=== PATIENT | male | born 1930 | race Hispanic/Latino ===

== ENCOUNTER 2016-06-14 11:17 | Observation (INO) | payer MEDICARE, OTHER ==
[2016-06-14 11:35] VITALS: BMI 21.7
[2016-06-14 12:02] LABS: ADD MANUAL DIFF? NO
--- NOTE | 2016-06-14 12:02 | ED PDOC ---
Arrival/HPI - History of Present Illness Time/Duration: Prior to Arrival, 4-6 hours Symptom Onset: Sudden Symptom Course: Improving Severity Level: Moderate - General Chief Complaint: Dizziness/Lightheaded Time Seen by Provider: 06/14/16 11:27 - History of Present Illness Narrative History of Present Illness (Text): 06/14/16 11:59 This is an 86 year old male with a PMH notable for HTN, HLD, CAD, and glaucoma presenting with acute onset dizziness and weakness. The patient notes that he woke up this morning feeling OK used the bathroom and went back to sleep. When he woke for the second time, he reports that the room was spinning and he was weak. He also reports nausea. His weakness was primarily in his lower extremities. The patient also reports that his left arm "feels funny." The patient has a known history of CAD. His gave him 4 baby aspirin this morning at 10am. The patient denies vomiting, headache, chest pain, and shortness of breath. PMH: HTN, HLD, CAD, Glaucoma Surg: Cardiac Stents x4, Total Hip L Allergy: Plavix (rash) Social: Quit smoking and drinking 15yrs ago, no illicit drugs PMD: Dr. Villegas [employer] Paint Specialist: Dr Steele (Jose Mccauley) Past Medical History - Provider Review Nursing Documentation Reviewed: Yes - Travel History Have you recently traveled outside [place] w/in the past 3 mons?: No - Infectious Disease Hx of Infectious Diseases: None - Tetanus Immunization Tetanus Immunization: Unknown - Cardiac Hx Coronary Artery Disease: Yes (stents x 4 ) Hx Hypertension: Yes - Psychiatric Hx Substance Use: No - Surgical History Hx Angioplasty: Yes Hx Joint Replacement: Yes (Left hip replacement) - Patient History Narrative Patient History: This is an 86 year old male with a PMH notable for HTN, HLD, CAD, and glaucoma presenting with acute onset dizziness and weakness. (Jose Mccauley) Family/Social History - Physician Review Nursing Documentation Reviewed: Yes Family/Social History: No Known Family HX Smoking Status: Former Smoker (quit 15 years ago) Hx Alcohol Use: No (quit 15 years ago) Hx Substance Use: No Allergies/Home Meds Allergies/Adverse Reactions: Allergies clopidogrel bisulfate [From Plavix] Allergy (Verified 06/14/16 11:36) ANAPHYLAXIS Home Medications: Home Meds Medication Instructions Recorded Confirmed Metoprolol Succinate [Toprol XL] 50 mg PO DAILY 11/17/12 06/14/16 Simvastatin 10 mg PO DAILY 06/14/16 06/14/16 Review of Systems - Physician Review All systems were reviewed & negative as marked: Yes - Review of Systems Constitutional: Fatigue. absent: Fevers Eyes: absent: Vision Changes ENT: absent: Hearing Changes, Tinnitus Respiratory: absent: SOB, Cough Cardiovascular: absent: Chest Pain, Palpitations, HEATH, Syncope Gastrointestinal: Nausea. absent: Abdominal Pain, Stool Changes, Constipation, Diarrhea, Vomiting, Hematochezia, Hematemesis Genitourinary Male: absent: Dysuria, Frequency Musculoskeletal: absent: Back Pain, Neck Pain Neurological: Dizziness, Disequilibrium. absent: Headache, Focal Weakness, Speech Changes, Facial Droop Endocrine: absent: Diaphoresis Physical Exam Vital Signs Reviewed: Yes Temperature: Afebrile Blood Pressure: Normal Pulse: Bradycardic Respiratory Rate: Normal Appearance: Positive for: Well-Appearing, Non-Toxic, Comfortable Pain Distress: None Mental Status: Positive for: Alert and Oriented X 3 Finger Stick Blood Glucose: 86 - Systems Exam Head: Present: Atraumatic, Normocephalic Pupils: Present: PERRL. No: Pinpoint Extroacular Muscles: Present: EOMI. No: Gaze Palsy Conjunctiva: Present: Normal. No: Injected Mouth: Present: Moist Mucous Membranes, Normal Tounge Respiratory/Chest: Present: Clear to Auscultation, Good Air Exchange. No: Respiratory Distress, Accessory Muscle Use Cardiovascular: Present: Murmurs (systolic ejection murmurs: aortic stenosis, mitral regurgitation likely ), Normal S1, S2, Bradycardic. No: Regular Rate and Rhythm Upper Extremity: Present: Normal Inspection, Normal ROM, NORMAL PULSES, Neurovascularly Intact, Capillary Refill < 2s. No: Cyanosis, Edema Lower Extremity: Present: Normal Inspection, NORMAL PULSES, Normal ROM, Neurovascularly Intact. No: Edema, CALF TENDERNESS, Bashir's Sign Neurological: Present: GCS=15, CN II-XII Intact Skin: Present: Warm, Dry, Normal Color. No: Rashes Psychiatric: Present: Alert, Oriented x 3 Vital Signs Temp Pulse Resp BP Pulse Ox 06/14/16 11:52 98.0 F 59 L 18 159/83 H 95 Medical Decision Making - Lab Interpretations I have reviewed the lab results: Yes Interpretation: All labs normal - RAD Interpretation Records And Information Manager: ED Physician, Radiologist ED Course and Treatment: Patient Seen With Resident: In agreement with resident note which contains more details about the patient. Patient was seen and evaluated with resident. Came up with plan and treatment together. (Marlon Riddle DO) 06/14/16 12:10 Impression: This is an 86 year old male with a PMH notable for HTN, HLD, CAD, and glaucoma presenting with acute onset dizziness and weakness. The patient appears comfortable. Baseline CHERIE score 4 and HEART score 5 prior to troponin readings. Patient's history suspicious for cardiovascular event. Patient received aspirin 81mg x4 PO around 10AM. Differential: Symptomatic Aortic Stenosis NV CVA Dehydration UTI Plan: CBC, CMP, Mag, Phos, TSH, Troponin, BNP PT, PTT EKG CXR CT Head 1L NS bolus Prior Visits: No Inpatient Admissions Progress Note: Patient seen and examined at the bedside. No acute distress. Patient will have full cardiac and neuro workup. Initial laboratory values within normal limits. The patient is pending CT head without contrast for CVA evaluation. 06/14/16 14:54 Patient seen re-examined at bedside. Minimal improvement of symptoms. CT and XR results appreciated. The patient is clinically stable. The patient will be admitted under Dr. Diallo's service. (Jose Mccauley) - Lab Interpretations Lab Results: 06/14/16 11:40 06/14/16 11:40 Lab Results 06/14/16 11:52: NT-Pro-B Natriuret Pep 456 H 06/14/16 11:40: WBC 5.1, RBC 4.00, Hgb 14.1, Hct 40.6 L, MCV 101.5, MCH 35.3 H, MCHC 34.7, RDW 13.0, Plt Count 158, MPV 10.8, Gran % 73.8 H, Lymph % (Auto) 14.5 L, Gilmer % (Auto) 7.4 H, Eos % (Auto) 4.1, Baso % (Auto) 0.2, Gran # 3.78, Lymph # 0.7 L, Gilmer # 0.4, Eos # 0.2, Baso # 0.01, PT 11.5, INR 1.06, APTT 29.6 , Sodium 135, Potassium 4.6, Chloride 100, Carbon Dioxide 27, Anion Gap 13, BUN 15, Creatinine 0.9, Est GFR ( Amer) > 60, Est GFR (Non-Af Amer) > 60, Random Glucose 108, Calcium 9.1, Phosphorus 3.7, Magnesium 2.1, Total Bilirubin 0.8, AST 26, ALT 17, Alkaline Phosphatase 50, Troponin I < 0.01, Total Protein 7.0, Albumin 3.9, Globulin 3.1, Albumin/Globulin Ratio 1.3, TSH 3rd Generation 1.39 06/14/16 11:37: POC Glucose (mg/dL) 86 - RAD Interpretation Narrative RAD Interpretations (Text): 06/14/16 12:38 HISTORY: r/o infiltrate COMPARISON: Chest x-ray performed 12/01/13 TECHNIQUE: Chest, one view. FINDINGS: LUNGS: Subtle medial right lower lobe opacity may reflect atelectasis or infiltrate. More focal hypodensity in the left mid lung zone may also reflect consolidation however prominent vasculature is not excluded. Biapical pleural thickening. Please note that chest x-ray has limited sensitivity for the detection of pulmonary masses. PLEURA: No significant pleural effusion identified. No definite pneumothorax . CARDIOVASCULAR: Heart size appears within normal limits. Atherosclerotic calcifications of the aorta. OSSEOUS STRUCTURES: Degenerative changes. VISUALIZED UPPER ABDOMEN: Unremarkable. OTHER FINDINGS: None. IMPRESSION: Subtle medial right lower lobe opacity may reflect atelectasis or infiltrate. More focal hypodensity in the left mid lung zone may also reflect consolidation however prominent vasculature is not excluded. Recommend follow-up upon completion of treatment for acute symptoms in order to assess for complete resolution. PROCEDURE: CT HEAD WITHOUT CONTRAST. HISTORY: dizziness/weakness COMPARISON: None available. TECHNIQUE: Axial computed tomography images were obtained through the head/brain without intravenous contrast. Radiation dose: Total exam DLP = 725.84 mGy-cm. FINDINGS: HEMORRHAGE: No intracranial hemorrhage. BRAIN: Diffuse atrophy with prominence of the ventricles and sulci noted. No mass effect or edema. Intracranial atherosclerotic calcifications. Encephalomalacia within the right cerebellum. Scattered periventricular and subcortical white matter hypodensities, which are nonspecific, but often seen with chronic microvascular ischemic disease. Please note that MRI with diffusion imaging is more sensitive in the detection of acute ischemic event. VENTRICLES: No hydrocephalus. CALVARIUM: Unremarkable. PARANASAL SINUSES: Unremarkable as visualized. No significant inflammatory changes. MASTOID AIR CELLS: Unremarkable as visualized. No inflammatory changes. OTHER FINDINGS: None. 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 Scattered nonspecific white matter changes. Generalized atrophy. (Jose Mccauley) Radiology Orders: 06/14/16 11:45 CHEST PORTABLE [RAD] Stat 06/14/16 11:52 HEAD W/O CONTRAST [CT] Stat - Medication Orders Current Medication Orders: Discontinued Medications Sodium Chloride (Sodium Chloride 0.9%) 1,000 mls @ 999 mls/hr IV .Q1H1M STA Stop: 06/14/16 13:40 Disposition/Present on Arrival - Present on Arrival Any Indicators Present on Arrival: No History of DVT/PE: No History of Uncontrolled Diabetes: No Urinary Catheter: No History of Decub. Ulcer: No History Surgical Site Infection Following: None - Disposition Have Diagnosis and Disposition been Completed?: Yes Disposition Time: 12:30 Patient Plan: Admission - Disposition Diagnosis: Dizziness, Weakness Disposition: HOSPITALIZED Patient Problems: Current Active Problems Problem Status Diagnosed Dizziness Acute Weakness Acute Condition: FAIR Discharge Instructions (ExitCare): Weakness (ED) Referrals: Roby Villegas MD [Primary Care Provider] - Follow up with primary
[2016-06-14 12:07] LABS: BASO # 0.01 K/mm3 (0.0-2.0); BASO % 0.2 % (0.0-3.0); EOS # 0.2 (0.0-0.7); EOS % 4.1 % (1.5-5.0); GRAN # 3.78 (1.4-6.5); GRAN % 73.8 % (50.0-68.0); HEMATOCRIT 40.6 % (42.0-52.0); LYMPH # 0.7 (1.2-3.4); LYMPH % 14.5 % (22.0-35.0); MEAN CELL VOLUME 101.5 fL (80.0-105.0); MEAN CORPUSCULAR HEMOGLOBIN 35.3 pg (25.0-35.0); MEAN CORPUSCULAR HGB CONC 34.7 g/dl (31.0-37.0); MEAN PLATELET VOLUME 10.8 fl (7.0-11.0); MONO # 0.4 (0.1-0.6); MONO % 7.4 % (1.0-6.0); PLATELET COUNT 158 10^3/uL (120.0-450.0); WHITE BLOOD COUNT 5.1 10^3/ul (4.5-11.0)
[2016-06-14 12:16] LABS: ALB/GLOB RATIO 1.3 (1.1-1.8); ALKALINE PHOSPHATASE 50 U/L (38-133); ALT/SGPT 17 U/L (7-56); AST/SGOT 26 U/L (15-59); BILIRUBIN,TOTAL 0.8 mg/dL (0.2-1.3); BLOOD UREA NITROGEN 15 mg/dL (7-21); CALCIUM 9.1 mg/dL (8.4-10.5); CARBON DIOXIDE 27 mmol/L (21-33); CHLORIDE 100 mmol/L (98-107); GFR AFRICAN-AMERICAN > 60; GLUCOSE,RANDOM 108 mg/dL (70-110); MAGNESIUM 2.1 mg/dL (1.7-2.2); PHOSPHOROUS 3.7 mg/dL (2.5-4.5); POTASSIUM 4.6 mmol/L (3.6-5.0); SODIUM 135 mmol/L (132-148)
[2016-06-14 12:18] LABS: INR 1.06 (0.93-1.08); PARTIAL THROMBOPLASTIN TIME 29.6 Seconds (23.7-30.8)
[2016-06-14 12:27] LABS: TROPONIN I < 0.01 ng/mL
--- NOTE | 2016-06-14 12:38 | RAD ---
HISTORY: r/o infiltrate COMPARISON: Chest x-ray performed 12/01/13 TECHNIQUE: Chest, one view. FINDINGS: LUNGS: Subtle medial right lower lobe opacity may reflect atelectasis or infiltrate. More focal hypodensity in the left mid lung zone may also reflect consolidation however prominent vasculature is not excluded. Biapical pleural thickening. Please note that chest x-ray has limited sensitivity for the detection of pulmonary masses. PLEURA: No significant pleural effusion identified. No definite pneumothorax . CARDIOVASCULAR: Heart size appears within normal limits. Atherosclerotic calcifications of the aorta. OSSEOUS STRUCTURES: Degenerative changes. VISUALIZED UPPER ABDOMEN: Unremarkable. OTHER FINDINGS: None. IMPRESSION: Subtle medial right lower lobe opacity may reflect atelectasis or infiltrate. More focal hypodensity in the left mid lung zone may also reflect consolidation however prominent vasculature is not excluded. Recommend follow-up upon completion of treatment for acute symptoms in order to assess for complete resolution.
[2016-06-14] MEDS ORDERED: Sodium Chloride 0.9% 1,000 ML IV STA (12:40)
--- NOTE | 2016-06-14 13:29 | CT ---
PROCEDURE: CT HEAD WITHOUT CONTRAST. HISTORY: dizziness/weakness COMPARISON: None available. TECHNIQUE: Axial computed tomography images were obtained through the head/brain without intravenous contrast. Radiation dose: Total exam DLP = 725.84 mGy-cm. FINDINGS: HEMORRHAGE: No intracranial hemorrhage. BRAIN: Diffuse atrophy with prominence of the ventricles and sulci noted. No mass effect or edema. Intracranial atherosclerotic calcifications. Encephalomalacia within the right cerebellum. Scattered periventricular and subcortical white matter hypodensities, which are nonspecific, but often seen with chronic microvascular ischemic disease. Please note that MRI with diffusion imaging is more sensitive in the detection of acute ischemic event. VENTRICLES: No hydrocephalus. CALVARIUM: Unremarkable. PARANASAL SINUSES: Unremarkable as visualized. No significant inflammatory changes. MASTOID AIR CELLS: Unremarkable as visualized. No inflammatory changes. OTHER FINDINGS: None. 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 Scattered nonspecific white matter changes. Generalized atrophy.
[2016-06-14 15:38] LABS: PH,URINE 6.5 (4.7-8.0); URINE BILIRUBIN NEGATIVE (NEGATIVE); URINE BLOOD LARGE (NEGATIVE); URINE GLUCOSE (UA) NEGATIVE (NEGATIVE); URINE KETONE NEGATIVE (NEGATIVE); URINE LEUKOCYTE ESTERASE NEGATIVE Leu/uL (NEGATIVE); URINE PROTEIN NEGATIVE mg/dL (<30 mg/dL); URINE UROBILINOGEN 0.2 E.U./dL (<1 E.U./dL)
[2016-06-14 15:41] LABS: URINE APPEARANCE CLEAR (CLEAR); URINE COLOR YELLOW (YELLOW)
[2016-06-14 16:47] LABS: URINE BACTERIA FEW (NEG); URINE EPITHELIAL CELLS 0 - 2 /hpf (0-5); URINE RBC 15 - 20 /hpf (0-2); URINE WBC 0 - 2 /hpf (0-6)
[2016-06-14] MEDS ORDERED: Sodium Chloride 0.45% 1,000 ML IV SCH (19:00)
--- NOTE | 2016-06-15 09:43 | CARD ---
APPROVED REPORT EKG Measurement Heart [id number] <Conclusion> Sinus bradycardia with 1st degree AV block Left anterior fascicular block RVCD
[2016-06-15] MEDS ORDERED: Metoprolol Succinate 50 mg XL Tab PO SCH (10:00)
--- NOTE | 2016-06-15 12:08 | HP ---
CHIEF COMPLAINT AND HISTORY OF PRESENT ILLNESS: This is an 86-year-old male who is coming into the [facility] with a past medical history of hypertension, dyslipidemia, coronary artery disease and glauco ma. He was having dizziness and weakness. The patient said he had woken up out of bed in the mornin g and gone to the bathroom. He decided to go back to sleep. When he woke up a second time he says t hat the room was spinning. He says he had a funny feeling in his left arm. The patient was given as pirin by his and brought in for further evaluation. The patient denies any chest pain or headac hes. No shortness of breath. No weakness in the arms or legs this morning. No abdominal pain, no b ack pain, no dysuria or frequency, no nocturia. He says his symptoms are back to normal. ALLERGIES: PLAVIX. HE GETS A RASH. PAST MEDICAL HISTORY: 1. Hypertension. 2. Dyslipidemia. 3. Coronary artery disease. 4. Glaucoma after the coronary right stent placement. PAST SURGICAL HISTORY: Total left hip surgery. SOCIAL HISTORY: He smoked, but quit about 15 years ago. He denies any drug use. FAMILY HISTORY: Noncontributory. PHYSICAL EXAMINATION: VITAL SIGNS: She has a temperature of 97.7, pulse of 70, blood pressure 143/72, respirations 17, O2 saturation 92%. Height is 6 feet, weight is 160 pounds, BMI is 21.7. GENERAL: Patient lying in bed, flat, and in no apparent distress. HEAD AND NECK EXAM: Atraumatic, normocephalic. Conjunctivae are pink. Throat clear and mouth with moist mucosa. Oropharynx benign. EYES: Extraocular movements are intact. PERRLA. NECK: Supple. No JVD, thyromegaly, or adenopathy. No bruits. HEART: S1 and S2 regular rate and rhythm. No murmurs, rubs, or gallops. LUNGS: Clear to auscultation bilaterally. No wheezing rales or rhonchi appreciated. No retraction s on exam. ABDOMEN: Soft, nontender, nondistended. Bowel sounds are positive in all quadrants. No rebound. No hepatosplenomegaly. EXTREMITIES: No cyanosis, clubbing, or edema. NEURO: No facial asymmetry, tongue is midline, no uvula deviation. Power is 5/5 in upper extremity and 5/5 in lower extremity. Sensation is normal in upper extremity and lower extremity. PSYCH: Awake, alert, oriented x3. No anxiety or depression symptoms. Good insight. Normal affec t. : No CVA tenderness VASCULAR: 2+ pulses in carotid and pedal pulses. SKIN: No erythema or abnormal nodules noted. SPINE: Normal curvature. LYMPHADENOPATHY: No anterior cervical or posterior cervical adenopathy. No inguinal adenopathy. LABORATORY DATA: White count of 5.1, hemoglobin 14.1, platelet count is 158. INR is 1.0. Creatinin e is 0.9, troponin is 0.01. He has blood that is large, nitrites are negative, bilirubin is negative . IMAGIN. CT of the head done shows encephalomalacia with right cerebellum consistent with remote ischemia. 2. EKG shows a heart rate of 56, sinus nuvia. QTc is 436. No ST-T changes. 3. Chest x-ray done shows subtle medial right lower lobe opacity, may reflect atelectasis. ASSESSMENT: 1. Dizziness. 2. Hypertension. 3. Coronary artery disease. 4. Dyslipidemia. PLAN: The patient is currently comfortable. He is going to be admitted to the hospital. The patien t is going to be seen by Dr. Steele and Dr. Nicole. The patient was given IV fluids. I will discont inue his IV fluids at this point. He is on his Lipitor, this will be continued. He is also going to be continuing on his metoprolol. He is on a heart healthy diet. We will await further input from t he consultants. If they clear the patient the patient should be able to be discharged home to follow up as an outpatient. CONDITION: Stable. ACTIVITY: Increase as tolerated. Iftikhar Arellano MD cc: [id number] TT: 06/15/2016 12:07:55 ok
--- NOTE | 2016-06-15 13:49 | CON ---
DATE: 06/15/2016 The patient in room 378, bed 1. REASON FOR CONSULTATION AND FOLLOWUP: Coronary artery disease, history of stent insertion, vertigo, hypertension, near syncope. HISTORY OF PRESENT ILLNESS: The patient is an 86-year-old male with a known case of hypertension, co ronary artery disease status post 4 stents insertion in 2007, admitted with the history that he was h aving vertigo-like symptoms. The patient felt that the room and roof are spinning around and also he was having nausea associated with that and he felt that he was going to fall down, but he did not fa ll down. The patient is now sitting in chair comfortably without any cardiac symptoms and his vertig o symptoms have also improved now and there is no history of chest pain, shortness of breath or palpi tation. PAST MEDICAL HISTORY: Positive for coronary artery disease, status post stents insertion in 2001 at [facility], history of hypertension, glaucoma. PAST SURGICAL HISTORY: The patient had a left hip replacement and after replacement he has twice mor e surgery on the same hip. PERSONAL HISTORY: The patient used to smoke 1 pack a day until 2001. The patient used to drink heav y at a younger age, but he also will stopped drinking and smoking in 2001. Now he drinks only social ly. ALLERGIES: THE PATIENT SAYS THAT HE IS ALLERGIC TO PLAVIX BECAUSE HE GETS A RASH. REVIEW OF SYSTEMS: All the systems were reviewed; positive mentioned in the history, others were neg ative. MEDICATIONS: The patient's list of medication at home is Toprol-XL 50 mg p.o. daily, simvastatin 10 mg p.o. daily. PHYSICAL EXAMINATION: VITAL SIGNS: Blood pressure 143/72, respirations 17, pulse 70, temperature 97.7. HEAD: Normocephalic. EYES: Pupils normal. Conjunctivae normal. NOSE AND THROAT: Normal. NECK: JVP low. Carotid equal. THORAX: AP diameter normal. LUNGS: Clear. CARDIOVASCULAR: S1, S2, pansystolic murmur grade III/ on apex radiating towards axilla with no rub . ABDOMEN: Soft, nontender, no organomegaly. EXTREMITIES: No clubbing, no cyanosis. LABORATORY DATA: WBC 5.1, hemoglobin 14.1, hematocrit 40.6, platelet 158. Troponin less than 0.01, which is normal and natriuretic pep 456, which is not significant. TSH 1.39, which is normal. Sodium 135, potassium 4.6, BUN 15, creatinine 0.9. Calcium, phosphorus, magnesium normal. AST, ALT normal. Total protein and albumin normal. EKG showed sinus bradycardia at 56 per minute, first-degree AV block, left anterior fascicular block, RVCD of type. Chest x-ray: Septal medial right lower lobe opacity may reflect atelectasis or infiltrate. More focal hypodensity in the left mid lung zone may also reflect consolidation, howeve r, prominent vasculature is not excluded. Recommend followup. DIAGNOSES: Vertigo, near syncope, hypertension, coronary artery disease, history of stents insertion in 2007, hyperlipidemia. PLAN: The patient is getting atorvastatin 10 mg daily. The patient is getting Toprol-XL [address] The patient's symptoms of vertigo have improved. From cardiac point of view, patient's conditio n is stable. We will continue same medication and no further cardiac workup is contemplated at this point. We will follow with you. Ankur Steele MD cc: [id number] TT: 06/15/2016 13:48:34 Confirmation # [id number] Dictation # [id number] mn
[2016-06-15 18:26] VITALS: PULSE 50
[2016-06-15 18:44] VITALS: BP 150/83; RESP 18; TEMP 97.8; O2SAT 96
--- NOTE | 2016-06-15 19:13 | CON ---
DATE: 06/15/2016 HISTORY OF PRESENT ILLNESS: This is an 86-year-old white male with past medical history of hypertens ion, coronary artery disease and came to the hospital because of dizziness with a spinning sensation. No nausea, no vomiting. The patient did not fall, and now feels comfortable. Symptoms disappeared . PAST MEDICAL HISTORY: Coronary artery disease, hypertension and glaucoma. PAST SURGICAL HISTORY: Left hip replacement. PERSONAL HISTORY: Smokes, ex-drinking. ALLERGIES: PLAVIX. REVIEW OF SYSTEMS: A 10-point review of system was negative. PHYSICAL EXAMINATION: HEENT: Normocephalic, atraumatic. NECK: Supple. NEUROLOGIC: Alert, awake, oriented x 3. No aphasia. Cranial nerves II through XII were tested. Pu pils reactive. EOM intact. Spontaneous movement of the extremities noted. Deep tendon reflexes 1+. Both plantars are downgoing. Sensory appears intact. Cerebellar, gait normal. IMPRESSION: Dizziness, possibly benign positional. CAT scan of the head was done and showed encepha lomalacia of the right cerebellum. Workup in progress. PLAN: Continue present management. We will follow up. Doni Nicole MD cc: [id number] TT: 06/15/2016 19:12:17 Confirmation # [id number] Dictation # [id number]
== END 2016-06-15 18:45 | disposition home or self-care (01) ==
LOC: ED 11:17 → ERH 14:56 → 3RSO 18:28
PROVIDERS: ADMIT Internal Medicine Medical Oncology; ATTEND Internal Medicine Nephrology
DX: R55 Syncope and collapse (principal); R42 Dizziness and giddiness; I10 Essential (primary) hypertension; I25.10 Atherosclerotic heart disease of native coronary artery without angina pectoris; E78.5 Hyperlipidemia, unspecified; H40.9 Unspecified glaucoma; G93.89 Other specified disorders of brain; Z95.5 Presence of coronary angioplasty implant and graft; Z87.891 Personal history of nicotine dependence; Z96.642 Presence of left artificial hip joint
CPT/HCPCS: 70450; 71010; 80053; 81001; 82948; 83735; 83880; 84100; 84443; 84484; 85025; 85610; 85730; 87086; 93005; 96360; 97116; 97162; 97530; 99285; G0378; G8978; G8979; J7030; J7040

== ENCOUNTER 2017-06-30 12:44 | Inpatient (IN) | payer MEDICARE ==
--- NOTE | 2017-06-30 13:26 | ED PDOC ---
Arrival/HPI - General Chief Complaint: Weakness/Neurological Deficit Time Seen by Provider: 06/30/17 12:55 Historian: Patient - History of Present Illness Narrative History of Present Illness (Text): 06/30/17 13:12 A 87 year old male, who was recently diagnosed with lung and kidney cancer, presents to the emergency department complaining of fever and chills since last night. Patient reports he was at [facility] last week for a biopsy of his kidney, however experienced multiple complication and was admitted for 1 week. 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 Patient had a stent placed in left ureter and instrumented several times while in the hospital. Patient had a cr catheter placed in for 1 month and removed yesterday. Patient denies any nausea, vomiting, abdominal pain, hematuria, chest pain, shortness of breath or any other complaints. Patient also reports new lesions in left lung (most likely left lower lobe) which has been confirmed with a PET scan and notes a CT guided biopsy is needed. Patient states this is not related to urothelial cancer but instead a second primary. Time/Duration: Other (last night) Symptom Course: Unchanged Context: Home Past Medical History - Provider Review Nursing Documentation Reviewed: Yes - Infectious Disease Hx of Infectious Diseases: None - Tetanus Immunization Tetanus Immunization: Unknown - Cardiac Hx Hypertension: Yes - Pulmonary Hx Respiratory Disorders: Yes Other/Comment: Lung CA - Neurological Hx Neurological Disorder: No - HEENT Hx Glaucoma: Yes - Renal Hx Renal Disorder: Yes Other/Comment: Kidney CA - Musculoskeletal/Rheumatological Hx Falls: No - Gastrointestinal Hx Gastrointestinal Disorders: No - Genitourinary/Gynecological Hx Genitourinary Disorders: Yes Other/Comment: Past urinary cath removed yesterday. 06/29/2017 - Psychiatric Hx Substance Use: No - Surgical History Hx Angioplasty: Yes Hx Joint Replacement: Yes (Left hip replacement) Family/Social History - Physician Review Nursing Documentation Reviewed: Yes Family/Social History: No Known Family HX Smoking Status: Former Smoker Hx Alcohol Use: No Hx Substance Use: No Allergies/Home Meds Allergies/Adverse Reactions: Allergies clopidogrel bisulfate [From Plavix] Allergy (Verified 06/30/17 13:10) ANAPHYLAXIS Home Medications: Home Meds Medication Instructions Recorded Confirmed Unobtainable 06/30/17 06/30/17 Review of Systems - Physician Review All systems were reviewed & negative as marked: Yes - Review of Systems Constitutional: Fevers, Night Sweats Respiratory: absent: SOB Cardiovascular: absent: Chest Pain Gastrointestinal: absent: Abdominal Pain, Nausea, Vomiting Genitourinary Male: absent: Hematuria Physical Exam Vital Signs Temp Pulse Resp BP Pulse Ox 06/30/17 19:11 103.3 F H 06/30/17 15:28 80 20 116/52 L 96 06/30/17 13:12 98.9 F 94 H 16 132/75 93 L Appearance: Positive for: Well-Appearing, Non-Toxic, Comfortable Pain Distress: None Mental Status: Positive for: Alert and Oriented X 3 - Systems Exam Head: Present: Atraumatic, Normocephalic Pupils: Present: PERRL Extroacular Muscles: Present: EOMI Conjunctiva: Present: Normal Mouth: Present: Moist Mucous Membranes Neck: Present: Normal Range of Motion Respiratory/Chest: Present: Clear to Auscultation, Good Air Exchange. No: Respiratory Distress, Accessory Muscle Use Cardiovascular: Present: Regular Rate and Rhythm, Normal S1, S2. No: Murmurs Abdomen: No: Tenderness, Distention, Peritoneal Signs Upper Extremity: Present: Normal Inspection. No: Cyanosis, Edema Lower Extremity: Present: Normal Inspection. No: Edema Neurological: Present: GCS=15, CN II-XII Intact, Speech Normal Skin: Present: Warm, Dry, Normal Color. No: Rashes Psychiatric: Present: Alert, Oriented x 3, Normal Insight, Normal Concentration Medical Decision Making ED Course and Treatment: 06/30/17 13:12 Impression: A 87 year old male, with a history of urothelial cancer, complaining of fever and chills. Plan: -- Chest xray -- EKG -- Labs -- Blood and Urine culture -- Urinalysis -- IV fluids, Vancomycin and Zosyn -- Reassess and disposition Progress Notes: Case discussed with Dr. Khalil, requests a full septic workup and recommends Vancomycin and Zosyn. - Medication Orders Current Medication Orders: Discontinued Medications Acetaminophen (Tylenol 325mg Tab) 650 mg PO STAT STA Stop: 06/30/17 19:04 Last Admin: 06/30/17 19:11 Dose: 650 mg MAR Pain/Vitals Document 06/30/17 19:11 (Rec: 06/30/17 19:11 [facility] [id number] Pain Reassessment Is This A Pain ReAssessment? No Vitals Temperature (97.6 F-99.6 F) 103.3 F Temperature Source Rectal Sodium Chloride (Sodium Chloride 0.9%) 1,000 mls @ 999 mls/hr IV .Q1H1M STA Stop: 06/30/17 14:57 Last Admin: 06/30/17 14:58 Dose: 999 mls/hr eMAR Start Stop Document 06/30/17 14:58 LA (Rec: 06/30/17 14:59 LA [id number]) Intravenous Solution Start Date 06/30/17 Start Time 14:58 End Date 06/30/17 End time 15:59 Total Infusion Time 61 Vancomycin HCl (Vancomycin 1gm) 1 gm in 250 mls @ 167 mls/hr IVPB STAT STA PRN Reason: Protocol Stop: 06/30/17 15:26 Last Admin: 06/30/17 16:09 Dose: 167 mls/hr eMAR Start Stop Document 06/30/17 16:09 LA (Rec: 06/30/17 16:10 LA [id number]) Intravenous Solution Start Date 06/30/17 Start Time 16:09 End Date 06/30/17 End time 17:39 Total Infusion Time 90 Piperacillin Sod/Tazobactam Sod (Zosyn 3.375 In Ns 100ml) 100 mls @ 200 mls/hr IVPB STAT STA PRN Reason: Protocol Stop: 06/30/17 14:26 Last Admin: 06/30/17 14:57 Dose: 200 mls/hr eMAR Start Stop Document 06/30/17 14:57 LA (Rec: 06/30/17 14:58 LA [id number]) Intravenous Solution Start Date 06/30/17 Start Time 14:57 End Date 06/30/17 End time 15:27 Total Infusion Time 30 - Scribe Statement The provider has reviewed the documentation as recorded by the Luis Damon Provider Scribe Attestation: All medical record entries made by the Scribe were at my direction and personally dictated by me. I have reviewed the chart and agree that the record accurately reflects my personal performance of the history, physical exam, medical decision making, and the department course for this patient. I have also personally directed, reviewed, and agree with the discharge instructions and disposition. Disposition/Present on Arrival - Present on Arrival Any Indicators Present on Arrival: Yes History of DVT/PE: No History of Uncontrolled Diabetes: No Urinary Catheter: No History of Decub. Ulcer: No History Surgical Site Infection Following: CABG - Mediastinitis - Disposition Have Diagnosis and Disposition been Completed?: Yes Diagnosis: Fever, UTI (urinary tract infection) Disposition: HOME/ ROUTINE Disposition Time: 17:00 Patient Plan: Admission Condition: GOOD
[2017-06-30] MEDS ORDERED: Sodium Chloride 0.9% 1,000 ML IV STA (13:57)
[2017-06-30] MEDS ORDERED: Vancomycin 1gm in NS 250ml 1 GM/250 ML BAG IVPB STA (13:57)
[2017-06-30] MEDS ORDERED: Piperacillin/Tazobact 3.375 gm 100 ML IVPB STA (13:57)
[2017-06-30 15:28] LABS: VENOUS BLOOD GAS BASE EXCESS 2.1 mmol/L (0.0-2.0); VENOUS BLOOD GAS PO2 55 mm/Hg (30-55); VENOUS BLOOD PH 7.47 (7.32-7.43)
[2017-06-30 15:29] LABS: BASO # 0.02 K/mm3 (0.0-2.0); BASO % 0.2 % (0.0-3.0); EOS % 0.2 % (1.5-5.0); GRAN # 11.72 (1.4-6.5); HEMOGLOBIN 12.7 g/dL (14.0-18.0); LYMPH # 0.3 (1.2-3.4); LYMPH % 2.5 % (22.0-35.0); MEAN CELL VOLUME 99.7 fl (80.0-105.0); MEAN CORPUSCULAR HEMOGLOBIN 34.6 pg (25.0-35.0); MEAN CORPUSCULAR HGB CONC 34.7 g/dl (31.0-37.0); MEAN PLATELET VOLUME 10.9 fl (7.0-11.0); MONO # 0.9 (0.1-0.6); MONO % 7.1 % (1.0-6.0); PLATELET COUNT 134 10^3/uL (120.0-450.0); RBC 3.67 10^6/uL (3.5-6.1); RED CELL DISTRIBUTION WIDTH 13.3 % (11.5-14.5)
[2017-06-30 15:38] LABS: URINE APPEARANCE TURBID (CLEAR); URINE BILIRUBIN NEGATIVE (NEGATIVE); URINE BLOOD LARGE (NEGATIVE); URINE COLOR YELLOW (YELLOW); URINE GLUCOSE (UA) NEGATIVE (NEGATIVE); URINE LEUKOCYTE ESTERASE LARGE Leu/uL (NEGATIVE); URINE PROTEIN 30 mg/dL (<30 mg/dL); URINE UROBILINOGEN 0.2 E.U./dL (<1 E.U./dL)
[2017-06-30 15:39] LABS: INR 1.2 (0.93-1.08); PROTHROMBIN TIME 13.7 SECONDS (9.4-12.5)
[2017-06-30 15:40] LABS: ALB/GLOB RATIO 1.2 (1.1-1.8); ALBUMIN 3.6 g/dL (3.0-4.8); ALT/SGPT 21 U/L (7-56); AST/SGOT 24 U/L (17-59); BLOOD UREA NITROGEN 17 mg/dL (7-21); CALCIUM 9.4 mg/dL (8.4-10.5); GFR AFRICAN-AMERICAN > 60; GFR NON-AFRICAN AMERICAN > 60
[2017-06-30 15:43] LABS: URINE BACTERIA MANY (NEG); URINE WBC TNTC /hpf (0-6)
[2017-06-30 15:50] LABS: TROPONIN I < 0.01 ng/mL
[2017-06-30 15:54] LABS: ATYPICAL LYMPHOCYTE 2 % (0.0-0.0); LYMPHOCYTE 2 % (22.0-35.0); MONOCYTE 3 % (1.0-6.0); NEUTROPHIL 93 % (50.0-70.0); PLATELET ESTIMATE NORMAL (NORMAL)
--- NOTE | 2017-06-30 19:04 | CP.PCM.PN ---
Subjective - Date & Time of Evaluation Date of Evaluation: 06/30/17 Time of Evaluation: 19:03 - Subjective Subjective: Nurse calls to get an order for tylenol for Temp 103.3*F. Patient was evaluated for shaking uncontrollably. No history of epilepsy,DM, he has had indwelling Lowery catheter for one month which was recently removed. This 87 year old white male was admitted with Has PMH of renal cancer,lung cancer,HTN,dyslipidemia, CAD,glaucoma,left hip replacement. Objective - Vital Signs/Intake and Output Vital Signs (last 24 hours): Temp Pulse Resp BP Pulse Ox 98.9 F 80 20 116/52 L 96 06/30/17 13:12 06/30/17 15:28 06/30/17 15:28 06/30/17 15:28 06/30/17 15:28 - Labs Labs: 06/30/17 14:40 06/30/17 14:40 PT 13.7 SECONDS (9.4-12.5) H 06/30/17 14:40 INR 1.20 (0.93-1.08) H 06/30/17 14:40 Most Recent Lab Values WBC 13.0 10^3/ul (4.5-11.0) H D 06/30/17 14:40 RBC 3.67 10^6/uL (3.5-6.1) 06/30/17 14:40 Hgb 12.7 g/dL (14.0-18.0) L 06/30/17 14:40 Hct 36.6 % (42.0-52.0) L 06/30/17 14:40 MCV 99.7 fl (80.0-105.0) 06/30/17 14:40 MCH 34.6 pg (25.0-35.0) 06/30/17 14:40 MCHC 34.7 g/dl (31.0-37.0) 06/30/17 14:40 RDW 13.3 % (11.5-14.5) 06/30/17 14:40 Plt Count 134 10^3/uL (120.0-450.0) 06/30/17 14:40 MPV 10.9 fl (7.0-11.0) 06/30/17 14:40 Gran % 90.0 % (50.0-68.0) H 06/30/17 14:40 Lymph % (Auto) 2.5 % (22.0-35.0) L 06/30/17 14:40 [place] % (Auto) 7.1 % (1.0-6.0) H 06/30/17 14:40 Eos % (Auto) 0.2 % (1.5-5.0) L 06/30/17 14:40 Baso % (Auto) 0.2 % (0.0-3.0) 06/30/17 14:40 Gran # 11.72 (1.4-6.5) H 06/30/17 14:40 Lymph # (Auto) 0.3 (1.2-3.4) L 06/30/17 14:40 [place] # (Auto) 0.9 (0.1-0.6) H 06/30/17 14:40 Eos # (Auto) 0.0 (0.0-0.7) 06/30/17 14:40 Baso # (Auto) 0.02 K/mm3 (0.0-2.0) 06/30/17 14:40 Neutrophils % (Manual) 93 % (50.0-70.0) H 06/30/17 14:40 Lymphocytes % (Manual) 2 % (22.0-35.0) L 06/30/17 14:40 Atypical Lymphs % 2 % (0.0-0.0) H 06/30/17 14:40 Monocytes % (Manual) 3 % (1.0-6.0) 06/30/17 14:40 Platelet Evaluation Normal (NORMAL) 06/30/17 14:40 PT 13.7 SECONDS (9.4-12.5) H 06/30/17 14:40 INR 1.20 (0.93-1.08) H 06/30/17 14:40 pO2 55 mm/Hg (30-55) 06/30/17 14:40 VBG pH 7.47 (7.32-7.43) H 06/30/17 14:40 VBG pCO2 35.0 (40-60) L 06/30/17 14:40 VBG HCO3 25.5 mmol/l (21-28) 06/30/17 14:40 VBG Total CO2 26.6 mmol.L (22-28) 06/30/17 14:40 VBG O2 Sat (Calc) 94.3 % (40-65) H 06/30/17 14:40 VBG Base Excess 2.1 mmol/L (0.0-2.0) H 06/30/17 14:40 VBG Potassium 3.9 mmol/L (3.6-5.2) 06/30/17 14:40 Sodium 131.0 mmol/L (132-148) L 06/30/17 14:40 Chloride 99.0 mmol/L (98-107) 06/30/17 14:40 Glucose 165 mg/dl (75-110) H 06/30/17 14:40 Lactate 1.8 mmol/L (0.7-2.1) 06/30/17 14:40 FiO2 21.0 % 06/30/17 14:40 Sodium 133 mmol/L (132-148) 06/30/17 14:40 Potassium 3.8 mmol/L (3.6-5.0) 06/30/17 14:40 Chloride 99 mmol/L (98-107) 06/30/17 14:40 Carbon Dioxide 23 mmol/L (21-33) 06/30/17 14:40 Anion Gap 15 (10-20) 06/30/17 14:40 BUN 17 mg/dL (7-21) 06/30/17 14:40 Creatinine 0.9 mg/dl (0.8-1.5) 06/30/17 14:40 Est GFR ( Amer) > 60 06/30/17 14:40 Est GFR (Non-Af Amer) > 60 06/30/17 14:40 Random Glucose 147 mg/dL (70-110) H 06/30/17 14:40 Calcium 9.4 mg/dL (8.4-10.5) 06/30/17 14:40 Total Bilirubin 0.9 mg/dL (0.2-1.3) 06/30/17 14:40 AST 24 U/L (17-59) 06/30/17 14:40 ALT 21 U/L (7-56) 06/30/17 14:40 Alkaline Phosphatase 57 U/L (38-126) 06/30/17 14:40 Lactate Dehydrogenase 267 U/L (333-699) L 06/30/17 14:40 Total Creatine Kinase 44 U/L (35-230) 06/30/17 14:40 Troponin I < 0.01 ng/mL 06/30/17 14:40 Total Protein 6.6 g/dL (5.8-8.3) 06/30/17 14:40 Albumin 3.6 g/dL (3.0-4.8) 06/30/17 14:40 Globulin 3.0 gm/dL 06/30/17 14:40 Albumin/Globulin Ratio 1.2 (1.1-1.8) 06/30/17 14:40 Venous Blood Potassium 3.9 mmol/L (3.6-5.2) 06/30/17 14:40 Urine Color Yellow (YELLOW) 06/30/17 15:07 Urine Appearance Turbid (CLEAR) 06/30/17 15:07 Urine pH 6.0 (4.7-8.0) 06/30/17 15:07 Ur Specific [place] 1.020 (1.005-1.035) 06/30/17 15:07 Urine Protein 30 mg/dL (<30 mg/dL) H 06/30/17 15:07 Urine Glucose (UA) Negative mg/dL (NEGATIVE) 06/30/17 15:07 Urine Ketones Trace mg/dL (NEGATIVE) H 06/30/17 15:07 Urine Blood Large (NEGATIVE) H 06/30/17 15:07 Urine Nitrate Positive (NEGATIVE) H 06/30/17 15:07 Urine Bilirubin Negative (NEGATIVE) 06/30/17 15:07 Urine Urobilinogen 0.2 E.U./dL (<1 E.U./dL) 06/30/17 15:07 Ur Leukocyte Esterase Large Gopi/uL (NEGATIVE) H 06/30/17 15:07 Urine RBC 5 - 10 /hpf (0-2) 06/30/17 15:07 Urine WBC Tntc /hpf (0-6) 06/30/17 15:07 Ur Epithelial Cells 3 - 4 /hpf (0-5) 06/30/17 15:07 Urine Bacteria Many (NEG) 06/30/17 15:07 - Constitutional Appears: Well, No Acute Distress - Head Exam Head Exam: ATRAUMATIC, NORMAL INSPECTION, NORMOCEPHALIC - Eye Exam Eye Exam: Normal appearance - ENT Exam ENT Exam: Normal External Ear Exam - Neck Exam Neck Exam: Normal Inspection - Respiratory Exam Respiratory Exam: NORMAL BREATHING PATTERN - Cardiovascular Exam Cardiovascular Exam: absent: JVD - GI/Abdominal Exam GI & Abdominal Exam: absent: Distended - Rectal Exam Rectal Exam: Deferred - Exam Additional comments: Deferred. - Extremities Exam Extremities Exam: Normal Inspection - Back Exam Back Exam: NORMAL INSPECTION - Neurological Exam Neurological Exam: Alert, Awake, Oriented x3 - Psychiatric Exam Psychiatric exam: Normal Affect, Normal Mood - Skin Skin Exam: Normal Color Assessment and Plan - Assessment and Plan (Free Text) Assessment: Shaking 2*to Fever 2* to UTI, cancer. UTI -Recent indwelling catheter. Renal cancer. Lung lesions. HTN. Dyslipidemia. CAD. Glaucoma. Leukocytosis. Borderline anemia. Granulocytosis. Plan: Tylenol 650 mg po stat. Hypothermic blanket prn. Septic work up. ID consult. Management as per PMD.
--- NOTE | 2017-06-30 20:51 | CARD ---
APPROVED REPORT EKG Measurement Heart [id number] <Conclusion> Sinus rhythm with 1st degree AV block with premature atrial complexes Left anterior fascicular block Abnormal ECG
--- NOTE | 2017-06-30 21:01 | CP.PCM.HP ---
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 As per pt and , he was recently at [facility] (also has Onc f/u there) for renal biopsy, and due to other complications, was there as inpt for ~1 wk. Received a urethral stent and instrumentation multiple times while at [place], and was discharged with the cr. Went to his Urologist's yesterday for scheduled appointment, at which time the cr was removed. This AM, he began developing shaking chills, and subjective fevers. Multiple episodes of urination since, painful but not bloody, low volumes per urination. Also of note, patient was recently found to have lesion in lung, suspicious for new primary malignancy. Denies chest pain, shortness of breath, nausea, emesis, hemoptysis, diarrhea, focal weakness, penile discharge/ bleeding. All other ROS in 12-system review negative. PMH: as above PSH: Ureteral stent, Renal Bx, L hip replacement Fam Hx: non-contributory Soc Hx: Former tobacco user (~1ppd > 20 yrs, quit > 15 yrs ago), denies alcohol/ illicits/IVDA PMD: Dr. Khalil Present on Admission - Present on Admission Any Indicators Present on Admission: No History of DVT/PE: No History of Uncontrolled Diabetes: No Urinary Catheter: No (Had one for 1 month, removed yesterday) Review of Systems - Review of Systems All systems: reviewed and no additional remarkable complaints except (as per HPI ) Past Patient History - Infectious Disease Hx of Infectious Diseases: None - Tetanus Immunizations Tetanus Immunization: Unknown - Past Social History Smoking Status: Former Smoker - CARDIAC Hx Hypertension: Yes - PULMONARY Hx Respiratory Disorders: Yes Other/Comment: Lung CA - NEUROLOGICAL Hx Neurological Disorder: No - HEENT Hx Glaucoma: Yes - RENAL Hx Chronic Kidney Disease: Yes Other/Comment: Kidney CA - MUSCULOSKELETAL/RHEUMATOLOGICAL Hx Falls: No - GASTROINTESTINAL Hx Gastrointestinal Disorders: No - GENITOURINARY/GYNECOLOGICAL Hx Genitourinary Disorders: Yes Other/Comment: Past urinary cath removed yesterday. 06/29/2017 - PSYCHIATRIC Hx Substance Use: No - SURGICAL HISTORY Hx Angioplasty: Yes Hx Joint Replacement: Yes (Left hip replacement) Meds Allergies/Adverse Reactions: Allergies Allergy/AdvReac Type Severity Reaction Status Date / Time clopidogrel bisulfate Allergy ANAPHYLAXIS Verified 06/30/17 13:10 [From Plavix] Physical Exam - Constitutional Appears: Non-toxic, No Acute Distress - Head Exam Head Exam: ATRAUMATIC, NORMAL INSPECTION, NORMOCEPHALIC - Eye Exam Eye Exam: EOMI, Normal appearance. absent: Conjunctival injection, Scleral icterus Pupil Exam: absent: Irregular, Unequal - ENT Exam ENT Exam: Mucous Membranes Moist - Neck Exam Neck exam: Negative for: Thyromegaly - Respiratory Exam Respiratory Exam: Clear to Auscultation Bilateral, NORMAL BREATHING PATTERN. absent: Accessory Muscle Use, Chest Wall Tenderness, Decreased Breath Sounds, Rales, Rhonchi, Wheezes - Cardiovascular Exam Cardiovascular Exam: REGULAR RHYTHM, RRR, +S1, +S2. absent: Bradycardia, Tachycardia, Irregular Rhythm, JVD, +S4 - GI/Abdominal Exam GI & Abdominal Exam: Normal Bowel Sounds, Soft. absent: Diminished Bowel Sounds , Distended, Firm, Guarding, Hyperactive Bowel Sounds, Hypoactive Bowel Sounds, Rigid, Tenderness Additional comments: some sense of fullness in suprapubic region on palpation - Extremities Exam Extremities exam: Positive for: normal capillary refill, normal inspection, pedal pulses present. Negative for: calf tenderness, pedal edema, tenderness - Neurological Exam Neurological exam: Alert, Oriented x3 - Psychiatric Exam Psychiatric exam: Normal Affect, Normal Mood - Skin Skin Exam: Dry, Intact, Normal Color, Warm Results - Vital Signs Recent Vital Signs: Last Vital Signs Temp 103.3 F H 06/30/17 19:11 Pulse 80 06/30/17 15:28 Resp 20 06/30/17 15:28 BP 116/52 L 06/30/17 15:28 Pulse Ox 96 06/30/17 15:28 - Labs Result Diagrams: 07/01/17 05:30 07/01/17 05:30 Labs: Laboratory Results - last 24 hr 06/30/17 06/30/17 06/30/17 14:40 14:40 14:40 WBC 13.0 H D RBC 3.67 Hgb 12.7 L Hct 36.6 L MCV 99.7 MCH 34.6 MCHC 34.7 RDW 13.3 Plt Count 134 MPV 10.9 Gran % 90.0 H Lymph % (Auto) 2.5 L [place] % (Auto) 7.1 H Eos % (Auto) 0.2 L Baso % (Auto) 0.2 Gran # 11.72 H Lymph # (Auto) 0.3 L [place] # (Auto) 0.9 H Eos # (Auto) 0.0 Baso # (Auto) 0.02 Neutrophils % (Manual) 93 H Lymphocytes % (Manual) 2 L Atypical Lymphs % 2 H Monocytes % (Manual) 3 Platelet Evaluation Normal PT 13.7 H INR 1.20 H pO2 55 VBG pH 7.47 H VBG pCO2 35.0 L VBG HCO3 25.5 VBG Total CO2 26.6 VBG O2 Sat (Calc) 94.3 H VBG Base Excess 2.1 H VBG Potassium 3.9 Sodium 131.0 L Chloride 99.0 Glucose 165 H Lactate 1.8 FiO2 21.0 Potassium Carbon Dioxide Anion Gap BUN Creatinine Est GFR ( Amer) Est GFR (Non-Af Amer) Random Glucose Calcium Total Bilirubin AST ALT Alkaline Phosphatase Lactate Dehydrogenase Total Creatine Kinase Troponin I Total Protein Albumin Globulin Albumin/Globulin Ratio Venous Blood Potassium 3.9 Urine Color Urine Appearance Urine pH Ur Specific [place] Urine Protein Urine Glucose (UA) Urine Ketones Urine Blood Urine Nitrate Urine Bilirubin Urine Urobilinogen Ur Leukocyte Esterase Urine RBC Urine WBC Ur Epithelial Cells Urine Bacteria 06/30/17 06/30/17 14:40 15:07 WBC RBC Hgb Hct MCV MCH MCHC RDW Plt Count MPV Gran % Lymph % (Auto) [place] % (Auto) Eos % (Auto) Baso % (Auto) Gran # Lymph # (Auto) [place] # (Auto) Eos # (Auto) Baso # (Auto) Neutrophils % (Manual) Lymphocytes % (Manual) Atypical Lymphs % Monocytes % (Manual) Platelet Evaluation PT INR pO2 VBG pH VBG pCO2 VBG HCO3 VBG Total CO2 VBG O2 Sat (Calc) VBG Base Excess VBG Potassium Sodium 133 Chloride 99 Glucose Lactate FiO2 Potassium 3.8 Carbon Dioxide 23 Anion Gap 15 BUN 17 Creatinine 0.9 Est GFR ( Amer) > 60 Est GFR (Non-Af Amer) > 60 Random Glucose 147 H Calcium 9.4 Total Bilirubin 0.9 AST 24 ALT 21 Alkaline Phosphatase 57 Lactate Dehydrogenase 267 L Total Creatine Kinase 44 Troponin I < 0.01 Total Protein 6.6 Albumin 3.6 Globulin 3.0 Albumin/Globulin Ratio 1.2 Venous Blood Potassium Urine Color Yellow Urine Appearance Turbid Urine pH 6.0 Ur Specific [place] 1.020 Urine Protein 30 H Urine Glucose (UA) Negative Urine Ketones Trace H Urine Blood Large H Urine Nitrate Positive H Urine Bilirubin Negative Urine Urobilinogen 0.2 Ur Leukocyte Esterase Large H Urine RBC 5 - 10 Urine WBC Tntc Ur Epithelial Cells 3 - 4 Urine Bacteria Many Assessment & Plan - Assessment and Plan (Free Text) Assessment: This is a 87 yo M with 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 He is being admitted for infectious workup (suspect urinary source) and possible urinary obstruction. 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, suspicious for new lung primary ca HTN HLD CAD chronic cr (~1 month total) removed yesterday urinary frequency with painful urination shaking fevers/chills Concern for infectious process given fevers/chills, afebrile in ED but subjective fevers at home, leukocytosis of 13 UA notable for large blood, large leuk esterase, positive Nitrates, TNTC WBCs, many bacteria; UTI 2/2 chronic instrumentation vs urine stasis Lactate 1.8, hemodynamically stable, doesn't meet sepsis criteria ID consulted, appreciate all recs; received 1 dose of Vanc and Zosyn in ED, Tylenol prn for fevers Urology consulted, appreciate all recs After resolution of infectious issue, may benefit from CT-biopsy of new lung lesion Continue home Lopressor and Flomax for HTN, Flomax can also help with difficulty passing urine Continue daily aspirin given hx CAD Patient reviewed and discussed with attending, Dr. Khalil Decision To Admit - Pt Status Changed To: Hospital Disposition Of: Inpatient Admission - Admit Certification Admit to Inpatient:: After my assessment, the patient will require hospitalization for at least two midnights. This is because of the severity of symptoms shown, intensity of services needed, and/or the medical risk in this patient being treated as an outpatient. - . Bed Request Type: Telemetry
--- NOTE | 2017-06-30 21:34 | RAD ---
EXAM: XR Chest, 1 View EXAM DATE/TIME: 06/30/2017 7:27 PM CLINICAL HISTORY: The patient age is 87 years old and is male; Signs and symptoms; Fever; lung carcinoma; Additional info: T 103 Facility exam id and description: Rad chest p chest portable TECHNIQUE: Frontal view of the chest. COMPARISON: CR - CHEST PORTABLE 2016-06-14 12:17 FINDINGS: Lungs: There is a mass-like consolidation within the left lower lung zone measuring 4.3 cm in diameter. This has progressed compared to the prior study. This is suggestive of malignancy in a patient with lung carcinoma. Within the right upper lung zone, there is a 1.4 cm nodule. There is nodular opacification of the right pulmonary apex as well. There is a diffuse increase in interstitial markings. Pleural space: No pleural effusions. No pneumothorax. Heart: No cardiomegaly. Mediastinum: Unremarkable. Bones/joints: There is levoscoliosis of the thoracic spine. Hypertrophic degenerative changes are noted within the spine. IMPRESSION: 1. There is a mass-like consolidation within the left lower lung zone measuring 4.3 cm in diameter. This has progressed compared to the prior study. This is suggestive of malignancy in a patient with lung carcinoma. 2. Within the right upper lung zone, there is a 1.4 cm nodule. There is nodular opacification of the right pulmonary apex as well. 3. Correlation with the recent PET/CT is recommended.
[2017-06-30] MEDS: Potassium Chl 10 mEq in D5-1/2 1,000 ML IV SCH (21:57)
[2017-07-01 02:25] VITALS: BMI 22.0
[2017-07-01 06:48] LABS: BASO # 0.02 K/mm3 (0.0-2.0); BASO % 0.2 % (0.0-3.0); EOS # 0.1 (0.0-0.7); EOS % 0.5 % (1.5-5.0); GRAN # 8.89 (1.4-6.5); GRAN % 82.2 % (50.0-68.0); HEMOGLOBIN 11.7 g/dL (14.0-18.0); LYMPH % 9.4 % (22.0-35.0); MEAN CELL VOLUME 101.7 fl (80.0-105.0); MEAN CORPUSCULAR HGB CONC 33.4 g/dl (31.0-37.0); MEAN PLATELET VOLUME 11.1 fl (7.0-11.0); MONO # 0.8 (0.1-0.6); MONO % 7.7 % (1.0-6.0); RBC 3.44 10^6/uL (3.5-6.1); RED CELL DISTRIBUTION WIDTH 13.9 % (11.5-14.5); WHITE BLOOD COUNT 10.8 10^3/ul (4.5-11.0)
--- NOTE | 2017-07-01 07:14 | HP ---
For Dr. Khalil CHIEF COMPLAINT: Chills, hematuria. HISTORY OF PRESENT ILLNESS: Patient is an 87-year-old male recently seen at [facility] for urothelial cancer with admission by the emergency room for fever, chills, beginning since last night. The patient was found to have urothelial cancer recently with a stent placed in the left ureter with instrumentation while hospitalized in [place] in [facility]. He had a Lowery catheter placed for a significant period of time, which was removed yesterday by Dr. Martinez, with patient now having his significant discomfort. Patient also had a PET/CT scan, which showed suspicious findings in left lower lobe, which will be commented on later in this dictation. With this, the patient is now seen at the bedside with his . In no acute distress. Episodes of shaking chills with the temperature registered up to 103.3 rectally earlier this afternoon. However on admission, his temperature was 98.8. With this, he is denying any pain, with his clear liquids tolerated, and the patient appearing comfortable after IV antibiotics were begun. ALLERGIES: ARE TO PLAVIX. MEDICATIONS: Include Flomax, Toprol XL 50 mg, simvastatin, 81 mg aspirin daily. FAMILY HISTORY AND SOCIAL HISTORY: Patient smoked up until 15 years ago when he quit. Denies alcohol use. Otherwise noncontributory. He is . is at the bedside. PAST MEDICAL HISTORY: Significant for hypertension, dyslipidemia, coronary artery disease, glaucoma, with right coronary stent placement, history of total left hip surgery, and now more recently diagnosed urothelial malignancy with suspicious findings and the left lower lobe possibly tumor. Status post left ureteral stent placement, emphysema, questionable chronic pancreatitis. REVIEW OF SYSTEMS: A 12-point review of system was done, which was negative to questioning except as per items mentioned in history of present illness. The patient did have a cystoscopy, left retrograde pyelogram and left ureteral stent placement with left ureteroscopy with biopsy done by Dr. James at [facility] on 06/01/2017, with patient also being status post PET/CT scan done on 06/23/2017. The impression was that of large lobulated mass lesions in the superior aspect of the left lower lobe, likely represents a primary lung carcinoma, measuring 4.4 cm x 3.1 cm, SUV of 8.1. Small approximately 1.2 mm subpleural nodular density in the anterior aspect of the right upper lobe, rule out postinflammatory sequelae versus small early metastatic lesion. Small nodular patchy right lower lobe demonstrates no FDG activity, in situ left ureteral stent, small bubble of air within the upper pole of the collecting system of the left kidney could be due to the stent itself. At that time a Lowery catheter with intense FDG activity in the expected location of the prostate gland which could be related to leakage in the urine about the Lowery catheter, possibly sequelae of recent instrumentation, rule out prior TUR not excluded with PSA recommended. Also centrilobular emphysematous changes, findings consisted with chronic pancreatitis. Patient had MRI of the brain with and without contrast dated 06/21/2017 showing no acute findings. On 04/29/2017, he had a CT scan of the abdomen and pelvis with and without contrast; at that time, it showed a filling defect in the left upper pole renal collecting system suspicious for urothelial malignancy or I should say neoplasm, chronic pancreatitis, nonspecific mild pancreatic ductal dilatation, extensive lumbar degenerative changes with multiple grade I listhesis, 12 mm right lower pulmonary nodule. PHYSICAL EXAMINATION: VITAL SIGNS: Temperature on admission 98.9, with a temperature of 103.3 rectal afterwards, pulse of 80, respirations 20, blood pressure 116/52, pulse ox of 96%. HEENT: Unremarkable. Tongue is dry. NECK: Supple. HEART: Regular rate, occasional ectopic beats. LUNGS: Clear. ABDOMEN: Soft, nontender. EXTREMITIES: No edema. SKIN: Warm and dry. NEUROLOGIC: Awake, alert, and oriented x3. LABORATORY DATA: The patient's labs were done. White blood cell count of 13,000, hemoglobin 12.7, hematocrit of 36.6, platelet count of 134,000, with a chem metabolic panel completely within normal range except for nonfasting glucose 147 and LDH of 267. His INR was 1.20, with an ABG showing a pH of 7.4. Urine showed large amount of blood, positive nitrite, large amount of leukocyte esterase. ASSESSMENT: For this patient is that of suspected urosepsis, history of urothelium malignancy, fever of unknown origin, left lower lobe mass, rule out malignancy, questionable primary carcinoma, status post ureteral stent placement on the left. Emphysema, chronic pancreatitis, hypertension, coronary artery disease, history of glaucoma, status post coronary stent on the right. Degenerative joint disease. PLAN: The plan for this patient after conversation with Dr. Khalil is to continue his present medical regimen, which includes Toprol XL. We will hold his tamsulosin until okay with Dr. Martinez. We will also hold his aspirin due to hematuria at present. We will repeat his labs in the morning. We will give IV fluids with D5 half-normal saline with 10 of potassium at 60 mL an hour. We will give Tylenol as needed for temperature and for pain. We will continue IV antibiotics as per Dr. Massey, travel service consultant, along with Dr. Plata. We will ask for consult with Dr. Tato Martinez, Urology, and Dr. Kalyan Coates for eventual left lung biopsy. This is a complex patient with a comprehensive medically necessary and appropriate visit carried out in excess of 1 hour [id number] time, also reporting gleaning the previous testing for inclusion in his history and physical and conversation with the patient's family including his with conversation with the emergency room doctor. We will also ask for chest x-ray, which was ordered in the emergency room to be done here on the medical floor stat. We will also ask for bladder scan as per Dr. Martinez to see whether the Lowery needs to be replaced with consideration for hypothermia blanket as indicated. Patient did get vancomycin and Zosyn with good effect. Again the prognosis for this patient is guarded. We will await blood cultures. Mic Dougherty MD
[2017-07-01 07:19] LABS: ALB/GLOB RATIO 1.1 (1.1-1.8); ALBUMIN 3.1 g/dL (3.0-4.8); ALT/SGPT 20 U/L (7-56); AST/SGOT 25 U/L (17-59); BLOOD UREA NITROGEN 18 mg/dL (7-21); CALCIUM 9.1 mg/dL (8.4-10.5); GFR AFRICAN-AMERICAN > 60; GFR NON-AFRICAN AMERICAN > 60
[2017-07-01] MEDS: Meropenem IV 1 gm in NS 50 ML IVPB SCH ×3 (09:18→21:34)
[2017-07-01] MEDS: Metoprolol Succinate 50 mg XL Tab PO SCH (09:19)
--- NOTE | 2017-07-01 11:28 | CP.PCM.CON ---
History of Present Illness - History of Present Illness History of Present Illness: 87 year old male with PMH of cancer of the kidney, HTN, dyslipidemia, CAD, history of urinary retention S/P Lowery catheter use for a month now, new lung lesion R/O malignancy was brought in to [facility] because of fever and chills since yesterday. He was recently at [facility] and has been going there for several months now to take care of the kidney cancer. He developed urinary retention about a month ago and a Lowery was placed. The Lowery was then removed a day prior to admission but has not been voiding well since then. He then developed fever and chills and difficulty urinating. He denies flank pain, no penile discharge or bleeding, no abdominal pain, no nausea or vomiting, no headache or dizziness, no chest pain, no SOB, no sore throat, no cough or colds , no diarrhea. Infectious Diseases consult is requested to further evaluate and manage. Review of Systems - Review of Systems All systems: reviewed and no additional remarkable complaints except (as per HPI ) Past Patient History - Infectious Disease Hx of Infectious Diseases: None - Tetanus Immunizations Tetanus Immunization: Unknown - Past Social History Smoking Status: Former Smoker - CARDIAC Hx Cardiac Disorders: Yes Hx Hypercholesterolemia: Yes Hx Hypertension: Yes - PULMONARY Hx Respiratory Disorders: Yes Other/Comment: Lung CA - NEUROLOGICAL Hx Neurological Disorder: No - HEENT Hx HEENT Problems: Yes Hx Glaucoma: Yes - RENAL Hx Chronic Kidney Disease: Yes Hx Renal (Kidney) Cancer: Yes - ENDOCRINE/METABOLIC Hx Endocrine Disorders: No - HEMATOLOGICAL/ONCOLOGICAL Hx Cancer: Yes (Lung, Kidney, Bladder) - INTEGUMENTARY Hx Dermatological Problems: No - MUSCULOSKELETAL/RHEUMATOLOGICAL Hx Musculoskeletal Disorders: No Hx Falls: No - GASTROINTESTINAL Hx Gastrointestinal Disorders: No - GENITOURINARY/GYNECOLOGICAL Hx Genitourinary Disorders: Yes Other/Comment: Past urinary cath removed 06/29/2017 - PSYCHIATRIC Hx Psychophysiologic Disorder: No Hx Substance Use: No - SURGICAL HISTORY Hx Surgeries: Yes Hx Joint Replacement: Yes (L- Hip replacement) Meds Allergies/Adverse Reactions: Allergies Allergy/AdvReac Type Severity Reaction Status Date / Time clopidogrel bisulfate Allergy ANAPHYLAXIS Verified 06/30/17 13:10 [From Plavix] - Medications Medications: Current Medications Acetaminophen (Tylenol 325mg Tab) 650 mg PO Q4H PRN PRN Reason: temp>100.4*F Last Admin: 06/30/17 23:59 Dose: 650 mg Aspirin (Ecotrin) 81 mg PO DAILY [facility] Potassium Chloride/Dextrose/Sod Cl (Potassium Chl 10 Meq In D5-1/2ns) 1,000 mls @ 60 mls/hr IV .[id number] [facility] Last Admin: 06/30/17 21:57 Dose: 60 mls/hr Metoprolol Succinate (Toprol Xl) 50 mg PO BRK [facility] Tamsulosin HCl (Flomax) 0.4 mg PO DAILY [facility] Physical Exam - Constitutional Appears: Chronically Ill - Head Exam Head Exam: NORMAL INSPECTION - ENT Exam ENT Exam: Mucous Membranes Moist - Neck Exam Neck exam: Negative for: Meningismus - Respiratory Exam Respiratory Exam: Decreased Breath Sounds - Cardiovascular Exam Cardiovascular Exam: +S1, +S2 - GI/Abdominal Exam GI & Abdominal Exam: Soft. absent: Tenderness Results - Vital Signs Recent Vital Signs: Last Vital Signs Temp 97.8 F 07/01/17 01:10 Pulse 92 H 07/01/17 01:10 Resp 18 07/01/17 01:10 BP 133/64 07/01/17 01:10 Pulse Ox 96 06/30/17 15:28 - Labs Result Diagrams: 07/01/17 05:30 07/01/17 05:30 Labs: Laboratory Results - last 24 hr 06/30/17 06/30/17 06/30/17 14:40 14:40 14:40 WBC 13.0 H D RBC 3.67 Hgb 12.7 L Hct 36.6 L MCV 99.7 MCH 34.6 MCHC 34.7 RDW 13.3 Plt Count 134 MPV 10.9 Gran % 90.0 H Lymph % (Auto) 2.5 L [place] % (Auto) 7.1 H Eos % (Auto) 0.2 L Baso % (Auto) 0.2 Gran # 11.72 H Lymph # (Auto) 0.3 L [place] # (Auto) 0.9 H Eos # (Auto) 0.0 Baso # (Auto) 0.02 Neutrophils % (Manual) 93 H Lymphocytes % (Manual) 2 L Atypical Lymphs % 2 H Monocytes % (Manual) 3 Platelet Evaluation Normal PT 13.7 H INR 1.20 H pO2 55 VBG pH 7.47 H VBG pCO2 35.0 L VBG HCO3 25.5 VBG Total CO2 26.6 VBG O2 Sat (Calc) 94.3 H VBG Base Excess 2.1 H VBG Potassium 3.9 Sodium 131.0 L Chloride 99.0 Glucose 165 H Lactate 1.8 FiO2 21.0 Potassium Carbon Dioxide Anion Gap BUN Creatinine Est GFR ( Amer) Est GFR (Non-Af Amer) Random Glucose Calcium Total Bilirubin AST ALT Alkaline Phosphatase Lactate Dehydrogenase Total Creatine Kinase Troponin I Total Protein Albumin Globulin Albumin/Globulin Ratio Venous Blood Potassium 3.9 Urine Color Urine Appearance Urine pH Ur Specific [place] Urine Protein Urine Glucose (UA) Urine Ketones Urine Blood Urine Nitrate Urine Bilirubin Urine Urobilinogen Ur Leukocyte Esterase Urine RBC Urine WBC Ur Epithelial Cells Urine Bacteria 06/30/17 06/30/17 14:40 15:07 WBC RBC Hgb Hct MCV MCH MCHC RDW Plt Count MPV Gran % Lymph % (Auto) [place] % (Auto) Eos % (Auto) Baso % (Auto) Gran # Lymph # (Auto) [place] # (Auto) Eos # (Auto) Baso # (Auto) Neutrophils % (Manual) Lymphocytes % (Manual) Atypical Lymphs % Monocytes % (Manual) Platelet Evaluation PT INR pO2 VBG pH VBG pCO2 VBG HCO3 VBG Total CO2 VBG O2 Sat (Calc) VBG Base Excess VBG Potassium Sodium 133 Chloride 99 Glucose Lactate FiO2 Potassium 3.8 Carbon Dioxide 23 Anion Gap 15 BUN 17 Creatinine 0.9 Est GFR ( Amer) > 60 Est GFR (Non-Af Amer) > 60 Random Glucose 147 H Calcium 9.4 Total Bilirubin 0.9 AST 24 ALT 21 Alkaline Phosphatase 57 Lactate Dehydrogenase 267 L Total Creatine Kinase 44 Troponin I < 0.01 Total Protein 6.6 Albumin 3.6 Globulin 3.0 Albumin/Globulin Ratio 1.2 Venous Blood Potassium Urine Color Yellow Urine Appearance Turbid Urine pH 6.0 Ur Specific [place] 1.020 Urine Protein 30 H Urine Glucose (UA) Negative Urine Ketones Trace H Urine Blood Large H Urine Nitrate Positive H Urine Bilirubin Negative Urine Urobilinogen 0.2 Ur Leukocyte Esterase Large H Urine RBC 5 - 10 Urine WBC Tntc Ur Epithelial Cells 3 - 4 Urine Bacteria Many Assessment & Plan - Assessment and Plan (Free Text) Plan: Assessment Consider sepsis due to complicated UTI in this patient with kidney cancer and history of multiple episodes of urologic instrumentation, stent placement, urinary retention and use of Lowery catheter BPH cancer of the kidney HTN dyslipidemia CAD history of urinary retention S/P Lowery catheter use new lung lesion R/O malignancy Plan Started patient on Merrem pending blood cx, urine cx; will also check PSA level but patient has BPH which means he may already have a high PSA baseline follow up Urology evaluation patient is for biopsy of the lung mass/ lesion will monitor clinically
--- NOTE | 2017-07-01 14:29 | CP.PCM.PN ---
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 due to possible urinary retention, fevers, and shaking chills since this AM. Pt seen and examined at bedside today. Denies further shaking chills or fevers since the overnight temp of 103.3F; normal range temps since 1am (97.8F). Denies nausea, emesis, chest pain, shortness of breath. Feels better overall. Objective - Vital Signs/Intake and Output Vital Signs (last 24 hours): Temp Pulse Resp BP Pulse Ox 99.6 F 67 18 118/54 L 99 07/01/17 13:35 07/01/17 08:25 07/01/17 08:25 07/01/17 08:25 07/01/17 08:25 - Medications Medications: Current Medications Acetaminophen (Tylenol 325mg Tab) 650 mg PO Q4H PRN PRN Reason: temp>100.4*F Last Admin: 07/01/17 13:35 Dose: 650 mg Aspirin (Ecotrin) 81 mg PO DAILY [facility] Potassium Chloride/Dextrose/Sod Cl (Potassium Chl 10 Meq In D5-1/2ns) 1,000 mls @ 60 mls/hr IV .[id number] [facility] Last Admin: 06/30/17 21:57 Dose: 60 mls/hr Meropenem (Merrem Iv 1 Gm Premix) 50 mls @ 100 mls/hr IVPB Q8 LILLIE PRN Reason: Protocol Stop: 07/08/17 06:46 Last Admin: 07/01/17 09:18 Dose: 100 mls/hr Metoprolol Succinate (Toprol Xl) 50 mg PO BRK [facility] Last Admin: 07/01/17 09:19 Dose: 50 mg Phenazopyridine HCl (Pyridium) 200 mg PO BID [facility] Last Admin: 07/01/17 13:35 Dose: 200 mg Tamsulosin HCl (Flomax) 0.4 mg PO DAILY [facility] - Labs Labs: 07/01/17 05:30 07/01/17 05:30 PT 13.7 SECONDS (9.4-12.5) H 06/30/17 14:40 INR 1.20 (0.93-1.08) H 06/30/17 14:40 - Additional Findings Additional findings: - Constitutional Appears: Non-toxic, No Acute Distress - Head Exam Head Exam: ATRAUMATIC, NORMAL INSPECTION, NORMOCEPHALIC - Eye Exam Eye Exam: EOMI, Normal appearance. absent: Conjunctival injection, Scleral icterus Pupil Exam: absent: Irregular, Unequal - ENT Exam ENT Exam: Mucous Membranes Moist - Neck Exam Neck exam: Negative for: Thyromegaly - Respiratory Exam Respiratory Exam: Clear to Auscultation Bilateral, NORMAL BREATHING PATTERN. absent: Accessory Muscle Use, Chest Wall Tenderness, Decreased Breath Sounds, Rales, Rhonchi, Wheezes - Cardiovascular Exam Cardiovascular Exam: REGULAR RHYTHM, RRR, +S1, +S2. absent: Bradycardia, Tachycardia, Irregular Rhythm, JVD, +S4 - GI/Abdominal Exam GI & Abdominal Exam: Normal Bowel Sounds, Soft. absent: Diminished Bowel Sounds , Distended, Firm, Guarding, Hyperactive Bowel Sounds, Hypoactive Bowel Sounds, Rigid, Tenderness - Extremities Exam Extremities exam: Positive for: normal capillary refill, normal inspection, pedal pulses present. 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 due to possible urinary retention, fevers, and shaking chills since this AM. He is being admitted for infectious workup (suspect urinary source). 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, suspicious for new lung primary ca HTN HLD CAD chronic cr (~1 month total), removed 06/29/17 urinary frequency with painful urination shaking fevers/chills Concern for infectious process given fevers/chills, Fever with Tmax 103.3F overnight, afebrile since 1AM today, leukocytosis improved to 10.8 (was 13) UA notable for large blood, large leuk esterase, positive Nitrates, TNTC WBCs, many bacteria; UTI 2/2 chronic instrumentation vs urine stasis Lactate 1.8 on admission, hemodynamically stable, doesn't meet sepsis criteria ID consulted, appreciate all recs; received 1 dose of Vanc and Zosyn in ED, now on Merrem, Tylenol prn for fevers Urology consulted, appreciate all recs Urine/blood cx, procal pending After resolution of infectious issue, may benefit from CT-biopsy of new lung lesion, IR consulted Continue home Lopressor and Flomax for HTN, Flomax can also help with difficulty passing urine Continue daily aspirin given hx CAD Bladder scan negative for retention, so not overflow incontinence 2/2 obstruction, more likely frequency 2/2 UTI Pyridium started for urinary sx, 200mg BID Patient reviewed and discussed with attending, Dr. Khalil
[2017-07-01] MEDS: Potassium Chl 10 mEq in D5-1/2 1,000 ML IV SCH (14:37)
[2017-07-02] MEDS: Meropenem IV 1 gm in NS 50 ML IVPB SCH ×3 (05:58→21:05)
[2017-07-02 07:28] LABS: BASO # 0.02 K/mm3 (0.0-2.0); BASO % 0.3 % (0.0-3.0); EOS # 0.2 (0.0-0.7); EOS % 2.2 % (1.5-5.0); GRAN # 5.74 (1.4-6.5); GRAN % 74.8 % (50.0-68.0); HEMOGLOBIN 12.1 g/dL (14.0-18.0); LYMPH # 0.7 (1.2-3.4); LYMPH % 8.9 % (22.0-35.0); MEAN CELL VOLUME 100.8 fl (80.0-105.0); MEAN CORPUSCULAR HEMOGLOBIN 34.2 pg (25.0-35.0); MEAN CORPUSCULAR HGB CONC 33.9 g/dl (31.0-37.0); MEAN PLATELET VOLUME 10.4 fl (7.0-11.0); MONO # 1.1 (0.1-0.6); MONO % 13.8 % (1.0-6.0); RBC 3.54 10^6/uL (3.5-6.1); RED CELL DISTRIBUTION WIDTH 13.7 % (11.5-14.5); WHITE BLOOD COUNT 7.7 10^3/ul (4.5-11.0)
[2017-07-02 07:58] LABS: ALBUMIN 2.7 g/dL (3.0-4.8); ALT/SGPT 23 U/L (7-56); AST/SGOT 26 U/L (17-59); BLOOD UREA NITROGEN 15 mg/dL (7-21); CALCIUM 8.6 mg/dL (8.4-10.5); GFR AFRICAN-AMERICAN > 60; GFR NON-AFRICAN AMERICAN > 60
--- NOTE | 2017-07-02 09:16 | CON ---
DATE: 07/01/2017 SUBJECTIVE: The patient is known to me from my office, events of the admission were evaluated. The patient has a very complicated history of an upper tract urothelial carcinoma. He had a procedure at [facility] with brush biopsies, which were inconclusive; however, he did have a positive urine cytology and from there operative report, has a large mass in the kidney, which appears to be a urothelial carcinoma. There is mention in their report of a ureteral disruption and a stent was placed. Postoperatively at [facility], the patient had a urinary infection and urinary retention. He eventually was discharged home with a Lowery catheter after failing a few voiding trials, which appeared to be from clot retention, possible BPH. The patient was originally seen in my office for possible Lowery catheter removal. The Lowery had been in for approximately 3 weeks. I started the patient on oral antibiotics given that the Lowery had been in place for sometime. The patient had been on Flomax for a few weeks. He returned to my office and the Lowery catheter was removed a few days after initial consultation. When we contacted the patient later that day, he reported he was voiding; however, there was a question of fever and shaking chills. He was referred to the emergency room. The patient was admitted. There is a report of a temperature of 103; however, this appears to have resolved after starting on IV antibiotics. By report, the patient is voiding, although with some frequency. Blood and urine cultures have been sent. The urine culture is positive for gram-negative rods. Blood cultures have no growth after 24 hours. WBC count was 13, which has come down to 10.8 and creatinine 1 with a GFR of greater than 60. PSA was done and was 20.3, but the patient has a urinary infection. IMPRESSION AND PLAN: Urinary infection, possible urosepsis. Plan for now is to continue the patient on intravenous antibiotics as per ID. I would restart the patient's tamsulosin. We need to get a postvoid residual, which can be done by nursing after the patient's next void. If the patient is not emptying adequately, Lowery catheter should be replaced. He still has the stent in place. Urologically, the patient will need to follow up at [facility] to have the stent removed and to consider further treatment of the renal mass. The patient also has what appears to be a mass in his lung, which is suspicious for carcinoma. Plan is to have a percutaneous biopsy by Dr. Kalyan Coates. Very complicated case as the patient is 87 years old and appears to have two primary carcinomas, but we will need to await the results of his lung biopsy. If the patient is voiding okay, I would continue him on Flomax at this time. Continue treatment with IV antibiotics for his infection and we will need to arrange further urologic care for him via Dr. Khalil once the results of his lung biopsy are known. Tato Martinez MD
[2017-07-02] MEDS: Metoprolol Succinate 50 mg XL Tab PO SCH (09:32)
[2017-07-02] MEDS: Potassium Chl 10 mEq in D5-1/2 1,000 ML IV SCH ×2 (09:33→22:50)
--- NOTE | 2017-07-02 10:53 | CP.PCM.PN ---
Subjective - Date & Time of Evaluation Date of Evaluation: 07/02/17 Time of Evaluation: 08:40 - Subjective Subjective: Still having fevers, but less compared to on admission, now has a Lowery catheter , no diarrhea, no nausea. Objective - Vital Signs/Intake and Output Vital Signs (last 24 hours): Temp Pulse Resp BP Pulse Ox 100.6 F H 60 18 111/64 95 07/02/17 05:57 07/02/17 00:30 07/02/17 00:30 07/02/17 00:30 07/02/17 00:30 Intake and Output: 07/02/17 07/02/17 06:59 18:59 Intake Total 1210 Output Total 1850 Balance -640 - Medications Medications: Current Medications Acetaminophen (Tylenol 325mg Tab) 650 mg PO Q4H PRN PRN Reason: temp>100.4*F Last Admin: 07/02/17 05:57 Dose: 650 mg Aspirin (Ecotrin) 81 mg PO DAILY [facility] Potassium Chloride/Dextrose/Sod Cl (Potassium Chl 10 Meq In D5-1/2ns) 1,000 mls @ 60 mls/hr IV .[id number] [facility] Last Admin: 07/01/17 14:37 Dose: 60 mls/hr Meropenem (Merrem Iv 1 Gm Premix) 50 mls @ 100 mls/hr IVPB Q8 LILLIE PRN Reason: Protocol Stop: 07/08/17 06:46 Last Admin: 07/02/17 05:58 Dose: 100 mls/hr Metoprolol Succinate (Toprol Xl) 50 mg PO BRK [facility] Last Admin: 07/01/17 09:19 Dose: 50 mg Phenazopyridine HCl (Pyridium) 200 mg PO BID [facility] Last Admin: 07/01/17 17:38 Dose: 200 mg Tamsulosin HCl (Flomax) 0.4 mg PO DAILY [facility] - Labs Labs: 07/02/17 07:26 07/02/17 07:26 PT 13.7 SECONDS (9.4-12.5) H 06/30/17 14:40 INR 1.20 (0.93-1.08) H 06/30/17 14:40 - Constitutional Appears: Chronically Ill - Head Exam Head Exam: NORMAL INSPECTION - ENT Exam ENT Exam: Mucous Membranes Moist - Neck Exam Neck Exam: absent: Meningismus - Respiratory Exam Respiratory Exam: Decreased Breath Sounds - Cardiovascular Exam Cardiovascular Exam: +S1, +S2 - GI/Abdominal Exam GI & Abdominal Exam: Soft. absent: Tenderness Assessment and Plan - Assessment and Plan (Free Text) Plan: Assessment Consider sepsis due to complicated UTI with gram negative bacilli in this patient with kidney cancer and history of multiple episodes of urologic instrumentation, stent placement, urinary retention and use of Lowery catheter BPH cancer of the kidney HTN dyslipidemia CAD history of urinary retention S/P Lowery catheter use new lung lesion R/O malignancy Plan continue Merrem (especially since the patient was on Cefuroxime as an outpatient ) pending identification and sensitivities of the gram negative bacilli in the urine; blood cx are negative x 1 day; PSA level is elevated but patient has BPH follow up Urology evaluation patient is for biopsy of the lung mass/ lesion will continue to monitor clinically
--- NOTE | 2017-07-02 16:41 | CP.PCM.PN ---
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 Pt seen and examined at bedside today. Shaking chills/rigors again overnight, Tmax overnight 101.2F. Denies emesis, chest pain, shortness of breath. Still urinating frequently, small volumes, less burning sensation (on pyridium, in addition to abx). Objective - Vital Signs/Intake and Output Vital Signs (last 24 hours): Temp Pulse Resp BP Pulse Ox 100.6 F H 74 18 123/60 95 07/02/17 14:58 07/02/17 06:00 07/02/17 06:00 07/02/17 09:32 07/02/17 06:00 Intake and Output: 07/02/17 07/02/17 06:59 18:59 Intake Total 1210 800 Output Total 1850 1500 Balance -640 -700 - Medications Medications: Current Medications Acetaminophen (Tylenol 325mg Tab) 650 mg PO Q4H PRN PRN Reason: temp>100.4*F Last Admin: 07/02/17 14:58 Dose: 650 mg Aspirin (Ecotrin) 81 mg PO DAILY [facility] Potassium Chloride/Dextrose/Sod Cl (Potassium Chl 10 Meq In D5-1/2ns) 1,000 mls @ 60 mls/hr IV .[id number] [facility] Last Admin: 07/02/17 09:33 Dose: 60 mls/hr Meropenem (Merrem Iv 1 Gm Premix) 50 mls @ 100 mls/hr IVPB Q8 [facility] PRN Reason: Protocol Stop: 07/08/17 06:46 Last Admin: 07/02/17 14:58 Dose: 100 mls/hr Metoprolol Succinate (Toprol Xl) 50 mg PO BRK [facility] Last Admin: 07/02/17 09:32 Dose: 50 mg Ondansetron HCl (Zofran Inj) 4 mg IVP Q8H PRN PRN Reason: Nausea/Vomiting Last Admin: 07/02/17 14:55 Dose: 4 mg Phenazopyridine HCl (Pyridium) 200 mg PO BID [facility] Last Admin: 07/02/17 09:32 Dose: 200 mg Tamsulosin HCl (Flomax) 0.4 mg PO DAILY [facility] - Labs Labs: 07/02/17 07:26 07/02/17 07:26 PT 13.7 SECONDS (9.4-12.5) H 06/30/17 14:40 INR 1.20 (0.93-1.08) H 06/30/17 14:40 - Additional Findings Additional findings: - Constitutional Appears: Non-toxic, No Acute Distress - Head Exam Head Exam: ATRAUMATIC, NORMAL INSPECTION, NORMOCEPHALIC - Eye Exam Eye Exam: EOMI, Normal appearance. absent: Conjunctival injection, Scleral icterus Pupil Exam: absent: Irregular, Unequal - ENT Exam ENT Exam: Mucous Membranes Moist - Neck Exam Neck exam: Negative for: Thyromegaly - Respiratory Exam Respiratory Exam: Clear to Auscultation Bilateral, NORMAL BREATHING PATTERN. absent: Accessory Muscle Use, Chest Wall Tenderness, Decreased Breath Sounds, Rales, Rhonchi, Wheezes - Cardiovascular Exam Cardiovascular Exam: REGULAR RHYTHM, RRR, +S1, +S2. absent: Bradycardia, Tachycardia, Irregular Rhythm, JVD, +S4 - GI/Abdominal Exam GI & Abdominal Exam: Normal Bowel Sounds, Soft. absent: Diminished Bowel Sounds , Distended, Firm, Guarding, Hyperactive Bowel Sounds, Hypoactive Bowel Sounds, Rigid, Tenderness - Extremities Exam Extremities exam: Positive for: normal capillary refill, normal inspection, pedal pulses present. 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 He is being admitted for infectious workup (suspect urinary source). 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, suspicious for new lung primary ca HTN HLD CAD chronic cr (~1 month total), removed 06/29/17 urinary frequency with painful urination shaking fevers/chills - recurred Concern for infectious process given fevers/chills, Fever with Tmax 103.3F overnight, afebrile since 1AM today, leukocytosis improved to 10.8 (was 13) UA notable for large blood, large leuk esterase, positive Nitrates, TNTC WBCs, many bacteria; UTI 2/2 chronic instrumentation vs urine stasis Lactate 1.8 on admission, hemodynamically stable, doesn't meet sepsis criteria ID consulted, appreciate all recs; received 1 dose of Vanc and Zosyn in ED, now on Merrem (day 2), Tylenol prn for fevers Urology consulted, appreciate all recs; continue flomax, Urine cx positive for enterobacter cloacae (G- jacoby), sensitive to cipro, blood cx negative, procal elevated at 0.84 After resolution of infectious issue, may benefit from CT-biopsy of new lung lesion, IR consulted Continue home Lopressor and Flomax for HTN, Flomax can also help with difficulty passing urine Continue daily aspirin given hx CAD Bladder scan negative for retention, so not overflow incontinence 2/2 obstruction, more likely frequency 2/2 UTI Pyridium for urinary sx, 200mg BID Patient reviewed and discussed with attending, Dr. Khalil
[2017-07-03] MEDS: Meropenem IV 1 gm in NS 50 ML IVPB SCH ×3 (06:17→21:58)
[2017-07-03 07:33] LABS: BASO # 0.02 K/mm3 (0.0-2.0); BASO % 0.3 % (0.0-3.0); EOS # 0.4 (0.0-0.7); EOS % 7.3 % (1.5-5.0); GRAN # 3.8 (1.4-6.5); GRAN % 65.8 % (50.0-68.0); HEMOGLOBIN 12.6 g/dL (14.0-18.0); LYMPH # 0.8 (1.2-3.4); LYMPH % 13.1 % (22.0-35.0); MEAN CELL VOLUME 100.5 fl (80.0-105.0); MEAN CORPUSCULAR HEMOGLOBIN 34.2 pg (25.0-35.0); MEAN CORPUSCULAR HGB CONC 34.1 g/dl (31.0-37.0); MEAN PLATELET VOLUME 10.8 fl (7.0-11.0); MONO # 0.8 (0.1-0.6); MONO % 13.5 % (1.0-6.0); RBC 3.68 10^6/uL (3.5-6.1); RED CELL DISTRIBUTION WIDTH 13.4 % (11.5-14.5); WHITE BLOOD COUNT 5.8 10^3/ul (4.5-11.0)
[2017-07-03 07:50] LABS: ALBUMIN 2.8 g/dL (3.0-4.8); ALT/SGPT 24 U/L (7-56); AST/SGOT 23 U/L (17-59); BLOOD UREA NITROGEN 11 mg/dL (7-21); CALCIUM 8.7 mg/dL (8.4-10.5); GFR AFRICAN-AMERICAN > 60; GFR NON-AFRICAN AMERICAN > 60
[2017-07-03] MEDS: Metoprolol Succinate 50 mg XL Tab PO SCH (08:03)
--- NOTE | 2017-07-03 12:21 | CP.PCM.PN ---
Subjective - Date & Time of Evaluation Date of Evaluation: 07/03/17 Time of Evaluation: 10:45 - Subjective Subjective: Comfortable in bed, still with low grade fevers overnight but less compared to previous days. Objective - Vital Signs/Intake and Output Vital Signs (last 24 hours): Temp Pulse Resp BP Pulse Ox 99.2 F 66 20 114/57 L 66 L 07/02/17 16:00 07/02/17 16:00 07/02/17 16:00 07/02/17 16:00 07/02/17 16:00 Intake and Output: 07/03/17 07/03/17 06:59 18:59 Intake Total 660 Output Total 2250 Balance -1590 - Medications Medications: Current Medications Acetaminophen (Tylenol 325mg Tab) 650 mg PO Q4H PRN PRN Reason: temp>100.4*F Last Admin: 07/02/17 21:05 Dose: 650 mg Aspirin (Ecotrin) 81 mg PO DAILY [facility] Potassium Chloride/Dextrose/Sod Cl (Potassium Chl 10 Meq In D5-1/2ns) 1,000 mls @ 60 mls/hr IV .[id number] [facility] Last Admin: 07/02/17 22:50 Dose: 60 mls/hr Meropenem (Merrem Iv 1 Gm Premix) 50 mls @ 100 mls/hr IVPB Q8 [facility] PRN Reason: Protocol Stop: 07/08/17 06:46 Last Admin: 07/03/17 06:17 Dose: 100 mls/hr Metoprolol Succinate (Toprol Xl) 50 mg PO BRK [facility] Last Admin: 07/02/17 09:32 Dose: 50 mg Ondansetron HCl (Zofran Inj) 4 mg IVP Q8H PRN PRN Reason: Nausea/Vomiting Last Admin: 07/02/17 14:55 Dose: 4 mg Phenazopyridine HCl (Pyridium) 200 mg PO BID [facility] Last Admin: 07/02/17 17:40 Dose: 200 mg Tamsulosin HCl (Flomax) 0.4 mg PO DAILY [facility] - Labs Labs: 07/03/17 07:00 07/03/17 07:00 PT 13.7 SECONDS (9.4-12.5) H 06/30/17 14:40 INR 1.20 (0.93-1.08) H 06/30/17 14:40 - Constitutional Appears: Chronically Ill - Head Exam Head Exam: NORMAL INSPECTION - ENT Exam ENT Exam: Mucous Membranes Moist - Neck Exam Neck Exam: absent: Lymphadenopathy, Meningismus - Respiratory Exam Respiratory Exam: Decreased Breath Sounds - Cardiovascular Exam Cardiovascular Exam: +S1, +S2 - GI/Abdominal Exam GI & Abdominal Exam: Soft. absent: Tenderness Assessment and Plan - Assessment and Plan (Free Text) Plan: Assessment Consider sepsis due to complicated UTI with Enterobacter in this patient with kidney cancer and history of multiple episodes of urologic instrumentation, stent placement, urinary retention and use of Lowery catheter BPH cancer of the kidney HTN dyslipidemia CAD history of urinary retention S/P Lowery catheter use new lung lesion R/O malignancy Plan continue Merrem day 3 (especially since the patient was on Cefuroxime as an outpatient) pending identification and sensitivities of the gram negative bacilli in the urine; blood cx are negative; PSA level is elevated but patient has BPH - patient will need at least 10-14 days of antibiotics follow up Urology evaluation patient is for biopsy of the lung mass/ lesion will continue to monitor clinically
[2017-07-03] MEDS: Potassium Chl 10 mEq in D5-1/2 1,000 ML IV SCH (15:35)
--- NOTE | 2017-07-03 16:46 | PN ---
DATE: 07/03/2017 This is [facility] [place] [facility] visit on the medical floor. REFERRING PHYSICIAN: Dr. Khalil. SUBJECTIVE: The patient is an 87-year-old male seen lying awake in bed with his discomfort improved, less shaking chills, one episode yesterday with the maximum temperature yesterday 100.6. He reports that his urinary discomfort is improved on Pyridium and Lowery catheter. The patient is known to have urothelial cancer with instrumentation done recently and stent placement, with the patient is now known to have suspicious findings in the left lower lobe, which needs to be biopsied in the near future. He is otherwise resting comfortably and being treated for sepsis with Enterobacter positive urine culture. PHYSICAL EXAMINATION: VITAL SIGNS: Temperature 99.2, pulse 64, respirations 20, blood pressure 142/77, pulse ox 95%. HEENT: Unremarkable. Tongue is dry. NECK: Supple. HEART: Regular rate. Occasional ectopic beat. LUNGS: Clear. ABDOMEN: Soft, nontender. EXTREMITIES: No edema. SKIN: Warm and dry. NEUROLOGIC: Awake, alert, and oriented x3. GENITOURINARY: Lowery catheter in situ draining orange urine as the patient is on Pyridium. LABORATORY DATA: The patient's labs were done. White blood cell count of 5.8, hemoglobin 12.6, hematocrit 37, platelet count of 115,000 with a chem metabolic panel showing normal chem metabolic panel with a total protein of 5.7, albumin of 2.8, proclination was done 0.8 yesterday with a prostate-specific antigen of 20.3 done two days prior. The patient's urine culture showing Enterobacter cloacae species with blood cultures negative at 48 hours. ASSESSMENT: Sepsis secondary to urinary tract infections complications Enterobacter, renal cell cancer with new pulmonary mass for biopsy and urologic instrumentation with Lowery catheter placement, hypertension, atherosclerotic cardiovascular disease, urothelial malignancy status post urethral stent placement on the left, emphysema, chronic pancreatitis, glaucoma, degenerative joint disease. PLAN: Continue present medical regimen with antibiotics as per Infectious Disease lean consultant with eventual biopsy with Dr. Kalyan Coates in the near future. We will monitor clinically with labs. He needs to be out of bed with physiotherapy to be requested. This is a complex patient with a comprehensive medically necessary and appropriate visit carried out in excess of 20 minutes [id number] time with the patient, with his questions answered to his satisfaction. Prognosis for this patient is guarded. Mic Dougherty MD
[2017-07-04] MEDS: Meropenem IV 1 gm in NS 50 ML IVPB SCH ×3 (05:07→21:14)
[2017-07-04 06:51] LABS: BASO # 0.02 K/mm3 (0.0-2.0); BASO % 0.4 % (0.0-3.0); EOS # 0.6 (0.0-0.7); EOS % 11.7 % (1.5-5.0); GRAN # 2.84 (1.4-6.5); GRAN % 56.2 % (50.0-68.0); LYMPH % 20.4 % (22.0-35.0); MEAN CELL VOLUME 99.4 fl (80.0-105.0); MEAN CORPUSCULAR HEMOGLOBIN 34.1 pg (25.0-35.0); MEAN CORPUSCULAR HGB CONC 34.3 g/dl (31.0-37.0); MEAN PLATELET VOLUME 10.4 fl (7.0-11.0); MONO # 0.6 (0.1-0.6); MONO % 11.3 % (1.0-6.0); RBC 3.52 10^6/uL (3.5-6.1); RED CELL DISTRIBUTION WIDTH 13.2 % (11.5-14.5); WHITE BLOOD COUNT 5.1 10^3/ul (4.5-11.0)
[2017-07-04 07:37] LABS: ALBUMIN 2.8 g/dL (3.0-4.8); ALT/SGPT 30 U/L (7-56); AST/SGOT 24 U/L (17-59); BLOOD UREA NITROGEN 10 mg/dL (7-21); CALCIUM 9.1 mg/dL (8.4-10.5); GFR AFRICAN-AMERICAN > 60; GFR NON-AFRICAN AMERICAN > 60
[2017-07-04] MEDS: Metoprolol Succinate 50 mg XL Tab PO SCH (08:01)
[2017-07-04] MEDS: Potassium Chl 10 mEq in D5-1/2 1,000 ML IV SCH (10:22)
--- NOTE | 2017-07-04 12:06 | CP.PCM.PN ---
Subjective - Date & Time of Evaluation Date of Evaluation: 07/04/17 Time of Evaluation: 10:20 - Subjective Subjective: Feeling much better, no nausea, no fevers, no abdominal pain. Eating better. Objective - Vital Signs/Intake and Output Vital Signs (last 24 hours): Temp Pulse Resp BP Pulse Ox 97.8 F 66 20 131/76 94 L 07/04/17 07:25 07/04/17 08:01 07/04/17 07:25 07/04/17 08:01 07/04/17 07:25 Intake and Output: 07/04/17 07/04/17 06:59 18:59 Intake Total 360 Output Total 2425 Balance -2065 - Medications Medications: Current Medications Acetaminophen (Tylenol 325mg Tab) 650 mg PO Q4H PRN PRN Reason: temp>100.4*F Last Admin: 07/02/17 21:05 Dose: 650 mg Aspirin (Ecotrin) 81 mg PO DAILY [facility] Last Admin: 07/03/17 10:09 Dose: 81 mg Potassium Chloride/Dextrose/Sod Cl (Potassium Chl 10 Meq In D5-1/2ns) 1,000 mls @ 60 mls/hr IV .[id number] [facility] Last Admin: 07/03/17 15:35 Dose: 60 mls/hr Meropenem (Merrem Iv 1 Gm Premix) 50 mls @ 100 mls/hr IVPB Q8 [facility] PRN Reason: Protocol Stop: 07/08/17 06:46 Last Admin: 07/04/17 05:07 Dose: 100 mls/hr Metoprolol Succinate (Toprol Xl) 50 mg PO BRK [facility] Last Admin: 07/04/17 08:01 Dose: 50 mg Ondansetron HCl (Zofran Inj) 4 mg IVP Q8H PRN PRN Reason: Nausea/Vomiting Last Admin: 07/02/17 14:55 Dose: 4 mg Phenazopyridine HCl (Pyridium) 200 mg PO BID [facility] Last Admin: 07/03/17 17:14 Dose: 200 mg Tamsulosin HCl (Flomax) 0.4 mg PO Q12 [facility] Last Admin: 07/03/17 21:58 Dose: 0.4 mg - Labs Labs: 07/04/17 06:00 07/04/17 06:00 PT 13.7 SECONDS (9.4-12.5) H 06/30/17 14:40 INR 1.20 (0.93-1.08) H 06/30/17 14:40 - Constitutional Appears: Non-toxic, Chronically Ill - Head Exam Head Exam: NORMAL INSPECTION - ENT Exam ENT Exam: Mucous Membranes Moist - Neck Exam Neck Exam: absent: Meningismus - Respiratory Exam Respiratory Exam: Decreased Breath Sounds - Cardiovascular Exam Cardiovascular Exam: +S1, +S2 - GI/Abdominal Exam GI & Abdominal Exam: Soft. absent: Tenderness Assessment and Plan - Assessment and Plan (Free Text) Plan: Assessment Consider sepsis due to complicated UTI with Enterobacter in this patient with kidney cancer and history of multiple episodes of urologic instrumentation, stent placement, urinary retention and use of Lowery catheter BPH cancer of the kidney HTN dyslipidemia CAD history of urinary retention S/P Lowery catheter use new lung lesion R/O malignancy Plan continue Merrem day 4 (especially since the patient was on Cefuroxime as an outpatient) pending identification and sensitivities of the gram negative bacilli in the urine; blood cx are negative; PSA level is elevated but patient has BPH - patient will need at least 10-14 days of antibiotics follow up Urology evaluation patient is for biopsy of the lung mass/ lesion will continue to follow clinically
--- NOTE | 2017-07-04 17:52 | PN ---
DATE: 07/04/2017 This is [facility] on the medical floor. For Dr. Khalil. SUBJECTIVE: The patient is an 87-year-old male seen sitting up in the chair with family at the bedside reporting that his chills have subsided. No further episodes with his urinary discomfort, improved. He has Lowery catheter. He is taking Pyridium. The patient suffers from urothelial cancer with recent instrumentation is done with probable sepsis with severe urinary tract infection. He also has suspicious finding in his left lower lobe, which were he biopsied in the near future once he is stable. OBJECTIVE: VITAL SIGNS: Temperature 97.8, pulse 66, respirations 20, blood pressure 131/76, pulse ox 94%. HEENT: Unremarkable. NECK: Supple. HEART: Regular rate, occasional ectopic beat. LUNGS: Clear. ABDOMEN: Soft, nontender. EXTREMITIES: No edema. GENITOURINARY: There is a Lowery catheter in situ with orange urine produced. SKIN: Otherwise warm, dry and clear. NEUROLOGIC: Awake, alert and oriented x3. LABORATORY DATA: The patient's labs were done. White blood cell count of 5.1, hemoglobin 12.0, hematocrit 35.0, platelets count of 139,000 with chem metabolic panel completely within normal range except for total protein of 5.6, albumin of 2.8. The patient's influenza and Legionella pneumophila testing was negative with his urine culture positive for Enterobacter cloacae. ASSESSMENT: The assessment for this patient is that of sepsis secondary to urinary tract infection with Enterobacter, status post instrumentation with Lowery placement. Renal cell cancer with new pulmonary mass for biopsy film. Hypertension and atherosclerotic cardiovascular disease, urothelial malignancy, emphysema, chronic pancreatitis, glaucoma, degenerative joint disease. PLAN: The plan for this patient after conversation with Dr. Khalil is to continue present medical regimen with antibiotics as per Dr. Massey, Urologic consults with Dr. Martinez and for Dr. Kalyan Coates to evaluate for possible biopsy in the near future. We will monitor clinically with labs. This is a complex patient with a comprehensive medically necessary and appropriate visit carried out in excess of 20 minutes [id number] time with the patient and his family members at the bedside. All questions were answered to their satisfaction. Mic Dougherty MD [facility] # [id number]
[2017-07-04] MEDS ORDERED: COMBIGAN OS SCH (18:00)
[2017-07-04] MEDS: Dorzolamide 2% Opht Sol 10ml OD SCH (18:31)
[2017-07-04] MEDS ORDERED: LUMIGAN OD SCH (22:00)
[2017-07-05] MEDS: Potassium Chl 10 mEq in D5-1/2 1,000 ML IV SCH ×2 (00:30→17:56)
[2017-07-05] MEDS: Meropenem IV 1 gm in NS 50 ML IVPB SCH ×3 (05:16→21:45)
[2017-07-05 06:40] LABS: BASO # 0.01 K/mm3 (0.0-2.0); BASO % 0.2 % (0.0-3.0); EOS # 0.7 (0.0-0.7); EOS % 10.5 % (1.5-5.0); GRAN # 3.96 (1.4-6.5); GRAN % 62.3 % (50.0-68.0); HEMOGLOBIN 12.3 g/dL (14.0-18.0); LYMPH # 1.1 (1.2-3.4); LYMPH % 17.6 % (22.0-35.0); MEAN CELL VOLUME 98.9 fl (80.0-105.0); MEAN CORPUSCULAR HEMOGLOBIN 33.6 pg (25.0-35.0); MEAN PLATELET VOLUME 10.4 fl (7.0-11.0); MONO # 0.6 (0.1-0.6); MONO % 9.4 % (1.0-6.0); RBC 3.66 10^6/uL (3.5-6.1); RED CELL DISTRIBUTION WIDTH 13.1 % (11.5-14.5); WHITE BLOOD COUNT 6.4 10^3/ul (4.5-11.0)
[2017-07-05 07:33] LABS: ALT/SGPT 27 U/L (7-56); AST/SGOT 29 U/L (17-59); BLOOD UREA NITROGEN 13 mg/dL (7-21); CALCIUM 9.6 mg/dL (8.4-10.5); GFR AFRICAN-AMERICAN > 60; GFR NON-AFRICAN AMERICAN > 60
[2017-07-05] MEDS: Metoprolol Succinate 50 mg XL Tab PO SCH (08:12)
[2017-07-05] MEDS: Dorzolamide 2% Opht Sol 10ml OD SCH ×3 (09:30→17:53)
[2017-07-05] MEDS ORDERED: COMBIGAN OS SCH (10:23)
[2017-07-05] MEDS ORDERED: LUMIGAN OD SCH (10:26)
--- NOTE | 2017-07-05 11:16 | CP.PCM.PN ---
Subjective - Date & Time of Evaluation Date of Evaluation: 07/05/17 Time of Evaluation: 09:10 - Subjective Subjective: No more fevers, feeling better, has a little more energy today, no diarrhea. Objective - Vital Signs/Intake and Output Vital Signs (last 24 hours): Temp Pulse Resp BP Pulse Ox 98 F 67 18 132/70 94 L 07/05/17 07:48 07/05/17 08:12 07/05/17 07:48 07/05/17 08:12 07/05/17 07:48 Intake and Output: 07/05/17 07/05/17 06:59 18:59 Intake Total 240 Output Total 3350 Balance -3110 - Medications Medications: Current Medications Acetaminophen (Tylenol 325mg Tab) 650 mg PO Q4H PRN PRN Reason: temp>100.4*F Last Admin: 07/02/17 21:05 Dose: 650 mg Aspirin (Ecotrin) 81 mg PO DAILY [facility] Last Admin: 07/04/17 09:23 Dose: 81 mg Dorzolamide HCl (Trusopt) 1 ml OD TID [facility] Last Admin: 07/04/17 18:31 Dose: 1 drop Home Med (Home Med) 1 unit OS BID [facility] Home Med (Home Med) 1 unit OD HS [facility] Potassium Chloride/Dextrose/Sod Cl (Potassium Chl 10 Meq In D5-1/2ns) 1,000 mls @ 60 mls/hr IV .[id number] [facility] Last Admin: 07/05/17 00:30 Dose: 60 mls/hr Meropenem (Merrem Iv 1 Gm Premix) 50 mls @ 100 mls/hr IVPB Q8 [facility] PRN Reason: Protocol Stop: 07/08/17 06:46 Last Admin: 07/05/17 05:16 Dose: 100 mls/hr Metoprolol Succinate (Toprol Xl) 50 mg PO BRK [facility] Last Admin: 07/05/17 08:12 Dose: 50 mg Ondansetron HCl (Zofran Inj) 4 mg IVP Q8H PRN PRN Reason: Nausea/Vomiting Last Admin: 07/02/17 14:55 Dose: 4 mg Phenazopyridine HCl (Pyridium) 200 mg PO BID [facility] Last Admin: 07/04/17 17:32 Dose: 200 mg Tamsulosin HCl (Flomax) 0.4 mg PO Q12 [facility] Last Admin: 07/04/17 21:15 Dose: 0.4 mg - Labs Labs: 07/05/17 05:45 07/05/17 05:45 PT 13.7 SECONDS (9.4-12.5) H 06/30/17 14:40 INR 1.20 (0.93-1.08) H 06/30/17 14:40 - Constitutional Appears: Non-toxic, Chronically Ill - Head Exam Head Exam: NORMAL INSPECTION - ENT Exam ENT Exam: Mucous Membranes Moist - Neck Exam Neck Exam: absent: Meningismus - Respiratory Exam Respiratory Exam: Decreased Breath Sounds - Cardiovascular Exam Cardiovascular Exam: +S1, +S2 - GI/Abdominal Exam GI & Abdominal Exam: Soft. absent: Tenderness Assessment and Plan - Assessment and Plan (Free Text) Plan: Assessment Consider sepsis due to complicated UTI with Enterobacter in this patient with kidney cancer and history of multiple episodes of urologic instrumentation, stent placement, urinary retention and use of Lowery catheter BPH cancer of the kidney HTN dyslipidemia CAD history of urinary retention S/P Lowery catheter use new lung lesion R/O malignancy Plan continue Merrem day 5 (especially since the patient was on Cefuroxime as an outpatient); blood cx are negative; PSA level is elevated but patient has BPH - patient will need at least 10-14 days of antibiotics - may be able to switch to PO Levaquin when ready to be discharged follow up Urology evaluation patient is for biopsy of the lung mass/ lesion will continue to follow clinically
[2017-07-05 12:45] LABS: INR 1.09 (0.93-1.08); PARTIAL THROMBOPLASTIN TIME 33.2 Seconds (25.1-36.5); PROTHROMBIN TIME 12.5 SECONDS (9.4-12.5)
--- NOTE | 2017-07-05 12:46 | CP.PCM.PN ---
Subjective - Date & Time of Evaluation Date of Evaluation: 07/05/17 Time of Evaluation: 09:00 - Subjective Subjective: PGY-2 Heme-onc Progress Note Patient seen and examined at bedside today. He denies any shaking, chills or rigors overnight. He states that he is eating well and has a good appetite. He denies any difficulty sleeping. No fever overnight. Denies emesis, chest pain, shortness of breath. Cr in place, with yellow/orange urine Objective - Vital Signs/Intake and Output Vital Signs (last 24 hours): Temp Pulse Resp BP Pulse Ox 98 F 67 18 132/70 94 L 07/05/17 07:48 07/05/17 08:12 07/05/17 07:48 07/05/17 08:12 07/05/17 07:48 Intake and Output: 07/05/17 07/05/17 06:59 18:59 Intake Total 240 Output Total 3350 Balance -3110 - Medications Medications: Current Medications Acetaminophen (Tylenol 325mg Tab) 650 mg PO Q4H PRN PRN Reason: temp>100.4*F Last Admin: 07/02/17 21:05 Dose: 650 mg Aspirin (Ecotrin) 81 mg PO DAILY [facility] Last Admin: 07/05/17 09:29 Dose: 81 mg Dorzolamide HCl (Trusopt) 1 ml OD TID [facility] Last Admin: 07/05/17 09:30 Dose: 1 drop Home Med (Home Med) 1 unit OS BID [facility] Home Med (Home Med) 1 unit OD HS [facility] Potassium Chloride/Dextrose/Sod Cl (Potassium Chl 10 Meq In D5-1/2ns) 1,000 mls @ 60 mls/hr IV .[id number] [facility] Last Admin: 07/05/17 00:30 Dose: 60 mls/hr Meropenem (Merrem Iv 1 Gm Premix) 50 mls @ 100 mls/hr IVPB Q8 [facility] PRN Reason: Protocol Stop: 07/08/17 06:46 Last Admin: 07/05/17 05:16 Dose: 100 mls/hr Metoprolol Succinate (Toprol Xl) 50 mg PO BRK [facility] Last Admin: 07/05/17 08:12 Dose: 50 mg Ondansetron HCl (Zofran Inj) 4 mg IVP Q8H PRN PRN Reason: Nausea/Vomiting Last Admin: 07/02/17 14:55 Dose: 4 mg Phenazopyridine HCl (Pyridium) 200 mg PO BID [facility] Last Admin: 07/05/17 09:29 Dose: 200 mg Tamsulosin HCl (Flomax) 0.4 mg PO Q12 [facility] Last Admin: 07/05/17 09:29 Dose: 0.4 mg - Labs Labs: 07/05/17 05:45 07/05/17 05:45 PT 13.7 SECONDS (9.4-12.5) H 06/30/17 14:40 INR 1.20 (0.93-1.08) H 06/30/17 14:40 - Head Exam Head Exam: ATRAUMATIC, NORMOCEPHALIC - Eye Exam Eye Exam: EOMI, Normal appearance - ENT Exam ENT Exam: Mucous Membranes Moist - Respiratory Exam Respiratory Exam: Clear to Ausculation Bilateral, NORMAL BREATHING PATTERN. absent: Rhonchi, Wheezes, Respiratory Distress - Cardiovascular Exam Cardiovascular Exam: REGULAR RHYTHM, +S1, +S2. absent: Bradycardia, Tachycardia - GI/Abdominal Exam GI & Abdominal Exam: Soft. 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, suspicious for new lung primary ca HTN HLD CAD chronic cr UTI with enterobacter cloacae afebrile, no leukocytosis UA notable for large blood, large leuk esterase, positive Nitrates, TNTC WBCs, many bacteria; currently on merrem day 5 for 10-14 days per ID ID consulted, appreciate all recs Urology consulted, appreciate all recs; new lung lesion, suspicious for new lung primary ca vs metastasis consider CT-biopsy of new lung lesion IR consulted Continue home Lopressor and Flomax for HTN, Flomax can also help with difficulty passing urine Continue daily aspirin given hx CAD Pyridium for urinary sx, 200mg BID Patient reviewed and discussed with attending, Dr. Khalil
[2017-07-05] MEDS: COMBIGAN OS SCH (17:53)
[2017-07-05] MEDS: LUMIGAN OD SCH (21:49)
[2017-07-06] MEDS: Meropenem IV 1 gm in NS 50 ML IVPB SCH ×3 (05:28→22:48)
[2017-07-06 07:58] LABS: BASO # 0.02 K/mm3 (0.0-2.0); BASO % 0.3 % (0.0-3.0); EOS # 0.5 (0.0-0.7); EOS % 7.9 % (1.5-5.0); GRAN # 4.31 (1.4-6.5); GRAN % 67.2 % (50.0-68.0); HEMOGLOBIN 13.1 g/dL (14.0-18.0); LYMPH # 1.1 (1.2-3.4); MEAN CELL VOLUME 99.7 fl (80.0-105.0); MEAN CORPUSCULAR HEMOGLOBIN 34.3 pg (25.0-35.0); MEAN CORPUSCULAR HGB CONC 34.4 g/dl (31.0-37.0); MEAN PLATELET VOLUME 9.9 fl (7.0-11.0); MONO # 0.5 (0.1-0.6); MONO % 7.6 % (1.0-6.0); RBC 3.82 10^6/uL (3.5-6.1); WHITE BLOOD COUNT 6.4 10^3/ul (4.5-11.0)
[2017-07-06 08:10] LABS: ALB/GLOB RATIO 1.1 (1.1-1.8); ALBUMIN 3.3 g/dL (3.0-4.8); ALT/SGPT 29 U/L (7-56); AST/SGOT 30 U/L (17-59); BLOOD UREA NITROGEN 14 mg/dL (7-21); CALCIUM 9.4 mg/dL (8.4-10.5); GFR AFRICAN-AMERICAN > 60; GFR NON-AFRICAN AMERICAN > 60
--- NOTE | 2017-07-06 08:50 | CON ---
DATE: 07/05/2017 GENITOURINARY CONSULTATION CHIEF COMPLAINT: Chills. HISTORY OF PRESENT ILLNESS: This is an 87-year-old male who I have seen previously. Patient has a history of an upper tract urothelial tumor. He had a procedure done at [facility] to biopsy the mass. There was an apparent ureteral disruption and a stent was placed. Postoperatively, patient had an infection as well and was admitted at [facility] for a few days. He was discharged home with a Lowery catheter after failing voiding trials. I saw the patient urgently in my office and started him on antibiotics. Patient never had difficulty voiding prior to this procedure which was done. He had been maintained on Flomax which he was taking. After the Lowery was removed, the following day, patient was having shaking chills although he denies feeling febrile. This happened despite being on oral antibiotics for a few days prior to the Lowery removal. Patient was recommended to come to the hospital. He was then admitted for possible sepsis. His urine has grown Enterobacter cloacae. Blood cultures have been negative. Patient is seen in his room. He is feeling better with no further chills. He has been afebrile for a few days; last fever was 100.6 on 07/02. Patient also has a likely lung carcinoma. He still has the indwelling ureteral stent and currently has a Lowery catheter in place. consultation was requested regarding the above. PAST MEDICAL HISTORY: Significant for upper tract urothelial tumor, lung tumor, hypertension, dyslipidemia, coronary artery disease, glaucoma, total hip replacement, emphysema, question of chronic pancreatitis. CURRENT MEDICATIONS: Include aspirin, Flomax, meropenem, Pyridium, Toprol, Trusopt, Tylenol, and Zofran. ALLERGIES: Allergic to Plavix. FAMILY HISTORY: Noncontributory for this episode. SOCIAL HISTORY: No current smoking or EtOH use. REVIEW OF SYSTEMS: Positives for weakness and lethargy. Positive for fever and chills although this has resolved. Positive for urinary retention, difficulty voiding. Positive for joint pain, difficulty ambulating. Positive for shortness of breath and cough. Denies any chest pain or palpitations. Does report some weakness and numbness of his lower extremities. Other systems are negative. PHYSICAL EXAMINATION: GENERAL: Patient is awake and alert, answering questions. He reports feeling better. VITAL SIGNS: He is afebrile. Temperature of 98.6, pulse 67, BP 132/70, respirations 18. NECK: Supple. There is no noted adenopathy. CHEST: Exam of the chest revealed a slightly increased inspiratory effort. CARDIAC: Shows positive S1, S2. There is some mild peripheral edema. ABDOMEN: Soft, nontender, nondistended. There is no rebound or guarding. There is no costovertebral angle tenderness. GENITOURINARY: Phallus is normal. There is a Lowery catheter in place, draining clear-colored urine. Scrotum is normal. Testes bilaterally descended, nontender, no masses. Epididymis are normal. LABORATORY EXAM: WBC count down from 13.0 to 6.4. Creatinine 0.8 with a GFR greater than 60. Microbiology: Urine culture, Enterobacter cloacae. On radiologic exam, no pertinent urologic x-rays have been done. IMPRESSION AND PLAN: This is an 87-year-old male with multiple medical issues. Urologically, I would leave the Lowery catheter for now until the infection has completely cleared. I would maintain the Lowery until after the lung biopsy is performed. When patient has adequately recovered and is able to stand and ambulate, we can try to remove the Lowery catheter for a voiding trial. Patient does have an indwelling ureteral stent and will likely have some urinary frequency and urgency from that. We will need to come up with a plan regarding the stent and his upper tract tumor. Once the pathology from his lung mass is known, we will need to coordinate this with Dr. Khalil. It appears that he has two separate primary cancers and we will need to coordinate some form of treatment for both. Thank you for allowing me to participate in the care of this patient. We will follow him with you. Tato Martinez MD
[2017-07-06] MEDS ORDERED: guaiFENesin 100 mg/5 ml Syrup UD PO PRN (09:19)
[2017-07-06] MEDS: Potassium Chl 10 mEq in D5-1/2 1,000 ML IV SCH (10:29)
[2017-07-06] MEDS: Metoprolol Succinate 50 mg XL Tab PO SCH (10:34)
[2017-07-06] MEDS: COMBIGAN OS SCH ×2 (10:38→18:28)
[2017-07-06] MEDS: Dorzolamide 2% Opht Sol 10ml OD SCH ×3 (10:38→18:28)
--- NOTE | 2017-07-06 11:22 | RAD ---
HISTORY: Cough COMPARISON: 06/30/2017. FINDINGS: LUNGS: The lungs are well inflated. There is a persistent 5.2 x 4.9 cm mass in the left lower lobe. The right lung is clear. PLEURA: No significant pleural effusion identified, no pneumothorax apparent. CARDIOVASCULAR: Normal. OSSEOUS STRUCTURES: No significant abnormalities. VISUALIZED UPPER ABDOMEN: Normal. OTHER FINDINGS: None. 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 No active pulmonary disease.
--- NOTE | 2017-07-06 12:55 | CP.PCM.PN ---
Subjective - Date & Time of Evaluation Date of Evaluation: 07/06/17 Time of Evaluation: 10:20 - Subjective Subjective: Comfortable, no fevers, not in distress, feeling better. Objective - Vital Signs/Intake and Output Vital Signs (last 24 hours): Temp Pulse Resp BP Pulse Ox 97.8 F 67 18 117/62 95 07/06/17 07:58 07/06/17 07:58 07/06/17 07:58 07/06/17 07:58 07/06/17 07:58 Intake and Output: 07/06/17 07/06/17 06:59 18:59 Intake Total 800 Output Total 825 Balance -25 - Medications Medications: Current Medications Acetaminophen (Tylenol 325mg Tab) 650 mg PO Q4H PRN PRN Reason: temp>100.4*F Last Admin: 07/02/17 21:05 Dose: 650 mg Aspirin (Ecotrin) 81 mg PO DAILY [facility] Last Admin: 07/05/17 09:29 Dose: 81 mg Dorzolamide HCl (Trusopt) 1 ml OD TID [facility] Last Admin: 07/05/17 17:53 Dose: 1 drop Home Med (Home Med) 1 unit OS BID [facility] Last Admin: 07/05/17 17:53 Dose: 1 unit Home Med (Home Med) 1 unit OD HS [facility] Last Admin: 07/05/17 21:49 Dose: Not Given Potassium Chloride/Dextrose/Sod Cl (Potassium Chl 10 Meq In D5-1/2ns) 1,000 mls @ 60 mls/hr IV .[id number] [facility] Last Admin: 07/05/17 17:56 Dose: 60 mls/hr Meropenem (Merrem Iv 1 Gm Premix) 50 mls @ 100 mls/hr IVPB Q8 [facility] PRN Reason: Protocol Stop: 07/08/17 06:46 Last Admin: 07/06/17 05:28 Dose: 100 mls/hr Metoprolol Succinate (Toprol Xl) 50 mg PO BRK [facility] Last Admin: 07/05/17 08:12 Dose: 50 mg Ondansetron HCl (Zofran Inj) 4 mg IVP Q8H PRN PRN Reason: Nausea/Vomiting Last Admin: 07/02/17 14:55 Dose: 4 mg Phenazopyridine HCl (Pyridium) 200 mg PO BID [facility] Last Admin: 07/05/17 17:52 Dose: 200 mg Tamsulosin HCl (Flomax) 0.4 mg PO Q12 [facility] Last Admin: 07/05/17 21:44 Dose: 0.4 mg - Labs Labs: 07/06/17 07:45 07/06/17 07:45 PT 12.5 SECONDS (9.4-12.5) 07/05/17 12:25 INR 1.09 (0.93-1.08) H 07/05/17 12:25 APTT 33.2 Seconds (25.1-36.5) 07/05/17 12:25 - Constitutional Appears: Chronically Ill - Head Exam Head Exam: NORMAL INSPECTION - Neck Exam Neck Exam: absent: Meningismus - Respiratory Exam Respiratory Exam: Decreased Breath Sounds - Cardiovascular Exam Cardiovascular Exam: +S1, +S2 - GI/Abdominal Exam GI & Abdominal Exam: Soft. absent: Tenderness Assessment and Plan - Assessment and Plan (Free Text) Plan: Assessment Consider sepsis due to complicated UTI with Enterobacter in this patient with kidney cancer and history of multiple episodes of urologic instrumentation, stent placement, urinary retention and use of Lowery catheter BPH cancer of the kidney HTN dyslipidemia CAD history of urinary retention S/P Lowery catheter use new lung lesion R/O malignancy Plan continue Merrem day 6 (especially since the patient was on Cefuroxime as an outpatient); blood cx are negative; PSA level is elevated but patient has BPH - patient will need at least 10-14 days of antibiotics - may be able to switch to PO Levaquin when ready to be discharged follow up Urology evaluation patient is for biopsy of the lung mass/ lesion will continue to follow clinically discussed with Dr. Khalil
--- NOTE | 2017-07-06 13:58 | CP.PCM.PN ---
Subjective - Date & Time of Evaluation Date of Evaluation: 07/06/17 Time of Evaluation: 09:00 - Subjective Subjective: PGY-2 Heme-onc Progress Note Patient seen and examined at bedside today. He denies any shaking, chills or rigors overnight. He states that he has been coughing since yesterday, denies any sob. He states that he is eating well and has a good appetite. He denies any difficulty sleeping. Denies emesis, chest pain, shortness of breath. Cr in place, with yellow urine Objective - Vital Signs/Intake and Output Vital Signs (last 24 hours): Temp Pulse Resp BP Pulse Ox 97.8 F 67 18 117/62 95 07/06/17 07:58 07/06/17 10:34 07/06/17 07:58 07/06/17 10:34 07/06/17 07:58 Intake and Output: 07/06/17 07/06/17 06:59 18:59 Intake Total 800 Output Total 825 Balance -25 - Medications Medications: Current Medications Acetaminophen (Tylenol 325mg Tab) 650 mg PO Q4H PRN PRN Reason: temp>100.4*F Last Admin: 07/02/17 21:05 Dose: 650 mg Aspirin (Ecotrin) 81 mg PO DAILY [facility] Last Admin: 07/06/17 10:34 Dose: 81 mg Dorzolamide HCl (Trusopt) 1 ml OD TID [facility] Last Admin: 07/06/17 10:38 Dose: 1 drop Guaifenesin (Robitussin) 100 mg PO Q4H PRN PRN Reason: Cough Home Med (Home Med) 1 unit OS BID [facility] Last Admin: 07/06/17 10:38 Dose: 1 unit Home Med (Home Med) 1 unit OD HS [facility] Last Admin: 07/05/17 21:49 Dose: Not Given Potassium Chloride/Dextrose/Sod Cl (Potassium Chl 10 Meq In D5-1/2ns) 1,000 mls @ 60 mls/hr IV .[id number] [facility] Last Admin: 07/06/17 10:29 Dose: 60 mls/hr Meropenem (Merrem Iv 1 Gm Premix) 50 mls @ 100 mls/hr IVPB Q8 [facility] PRN Reason: Protocol Stop: 07/08/17 06:46 Last Admin: 07/06/17 05:28 Dose: 100 mls/hr Metoprolol Succinate (Toprol Xl) 50 mg PO BRK [facility] Last Admin: 07/06/17 10:34 Dose: 50 mg Ondansetron HCl (Zofran Inj) 4 mg IVP Q8H PRN PRN Reason: Nausea/Vomiting Last Admin: 07/02/17 14:55 Dose: 4 mg Phenazopyridine HCl (Pyridium) 200 mg PO BID [facility] Last Admin: 07/06/17 10:34 Dose: 200 mg Tamsulosin HCl (Flomax) 0.4 mg PO Q12 [facility] Last Admin: 07/06/17 10:33 Dose: 0.4 mg - Labs Labs: 07/06/17 07:45 07/06/17 07:45 PT 12.5 SECONDS (9.4-12.5) 07/05/17 12:25 INR 1.09 (0.93-1.08) H 07/05/17 12:25 APTT 33.2 Seconds (25.1-36.5) 07/05/17 12:25 - Constitutional Appears: Well, No Acute Distress - Head Exam Head Exam: ATRAUMATIC, NORMAL INSPECTION, NORMOCEPHALIC - Eye Exam Eye Exam: EOMI, Normal appearance - ENT Exam ENT Exam: Mucous Membranes Moist - Respiratory Exam Respiratory Exam: Clear to Ausculation Bilateral, NORMAL BREATHING PATTERN. absent: Rhonchi, Wheezes, Respiratory Distress - Cardiovascular Exam Cardiovascular Exam: REGULAR RHYTHM. absent: Bradycardia, Tachycardia, Murmur - GI/Abdominal Exam GI & Abdominal Exam: Soft, Normal Bowel Sounds. 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 IF post viod resdual volume is greater then 300ml will replace cr new lung lesion, suspicious for new lung primary ca vs metastasis, consider CT- biopsy of new lung lesion IR consulted patient reporting cough, chest xray shows no acute pulmonary disease will start robitussian prn Continue home Lopressor and Flomax for HTN, Flomax can also help with difficulty passing urine Continue daily aspirin given hx CAD Pyridium for urinary sx, 200mg BID Patient reviewed and discussed with attending, Dr. Khalil
[2017-07-06] MEDS: LUMIGAN OD SCH (22:50)
[2017-07-07] MEDS: Meropenem IV 1 gm in NS 50 ML IVPB SCH ×3 (05:47→22:08)
[2017-07-07] MEDS: Potassium Chl 10 mEq in D5-1/2 1,000 ML IV SCH ×2 (05:48→23:30)
[2017-07-07 06:23] LABS: BASO # 0.03 K/mm3 (0.0-2.0); BASO % 0.4 % (0.0-3.0); EOS # 0.6 (0.0-0.7); EOS % 7.3 % (1.5-5.0); GRAN # 5.71 (1.4-6.5); GRAN % 71.2 % (50.0-68.0); HEMOGLOBIN 12.2 g/dL (14.0-18.0); LYMPH # 1.1 (1.2-3.4); LYMPH % 13.4 % (22.0-35.0); MEAN CELL VOLUME 99.7 fl (80.0-105.0); MEAN CORPUSCULAR HEMOGLOBIN 34.7 pg (25.0-35.0); MEAN CORPUSCULAR HGB CONC 34.8 g/dl (31.0-37.0); MEAN PLATELET VOLUME 10.3 fl (7.0-11.0); MONO # 0.6 (0.1-0.6); MONO % 7.7 % (1.0-6.0); RBC 3.52 10^6/uL (3.5-6.1); RED CELL DISTRIBUTION WIDTH 13.2 % (11.5-14.5)
[2017-07-07 07:13] LABS: ALBUMIN 3.1 g/dL (3.0-4.8); ALT/SGPT 31 U/L (7-56); AST/SGOT 31 U/L (17-59); BLOOD UREA NITROGEN 21 mg/dL (7-21); CALCIUM 9.2 mg/dL (8.4-10.5); GFR AFRICAN-AMERICAN > 60; GFR NON-AFRICAN AMERICAN > 60
[2017-07-07] MEDS: Metoprolol Succinate 50 mg XL Tab PO SCH (09:04)
[2017-07-07] MEDS: Dorzolamide 2% Opht Sol 10ml OD SCH ×3 (09:06→18:39)
[2017-07-07] MEDS: COMBIGAN OS SCH ×2 (09:07→18:39)
--- NOTE | 2017-07-07 10:31 | CP.PCM.PN ---
<Aliya Mayer - Last Filed: 07/07/17 15:08> Subjective - Date & Time of Evaluation Date of Evaluation: 07/07/17 Time of Evaluation: 09:00 - Subjective Subjective: PGY-2 Heme-onc Progress Note Patient seen and examined at bedside today. He denies any shaking, chills or rigors overnight. He states that his cough has improved with guaifenesin. He states that he is eating well and has a good appetite. He denies any difficulty sleeping. Denies emesis, chest pain, shortness of breath. Cr in place, with yellow/orange urine Objective - Vital Signs/Intake and Output Vital Signs (last 24 hours): Temp Pulse Resp BP Pulse Ox 97.8 F 67 18 117/62 95 07/06/17 07:58 07/06/17 10:34 07/06/17 07:58 07/06/17 10:34 07/06/17 07:58 Intake and Output: 07/07/17 07/07/17 06:59 18:59 Intake Total 1680 120 Output Total 400 600 Balance 1280 -480 - Medications Medications: Current Medications Acetaminophen (Tylenol 325mg Tab) 650 mg PO Q4H PRN PRN Reason: temp>100.4*F Last Admin: 07/02/17 21:05 Dose: 650 mg Aspirin (Ecotrin) 81 mg PO DAILY [facility] Last Admin: 07/07/17 09:04 Dose: 81 mg Docusate Sodium (Colace) 100 mg PO DAILY [facility] Dorzolamide HCl (Trusopt) 1 ml OD TID [facility] Last Admin: 07/07/17 09:06 Dose: 1 drop Guaifenesin (Robitussin) 100 mg PO Q4H PRN PRN Reason: Cough Last Admin: 07/06/17 18:29 Dose: 100 mg Home Med (Home Med) 1 unit OS BID [facility] Last Admin: 07/07/17 09:07 Dose: 1 unit Home Med (Home Med) 1 unit OD HS [facility] Last Admin: 07/06/17 22:50 Dose: 1 unit Potassium Chloride/Dextrose/Sod Cl (Potassium Chl 10 Meq In D5-1/2ns) 1,000 mls @ 60 mls/hr IV .[id number] [facility] Last Admin: 07/07/17 05:48 Dose: 60 mls/hr Meropenem (Merrem Iv 1 Gm Premix) 50 mls @ 100 mls/hr IVPB Q8 [facility] PRN Reason: Protocol Stop: 07/08/17 06:46 Last Admin: 07/07/17 05:47 Dose: 100 mls/hr Metoprolol Succinate (Toprol Xl) 50 mg PO BRK [facility] Last Admin: 07/07/17 09:04 Dose: 50 mg Ondansetron HCl (Zofran Inj) 4 mg IVP Q8H PRN PRN Reason: Nausea/Vomiting Last Admin: 07/02/17 14:55 Dose: 4 mg Phenazopyridine HCl (Pyridium) 200 mg PO BID [facility] Last Admin: 07/07/17 09:04 Dose: 200 mg Tamsulosin HCl (Flomax) 0.4 mg PO Q12 [facility] Last Admin: 07/07/17 09:04 Dose: 0.4 mg - Labs Labs: 07/07/17 06:00 07/07/17 06:00 PT 12.5 SECONDS (9.4-12.5) 07/05/17 12:25 INR 1.09 (0.93-1.08) H 07/05/17 12:25 APTT 33.2 Seconds (25.1-36.5) 07/05/17 12:25 - Constitutional Appears: No Acute Distress - Head Exam Head Exam: ATRAUMATIC, NORMOCEPHALIC - Eye Exam Eye Exam: EOMI, Normal appearance - ENT Exam ENT Exam: Mucous Membranes Moist - Respiratory Exam Respiratory Exam: Clear to Ausculation Bilateral, NORMAL BREATHING PATTERN. absent: Rhonchi, Wheezes, Respiratory Distress - Cardiovascular Exam Cardiovascular Exam: REGULAR RHYTHM. absent: Bradycardia, Tachycardia, Murmur - GI/Abdominal Exam GI & Abdominal Exam: Soft, Normal Bowel Sounds. absent: Distended, Firm - Extremities Exam Extremities Exam: Normal Inspection. 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 Repeat bladder scan in the afternoon, if post void residual volume is greater then 300ml will replace cr new lung lesion, suspicious for new lung primary ca vs metastasis, consider CT- biopsy of new lung lesion IR consulted for possible biospy chest xray from yesterday showed no acute pulmonary disease continue robitussian prn Continue home Lopressor and Flomax for HTN, Flomax can also help with difficulty passing urine Continue daily aspirin given hx CAD Pyridium for urinary sx, 200mg BID Patient reviewed and discussed with attending, Dr. Khalil <Malini Khalil P - Last Filed: 07/11/17 19:31> Objective - Vital Signs/Intake and Output Vital Signs (last 24 hours): Temp Pulse Resp BP Pulse Ox 97.7 F 68 20 133/64 96 07/09/17 08:14 07/09/17 08:14 07/09/17 08:14 07/09/17 08:14 07/08/17 16:00 - Labs Labs: 07/09/17 05:30 07/09/17 05:30 PT 12.5 SECONDS (9.4-12.5) 07/05/17 12:25 INR 1.09 (0.93-1.08) H 07/05/17 12:25 APTT 33.2 Seconds (25.1-36.5) 07/05/17 12:25 Attending/Attestation - Attestation I have personally seen and examined this patient.: Yes I have fully participated in the care of the patient.: Yes I have reviewed all pertinent clinical information, including history, physical exam and plan: Yes
--- NOTE | 2017-07-07 12:03 | CP.PCM.PN ---
Subjective - Date & Time of Evaluation Date of Evaluation: 07/07/17 Time of Evaluation: 09:20 - Subjective Subjective: Feeling better, Lowery catheter has been removed this morning, no fevers, no diarrhea. Objective - Vital Signs/Intake and Output Vital Signs (last 24 hours): Temp Pulse Resp BP Pulse Ox 97.8 F 67 18 117/62 95 07/06/17 07:58 07/06/17 10:34 07/06/17 07:58 07/06/17 10:34 07/06/17 07:58 Intake and Output: 07/06/17 07/07/17 18:59 06:59 Intake Total 1680 Output Total 400 Balance 1280 - Medications Medications: Current Medications Acetaminophen (Tylenol 325mg Tab) 650 mg PO Q4H PRN PRN Reason: temp>100.4*F Last Admin: 07/02/17 21:05 Dose: 650 mg Aspirin (Ecotrin) 81 mg PO DAILY [facility] Last Admin: 07/06/17 10:34 Dose: 81 mg Dorzolamide HCl (Trusopt) 1 ml OD TID [facility] Last Admin: 07/06/17 18:28 Dose: 1 drop Guaifenesin (Robitussin) 100 mg PO Q4H PRN PRN Reason: Cough Last Admin: 07/06/17 18:29 Dose: 100 mg Home Med (Home Med) 1 unit OS BID [facility] Last Admin: 07/06/17 18:28 Dose: 1 unit Home Med (Home Med) 1 unit OD HS [facility] Last Admin: 07/06/17 22:50 Dose: 1 unit Potassium Chloride/Dextrose/Sod Cl (Potassium Chl 10 Meq In D5-1/2ns) 1,000 mls @ 60 mls/hr IV .[id number] [facility] Last Admin: 07/07/17 05:48 Dose: 60 mls/hr Meropenem (Merrem Iv 1 Gm Premix) 50 mls @ 100 mls/hr IVPB Q8 [facility] PRN Reason: Protocol Stop: 07/08/17 06:46 Last Admin: 07/07/17 05:47 Dose: 100 mls/hr Metoprolol Succinate (Toprol Xl) 50 mg PO BRK [facility] Last Admin: 07/06/17 10:34 Dose: 50 mg Ondansetron HCl (Zofran Inj) 4 mg IVP Q8H PRN PRN Reason: Nausea/Vomiting Last Admin: 07/02/17 14:55 Dose: 4 mg Phenazopyridine HCl (Pyridium) 200 mg PO BID [facility] Last Admin: 07/06/17 18:28 Dose: 200 mg Tamsulosin HCl (Flomax) 0.4 mg PO Q12 [facility] Last Admin: 07/06/17 22:47 Dose: 0.4 mg - Labs Labs: 07/06/17 07:45 07/06/17 07:45 PT 12.5 SECONDS (9.4-12.5) 07/05/17 12:25 INR 1.09 (0.93-1.08) H 07/05/17 12:25 APTT 33.2 Seconds (25.1-36.5) 07/05/17 12:25 - Constitutional Appears: Chronically Ill - Head Exam Head Exam: NORMAL INSPECTION - ENT Exam ENT Exam: Mucous Membranes Moist - Neck Exam Neck Exam: absent: Lymphadenopathy, Meningismus - Respiratory Exam Respiratory Exam: Decreased Breath Sounds - Cardiovascular Exam Cardiovascular Exam: +S1, +S2 - GI/Abdominal Exam GI & Abdominal Exam: Soft. absent: Tenderness Assessment and Plan - Assessment and Plan (Free Text) Plan: Assessment Consider sepsis due to complicated UTI with Enterobacter in this patient with kidney cancer and history of multiple episodes of urologic instrumentation, stent placement, urinary retention and use of Lowery catheter BPH cancer of the kidney HTN dyslipidemia CAD history of urinary retention S/P Lowery catheter use new lung lesion R/O malignancy Plan continue Merrem day 7 (especially since the patient was on Cefuroxime as an outpatient); blood cx are negative; PSA level is elevated but patient has BPH - patient will need at least 10-14 days of antibiotics - may be able to switch to PO Levaquin when ready to be discharged patient is for biopsy of the lung mass/ lesion will continue to follow clinically discussed with Dr. Khalil previously
[2017-07-07] MEDS ORDERED: Midazolam 2 MG/2 ML VIAL ONE (16:51)
[2017-07-07] MEDS ORDERED: Lidocaine 1% Inj (20ml) ONE (16:52)
--- NOTE | 2017-07-07 19:11 | CT ---
PROCEDURE: CT guided left lower lobe lung biopsy. HISTORY: 4.5 cm spiculated left lower lobe lung mass. Evaluate for malignancy. PHYSICIAN(S): Kalyan Coates MD. TECHNIQUE: The relative risks and indications of the procedure were explained to the patient and consent obtained. The patient was placed right decubitus position on the CT scanner and preliminary images through the lung bases obtained. Conscious sedation and monitoring were provided throughout the procedure by a nurse. There is a 4.5 cm spiculated soft tissue mass in the left lower lobe.. A left lateral approach was selected and the area prepped and draped in the usual sterile fashion. 1% Xylocaine was used to anesthetize the skin and soft tissues. A 19 gauge guiding needle was advanced into the 4.5 cm left lower lobe lung mass.. Its position was confirmed with CT. Using coaxial technique, multiple core biopsies were obtained. The postprocedure images demonstrated a small pneumothorax. The patient was asymptomatic in his vital signs were stable. Follow-up chest x-ray has been ordered. IMPRESSION: 1. CT-guided left lower lobe lung biopsy as described above.
[2017-07-07] MEDS ORDERED: Oxycodone/Acetaminophen 5/325 mg Tab PO PRN ×2 (19:58→22:01)
--- NOTE | 2017-07-07 20:11 | CT ---
PROCEDURE: CT-guided left chest tube placement HISTORY: Left lower lobe lung mass. Status post CT biopsy. Enlarging pneumothorax with shortness of breath. Needs chest tube PHYSICIAN(S): Kalyan Coates MD. TECHNIQUE: The relative risks and indications for the procedure were explained to the patient and informed consent obtained. The patient was placed in a slight right decubitus position on the CT scanner and preliminary images through the upper chest. This revealed a enlarging 50 percent pneumothorax. A left lateral approach was selected and the area prepped/draped in the usual sterile fashion. Conscious sedation and monitoring were provided throughout the procedure by nurse. An 18-gauge needle was advanced into the left pleural cavity and air aspirated. 0.035 J wire was coiled in the left pleural space. Dilatation was performed with subsequent placement of 10 German left pigtail chest tube the catheter was retracted laterally and anteriorly. The tube was placed on 20 cm H2O low continuous suction. Follow-up imaging demonstrated resolution of the pneumothorax. The patient tolerated the procedure well. IMPRESSION: 1. CT-guided left chest tube placement as described above.
[2017-07-07] MEDS ORDERED: guaiFENesin 100 mg/5 ml Syrup UD PO PRN (22:02)
[2017-07-07] MEDS: LUMIGAN OD SCH (22:10)
[2017-07-07] MEDS ORDERED: Morphine 2 mg/2 mL syringe IVP STA (23:19)
[2017-07-08] MEDS ORDERED: Morphine 2 mg/2 mL syringe IVP PRN (01:27)
[2017-07-08] MEDS: Meropenem IV 1 gm in NS 50 ML IVPB SCH (05:38)
[2017-07-08 06:29] LABS: BASO # 0.02 K/mm3 (0.0-2.0); BASO % 0.3 % (0.0-3.0); EOS # 0.5 (0.0-0.7); EOS % 7.3 % (1.5-5.0); GRAN # 5.19 (1.4-6.5); GRAN % 70.5 % (50.0-68.0); HEMOGLOBIN 12.2 g/dL (14.0-18.0); LYMPH # 1.1 (1.2-3.4); LYMPH % 15.4 % (22.0-35.0); MEAN CELL VOLUME 101.6 fl (80.0-105.0); MEAN CORPUSCULAR HEMOGLOBIN 33.4 pg (25.0-35.0); MEAN CORPUSCULAR HGB CONC 32.9 g/dl (31.0-37.0); MONO # 0.5 (0.1-0.6); MONO % 6.5 % (1.0-6.0); RBC 3.65 10^6/uL (3.5-6.1); RED CELL DISTRIBUTION WIDTH 13.2 % (11.5-14.5); WHITE BLOOD COUNT 7.4 10^3/ul (4.5-11.0)
[2017-07-08 06:52] LABS: ALB/GLOB RATIO 1.1 (1.1-1.8); ALBUMIN 3.2 g/dL (3.0-4.8); ALT/SGPT 23 U/L (7-56); AST/SGOT 33 U/L (17-59); BLOOD UREA NITROGEN 19 mg/dL (7-21); CALCIUM 9.3 mg/dL (8.4-10.5); GFR AFRICAN-AMERICAN > 60; GFR NON-AFRICAN AMERICAN > 60
[2017-07-08] MEDS: Morphine 2 mg/2 mL syringe IVP PRN ×2 (08:09→16:29)
--- NOTE | 2017-07-08 08:12 | RAD ---
HISTORY: lt lung bx COMPARISON: 07/06/2017 FINDINGS: LUNGS: There is a moderate to large left pneumothorax following biopsy. There is no mediastinal shift. A chest tube was subsequently placed PLEURA: No significant pleural effusion identified, no pneumothorax apparent. CARDIOVASCULAR: Normal. OSSEOUS STRUCTURES: No significant abnormalities. VISUALIZED UPPER ABDOMEN: Normal. OTHER FINDINGS: None. IMPRESSION: Moderate to large left pneumothorax
--- NOTE | 2017-07-08 08:14 | RAD ---
HISTORY: Left chest tube COMPARISON: 07/07/2017. FINDINGS: LUNGS: The lungs are well inflated and clear. PLEURA: Status post insertion of left chest tube, no definite evidence for pneumothorax. CARDIOVASCULAR: The heart is normal in size. OSSEOUS STRUCTURES: No significant abnormalities. VISUALIZED UPPER ABDOMEN: Normal. OTHER FINDINGS: None. IMPRESSION: Status post insertion of left chest tube, no definite evidence for pneumothorax.
--- NOTE | 2017-07-08 08:43 | CP.PCM.PN ---
<Aliya Mayer - Last Filed: 07/09/17 08:25> Subjective - Date & Time of Evaluation Date of Evaluation: 07/08/17 Time of Evaluation: 08:40 - Subjective Subjective: PGY-2 Heme/onc progress note Patient seen and examined at bedside. No acute distress. Patient went for lung biopsy yesterday, and found to have pneumothorax s/p chest tube. Patient is complaining of pain from at site of chest tube. Patient had cr catheter removed yesterday. He states that he is having good urine output, denies any pain or blood. He states that he is urinating well. Bladder scan in AM showed no residual volume. He is tolerating diet, denies, abd pain, n/v, dyruria, sob, fever, chills. Objective - Vital Signs/Intake and Output Vital Signs (last 24 hours): Temp Pulse Resp BP Pulse Ox 98.1 F 65 18 124/63 98 07/08/17 08:12 07/08/17 08:12 07/08/17 08:12 07/08/17 08:12 07/08/17 08:12 Intake and Output: 07/08/17 07/08/17 06:59 18:59 Intake Total 520 Output Total 1200 Balance -680 - Medications Medications: Current Medications Acetaminophen (Tylenol 325mg Tab) 650 mg PO Q4H PRN PRN Reason: temp>100.4*F Last Admin: 07/02/17 21:05 Dose: 650 mg Aspirin (Ecotrin) 81 mg PO DAILY [facility] Last Admin: 07/07/17 09:04 Dose: 81 mg Docusate Sodium (Colace) 100 mg PO DAILY [facility] Last Admin: 07/07/17 11:05 Dose: 100 mg Dorzolamide HCl (Trusopt) 1 ml OD TID [facility] Last Admin: 07/07/17 18:39 Dose: Not Given Guaifenesin (Robitussin) 100 mg PO Q4H PRN PRN Reason: Cough Home Med (Home Med) 1 unit OS BID [facility] Last Admin: 07/07/17 18:39 Dose: Not Given Home Med (Home Med) 1 unit OD HS [facility] Last Admin: 07/07/17 22:10 Dose: 1 unit Potassium Chloride/Dextrose/Sod Cl (Potassium Chl 10 Meq In D5-1/2ns) 1,000 mls @ 60 mls/hr IV .[id number] [facility] Last Admin: 07/07/17 23:30 Dose: 60 mls/hr Metoprolol Succinate (Toprol Xl) 50 mg PO BRK [facility] Last Admin: 07/07/17 09:04 Dose: 50 mg Morphine Sulfate (Morphine) 2 mg IVP Q4H PRN PRN Reason: Pain, severe (8-10) Last Admin: 07/08/17 08:09 Dose: 2 mg Ondansetron HCl (Zofran Inj) 4 mg IVP Q8H PRN PRN Reason: Nausea/Vomiting Last Admin: 07/02/17 14:55 Dose: 4 mg Oxycodone/Acetaminophen (Percocet 5/325 Mg Tab) 1 tab PO Q6H PRN PRN Reason: Pain, moderate (4-7) Stop: 07/10/17 22:02 Phenazopyridine HCl (Pyridium) 200 mg PO BID [facility] Last Admin: 07/07/17 18:39 Dose: Not Given Tamsulosin HCl (Flomax) 0.4 mg PO Q12 [facility] Last Admin: 07/07/17 22:08 Dose: 0.4 mg - Labs Labs: 07/08/17 05:30 07/08/17 05:30 PT 12.5 SECONDS (9.4-12.5) 07/05/17 12:25 INR 1.09 (0.93-1.08) H 07/05/17 12:25 APTT 33.2 Seconds (25.1-36.5) 07/05/17 12:25 - Constitutional Appears: Well, No Acute Distress - Head Exam Head Exam: ATRAUMATIC, NORMOCEPHALIC - Eye Exam Eye Exam: EOMI, Normal appearance - ENT Exam ENT Exam: Mucous Membranes Moist - Respiratory Exam Respiratory Exam: Chest Wall Tenderness (at chest tube insertion site), Decreased Breath Sounds (lower left ), Clear to Ausculation Bilateral, NORMAL BREATHING PATTERN. absent: Rales, Rhonchi, Wheezes, Respiratory Distress - Cardiovascular Exam Cardiovascular Exam: REGULAR RHYTHM, +S1, +S2. absent: Tachycardia, Murmur - GI/Abdominal Exam GI & Abdominal Exam: Soft, Normal Bowel Sounds. absent: Distended, Firm, Tenderness - Extremities Exam Extremities Exam: Normal Inspection. 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 new lung mass, suspicious for new lung primary ca HTN HLD CAD chronic cr pneumothoarax s/p chest tube Plan: UTI with enterobacter cloacae afebrile, no leukocytosis UA notable for large blood, large leuk esterase, positive Nitrates, TNTC WBCs, many bacteria; currently on merrem day 8 for 10-14 days per ID ID consulted, appreciate all recs Urology consulted, appreciate all recs cr removed and patient is make urine, denies any dysuria contiue to monitor for urine out put bladder scan in the morning showed no residual volume new lung lesion, suspicious for new lung primary ca vs metastasis, CT-biopsy yesterday per IR patient developed pneumothorax and chest tube to placed, will follo wup with IR repeat cxr in AM showed no definite evidence for pneumothorax Dr. Khalil spoke with daughter and family over the phone continue morphine for pain continue robitussian prn for cough Continue home Lopressor and Flomax for HTN, Flomax can also help with difficulty passing urine Continue daily aspirin given hx CAD Pyridium for urinary sx, 200mg BID Patient reviewed and discussed with attending, Dr. Khalil <Malini Khalil P - Last Filed: 07/11/17 19:23> Objective - Vital Signs/Intake and Output Vital Signs (last 24 hours): Temp Pulse Resp BP Pulse Ox 97.7 F 68 20 133/64 96 07/09/17 08:14 07/09/17 08:14 07/09/17 08:14 07/09/17 08:14 07/08/17 16:00 - Labs Labs: 07/09/17 05:30 07/09/17 05:30 PT 12.5 SECONDS (9.4-12.5) 07/05/17 12:25 INR 1.09 (0.93-1.08) H 07/05/17 12:25 APTT 33.2 Seconds (25.1-36.5) 07/05/17 12:25 Attending/Attestation - Attestation I have personally seen and examined this patient.: Yes I have fully participated in the care of the patient.: Yes I have reviewed all pertinent clinical information, including history, physical exam and plan: Yes
[2017-07-08] MEDS: Metoprolol Succinate 50 mg XL Tab PO SCH (09:55)
[2017-07-08] MEDS: Dorzolamide 2% Opht Sol 10ml OD SCH ×3 (09:58→17:08)
[2017-07-08] MEDS: COMBIGAN OS SCH ×2 (09:58→17:09)
[2017-07-08] MEDS ORDERED: Morphine 4 mg/ml ISec IVP STA (10:44)
--- NOTE | 2017-07-08 10:57 | CP.PCM.PN ---
Subjective - Date & Time of Evaluation Date of Evaluation: 07/08/17 Time of Evaluation: 09:45 - Subjective Subjective: Had CT-guided biopsy yesterday but developed pneumothorax and a pig-tailed chest tube was placed yesterday. No SOB at rest, no fevers, not in distress. Objective - Vital Signs/Intake and Output Vital Signs (last 24 hours): Temp Pulse Resp BP Pulse Ox 97.7 F 63 20 120/57 L 98 07/07/17 20:25 07/07/17 20:25 07/07/17 20:25 07/07/17 20:25 07/07/17 20:25 Intake and Output: 07/07/17 07/08/17 18:59 06:59 Intake Total 280 520 Output Total 600 1200 Balance -320 -680 - Medications Medications: Current Medications Acetaminophen (Tylenol 325mg Tab) 650 mg PO Q4H PRN PRN Reason: temp>100.4*F Last Admin: 07/02/17 21:05 Dose: 650 mg Aspirin (Ecotrin) 81 mg PO DAILY [facility] Last Admin: 07/07/17 09:04 Dose: 81 mg Docusate Sodium (Colace) 100 mg PO DAILY [facility] Last Admin: 07/07/17 11:05 Dose: 100 mg Dorzolamide HCl (Trusopt) 1 ml OD TID [facility] Last Admin: 07/07/17 18:39 Dose: Not Given Guaifenesin (Robitussin) 100 mg PO Q4H PRN PRN Reason: Cough Home Med (Home Med) 1 unit OS BID [facility] Last Admin: 07/07/17 18:39 Dose: Not Given Home Med (Home Med) 1 unit OD HS [facility] Last Admin: 07/07/17 22:10 Dose: 1 unit Potassium Chloride/Dextrose/Sod Cl (Potassium Chl 10 Meq In D5-1/2ns) 1,000 mls @ 60 mls/hr IV .[id number] [facility] Last Admin: 07/07/17 23:30 Dose: 60 mls/hr Metoprolol Succinate (Toprol Xl) 50 mg PO BRK [facility] Last Admin: 07/07/17 09:04 Dose: 50 mg Morphine Sulfate (Morphine) 1 mg IVP Q2H PRN PRN Reason: Pain, severe (8-10) Last Admin: 07/08/17 01:44 Dose: 1 mg Ondansetron HCl (Zofran Inj) 4 mg IVP Q8H PRN PRN Reason: Nausea/Vomiting Last Admin: 07/02/17 14:55 Dose: 4 mg Oxycodone/Acetaminophen (Percocet 5/325 Mg Tab) 1 tab PO Q6H PRN PRN Reason: Pain, moderate (4-7) Stop: 07/10/17 22:02 Phenazopyridine HCl (Pyridium) 200 mg PO BID [facility] Last Admin: 07/07/17 18:39 Dose: Not Given Tamsulosin HCl (Flomax) 0.4 mg PO Q12 [facility] Last Admin: 07/07/17 22:08 Dose: 0.4 mg - Labs Labs: 07/07/17 06:00 07/07/17 06:00 PT 12.5 SECONDS (9.4-12.5) 07/05/17 12:25 INR 1.09 (0.93-1.08) H 07/05/17 12:25 APTT 33.2 Seconds (25.1-36.5) 07/05/17 12:25 - Constitutional Appears: Chronically Ill - Head Exam Head Exam: NORMAL INSPECTION - ENT Exam ENT Exam: Mucous Membranes Moist - Neck Exam Neck Exam: absent: Meningismus - Respiratory Exam Respiratory Exam: Decreased Breath Sounds Additional comments: left sided chest tube in place - Cardiovascular Exam Cardiovascular Exam: +S1, +S2 - GI/Abdominal Exam GI & Abdominal Exam: Soft. absent: Tenderness Assessment and Plan - Assessment and Plan (Free Text) Plan: Assessment sepsis due to complicated UTI with Enterobacter in this patient with kidney cancer and history of multiple episodes of urologic instrumentation, stent placement, urinary retention and use of Lowery catheter new lung lesion R/O malignancy S/P CT-guided biopsy yesterday with development of pneumothorax S/P chest tube placement on left POD #1 BPH cancer of the kidney HTN dyslipidemia CAD history of urinary retention S/P Lowery catheter use Plan continue Merrem day 8 (especially since the patient was on Cefuroxime as an outpatient); blood cx are negative; PSA level is elevated but patient has BPH - patient will need at least 10-14 days of antibiotics - may be able to switch to PO Levaquin when ready to be discharged follow up results of the biopsy of the lung mass/ lesion follow up plan for the chest tube on the left will continue to follow clinically
--- NOTE | 2017-07-08 13:32 | RAD ---
HISTORY: lt chest tube COMPARISON: Earlier same day FINDINGS: LUNGS: There is a small left-sided pneumothorax. This is seen just above the level of the chest tube. PLEURA: No significant pleural effusion identified, no pneumothorax apparent. CARDIOVASCULAR: Normal. OSSEOUS STRUCTURES: No significant abnormalities. VISUALIZED UPPER ABDOMEN: Normal. OTHER FINDINGS: None. IMPRESSION: Small left-sided pneumothorax
[2017-07-08] MEDS: Potassium Chl 10 mEq in D5-1/2 1,000 ML IV SCH (17:07)
[2017-07-08 18:16] VITALS: O2SAT 96
[2017-07-08] MEDS: LUMIGAN OD SCH (22:22)
[2017-07-09 06:31] LABS: BASO # 0.01 K/mm3 (0.0-2.0); BASO % 0.1 % (0.0-3.0); EOS # 0.5 (0.0-0.7); EOS % 5.8 % (1.5-5.0); GRAN # 5.89 (1.4-6.5); GRAN % 76.6 % (50.0-68.0); HEMOGLOBIN 12.3 g/dL (14.0-18.0); LYMPH # 0.9 (1.2-3.4); LYMPH % 11.4 % (22.0-35.0); MEAN CELL VOLUME 100.8 fl (80.0-105.0); MEAN CORPUSCULAR HEMOGLOBIN 33.9 pg (25.0-35.0); MEAN CORPUSCULAR HGB CONC 33.6 g/dl (31.0-37.0); MEAN PLATELET VOLUME 10.1 fl (7.0-11.0); MONO # 0.5 (0.1-0.6); MONO % 6.1 % (1.0-6.0); RBC 3.63 10^6/uL (3.5-6.1); WHITE BLOOD COUNT 7.7 10^3/ul (4.5-11.0)
[2017-07-09 07:01] LABS: ALB/GLOB RATIO 1.1 (1.1-1.8); ALBUMIN 3.3 g/dL (3.0-4.8); ALT/SGPT 26 U/L (7-56); AST/SGOT 33 U/L (17-59); BLOOD UREA NITROGEN 18 mg/dL (7-21); CALCIUM 9.5 mg/dL (8.4-10.5); GFR AFRICAN-AMERICAN > 60; GFR NON-AFRICAN AMERICAN > 60
[2017-07-09] MEDS: Metoprolol Succinate 50 mg XL Tab PO SCH (08:04)
[2017-07-09 08:15] VITALS: BP 133/64; PULSE 68; RESP 20; TEMP 97.7
--- NOTE | 2017-07-09 08:39 | CP.PCM.PN ---
Subjective - Date & Time of Evaluation Date of Evaluation: 07/09/17 Time of Evaluation: 08:35 - Subjective Subjective: PGY-2 Heme/onc progress note Patient seen and examined at bedside. No acute distress. Nurse reports no acute events overnight. Yesterday evening nurse changed dressing for chest tube. Patient went for lung biopsy and had a pneumothorax s/p chest tube. Patient states that pain at site of chest tube has improved. Patient had cr catheter removed, he states that he is having good urine output, denies any pain or blood. He is tolerating diet, denies, abd pain, n/v, dyruria, sob, fever, chills , headache dizziness. Objective - Vital Signs/Intake and Output Vital Signs (last 24 hours): Temp Pulse Resp BP Pulse Ox 97.7 F 68 20 133/64 96 07/09/17 08:14 07/09/17 08:14 07/09/17 08:14 07/09/17 08:14 07/08/17 16:00 Intake and Output: 07/09/17 07/09/17 06:59 18:59 Intake Total 540 Output Total 2024 Balance -1485 - Medications Medications: Current Medications Acetaminophen (Tylenol 325mg Tab) 650 mg PO Q4H PRN PRN Reason: temp>100.4*F Last Admin: 07/09/17 06:34 Dose: 650 mg Aspirin (Ecotrin) 81 mg PO DAILY [facility] Last Admin: 07/08/17 09:56 Dose: 81 mg Docusate Sodium (Colace) 100 mg PO DAILY [facility] Last Admin: 07/08/17 09:55 Dose: 100 mg Dorzolamide HCl (Trusopt) 1 ml OD TID [facility] Last Admin: 07/08/17 17:08 Dose: 1 drop Guaifenesin (Robitussin) 100 mg PO Q4H PRN PRN Reason: Cough Home Med (Home Med) 1 unit OS BID [facility] Last Admin: 07/08/17 17:09 Dose: 1 unit Home Med (Home Med) 1 unit OD HS [facility] Last Admin: 07/08/17 22:22 Dose: 1 unit Potassium Chloride/Dextrose/Sod Cl (Potassium Chl 10 Meq In D5-1/2ns) 1,000 mls @ 60 mls/hr IV .[id number] [facility] Last Admin: 07/08/17 17:07 Dose: 60 mls/hr Metoprolol Succinate (Toprol Xl) 50 mg PO BRK [facility] Last Admin: 07/08/17 09:55 Dose: 50 mg Morphine Sulfate (Morphine) 2 mg IVP Q4H PRN PRN Reason: Pain, severe (8-10) Last Admin: 07/08/17 16:29 Dose: 2 mg Ondansetron HCl (Zofran Inj) 4 mg IVP Q8H PRN PRN Reason: Nausea/Vomiting Last Admin: 07/02/17 14:55 Dose: 4 mg Oxycodone/Acetaminophen (Percocet 5/325 Mg Tab) 1 tab PO Q6H PRN PRN Reason: Pain, moderate (4-7) Stop: 07/10/17 22:02 Phenazopyridine HCl (Pyridium) 200 mg PO BID [facility] Last Admin: 07/08/17 17:06 Dose: 200 mg Tamsulosin HCl (Flomax) 0.4 mg PO Q12 [facility] Last Admin: 07/08/17 22:21 Dose: 0.4 mg - Labs Labs: 07/09/17 05:30 07/09/17 05:30 PT 12.5 SECONDS (9.4-12.5) 07/05/17 12:25 INR 1.09 (0.93-1.08) H 07/05/17 12:25 APTT 33.2 Seconds (25.1-36.5) 07/05/17 12:25 - Constitutional Appears: Well, No Acute Distress - Head Exam Head Exam: ATRAUMATIC, NORMOCEPHALIC - Eye Exam Eye Exam: EOMI, Normal appearance - ENT Exam ENT Exam: Mucous Membranes Moist - Respiratory Exam Respiratory Exam: Clear to Ausculation Bilateral, NORMAL BREATHING PATTERN. absent: Rhonchi, Wheezes, Respiratory Distress - Cardiovascular Exam Cardiovascular Exam: REGULAR RHYTHM. absent: Bradycardia, Tachycardia, Murmur - GI/Abdominal Exam GI & Abdominal Exam: Soft, Normal Bowel Sounds. absent: Distended, Firm - Extremities Exam Extremities Exam: Normal Inspection - Neurological Exam Neurological Exam: Alert, Awake, Oriented x3 - Skin Skin Exam: Dry, Intact, Normal Color, Warm
[2017-07-09] MEDS: COMBIGAN OS SCH (10:02)
[2017-07-09] MEDS: Morphine 2 mg/2 mL syringe IVP PRN (10:03)
[2017-07-09] MEDS: Dorzolamide 2% Opht Sol 10ml OD SCH (10:04)
--- NOTE | 2017-07-09 13:02 | RAD ---
HISTORY: remove left chest tube COMPARISON: 07/08/2017 FINDINGS: LUNGS: The chest tube has been removed. . No pneumothorax. 4 x 5 cm lung mass PLEURA: No significant pleural effusion identified, no pneumothorax apparent. CARDIOVASCULAR: Normal. OSSEOUS STRUCTURES: No significant abnormalities. VISUALIZED UPPER ABDOMEN: Normal. OTHER FINDINGS: None. IMPRESSION: No evidence of pneumothorax after chest tube removal
--- NOTE | 2017-07-09 14:06 | CP.PCM.PN ---
Subjective - Date & Time of Evaluation Date of Evaluation: 07/09/17 Time of Evaluation: 09:40 - Subjective Subjective: Comfortable on a chair, chest tube now removed, no fevers, no SOB at rest, no chest pain. Objective - Vital Signs/Intake and Output Vital Signs (last 24 hours): Temp Pulse Resp BP Pulse Ox 97.4 F L 99 H 19 113/75 96 07/08/17 16:00 07/08/17 16:00 07/08/17 16:00 07/08/17 16:00 07/08/17 16:00 Intake and Output: 07/08/17 07/09/17 18:59 06:59 Intake Total 300 Output Total 1100 Balance -800 - Medications Medications: Current Medications Acetaminophen (Tylenol 325mg Tab) 650 mg PO Q4H PRN PRN Reason: temp>100.4*F Last Admin: 07/02/17 21:05 Dose: 650 mg Aspirin (Ecotrin) 81 mg PO DAILY [facility] Last Admin: 07/08/17 09:56 Dose: 81 mg Docusate Sodium (Colace) 100 mg PO DAILY [facility] Last Admin: 07/08/17 09:55 Dose: 100 mg Dorzolamide HCl (Trusopt) 1 ml OD TID [facility] Last Admin: 07/08/17 17:08 Dose: 1 drop Guaifenesin (Robitussin) 100 mg PO Q4H PRN PRN Reason: Cough Home Med (Home Med) 1 unit OS BID [facility] Last Admin: 07/08/17 17:09 Dose: 1 unit Home Med (Home Med) 1 unit OD HS [facility] Last Admin: 07/08/17 22:22 Dose: 1 unit Potassium Chloride/Dextrose/Sod Cl (Potassium Chl 10 Meq In D5-1/2ns) 1,000 mls @ 60 mls/hr IV .[id number] [facility] Last Admin: 07/08/17 17:07 Dose: 60 mls/hr Metoprolol Succinate (Toprol Xl) 50 mg PO BRK [facility] Last Admin: 07/08/17 09:55 Dose: 50 mg Morphine Sulfate (Morphine) 2 mg IVP Q4H PRN PRN Reason: Pain, severe (8-10) Last Admin: 07/08/17 16:29 Dose: 2 mg Ondansetron HCl (Zofran Inj) 4 mg IVP Q8H PRN PRN Reason: Nausea/Vomiting Last Admin: 07/02/17 14:55 Dose: 4 mg Oxycodone/Acetaminophen (Percocet 5/325 Mg Tab) 1 tab PO Q6H PRN PRN Reason: Pain, moderate (4-7) Stop: 07/10/17 22:02 Phenazopyridine HCl (Pyridium) 200 mg PO BID [facility] Last Admin: 07/08/17 17:06 Dose: 200 mg Tamsulosin HCl (Flomax) 0.4 mg PO Q12 [facility] Last Admin: 07/08/17 22:21 Dose: 0.4 mg - Labs Labs: 07/08/17 05:30 07/08/17 05:30 PT 12.5 SECONDS (9.4-12.5) 07/05/17 12:25 INR 1.09 (0.93-1.08) H 07/05/17 12:25 APTT 33.2 Seconds (25.1-36.5) 07/05/17 12:25 - Constitutional Appears: Chronically Ill - Head Exam Head Exam: NORMAL INSPECTION - ENT Exam ENT Exam: Mucous Membranes Moist - Neck Exam Neck Exam: absent: Lymphadenopathy, Meningismus - Respiratory Exam Respiratory Exam: Decreased Breath Sounds - Cardiovascular Exam Cardiovascular Exam: +S1, +S2 - GI/Abdominal Exam GI & Abdominal Exam: Soft. absent: Tenderness Assessment and Plan - Assessment and Plan (Free Text) Plan: Assessment sepsis due to complicated UTI with Enterobacter in this patient with kidney cancer and history of multiple episodes of urologic instrumentation, stent placement, urinary retention and use of Lowery catheter new lung lesion R/O malignancy S/P CT-guided biopsy yesterday with development of pneumothorax S/P chest tube placement and now removal BPH cancer of the kidney HTN dyslipidemia CAD history of urinary retention S/P Lowery catheter use Plan on Merrem day 9 (especially since the patient was on Cefuroxime as an outpatient ); blood cx are negative; PSA level is elevated but patient has BPH - patient will need at least 10-14 days of antibiotics - may be able to switch to PO Levaquin when ready to be discharged - discussed with Dr. Khalil follow up results of the biopsy of the lung mass/ lesion
--- NOTE | 2017-07-09 15:33 | CP.PCM.DIS ---
<Aliya Mayer - Last Filed: 07/09/17 18:44> Provider - Provider Date of Admission: 06/30/17 13:57 Attending physician: Mic Dougherty MD Primary care physician: Malini Gardner MD Time Spent in preparation of Discharge (in minutes): 45 Hospital Course - Lab Results Lab Results: Micro Results 06/30/17 14:40 Blood-Venous Blood Culture - Final NO GROWTH AFTER 5 DAYS 06/30/17 14:40 Blood-Venous Gram Stain - Final TEST NOT PERFORMED 06/30/17 14:00 Blood-Venous Blood Culture - Final NO GROWTH AFTER 5 DAYS 06/30/17 14:00 Blood-Venous Gram Stain - Final TEST NOT PERFORMED 06/30/17 15:07 Urine,Clean Catch Urine Culture - Final Enterobacter Cloacae Ssp Cloac Most Recent Lab Values WBC 7.7 10^3/ul (4.5-11.0) 07/09/17 05:30 RBC 3.63 10^6/uL (3.5-6.1) 07/09/17 05:30 Hgb 12.3 g/dL (14.0-18.0) L 07/09/17 05:30 Hct 36.6 % (42.0-52.0) L 07/09/17 05:30 MCV 100.8 fl (80.0-105.0) 07/09/17 05:30 MCH 33.9 pg (25.0-35.0) 07/09/17 05:30 MCHC 33.6 g/dl (31.0-37.0) 07/09/17 05:30 RDW 13.0 % (11.5-14.5) 07/09/17 05:30 Plt Count 227 10^3/uL (120.0-450.0) 07/09/17 05:30 MPV 10.1 fl (7.0-11.0) 07/09/17 05:30 Gran % 76.6 % (50.0-68.0) H 07/09/17 05:30 Lymph % (Auto) 11.4 % (22.0-35.0) L 07/09/17 05:30 Payette % (Auto) 6.1 % (1.0-6.0) H 07/09/17 05:30 Eos % (Auto) 5.8 % (1.5-5.0) H 07/09/17 05:30 Baso % (Auto) 0.1 % (0.0-3.0) 07/09/17 05:30 Gran # 5.89 (1.4-6.5) 07/09/17 05:30 Lymph # (Auto) 0.9 (1.2-3.4) L 07/09/17 05:30 Payette # (Auto) 0.5 (0.1-0.6) 07/09/17 05:30 Eos # (Auto) 0.5 (0.0-0.7) 07/09/17 05:30 Baso # (Auto) 0.01 K/mm3 (0.0-2.0) 07/09/17 05:30 Neutrophils % (Manual) 93 % (50.0-70.0) H 06/30/17 14:40 Lymphocytes % (Manual) 2 % (22.0-35.0) L 06/30/17 14:40 Atypical Lymphs % 2 % (0.0-0.0) H 06/30/17 14:40 Monocytes % (Manual) 3 % (1.0-6.0) 06/30/17 14:40 Platelet Evaluation Normal (NORMAL) 06/30/17 14:40 PT 12.5 SECONDS (9.4-12.5) 07/05/17 12:25 INR 1.09 (0.93-1.08) H 07/05/17 12:25 APTT 33.2 Seconds (25.1-36.5) 07/05/17 12:25 pO2 55 mm/Hg (30-55) 06/30/17 14:40 VBG pH 7.47 (7.32-7.43) H 06/30/17 14:40 VBG pCO2 35.0 (40-60) L 06/30/17 14:40 VBG HCO3 25.5 mmol/l (21-28) 06/30/17 14:40 VBG Total CO2 26.6 mmol.L (22-28) 06/30/17 14:40 VBG O2 Sat (Calc) 94.3 % (40-65) H 06/30/17 14:40 VBG Base Excess 2.1 mmol/L (0.0-2.0) H 06/30/17 14:40 VBG Potassium 3.9 mmol/L (3.6-5.2) 06/30/17 14:40 Sodium 131.0 mmol/L (132-148) L 06/30/17 14:40 Chloride 99.0 mmol/L (98-107) 06/30/17 14:40 Glucose 165 mg/dl (75-110) H 06/30/17 14:40 Lactate 1.8 mmol/L (0.7-2.1) 06/30/17 14:40 FiO2 21.0 % 06/30/17 14:40 Sodium 135 mmol/L (132-148) 07/09/17 05:30 Potassium 4.0 mmol/L (3.6-5.0) 07/09/17 05:30 Chloride 98 mmol/L (98-107) 07/09/17 05:30 Carbon Dioxide 30 mmol/L (21-33) 07/09/17 05:30 Anion Gap 11 (10-20) 07/09/17 05:30 BUN 18 mg/dL (7-21) 07/09/17 05:30 Creatinine 0.9 mg/dl (0.8-1.5) 07/09/17 05:30 Est GFR ( Amer) > 60 07/09/17 05:30 Est GFR (Non-Af Amer) > 60 07/09/17 05:30 Random Glucose 111 mg/dL (70-110) H 07/09/17 05:30 Calcium 9.5 mg/dL (8.4-10.5) 07/09/17 05:30 Phosphorus 3.1 mg/dL (2.5-4.5) 07/05/17 05:45 Magnesium 2.2 mg/dL (1.7-2.2) 07/05/17 05:45 Total Bilirubin 0.6 mg/dL (0.2-1.3) 07/09/17 05:30 AST 33 U/L (17-59) 07/09/17 05:30 ALT 26 U/L (7-56) 07/09/17 05:30 Alkaline Phosphatase 52 U/L (38-126) 07/09/17 05:30 Lactate Dehydrogenase 267 U/L (333-699) L 06/30/17 14:40 Total Creatine Kinase 44 U/L (35-230) 06/30/17 14:40 Troponin I < 0.01 ng/mL 06/30/17 14:40 Total Protein 6.3 g/dL (5.8-8.3) 07/09/17 05:30 Albumin 3.3 g/dL (3.0-4.8) 07/09/17 05:30 Globulin 3.1 gm/dL 07/09/17 05:30 Albumin/Globulin Ratio 1.1 (1.1-1.8) 07/09/17 05:30 Prostate Specific Ag 20.3 ng/mL (0.00-2.5) H 07/01/17 05:30 Procalcitonin 0.84 NG/ML (0.19-0.49) H 07/01/17 07:00 Venous Blood Potassium 3.9 mmol/L (3.6-5.2) 06/30/17 14:40 Urine Color Yellow (YELLOW) 06/30/17 15:07 Urine Appearance Turbid (CLEAR) 06/30/17 15:07 Urine pH 6.0 (4.7-8.0) 06/30/17 15:07 Ur Specific Backus 1.020 (1.005-1.035) 06/30/17 15:07 Urine Protein 30 mg/dL (<30 mg/dL) H 06/30/17 15:07 Urine Glucose (UA) Negative mg/dL (NEGATIVE) 06/30/17 15:07 Urine Ketones Trace mg/dL (NEGATIVE) H 06/30/17 15:07 Urine Blood Large (NEGATIVE) H 06/30/17 15:07 Urine Nitrate Positive (NEGATIVE) H 06/30/17 15:07 Urine Bilirubin Negative (NEGATIVE) 06/30/17 15:07 Urine Urobilinogen 0.2 E.U./dL (<1 E.U./dL) 06/30/17 15:07 Ur Leukocyte Esterase Large Gopi/uL (NEGATIVE) H 06/30/17 15:07 Urine RBC 5 - 10 /hpf (0-2) 06/30/17 15:07 Urine WBC Tntc /hpf (0-6) 06/30/17 15:07 Ur Epithelial Cells 3 - 4 /hpf (0-5) 06/30/17 15:07 Urine Bacteria Many (NEG) 06/30/17 15:07 Influenza Typ A,B (EIA) Negative for flu a/b (NEGATIVE) 07/01/17 14:22 Ur L.pneumophila Ag Negative (NEGATIVE) 07/01/17 14:31 - Hospital Course Hospital Course: 87 yo M with PMH of 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 UA notable for large blood, large leuk esterase, positive Nitrates, TNTC WBCs, many bacteria. Urine cultures were found to be enterobacter cloacae positive and patient was started on antibiotic. ID was consulted. Thought out hospital course patient became afebrile without leukocytosis. Urology was consulted. cr catheter was replaced once patient was found to be retaining. I&o were monitored. Once patient became afebrile with out leukocytosis cr catheter was removed. Patient continued to make urine without any urinary symptoms. Repeat bladder scan in the morning showed no residual volume. During hospital course patient was also revaluated for lung lesion, suspicious for new lung primary ca vs metastasis. Patient under went CT-biopsy with IR. Patient developed pneumothorax and chest tube was placed. Repeat cxr improvement in pneumothorax and chest tube was removed. Dr. Gardner spoke with daughter and family over the phone, multiple options were discussed at length. Lung biopsy results are pending. Patient's chronic conditions were managed. Patient will be discharged with remaining course of antibiotics. He is to follow up with Dr. Gardner next week. He is to follow up with urologist. Patient reviewed and discussed with attending, Dr. Gardner Discharge Exam - Head Exam Head Exam: NORMAL INSPECTION - Eye Exam Eye Exam: EOMI, Normal appearance - Respiratory Exam Respiratory Exam: Clear to PA & Lateral, NORMAL BREATHING PATTERN, UNREMARKABLE. absent: Rales, Rhonchi, Wheezes, Respiratory Distress - Cardiovascular Exam Cardiovascular Exam: REGULAR RHYTHM, +S1, +S2. absent: Bradycardia, Tachycardia , Systolic Murmur - GI/Abdominal Exam GI & Abdominal Exam: Normal Bowel Sounds, Unremarkable. absent: Distended, Firm , Soft, Tenderness - Neurological Exam Neurological exam: Alert, Oriented x3, Reflexes Normal - Skin Skin Exam: Dry, Intact, Normal Color, Warm Discharge Plan - Discharge Medications Prescriptions: Aspirin [Ecotrin] 81 mg PO DAILY #15 tabec Levofloxacin [Levaquin] 750 mg PO DAILY #3 tablet Phenazopyridine [Pyridium] 200 mg PO BID #30 tab - Follow Up Plan Condition: GOOD Disposition: HOME/ ROUTINE Instructions: Preventing Falls, Fever, Adult (DC) Additional Instructions: CALL DR. GARDNER OFFICE FOR A FOLLOW UP APPOINTMENT NEXT WEEK. [phone]. ANY FEVERS, CHILLS REPORT TO MD OR GO TO ER. TAKE MEDICATION INSTRUCTED. MEDS CALLED INTO PHARMACY. Follow up with Dr. Gardner next Wednesday or in the outpatient clinic. Take antibiotic for 3 days Referrals: Malini Gardner MD [Primary Care Provider] - <Malini Gardner - Last Filed: 07/11/17 19:09> Provider - Provider Date of Admission: 06/30/17 13:57 Attending physician: Mic Dougherty MD Primary care physician: Malini Gardner MD Hospital Course - Lab Results Lab Results: Micro Results 06/30/17 14:40 Blood-Venous Blood Culture - Final NO GROWTH AFTER 5 DAYS 06/30/17 14:40 Blood-Venous Gram Stain - Final TEST NOT PERFORMED 06/30/17 14:00 Blood-Venous Blood Culture - Final NO GROWTH AFTER 5 DAYS 06/30/17 14:00 Blood-Venous Gram Stain - Final TEST NOT PERFORMED 06/30/17 15:07 Urine,Clean Catch Urine Culture - Final Enterobacter Cloacae Ssp Cloac Most Recent Lab Values WBC 7.7 10^3/ul (4.5-11.0) 07/09/17 05:30 RBC 3.63 10^6/uL (3.5-6.1) 07/09/17 05:30 Hgb 12.3 g/dL (14.0-18.0) L 07/09/17 05:30 Hct 36.6 % (42.0-52.0) L 07/09/17 05:30 MCV 100.8 fl (80.0-105.0) 07/09/17 05:30 MCH 33.9 pg (25.0-35.0) 07/09/17 05:30 MCHC 33.6 g/dl (31.0-37.0) 07/09/17 05:30 RDW 13.0 % (11.5-14.5) 07/09/17 05:30 Plt Count 227 10^3/uL (120.0-450.0) 07/09/17 05:30 MPV 10.1 fl (7.0-11.0) 07/09/17 05:30 Gran % 76.6 % (50.0-68.0) H 07/09/17 05:30 Lymph % (Auto) 11.4 % (22.0-35.0) L 07/09/17 05:30 Payette % (Auto) 6.1 % (1.0-6.0) H 07/09/17 05:30 Eos % (Auto) 5.8 % (1.5-5.0) H 07/09/17 05:30 Baso % (Auto) 0.1 % (0.0-3.0) 07/09/17 05:30 Gran # 5.89 (1.4-6.5) 07/09/17 05:30 Lymph # (Auto) 0.9 (1.2-3.4) L 07/09/17 05:30 Payette # (Auto) 0.5 (0.1-0.6) 07/09/17 05:30 Eos # (Auto) 0.5 (0.0-0.7) 07/09/17 05:30 Baso # (Auto) 0.01 K/mm3 (0.0-2.0) 07/09/17 05:30 Neutrophils % (Manual) 93 % (50.0-70.0) H 06/30/17 14:40 Lymphocytes % (Manual) 2 % (22.0-35.0) L 06/30/17 14:40 Atypical Lymphs % 2 % (0.0-0.0) H 06/30/17 14:40 Monocytes % (Manual) 3 % (1.0-6.0) 06/30/17 14:40 Platelet Evaluation Normal (NORMAL) 06/30/17 14:40 PT 12.5 SECONDS (9.4-12.5) 07/05/17 12:25 INR 1.09 (0.93-1.08) H 07/05/17 12:25 APTT 33.2 Seconds (25.1-36.5) 07/05/17 12:25 pO2 55 mm/Hg (30-55) 06/30/17 14:40 VBG pH 7.47 (7.32-7.43) H 06/30/17 14:40 VBG pCO2 35.0 (40-60) L 06/30/17 14:40 VBG HCO3 25.5 mmol/l (21-28) 06/30/17 14:40 VBG Total CO2 26.6 mmol.L (22-28) 06/30/17 14:40 VBG O2 Sat (Calc) 94.3 % (40-65) H 06/30/17 14:40 VBG Base Excess 2.1 mmol/L (0.0-2.0) H 06/30/17 14:40 VBG Potassium 3.9 mmol/L (3.6-5.2) 06/30/17 14:40 Sodium 131.0 mmol/L (132-148) L 06/30/17 14:40 Chloride 99.0 mmol/L (98-107) 06/30/17 14:40 Glucose 165 mg/dl (75-110) H 06/30/17 14:40 Lactate 1.8 mmol/L (0.7-2.1) 06/30/17 14:40 FiO2 21.0 % 06/30/17 14:40 Sodium 135 mmol/L (132-148) 07/09/17 05:30 Potassium 4.0 mmol/L (3.6-5.0) 07/09/17 05:30 Chloride 98 mmol/L (98-107) 07/09/17 05:30 Carbon Dioxide 30 mmol/L (21-33) 07/09/17 05:30 Anion Gap 11 (10-20) 07/09/17 05:30 BUN 18 mg/dL (7-21) 07/09/17 05:30 Creatinine 0.9 mg/dl (0.8-1.5) 07/09/17 05:30 Est GFR ( Amer) > 60 07/09/17 05:30 Est GFR (Non-Af Amer) > 60 07/09/17 05:30 Random Glucose 111 mg/dL (70-110) H 07/09/17 05:30 Calcium 9.5 mg/dL (8.4-10.5) 07/09/17 05:30 Phosphorus 3.1 mg/dL (2.5-4.5) 07/05/17 05:45 Magnesium 2.2 mg/dL (1.7-2.2) 07/05/17 05:45 Total Bilirubin 0.6 mg/dL (0.2-1.3) 07/09/17 05:30 AST 33 U/L (17-59) 07/09/17 05:30 ALT 26 U/L (7-56) 07/09/17 05:30 Alkaline Phosphatase 52 U/L (38-126) 07/09/17 05:30 Lactate Dehydrogenase 267 U/L (333-699) L 06/30/17 14:40 Total Creatine Kinase 44 U/L (35-230) 06/30/17 14:40 Troponin I < 0.01 ng/mL 06/30/17 14:40 Total Protein 6.3 g/dL (5.8-8.3) 07/09/17 05:30 Albumin 3.3 g/dL (3.0-4.8) 07/09/17 05:30 Globulin 3.1 gm/dL 07/09/17 05:30 Albumin/Globulin Ratio 1.1 (1.1-1.8) 07/09/17 05:30 Prostate Specific Ag 20.3 ng/mL (0.00-2.5) H 07/01/17 05:30 Procalcitonin 0.84 NG/ML (0.19-0.49) H 07/01/17 07:00 Venous Blood Potassium 3.9 mmol/L (3.6-5.2) 06/30/17 14:40 Urine Color Yellow (YELLOW) 06/30/17 15:07 Urine Appearance Turbid (CLEAR) 06/30/17 15:07 Urine pH 6.0 (4.7-8.0) 06/30/17 15:07 Ur Specific Backus 1.020 (1.005-1.035) 06/30/17 15:07 Urine Protein 30 mg/dL (<30 mg/dL) H 06/30/17 15:07 Urine Glucose (UA) Negative mg/dL (NEGATIVE) 06/30/17 15:07 Urine Ketones Trace mg/dL (NEGATIVE) H 06/30/17 15:07 Urine Blood Large (NEGATIVE) H 06/30/17 15:07 Urine Nitrate Positive (NEGATIVE) H 06/30/17 15:07 Urine Bilirubin Negative (NEGATIVE) 06/30/17 15:07 Urine Urobilinogen 0.2 E.U./dL (<1 E.U./dL) 06/30/17 15:07 Ur Leukocyte Esterase Large Gopi/uL (NEGATIVE) H 06/30/17 15:07 Urine RBC 5 - 10 /hpf (0-2) 06/30/17 15:07 Urine WBC Tntc /hpf (0-6) 06/30/17 15:07 Ur Epithelial Cells 3 - 4 /hpf (0-5) 06/30/17 15:07 Urine Bacteria Many (NEG) 06/30/17 15:07 Influenza Typ A,B (EIA) Negative for flu a/b (NEGATIVE) 07/01/17 14:22 Ur L.pneumophila Ag Negative (NEGATIVE) 07/01/17 14:31 Attending/Attestation - Attestation I have personally seen and examined this patient.: Yes I have fully participated in the care of the patient.: Yes I have reviewed all pertinent clinical information, including history, physical exam and plan: Yes
== END 2017-07-09 16:42 | disposition home health service (06) | DRG 872 ==
LOC: ED 12:44 → ERH 13:57 → 3RNO 19:02
PROVIDERS: ADMIT Family Medicine; ATTEND Family Medicine
PROC: 0W9B30Z Drainage of Left Pleural Cavity with Drainage Device, Percutaneous Approach (ICD-10-PCS; 2017-07-07)
PROC: 0BBJ3ZX Excision of Left Lower Lung Lobe, Percutaneous Approach, Diagnostic (ICD-10-PCS; principal; 2017-07-07 18:00)
PROC: 2W54XYZ Removal of Other Device on Chest Wall (ICD-10-PCS; 2017-07-09)
DX: A41.9 Sepsis, unspecified organism (principal); N39.0 Urinary tract infection, site not specified; C64.9 Malignant neoplasm of unspecified kidney, except renal pelvis; K86.1 Other chronic pancreatitis; J95.811 Postprocedural pneumothorax; C34.32 Malignant neoplasm of lower lobe, left bronchus or lung; I25.10 Atherosclerotic heart disease of native coronary artery without angina pectoris; E78.5 Hyperlipidemia, unspecified; E78.00 Pure hypercholesterolemia, unspecified; J43.9 Emphysema, unspecified; D64.9 Anemia, unspecified; H40.9 Unspecified glaucoma; R33.8 Other retention of urine; N40.1 Benign prostatic hyperplasia with lower urinary tract symptoms; I10 Essential (primary) hypertension; M19.90 Unspecified osteoarthritis, unspecified site; Y84.8 Other medical procedures as the cause of abnormal reaction of the patient, or of later complication, without mention of misadventure at the time of the procedure; Z96.642 Presence of left artificial hip joint; Z95.5 Presence of coronary angioplasty implant and graft; Z87.891 Personal history of nicotine dependence

== ENCOUNTER 2018-04-19 11:49 | Outpatient (CLI) | payer MEDICARE | END 2018-04-19 11:50 | disposition home or self-care (01) | LOC: OPLAB 11:49 ==

== ENCOUNTER 2018-04-28 15:13 | Outpatient (CLI) | payer MEDICARE | END 2018-04-28 15:14 | disposition home or self-care (01) | LOC: RAD 15:13 ==

== ENCOUNTER 2018-05-17 12:15 | Outpatient (CLI) | payer MEDICARE | END 2018-05-17 12:16 | disposition home or self-care (01) | LOC: OPLAB 12:15 ==

== ENCOUNTER 2018-06-07 13:25 | Outpatient (CLI) | payer MEDICARE | END 2018-06-07 13:26 | disposition home or self-care (01) | LOC: OPLAB 13:25 ==

== ENCOUNTER 2018-06-12 15:04 | Inpatient (IN) | payer MEDICARE ==
--- NOTE | 2018-06-12 15:22 | ED PDOC ---
Arrival/HPI - General Time Seen by Provider: 06/12/18 15:05 Historian: Patient, Family (son) - History of Present Illness Time/Duration: Other (several days) Symptom Onset: Gradual Symptom Course: Worsening Severity Level: Moderate Associated Symptoms (Text): 06/12/18 15:19 Patient complains of a several day history of increasing shortness of breath, es pecially dyspnea on exertion. He has a cough productive of green sputum. No chest pain. Patient is a history of lung cancer with bony metastases. He is currently on Keytruda. No fever or chills. No injury or trauma. He does not need pain medication at this time. Past Medical History - Infectious Disease Hx of Infectious Diseases: None - Tetanus Immunization Tetanus Immunization: Unknown - Cardiac Hx Cardiac Disorders: Yes Hx Hypertension: Yes - Pulmonary Hx Respiratory Disorders: Yes Other/Comment: Lung CA - Neurological Hx Neurological Disorder: No - HEENT Hx HEENT Disorder: Yes Hx Glaucoma: Yes - Renal Hx Renal Disorder: Yes Other/Comment: Kidney CA - Endocrine/Metabolic Hx Endocrine Disorders: No - Hematological/Oncological Hx Blood Disorders: Yes Hx Cancer: Yes (Lung, Kidney, Bladder) - Integumentary Hx Dermatological Disorder: No - Musculoskeletal/Rheumatological Hx Falls: No - Gastrointestinal Hx Gastrointestinal Disorders: No - Genitourinary/Gynecological Hx Genitourinary Disorders: Yes Other/Comment: Past urinary cath removed yesterday. 06/29/2017 - Psychiatric Hx Psychophysiologic Disorder: No Hx Substance Use: No - Surgical History Hx Angioplasty: Yes Hx Joint Replacement: Yes (Left hip replacement) Family/Social History - Physician Review Nursing Documentation Reviewed: Yes Family/Social History: Unknown Family HX Smoking Status: Former Smoker (Distant smoking history) Hx Alcohol Use: No Hx Substance Use: No Allergies/Home Meds Allergies/Adverse Reactions: Allergies clopidogrel bisulfate [From Plavix] Allergy (Verified 12/02/17 17:55) ANAPHYLAXIS Home Medications: Home Meds Medication Instructions Recorded Confirmed Metoprolol Lion/Hydrochlorothiaz 50 mg PO DAILY 06/30/17 12/02/17 [Metoprolol ER-Hctz 50-12.5 mg] Simvastatin 10 mg PO HS 06/30/17 12/02/17 Tamsulosin [Flomax] 0.4 mg PO BID 06/30/17 12/02/17 Aspirin [Adult Low Dose Aspirin EC] 06/12/18 Bicalutamide [Casodex] 50 mg pe 06/12/18 Loperamide [Imodium] 06/12/18 Methylprednisolone [Medrol Dose 4 mg PO 06/12/18 Pack (21 tabs)] Review of Systems - Physician Review All systems were reviewed & negative as marked: Yes - Review of Systems Constitutional: Fatigue. absent: Fevers Respiratory: SOB, Cough, Sputum. absent: Wheezing Cardiovascular: absent: Chest Pain, Palpitations, Syncope Gastrointestinal: absent: Abdominal Pain, Nausea, Vomiting Neurological: absent: Headache, Dizziness, Focal Weakness Physical Exam Temperature: Afebrile Blood Pressure: Normal Pulse: Regular Respiratory Rate: Normal Appearance: Positive for: Well-Appearing, Non-Toxic, Uncomfortable, Other (Pale thin and cachectic and chronically ill-appearing) Pain Distress: None Mental Status: Positive for: Alert and Oriented X 3 - Systems Exam Head: Present: Atraumatic, Normocephalic, Ecchymosis Extroacular Muscles: Present: EOMI Conjunctiva: Present: Normal Mouth: Present: Moist Mucous Membranes Pharnyx: No: ERYTHEMA, EXUDATE, TONSILS ENLARGED Neck: Present: Normal Range of Motion Respiratory/Chest: Present: Wheezes, Decreased Breath Sounds, Rhonchi. No: Respiratory Distress, Accessory Muscle Use, Rales, Retracting, Tachypneic, Tender to Palpation Cardiovascular: Present: Regular Rate and Rhythm, Normal S1, S2. No: Murmurs Abdomen: No: Tenderness, Distention, Peritoneal Signs, Rebound, Guarding Upper Extremity: Present: Normal Inspection. No: Cyanosis, Edema Lower Extremity: Present: Normal Inspection. No: Edema Neurological: Present: GCS=15, CN II-XII Intact, Speech Normal, Motor Func Grossly Intact Skin: Present: Warm, Dry, Pale. No: Rashes Psychiatric: Present: Alert, Oriented x 3, Normal Insight, Normal Concentration Medical Decision Making ED Course and Treatment: 06/12/18 15:21 EKG shows normal sinus rhythm rate approximately 75 with PACs and an intraventricular conduction delay and nonspecific ST and T wave changes and no acute changes. 06/12/18 17:47 Dr. Haile requested the patient be placed on telemetry and consultation with media relations coordinator . Disposition/Present on Arrival - Present on Arrival Any Indicators Present on Arrival: No History of DVT/PE: No History of Uncontrolled Diabetes: No Urinary Catheter: No History of Decub. Ulcer: No History Surgical Site Infection Following: None - Disposition Have Diagnosis and Disposition been Completed?: Yes Diagnosis: Weakness, Pneumonia, Elevated brain natriuretic peptide (BNP) level, Metastatic primary lung cancer Disposition: HOSPITALIZED Disposition Time: 17:46 Patient Plan: Observation, Telemetry Patient Problems: Current Active Problems Problem Status Onset Elevated brain natriuretic peptide (BNP) level Acute Metastatic primary lung cancer Acute Pneumonia Acute Weakness Acute Condition: FAIR Discharge Instructions (ExitCare): Weakness (ED)
[2018-06-12 15:23] VITALS: BMI 20.7
[2018-06-12] MEDS ORDERED: Albuterol-Ipratrop 3 mg / 0.5 (3 ml) UD IH STA (15:23)
[2018-06-12 15:49] LABS: BASO # 0.04 K/mm3 (0.0-2.0); BASO % 0.4 % (0.0-3.0); EOS # 0.4 (0.0-0.7); EOS % 3.8 % (1.5-5.0); HEMOGLOBIN 13.8 g/dL (14.0-18.0); LYMPH # 0.8 (1.2-3.4); LYMPH % 7.2 % (22.0-35.0); MEAN CELL VOLUME 101.2 fl (80.0-105.0); MEAN CORPUSCULAR HEMOGLOBIN 33.5 pg (25.0-35.0); MEAN CORPUSCULAR HGB CONC 33.1 g/dl (31.0-37.0); MONO # 0.9 (0.1-0.6); MONO % 8.1 % (1.0-6.0); RBC 4.12 10^6/uL (3.5-6.1); RED CELL DISTRIBUTION WIDTH 13.3 % (11.5-14.5); WHITE BLOOD COUNT 10.5 10^3/uL (4.5-11.0)
[2018-06-12] MEDS ORDERED: cefTRIAXone 1 gm 1 GM/100 ML BAG IVPB STA (15:49)
[2018-06-12] MEDS ORDERED: Azithromycin 500MG/NS 250ml 500 MG/250 ML BAG IVPB STA (15:49)
[2018-06-12 16:01] LABS: VENOUS BLOOD GAS BASE EXCESS -0.2 mmol/L (0.0-2.0); VENOUS BLOOD GAS PO2 18 mm/Hg (30-55); VENOUS BLOOD PH 7.33 (7.32-7.43)
[2018-06-12] MEDS ORDERED: Sodium Chloride 0.9% 1,000 ML IV STA (16:01)
--- NOTE | 2018-06-12 16:05 | RAD ---
Date of service: 06/12/2018 HISTORY: Shortness of breath. Relevant medical history: Personal history of lung cancer COMPARISON: 04/28/2018. Two view chest. 12/27/2017 PET-CT scan FINDINGS: LUNGS: Stable left lower lobe lung mass. Increased interstitial/pulmonary markings bilaterally lower lobe predilection. Significance/etiology uncertain. No new visible masses identified. PLEURA: No significant pleural effusion identified, no pneumothorax apparent. CARDIOVASCULAR: No atherosclerotic calcification present Normal. OSSEOUS STRUCTURES: No significant abnormalities. VISUALIZED UPPER ABDOMEN: Normal. OTHER FINDINGS: None. IMPRESSION: Increased interstitial markings. Stable left lower lobe pulmonary nodule, mass.
[2018-06-12 16:10] LABS: B-TYPE NATRIURETIC PEPTIDE 1520 pg/mL (0-450); TROPONIN I < 0.01 ng/mL
[2018-06-12 16:22] LABS: ALBUMIN 3.6 g/dL (3.0-4.8); ALT/SGPT 12 U/L (7-56); AST/SGOT 27 U/L (17-59); BLOOD UREA NITROGEN 20 mg/dL (7-21); CALCIUM 9.4 mg/dL (8.4-10.5); GFR NON-AFRICAN AMERICAN 57
[2018-06-12 16:32] LABS: INR 1.15; PARTIAL THROMBOPLASTIN TIME 32.5 Seconds (26.9-38.3); PROTHROMBIN TIME 12.8 SECONDS (9.4-12.5)
[2018-06-12] MEDS ORDERED: Iohexol 350 MG/100 ML VIAL ONE (16:47)
--- NOTE | 2018-06-12 17:27 | CT ---
Date of service: 06/12/2018 PROCEDURE: CT Chest with contrast (Pulmonary Angiogram) HISTORY: Shortness of breath. Personal history of lung cancer. COMPARISON: June 12, 2018single-view portable chest 12/27/2017 PET-CT scan. TECHNIQUE: Axial computed tomography images were obtained of the chest in the pulmonary arterial phase of enhancement. Coronal and sagittal reformatted images were created and reviewed. Intravenous contrast dose: 96 cc Omnipaque 350. Mean Hounsfield value in the main pulmonary artery: 459.58 Radiation dose: Total exam DLP = 397.58 mGy-cm. This CT exam was performed using one or more of the following dose reduction techniques: Automated exposure control, adjustment of the mA and/or kV according to patient size, and/or use of iterative reconstruction technique. FINDINGS: PULMONARY ARTERIES: Unremarkable. No pulmonary embolism. AORTA: No acute findings. No thoracic aortic aneurysm. Atherosclerotic calcification and mural plaque present. Findings are seen throughout the aorta including arch and descending aorta which is non aneurysmal. LUNGS: Mass superior segment left lower lobe 2.9 x 4.1 cm. The mass extends to and invades the distal aspect of the main pulmonary artery and involves segmental branches of the left lower lobe pulmonary artery. Dependent infiltrate basilar segment right lower lobe. Less pronounced changes identified left lower lobe and lingula. Underlying interstitial lung disease. Centrilobular emphysematous change noted. Bronchial, parabronchial thickening the overall appearance suggests a component of bronchiectasis. PLEURAL SPACES: Unremarkable. No effusion or pneumothorax. HEART: Unremarkable. No cardiomegaly. No significant pericardial effusion. LYMPH NODES: Subcarinal mass 2.1 x 3 cm consistent with regional spread of disease. Smaller mediastinal lymph nodes detected. BONES, CHEST WALL: Lytic lesion T10 vertebral body. There is soft tissue, paravertebral component to the right of the midline. Incompletely visualized mixed lytic and sclerotic lesion L2 vertebral body. OTHER FINDINGS: Incomplete visualization of stent and a distended left renal pelvis. IMPRESSION: 1. Unremarkable CT pulmonary angiogram. No pulmonary embolus. 2. Mass in the superior segment of the left lower lobe. 3. Subcarinal mass/lymphadenopathy. 4. Underlying interstitial lung disease, emphysematous change and manifestations of bronchiectasis. 5. T10 metastatic lesion with paravertebral soft tissue component.
[2018-06-12 19:18] LABS: VENOUS BLOOD GAS PO2 14 mm/Hg (30-55); VENOUS BLOOD PH 7.38 (7.32-7.43)
[2018-06-12] MEDS: Cefepime 1gm in NS 100ml 1 GM/100 ML BAG IVPB SCH (23:15)
[2018-06-12] MEDS: MethylPREDNISolone 40 mg Vial IVP SCH (23:15)
[2018-06-13 07:03] LABS: BASO # 0.02 K/mm3 (0.0-2.0); BASO % 0.3 % (0.0-3.0); EOS % 0.2 % (1.5-5.0); HEMOGLOBIN 11.9 g/dL (14.0-18.0); LYMPH # 0.4 (1.2-3.4); LYMPH % 6.9 % (22.0-35.0); MEAN CELL VOLUME 100.3 fl (80.0-105.0); MEAN CORPUSCULAR HEMOGLOBIN 32.5 pg (25.0-35.0); MEAN CORPUSCULAR HGB CONC 32.4 g/dl (31.0-37.0); MEAN PLATELET VOLUME 9.8 fl (7.0-11.0); MONO # 0.1 (0.1-0.6); PLATELET COUNT 203 10^3/uL (120.0-450.0); RBC 3.66 10^6/uL (3.5-6.1); RED CELL DISTRIBUTION WIDTH 13.2 % (11.5-14.5)
[2018-06-13 07:18] LABS: ALB/GLOB RATIO 0.9 (1.1-1.8); ALBUMIN 2.9 g/dL (3.0-4.8); ALT/SGPT 7 U/L (7-56); AST/SGOT 28 U/L (17-59); BLOOD UREA NITROGEN 21 mg/dL (7-21); CALCIUM 8.7 mg/dL (8.4-10.5); GFR NON-AFRICAN AMERICAN > 60
--- NOTE | 2018-06-13 07:24 | CP.PCM.PN ---
Subjective - Date & Time of Evaluation Date of Evaluation: 06/13/18 Time of Evaluation: 07:23 - Subjective Subjective: Orlin Benavides PGY2 - Progress Note for Dr. Khalil Objective - Vital Signs/Intake and Output Vital Signs (last 24 hours): Temp Pulse Resp BP Pulse Ox 97.2 F L 61 19 141/62 95 06/13/18 06:00 06/13/18 06:00 06/13/18 06:00 06/13/18 06:00 06/13/18 06:00 Intake and Output: 06/13/18 06/13/18 06:59 18:59 Intake Total 600 Output Total 800 Balance -200 - Medications Medications: Current Medications Acetaminophen (Tylenol 325mg Tab) 650 mg PO Q4 PRN PRN Reason: Fever >100.4 F Aspirin (Ecotrin) 81 mg PO DAILY LILLIE Bicalutamide (Casodex) 50 mg PO DAILY LILLIE Famotidine (Pepcid) 20 mg PO 1000,2200 [facility] Last Admin: 06/12/18 23:15 Dose: 20 mg Hydroxyzine HCl (Atarax) 25 mg PO Q8H PRN PRN Reason: Itching / Pruritus Doxycycline Hyclate 100 mg/ (Sodium Chloride) 100 mls @ 100 mls/hr IVPB Q12 LILLIE; Protocol Stop: 06/21/18 22:01 Last Admin: 06/13/18 00:28 Dose: 100 mls/hr Cefepime HCl (Maxipime 1gm) 1 gm in 100 mls @ 100 mls/hr IVPB Q12 LILLIE; Protocol Stop: 06/21/18 22:01 Last Admin: 06/12/18 23:15 Dose: 100 mls/hr Methylprednisolone (Solu-Medrol) 20 mg IVP Q12 LILLIE Last Admin: 06/12/18 23:15 Dose: 20 mg Metoprolol Succinate (Toprol Xl) 50 mg PO DAILY LILLIE Tamsulosin HCl (Flomax) 0.4 mg PO DAILY [facility] - Labs Labs: 06/13/18 06:10 06/13/18 06:10 PT 12.8 SECONDS (9.4-12.5) H 06/12/18 15:31 INR 1.15 06/12/18 15:31 APTT 32.5 Seconds (26.9-38.3) 06/12/18 15:31
[2018-06-13 07:50] LABS: LYMPHOCYTE 7 % (22.0-35.0); NEUTROPHIL 93 % (50.0-70.0)
[2018-06-13 07:51] LABS: PLATELET ESTIMATE NORMAL (NORMAL)
--- NOTE | 2018-06-13 09:49 | HP ---
DATE OF EXAM: 06/12/[address] angiogram dated today. The impression is that unremarkable CT pulmonary angiogram, no pulmonary embolus, mass in the superior segment of the left lower lobe, subcarinal mass, lymphadenopathy, underlying interstitial lung disease, emphysematous change and manifestations of bronchiectasis, T10 metastatic lesion of paravertebral soft tissue components. 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 The patient had a lactate on admission of 2.4, it is now at 1.3. ASSESSMENT: For this patient is that of early sepsis/pneumonia, elevated BNP, squamous cell carcinoma of the lung, subcarinal mass, emphysema, T10 metastasis, urothelial transitional cell carcinoma, hypertension, atherosclerotic cardiovascular disease, hyperlipidemia, and glaucoma. PLAN: Plan for this patient after conversation with the emergency room Dr. Arita is to admit to the Telemetry Floor if a bed is available. Again, to admit to the Telemetry Floor for observation and treatments. We will ask for consult with Dr. Massey, Infectious Disease; Dr. Dixon, Pulmonary; Dr. Cunha, Cardiology; with fluids initially given by Dr. Arita discontinued once the BNP was noted, with nebulizer treatments given and antibiotics begun including Rocephin and azithromycin to be continued as per Dr. Massey as indicated. This is a complex patient with comprehensive medically necessary and appropriate visit carried out in excess of 90 minutes with the patient and his family. Questions were answered to their satisfaction. Mic Dougherty MD
--- NOTE | 2018-06-13 09:53 | CARD ---
APPROVED REPORT Date of service: 06/12/2018 EKG Measurement Heart [id number] <Conclusion> Baseline artifact Atrial fibrillation Left anterior fascicular block Left ventricular hypertrophy with QRS widening Nonspecific ST and T wave abnormality Prolonged QT Abnormal ECG
--- NOTE | 2018-06-13 10:28 | CP.PCM.PN ---
Subjective - Date & Time of Evaluation Date of Evaluation: 06/13/18 Time of Evaluation: 07:30 - Subjective Subjective: Orlin Benavides PGY2 - Progress Note for Dr. Khalil Patient seen and evaluated this AM at bedside. Patient noted to be resting comfortably in bed with nasal canula in place eating breakfast. Patient indicates he has been feeling short of breath mostly with exertion/daily activities for the past few weeks. He indicates that he has been having some green productive sputum and chills. He denies fever, nausea, vomiting, abdominal pain, chest pain, shortness of breath at rest, diarrhea. He indicates he eats well deals a lot with his who is also sick. Objective - Vital Signs/Intake and Output Vital Signs (last 24 hours): Temp Pulse Resp BP Pulse Ox 97.2 F L 61 19 141/62 95 06/13/18 06:00 06/13/18 06:00 06/13/18 06:00 06/13/18 06:00 06/13/18 06:00 Intake and Output: 06/13/18 06/13/18 06:59 18:59 Intake Total 600 Output Total 800 Balance -200 - Medications Medications: Current Medications Acetaminophen (Tylenol 325mg Tab) 650 mg PO Q4 PRN PRN Reason: Fever >100.4 F Aspirin (Ecotrin) 81 mg PO DAILY [facility] Bicalutamide (Casodex) 50 mg PO DAILY [facility] Famotidine (Pepcid) 20 mg PO 1000,2200 [facility] Last Admin: 06/12/18 23:15 Dose: 20 mg Hydroxyzine HCl (Atarax) 25 mg PO Q8H PRN PRN Reason: Itching / Pruritus Doxycycline Hyclate 100 mg/ (Sodium Chloride) 100 mls @ 100 mls/hr IVPB Q12 [facility]; Protocol Stop: 06/21/18 22:01 Last Admin: 06/13/18 00:28 Dose: 100 mls/hr Cefepime HCl (Maxipime 1gm) 1 gm in 100 mls @ 100 mls/hr IVPB Q12 [facility]; Protocol Stop: 06/21/18 22:01 Last Admin: 06/12/18 23:15 Dose: 100 mls/hr Methylprednisolone (Solu-Medrol) 20 mg IVP Q12 [facility] Last Admin: 06/12/18 23:15 Dose: 20 mg Metoprolol Succinate (Toprol Xl) 50 mg PO DAILY [facility] Tamsulosin HCl (Flomax) 0.4 mg PO DAILY [facility] - Labs Labs: 06/13/18 06:10 06/13/18 06:10 PT 12.8 SECONDS (9.4-12.5) H 06/12/18 15:31 INR 1.15 06/12/18 15:31 APTT 32.5 Seconds (26.9-38.3) 06/12/18 15:31 - Constitutional Appears: Non-toxic, No Acute Distress - Head Exam Head Exam: ATRAUMATIC, NORMOCEPHALIC - Eye Exam Eye Exam: EOMI, PERRL - ENT Exam ENT Exam: Mucous Membranes Moist - Neck Exam Neck Exam: Full ROM - Respiratory Exam Respiratory Exam: Decreased Breath Sounds, Rhonchi (right sided > Left sided ), NORMAL BREATHING PATTERN. absent: Respiratory Distress - Cardiovascular Exam Cardiovascular Exam: REGULAR RHYTHM, +S1, +S2 - GI/Abdominal Exam GI & Abdominal Exam: Soft, Normal Bowel Sounds. absent: Firm, Guarding, Rigid, Tenderness - Extremities Exam Extremities Exam: Full ROM. absent: Calf Tenderness, Pedal Edema - Neurological Exam Neurological Exam: Alert, Awake, Oriented x3 Additional comments: motor and sensory grossly intact - Psychiatric Exam Psychiatric exam: Normal Affect, Normal Mood - Skin Skin Exam: Dry, Warm Assessment and Plan - Assessment and Plan (Free Text) Assessment: 88 year old male with stage IV NSLC, transitional cell carcinoma of the kidney, emphysema, COPD, HTN, HLD, CAD who presented to [facility] [place] [facility] [place] with progressive shortness of breath on exertion for the past few weeks. Patient admitted for COPD exacerbation vs. pneumonia. Plan: COPD exacerbation - Pulmonary with Dr. Dixon consulted and following - Solumedrol 20mg IV BID, IV abx as per ID (Doxy and Cefepime) - ID consulted and following, f/u microbiology - CT angiogram reviewed and appreciated, notable for no pulonary emolus, mass in the superior segment of the left lower lobe, subcarinal mass, lymphadenopathy, underlying interstitial karolyn disease, emphysematous change and manifestations of bronchiectasis, T10 metastatic lesion of paravertebral soft tissue components - Maintain SaO2 >90%, supplemental Oxygen as needed Elevated BNP - 1520 on admission, increased from 456 a year ago - EKG reviewed and appreciated - Cardiology consulted for further evaluation Metastatic primary lung cancer with stage IV NSLC - Chest CT reviewed and appreciated - PT for evaluation for deconditioning - Monitor CBC - Further recs per Dr. Khalil HTN - Continue metoprolol CAD - Continue metoprolol, ASA 81mg HLD - Continue statin Prostate CA -Continue caodex -Continue flomax DVT/GI ppx Case discussed with attending, Dr. Khalil
[2018-06-13] MEDS: MethylPREDNISolone 40 mg Vial IVP SCH ×2 (10:51→22:06)
[2018-06-13] MEDS: Metoprolol Succinate 50 mg XL Tab PO SCH (10:51)
[2018-06-13] MEDS: Cefepime 1gm in NS 100ml 1 GM/100 ML BAG IVPB SCH ×2 (10:52→22:08)
[2018-06-13 11:34] LABS: URINE BILIRUBIN NEGATIVE (NEGATIVE); URINE BLOOD MODERATE (NEGATIVE); URINE GLUCOSE (UA) NEGATIVE (NEGATIVE); URINE LEUKOCYTE ESTERASE SMALL Leu/uL (NEGATIVE); URINE PROTEIN NEGATIVE mg/dL (<30 mg/dL); URINE UROBILINOGEN 0.2 E.U./dL (<1 E.U./dL)
[2018-06-13 11:38] LABS: URINE APPEARANCE TURBID (CLEAR); URINE COLOR YELLOW (YELLOW)
[2018-06-13 11:54] LABS: URINE BACTERIA MANY /hpf; URINE EPITHELIAL CELLS 0 - 2 /hpf (0-5); URINE RBC 20 - 25 /hpf (0-2)
--- NOTE | 2018-06-13 13:26 | CP.PCM.CON ---
<Michael Maurice - Last Filed: 06/13/18 13:21> History of Present Illness - History of Present Illness History of Present Illness: Michael Maurice D.O. PGY-3, Internal Medicine Resident, Infectious Disease Consultation 88 year old male with stage IV NSLC on Keytruda, transitional cell carcinoma of the kidney, emphysema, COPD, HTN, HLD, CAD who presented for progressive sh ortness of breath on exertion for the past few weeks. Infectious disease consultation was requested. Patient was seen and examined at bedside. Retells story of how he became more short of breath. Last keytruda infusion was about 2 weeks ago. Patient admits that he is frequently at doctors offices so he may have had some kind of sick contact. Patient admits to some green sputum as well as chills during this time. This had been the patient's second infusion with keytruda with no issues with the first infusion. Review of Systems - Review of Systems All systems: reviewed and no additional remarkable complaints except (as per HPI otherwise negative) Past Patient History - Infectious Disease Hx of Infectious Diseases: None - Tetanus Immunizations Tetanus Immunization: Unknown - Past Social History Smoking Status: Former Smoker - CARDIAC Hx Hypertension: Yes - PULMONARY Hx Respiratory Disorders: Yes Other/Comment: SQUAMOUS CELL CARCINOMA. PNEUMOTHORAX - NEUROLOGICAL Hx Neurological Disorder: No - HEENT Hx Glaucoma: Yes - RENAL Hx Chronic Kidney Disease: Yes (UROTHELIAL MALIGNACY) - ENDOCRINE/METABOLIC Hx Endocrine Disorders: No - HEMATOLOGICAL/ONCOLOGICAL Hx Cancer: Yes (SQUAMOUS CELL CARCINOMA;UROTHELIAL MALIGNACY) - INTEGUMENTARY Hx Dermatological Problems: No - MUSCULOSKELETAL/RHEUMATOLOGICAL Hx Falls: No - GASTROINTESTINAL Hx Gastrointestinal Disorders: No - GENITOURINARY/GYNECOLOGICAL Hx Prostate Problems: Yes (PROSTATE CA) - PSYCHIATRIC Hx Substance Use: No - SURGICAL HISTORY Hx Surgeries: Yes Hx Cardiac Catheterization: Yes (STENTS X4) Hx Joint Replacement: Yes (LEFT ORIF) - ANESTHESIA Hx Anesthesia: No Hx Anesthesia Reactions: No Hx Malignant Hyperthermia: No Meds Allergies/Adverse Reactions: Allergies Allergy/AdvReac Type Severity Reaction Status Date / Time clopidogrel bisulfate Allergy ANAPHYLAXIS Verified 12/02/17 17:55 [From Plavix] - Medications Medications: Current Medications Acetaminophen (Tylenol 325mg Tab) 650 mg PO Q4 PRN PRN Reason: Fever >100.4 F Aspirin (Ecotrin) 81 mg PO DAILY [facility] Last Admin: 06/13/18 10:51 Dose: 81 mg Atorvastatin Calcium (Lipitor) 10 mg PO DIN [facility] Bicalutamide (Casodex) 50 mg PO DAILY [facility] Last Admin: 06/13/18 11:10 Dose: 50 mg Famotidine (Pepcid) 20 mg PO 1000,2200 [facility] Last Admin: 06/13/18 10:51 Dose: 20 mg Hydroxyzine HCl (Atarax) 25 mg PO Q8H PRN PRN Reason: Itching / Pruritus Doxycycline Hyclate 100 mg/ (Sodium Chloride) 100 mls @ 100 mls/hr IVPB Q12 [facility]; Protocol Stop: 06/21/18 22:01 Last Admin: 06/13/18 12:34 Dose: 100 mls/hr Cefepime HCl (Maxipime 1gm) 1 gm in 100 mls @ 100 mls/hr IVPB Q12 [facility]; Protocol Stop: 06/21/18 22:01 Last Admin: 06/13/18 10:52 Dose: 100 mls/hr Methylprednisolone (Solu-Medrol) 20 mg IVP Q12 [facility] Last Admin: 06/13/18 10:51 Dose: 20 mg Metoprolol Succinate (Toprol Xl) 50 mg PO DAILY [facility] Last Admin: 06/13/18 10:51 Dose: 50 mg Tamsulosin HCl (Flomax) 0.4 mg PO DAILY [facility] Last Admin: 06/13/18 10:51 Dose: 0.4 mg Physical Exam - Constitutional Appears: Non-toxic, Chronically Ill - Head Exam Head Exam: ATRAUMATIC, NORMOCEPHALIC - Eye Exam Eye Exam: EOMI. absent: Scleral icterus - ENT Exam ENT Exam: Mucous Membranes Moist - Neck Exam Neck exam: Positive for: Normal Inspection - Respiratory Exam Respiratory Exam: Clear to Auscultation Bilateral, Rales (fine bibasilar), Rhonchi (mild LLL). absent: Wheezes - Cardiovascular Exam Cardiovascular Exam: +S1, +S2. absent: Gallop, Rubs - GI/Abdominal Exam GI & Abdominal Exam: Normal Bowel Sounds, Soft. absent: Tenderness - Extremities Exam Extremities exam: Negative for: tenderness - Neurological Exam Neurological exam: Alert, Oriented x3 - Psychiatric Exam Psychiatric exam: Normal Affect, Normal Mood - Skin Skin Exam: Dry, Warm Results - Vital Signs Recent Vital Signs: Last Vital Signs Temp 97.6 F 06/13/18 12:00 Pulse 73 06/13/18 12:00 Resp 18 06/13/18 12:00 BP 110/64 06/13/18 12:00 Pulse Ox 95 06/13/18 06:00 - Labs Result Diagrams: 06/13/18 06:10 06/13/18 06:10 Labs: Laboratory Results - last 24 hr 06/12/18 06/12/18 06/12/18 15:31 15:31 15:31 WBC 10.5 RBC 4.12 Hgb 13.8 L D Hct 41.7 L MCV 101.2 MCH 33.5 MCHC 33.1 RDW 13.3 Plt Count 236 MPV 10.0 Neut % (Auto) 80.5 H Lymph % (Auto) 7.2 L [place] % (Auto) 8.1 H Eos % (Auto) 3.8 Baso % (Auto) 0.4 Lymph # (Auto) 0.8 L [place] # (Auto) 0.9 H Eos # (Auto) 0.4 Baso # (Auto) 0.04 Absolute Neuts (auto) 8.41 H Neutrophils % (Manual) Lymphocytes % (Manual) Monocytes % (Manual) Platelet Evaluation PT 12.8 H INR 1.15 APTT 32.5 D-Dimer, Quantitative 1164 H pO2 VBG pH VBG pCO2 VBG HCO3 VBG Total CO2 VBG O2 Sat (Calc) VBG Base Excess VBG Potassium Glucose Lactate FiO2 Crit Value Called To Crit Value Called By Blood Gas Notified Time Sodium 138 Potassium 5.3 H Chloride 101 Carbon Dioxide 27 Anion Gap 15 BUN 20 Creatinine 1.2 Est GFR ( Amer) > 60 Est GFR (Non-Af Amer) 57 Random Glucose 117 H Calcium 9.4 Magnesium 2.2 Total Bilirubin 0.5 AST 27 ALT 12 Alkaline Phosphatase 66 Lactate Dehydrogenase 545 Total Creatine Kinase 28 L Troponin I < 0.01 NT-Pro-B Natriuret Pep 1520 H Total Protein 7.2 Albumin 3.6 Globulin 3.6 Albumin/Globulin Ratio 1.0 L Venous Blood Potassium Urine Color Urine Appearance Urine pH Ur Specific [place] Urine Protein Urine Glucose (UA) Urine Ketones Urine Blood Urine Nitrate Urine Bilirubin Urine Urobilinogen Ur Leukocyte Esterase Urine RBC Urine WBC Ur Epithelial Cells Urine Bacteria 06/12/18 06/12/18 06/13/18 15:52 19:10 06:10 WBC 6.0 D RBC 3.66 Hgb 11.9 L Hct 36.7 L MCV 100.3 MCH 32.5 MCHC 32.4 RDW 13.2 Plt Count 203 MPV 9.8 Neut % (Auto) 91.6 H Lymph % (Auto) 6.9 L [place] % (Auto) 1.0 Eos % (Auto) 0.2 L Baso % (Auto) 0.3 Lymph # (Auto) 0.4 L [place] # (Auto) 0.1 Eos # (Auto) 0.0 Baso # (Auto) 0.02 Absolute Neuts (auto) 5.46 Neutrophils % (Manual) 93 H Lymphocytes % (Manual) 7 L Monocytes % (Manual) TEST NOT PERFORMED Platelet Evaluation Normal PT INR APTT D-Dimer, Quantitative pO2 18 L 14 L VBG pH 7.33 7.38 VBG pCO2 50.0 45.0 VBG HCO3 26.4 26.6 VBG Total CO2 27.9 28.0 VBG O2 Sat (Calc) 29.2 L 21.6 L VBG Base Excess -0.2 L 1.0 VBG Potassium 5.0 5.0 Glucose 117 H 117 H Lactate 2.4 H 1.3 FiO2 21.0 21.0 Crit Value Called To Fish florez Crit Value Called By Tennille [facility] Blood Gas Notified Time 669 206 Sodium 134.0 132.0 Potassium Chloride 102.0 104.0 Carbon Dioxide Anion Gap BUN Creatinine Est GFR ( Amer) Est GFR (Non-Af Amer) Random Glucose Calcium Magnesium Total Bilirubin AST ALT Alkaline Phosphatase Lactate Dehydrogenase Total Creatine Kinase Troponin I NT-Pro-B Natriuret Pep Total Protein Albumin Globulin Albumin/Globulin Ratio Venous Blood Potassium 5.0 5.0 Urine Color Urine Appearance Urine pH Ur Specific [place] Urine Protein Urine Glucose (UA) Urine Ketones Urine Blood Urine Nitrate Urine Bilirubin Urine Urobilinogen Ur Leukocyte Esterase Urine RBC Urine WBC Ur Epithelial Cells Urine Bacteria 06/13/18 06/13/18 06:10 11:25 WBC RBC Hgb Hct MCV MCH MCHC RDW Plt Count MPV Neut % (Auto) Lymph % (Auto) [place] % (Auto) Eos % (Auto) Baso % (Auto) Lymph # (Auto) [place] # (Auto) Eos # (Auto) Baso # (Auto) Absolute Neuts (auto) Neutrophils % (Manual) Lymphocytes % (Manual) Monocytes % (Manual) Platelet Evaluation PT INR APTT D-Dimer, Quantitative pO2 VBG pH VBG pCO2 VBG HCO3 VBG Total CO2 VBG O2 Sat (Calc) VBG Base Excess VBG Potassium Glucose Lactate FiO2 Crit Value Called To Crit Value Called By Blood Gas Notified Time Sodium 137 Potassium 4.9 Chloride 105 Carbon Dioxide 24 Anion Gap 13 BUN 21 Creatinine 1.0 Est GFR ( Amer) > 60 Est GFR (Non-Af Amer) > 60 Random Glucose 129 H Calcium 8.7 Magnesium Total Bilirubin 0.3 AST 28 ALT 7 Alkaline Phosphatase 58 Lactate Dehydrogenase Total Creatine Kinase Troponin I NT-Pro-B Natriuret Pep Total Protein 6.1 Albumin 2.9 L Globulin 3.2 Albumin/Globulin Ratio 0.9 L Venous Blood Potassium Urine Color Yellow Urine Appearance Turbid Urine pH 6.0 Ur Specific [place] 1.025 Urine Protein Negative Urine Glucose (UA) Negative Urine Ketones Negative Urine Blood Moderate H Urine Nitrate Negative Urine Bilirubin Negative Urine Urobilinogen 0.2 Ur Leukocyte Esterase Small H Urine RBC 20 - 25 H Urine WBC 10 - 15 H Ur Epithelial Cells 0 - 2 Urine Bacteria Many Assessment & Plan - Assessment and Plan (Free Text) Assessment: 88 year old male with stage IV NSLC on Keytruda, transitional cell carcinoma of the kidney, emphysema, COPD, HTN, HLD, CAD who presented for progressive shortness of breath on exertion for the past few weeks. Infectious disease consultation was requested. Plan: Sepsis Possible post obstructive pneumonia in setting of stage IV NSCLC Empirically on cefepime and doxy day 2 BCxs pending UCx pending Sputum cx pending Legionella and procal pending Personally handed incentive spirometer and educated on use Although no leukocytosis has received chemo and has neutrophil predominance Pending pulmonary evaluation Will follow with you Patient was seen and examined and case to be discussed at length with attending physician Thank you for the pleasure of participating in the care of this interesting patient - Date & Time Date: 06/13/18 Time: 09:35 <Reid Massey - Last Filed: 06/13/18 15:24> Meds - Medications Medications: Current Medications Acetaminophen (Tylenol 325mg Tab) 650 mg PO Q4 PRN PRN Reason: Fever >100.4 F Aspirin (Ecotrin) 81 mg PO DAILY [facility] Last Admin: 06/13/18 10:51 Dose: 81 mg Atorvastatin Calcium (Lipitor) 10 mg PO DIN [facility] Bicalutamide (Casodex) 50 mg PO DAILY [facility] Last Admin: 06/13/18 11:10 Dose: 50 mg Enoxaparin Sodium (Lovenox) 40 mg SC DAILY [facility]; Protocol Famotidine (Pepcid) 20 mg PO 1000,2200 [facility] Last Admin: 06/13/18 10:51 Dose: 20 mg Hydroxyzine HCl (Atarax) 25 mg PO Q8H PRN PRN Reason: Itching / Pruritus Doxycycline Hyclate 100 mg/ (Sodium Chloride) 100 mls @ 100 mls/hr IVPB Q12 [facility]; Protocol Stop: 06/21/18 22:01 Last Admin: 06/13/18 12:34 Dose: 100 mls/hr Cefepime HCl (Maxipime 1gm) 1 gm in 100 mls @ 100 mls/hr IVPB Q12 [facility]; Protocol Stop: 06/21/18 22:01 Last Admin: 06/13/18 10:52 Dose: 100 mls/hr Ipratropium [place] (Atrovent) 0.5 mg IH TIDRESP [facility] Levalbuterol HCl (Xopenex) 0.63 mg IH TIDRESP [facility] Methylprednisolone (Solu-Medrol) 20 mg IVP Q12 [facility] Last Admin: 06/13/18 10:51 Dose: 20 mg Metoprolol Succinate (Toprol Xl) 50 mg PO DAILY [facility] Last Admin: 06/13/18 10:51 Dose: 50 mg Tamsulosin HCl (Flomax) 0.4 mg PO DAILY [facility] Last Admin: 06/13/18 10:51 Dose: 0.4 mg Results - Vital Signs Recent Vital Signs: Last Vital Signs Temp 97.6 F 06/13/18 12:00 Pulse 73 06/13/18 12:00 Resp 18 06/13/18 12:00 BP 110/64 06/13/18 12:00 Pulse Ox 95 06/13/18 06:00 - Labs Result Diagrams: 06/13/18 06:10 06/13/18 06:10 Labs: Laboratory Results - last 24 hr 06/12/18 06/12/18 06/12/18 15:31 15:31 15:31 WBC 10.5 RBC 4.12 Hgb 13.8 L D Hct 41.7 L MCV 101.2 MCH 33.5 MCHC 33.1 RDW 13.3 Plt Count 236 MPV 10.0 Neut % (Auto) 80.5 H Lymph % (Auto) 7.2 L [place] % (Auto) 8.1 H Eos % (Auto) 3.8 Baso % (Auto) 0.4 Lymph # (Auto) 0.8 L [place] # (Auto) 0.9 H Eos # (Auto) 0.4 Baso # (Auto) 0.04 Absolute Neuts (auto) 8.41 H Neutrophils % (Manual) Lymphocytes % (Manual) Monocytes % (Manual) Platelet Evaluation PT 12.8 H INR 1.15 APTT 32.5 D-Dimer, Quantitative 1164 H pO2 VBG pH VBG pCO2 VBG HCO3 VBG Total CO2 VBG O2 Sat (Calc) VBG Base Excess VBG Potassium Glucose Lactate FiO2 Crit Value Called To Crit Value Called By Blood Gas Notified Time Sodium 138 Potassium 5.3 H Chloride 101 Carbon Dioxide 27 Anion Gap 15 BUN 20 Creatinine 1.2 Est GFR ( Amer) > 60 Est GFR (Non-Af Amer) 57 Random Glucose 117 H Calcium 9.4 Magnesium 2.2 Total Bilirubin 0.5 AST 27 ALT 12 Alkaline Phosphatase 66 Lactate Dehydrogenase 545 Total Creatine Kinase 28 L Troponin I < 0.01 NT-Pro-B Natriuret Pep 1520 H Total Protein 7.2 Albumin 3.6 Globulin 3.6 Albumin/Globulin Ratio 1.0 L Venous Blood Potassium Urine Color Urine Appearance Urine pH Ur Specific [place] Urine Protein Urine Glucose (UA) Urine Ketones Urine Blood Urine Nitrate Urine Bilirubin Urine Urobilinogen Ur Leukocyte Esterase Urine RBC Urine WBC Ur Epithelial Cells Urine Bacteria 06/12/18 06/12/18 06/13/18 15:52 19:10 06:10 WBC 6.0 D RBC 3.66 Hgb 11.9 L Hct 36.7 L MCV 100.3 MCH 32.5 MCHC 32.4 RDW 13.2 Plt Count 203 MPV 9.8 Neut % (Auto) 91.6 H Lymph % (Auto) 6.9 L [place] % (Auto) 1.0 Eos % (Auto) 0.2 L Baso % (Auto) 0.3 Lymph # (Auto) 0.4 L [place] # (Auto) 0.1 Eos # (Auto) 0.0 Baso # (Auto) 0.02 Absolute Neuts (auto) 5.46 Neutrophils % (Manual) 93 H Lymphocytes % (Manual) 7 L Monocytes % (Manual) TEST NOT PERFORMED Platelet Evaluation Normal PT INR APTT D-Dimer, Quantitative pO2 18 L 14 L VBG pH 7.33 7.38 VBG pCO2 50.0 45.0 VBG HCO3 26.4 26.6 VBG Total CO2 27.9 28.0 VBG O2 Sat (Calc) 29.2 L 21.6 L VBG Base Excess -0.2 L 1.0 VBG Potassium 5.0 5.0 Glucose 117 H 117 H Lactate 2.4 H 1.3 FiO2 21.0 21.0 Crit Value Called To Fish florez Crit Value Called By [facility] Blood Gas Notified Time 1558 1916 Sodium 134.0 132.0 Potassium Chloride 102.0 104.0 Carbon Dioxide Anion Gap BUN Creatinine Est GFR ( Amer) Est GFR (Non-Af Amer) Random Glucose Calcium Magnesium Total Bilirubin AST ALT Alkaline Phosphatase Lactate Dehydrogenase Total Creatine Kinase Troponin I NT-Pro-B Natriuret Pep Total Protein Albumin Globulin Albumin/Globulin Ratio Venous Blood Potassium 5.0 5.0 Urine Color Urine Appearance Urine pH Ur Specific [place] Urine Protein Urine Glucose (UA) Urine Ketones Urine Blood Urine Nitrate Urine Bilirubin Urine Urobilinogen Ur Leukocyte Esterase Urine RBC Urine WBC Ur Epithelial Cells Urine Bacteria 06/13/18 06/13/18 06:10 11:25 WBC RBC Hgb Hct MCV MCH MCHC RDW Plt Count MPV Neut % (Auto) Lymph % (Auto) [place] % (Auto) Eos % (Auto) Baso % (Auto) Lymph # (Auto) [place] # (Auto) Eos # (Auto) Baso # (Auto) Absolute Neuts (auto) Neutrophils % (Manual) Lymphocytes % (Manual) Monocytes % (Manual) Platelet Evaluation PT INR APTT D-Dimer, Quantitative pO2 VBG pH VBG pCO2 VBG HCO3 VBG Total CO2 VBG O2 Sat (Calc) VBG Base Excess VBG Potassium Glucose Lactate FiO2 Crit Value Called To Crit Value Called By Blood Gas Notified Time Sodium 137 Potassium 4.9 Chloride 105 Carbon Dioxide 24 Anion Gap 13 BUN 21 Creatinine 1.0 Est GFR ( Amer) > 60 Est GFR (Non-Af Amer) > 60 Random Glucose 129 H Calcium 8.7 Magnesium Total Bilirubin 0.3 AST 28 ALT 7 Alkaline Phosphatase 58 Lactate Dehydrogenase Total Creatine Kinase Troponin I NT-Pro-B Natriuret Pep Total Protein 6.1 Albumin 2.9 L Globulin 3.2 Albumin/Globulin Ratio 0.9 L Venous Blood Potassium Urine Color Yellow Urine Appearance Turbid Urine pH 6.0 Ur Specific [place] 1.025 Urine Protein Negative Urine Glucose (UA) Negative Urine Ketones Negative Urine Blood Moderate H Urine Nitrate Negative Urine Bilirubin Negative Urine Urobilinogen 0.2 Ur Leukocyte Esterase Small H Urine RBC 20 - 25 H Urine WBC 10 - 15 H Ur Epithelial Cells 0 - 2 Urine Bacteria Many Attending/Attestation - Attestation I have personally seen and examined this patient.: Yes I have fully participated in the care of the patient.: Yes I have reviewed all pertinent clinical information: Yes Notes (Text): 06/13/18 15:23 hcap with lung cancer stage 4 lyndno/ keira
--- NOTE | 2018-06-13 14:35 | CT ---
Date of service: 2018-06-13 10:22:09 PROCEDURE: CT Chest without contrast HISTORY: lung CA COMPARISON: 06/12/2018 contrast-enhanced CT TECHNIQUE: Contiguous axial images were obtained through the chest without intravenous contrast enhancement. Sagittal and coronal reconstructions were performed. Radiation dose: Total exam DLP = 260.26 mGy-cm. This CT exam was performed using one or more of the following dose reduction techniques: Automated exposure control, adjustment of the mA and/or kV according to patient size, and/or use of iterative reconstruction technique. FINDINGS: LUNGS: There is no change from yesterday's contrast-enhanced study. There is a 3.5 cm solid mass in the superior segment of the left lower lobe. There is emphysema and pulmonary fibrosis bilaterally. MEDIASTINUM: Unremarkable thoracic aorta. No aneurysm. Normal sized heart. Main pulmonary artery unremarkable. No vascular congestion. Mild mediastinal and hilar adenopathy. Aortic and coronary artery calcification PLEURA: No pleural fluid. No pneumothorax. BONES: There is a lytic lesion in the T10 vertebral body with adjacent paravertebral invasion. UPPER ABDOMEN: Grossly unremarkable. OTHER FINDINGS: None. IMPRESSION: There is no change from yesterday's contrast-enhanced study. There is a 3.5 cm solid mass in the superior segment of the left lower lobe. There is emphysema and pulmonary fibrosis bilaterally. There is a lytic lesion in the T10 vertebral body with adjacent paravertebral invasion.
--- NOTE | 2018-06-13 16:01 | CON ---
DATE: 06/13/2018 PULMONARY CONSULT NOTE REFERRING PHYSICIAN: Mic Dougherty MD REASON FOR CONSULT: Cough and shortness of breath. 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 The patient reports that he was having productive cough with green sputum. Reports that he may have had sick contact as he goes to doctors offices frequently. Today, as he is examined, the patient reports still having cough and shortness of breath has improved. States that he snores and has some daytime hypersomnia. Nursing staff reports that the patient went for chest CT this morning and when he came back, he was sitting in armchair in room, noted with oxygen saturation 86% on room air. Oxygen given via nasal cannula at 2 liters. The patient currently noted the oxygen saturation 93% on 2 liters. PAST MEDICAL HISTORY: As per history of present illness. FAMILY HISTORY: No significant cardiopulmonary disease reported. SOCIAL HISTORY: The patient was a former smoker, quit in 2001, smoked for 60 plus years. No ETOH abuse. No illicit drug use. ALLERGIES: CLOPIDOGREL BISULFATE. MEDICATIONS: Reviewed. Tylenol 650 mg every 4 hours p.r.n. fever greater than 100.4, aspirin 81 mg daily, Lipitor 10 mg at dinner, Casodex 50 mg daily, cefepime 1 g every 12 hours, doxycycline 100 mg every 12 hours, Pepcid 20 mg twice a day, Atarax 25 mg every 8 hours p.r.n., Solu-Medrol 20 mg every 12 hours, metoprolol succinate 50 mg daily and Flomax 0.4 mg daily. LABORATORY DATA: Reviewed. WBC 6, RBC 3.66, hemoglobin 11.9, hematocrit 36.7 and platelets 203. PT 12.8, INR 1.15, APTT 32.5 and D-dimer 1164. Sodium 137, potassium 4.9, chloride 105, carbon dioxide 24, anion gap 13, BUN 21, creatinine 1, GFR is greater than 60, random glucose 129, calcium 8.7, total bilirubin 0.3, AST 28, ALT 7, alkaline phosphatase 58, total protein 6.1, albumin 2.9, globulin 3.2 and albumin-globulin ratio 0.9. Urinalysis shows urine blood moderate, urine leukocyte esterase small, urine RBC 20-25 and urine WBC 10-15. Chest x-ray showed increased interstitial markings, stable left lower lobe pulmonary nodular or mass. EKG showed atrial fibrillation. Chest CT shows 3.5 cm solid mass in the superior segment of left lower lobe, emphysema, pulmonary fibrosis bilaterally, lytic lesions in the T10 vertebral body with adjacent paravertebral invasion. 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 Continue antibiotic therapy and gastric prophylaxis. Continue current steroid dosing. We will add Xopenex, Atrovent and nebulizer treatments. We will add Lovenox for deep venous thrombosis prophylaxis. Recommend physical therapy evaluation. We recommend full pulmonary function test as outpatient and sleep study as outpatient to the patient reporting snoring and daytime hypersomnia. This patient was seen and examined with Dr. Dixon. Discussed assessment and plan as described above. This patient was seen and examined with Leandro Salas, nurse practitioner. Discussed assessment and plan as described above. Thank you for this consult. We will follow with you. Leandro Salas APN Ankur Dixon MD ANA
[2018-06-13] MEDS: Ipratropium 0.02% Inhal Soln (0.5 mg/2.5 ml) UD IH SCH (19:12)
[2018-06-13] MEDS: Levalbuterol 0.63 MG/3 ML Inhal Soln UD IH SCH (19:12)
--- NOTE | 2018-06-13 23:38 | CON ---
DATE: 06/13/2018 CONSULT SERVICE: Cardiology. REASON FOR CONSULTATION: Admitted with shortness of breath, history of coronary artery disease, and history of lung CA with metastasis. BRIEF CLINICAL HISTORY: This is an 88-year-old male with past medical history significant for lung CA with bony metastasis, admitted with shortness of breath diagnosed in 06/2017, history of coronary artery disease, history of stent in [address] Kenney, but now the patient follows with Dr. Steele. He denies any chest pain recently. Denies any shortness of breath. Denies any palpitation. PAST MEDICAL HISTORY: Significant for coronary artery disease, status post stent in 2001, hypertension, glaucoma, and recently diagnosed in 2017 squamous cell carcinoma with metastasis. SOCIAL HISTORY: He used to smoke a pack a day till 2011 and then the patient stopped smoking. History of heavy alcohol abuse in the past. Denies any history of substance abuse. CURRENT MEDICATIONS: The patient is taking at home; Flomax 0.4 mg, simvastatin, Pyridium, metoprolol hydrochlorothiazide, methylprednisolone, loperamide, Casodex, and aspirin. ALLERGIES: TO PLAVIX. RECENT CARDIAC WORKUP FOLLOWS: The patient has a stress test in 2012, essentially normal myocardial perfusion study and no ischemia noted. REVIEW OF SYSTEMS: As per HPI. PHYSICAL EXAMINATION: VITAL SIGNS: As follows; height of the patient is 5 feet 10 inches. Weight of the patient is 145 pounds. Body mass index 20.8 kg/m2. Temperature afebrile, heart rate 73, and blood pressure 110/64. HEENT: PERRLA. Extraocular muscles intact. NECK: Supple. No carotid bruits or thyromegaly. CHEST: Clear to auscultation. HEART: S1 and S2 regular. ABDOMEN: Soft. EXTREMITIES: Clubbing and cyanosis negative. LABORATORY DATA: Blood workup; WBC 6, hemoglobin 11.9, hematocrit 36.7, and platelet count 203. Chemistry showed sodium 130, potassium 4.9, chloride 105, carbon dioxide 24, anion gap of 13, BUN 21, and creatinine 1. Troponin 0.01. Chest CT showed no change , lytic lesion in T8 vertebral body and adjacent paravertebral invasion noted. Chest x-ray done yesterday that revealed stable left lower lobe nodule mass. EKG showed atrial fibrillation, left anterior hemiblock, left ventricular hypertrophy with QRS complex widening. When looked the previous EKG dated 06/14/2006, the patient was in normal sinus. Then 06/30/2017, the patient was in normal sinus. At this time, the patient admitted with atrial fibrillation. 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 RECOMMENDATIONS: Since the patient had chemotherapy, we will discuss with Dr. Khalil and if it is okay, we will start low dose of Eliquis for atrial fibrillation. Further recommendation depends upon hospital course. We will follow with you. Get lipid profile, TSH, and hemoglobin A1c. We will get also echo to assess LV function. No angina symptom at this time. One important to note, the patient's EKG was officially read as atrial fibrillation it looks like normal sinus with APCs, so we will repeat the EKG tomorrow and monitor closely in telemetry. If remains, we will consider Eliquis; otherwise, beta-patrick and medical treatment for now. We will put low dose of beta-patrick. Repeat the EKG in the morning. Thank you Dr. Khalil for providing us the opportunity in taking care of the patient, Juan Cabrera. Ankur Cunha MD
[2018-06-14 07:15] LABS: BASO # 0.01 K/mm3 (0.0-2.0); BASO % 0.1 % (0.0-3.0); LYMPH # 0.7 (1.2-3.4); LYMPH % 6.1 % (22.0-35.0); MEAN CELL VOLUME 100.8 fl (80.0-105.0); MEAN CORPUSCULAR HEMOGLOBIN 32.7 pg (25.0-35.0); MEAN CORPUSCULAR HGB CONC 32.4 g/dl (31.0-37.0); MONO # 0.5 (0.1-0.6); MONO % 4.5 % (1.0-6.0); RBC 3.67 10^6/uL (3.5-6.1); RED CELL DISTRIBUTION WIDTH 13.2 % (11.5-14.5); WHITE BLOOD COUNT 11.2 10^3/uL (4.5-11.0)
[2018-06-14 07:18] LABS: ALB/GLOB RATIO 0.9 (1.1-1.8); ALBUMIN 2.9 g/dL (3.0-4.8); ALT/SGPT 9 U/L (7-56); AST/SGOT 25 U/L (17-59); BLOOD UREA NITROGEN 27 mg/dL (7-21); CALCIUM 9.1 mg/dL (8.4-10.5); GFR NON-AFRICAN AMERICAN > 60; HDL CHOLESTEROL 41 mg/dL (29-60)
[2018-06-14 07:28] LABS: LDL CHOLESTEROL 77 mg/dL (0-129)
[2018-06-14] MEDS: Ipratropium 0.02% Inhal Soln (0.5 mg/2.5 ml) UD IH SCH ×3 (07:58→19:21)
[2018-06-14] MEDS: Levalbuterol 0.63 MG/3 ML Inhal Soln UD IH SCH ×3 (07:58→19:21)
[2018-06-14] MEDS ORDERED: Levalbuterol 0.63 MG/3 ML Inhal Soln UD IH PRN (10:00)
[2018-06-14] MEDS ORDERED: Ipratropium 0.02% Inhal Soln (0.5 mg/2.5 ml) UD IH PRN (10:00)
[2018-06-14] MEDS: MethylPREDNISolone 40 mg Vial IVP SCH ×2 (10:20→21:31)
[2018-06-14] MEDS: Cefepime 1gm in NS 100ml 1 GM/100 ML BAG IVPB SCH ×2 (10:20→21:47)
[2018-06-14] MEDS: Metoprolol Succinate 50 mg XL Tab PO SCH (10:25)
[2018-06-14] MEDS: Enoxaparin 40 mg Syringe SC SCH (10:27)
[2018-06-14] MEDS: POLYETHYLENE GLYCOL 3350 17 GM/Dose PACKET PO SCH (10:27)
--- NOTE | 2018-06-14 11:19 | PN ---
DATE: 06/14/2018 PULMONARY PROGRESS NOTE REFERRING PHYSICIAN: Mic Dougherty MD SUBJECTIVE: The patient seen sitting in armchair in room. Family is at bedside. No acute distress. No overnight events reported. The patient does report still having shortness of breath with exertion, still having occasional coughing. The patient also reports that at home he would take Colace to help with bowel movements, states that he is having bowel movement currently, but they are hard. No headache, rhinitis, chest pain, abdominal pain, nausea, vomiting, diarrhea, leg pain and leg swelling reported. OBJECTIVE: GENERAL: No acute distress. VITAL SIGNS: Blood pressure 149/75, pulse 71, oxygen saturation 93% on nasal cannula and temperature 97.6. HEENT: Moist mucous membranes. Mallampati score 4. NECK: Supple. No JVD. LUNGS: Few scattered rhonchi. CARDIOVASCULAR: S1 and S2. ABDOMEN: Soft and nontender. No distention. No organomegaly. EXTREMITIES: No bilateral lower extremity edema. NEUROLOGIC: Awake, alert and verbal. Follows commands. MEDICATIONS: Reviewed. Tylenol 650 every 4 hours p.r.n. fever greater than 100.4, aspirin 81 mg daily, Lipitor 10 mg at dinner, Casodex 50 mg daily, cefepime 1 g every 12 hours, doxycycline 100 mg every 12 hours, Lovenox 40 mg subcutaneous daily, Pepcid 20 mg twice a day, Atarax 25 mg every 8 hours p.r.n., Atrovent 0.5 mg inhalation three times a day, Atrovent 0.5 mg inhalation every 2 hours p.r.n., Xopenex 0.63 mg inhalation three times a day, Xopenex 0.63 mg inhalation every 2 hours p.r.n., Solu-Medrol 20 mg IV push every 12 hours, metoprolol succinate 50 mg daily and MiraLax 17 g daily and Flomax 0.4 mg daily. LABORATORY DATA: Reviewed. WBC 11.2, RBC 3.67, hemoglobin 12, hematocrit 37 and platelet 232. Sodium 139, potassium 5, chloride 106, carbon dioxide 25, anion gap 14, BUN 27, creatinine 1.1, GFR greater than 60, random glucose 163, calcium 9.1, phosphorous 3.8, magnesium 2.2, total bilirubin 0.2, AST 25, ALT 9, alkaline phosphatase 56, total protein 6.1, albumin 2.9, globulin 3.2 and albumin-globulin ratio 0.9. Triglycerides 45, cholesterol 131, LDL cholesterol 77 and HDL cholesterol 41. TSH 0.41. Procalcitonin less than 0.05. Blood cultures preliminary no growth after 24 hours. Sputum culture shows few polymorphous nuclear wbcs, few epithelial cells, few Gram-positive cocci, culture pending. EKG report is pending. 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 Continue antibiotic therapy, gastric prophylaxis and deep venous thrombosis prophylaxis. Continue inhaled bronchodilators. Continue current steroid dose. Agree with starting MiraLax daily. We will order swallow evaluation to be done on the patient to rule out aspiration. We recommend full pulmonary function test as outpatient to assess chronic lung disease. We will also recommend sleep study as outpatient to rule out sleep apnea. This patient was seen and examined with Dr. Dixon. Discussed assessment and plan as described above. This patient was seen and examined with Leandro Salas, nurse practitioner. Discussed assessment and plan as described above. Thank you for this consult. We will follow with you. Leandro Salas APN Ankur Dixon MD ANA
--- NOTE | 2018-06-14 16:16 | CP.PCM.PN ---
<Michael Maurice - Last Filed: 06/14/18 16:12> Subjective - Date & Time of Evaluation Date of Evaluation: 06/14/18 Time of Evaluation: 09:20 - Subjective Subjective: Michael Maurice D.O. 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 Infectious disease consultation was requested. Patient was seen and examined at bedside. Family present. Had some SOB but better with nebs. Has been using IS. Objective - Vital Signs/Intake and Output Vital Signs (last 24 hours): Temp Pulse Resp BP Pulse Ox 97.1 F L 63 20 163/72 H 93 L 06/14/18 12:00 06/14/18 12:00 06/14/18 12:00 06/14/18 12:00 06/14/18 10:25 Intake and Output: 06/14/18 06/14/18 06:59 18:59 Intake Total 2180 Output Total 800 Balance 1380 - Medications Medications: Current Medications Acetaminophen (Tylenol 325mg Tab) 650 mg PO Q4 PRN PRN Reason: Fever >100.4 F Aspirin (Ecotrin) 81 mg PO DAILY [facility] Last Admin: 06/14/18 10:21 Dose: 81 mg Atorvastatin Calcium (Lipitor) 10 mg PO DIN [facility] Last Admin: 06/13/18 18:03 Dose: 10 mg Bicalutamide (Casodex) 50 mg PO DAILY [facility] Last Admin: 06/14/18 10:28 Dose: 50 mg Enoxaparin Sodium (Lovenox) 40 mg SC DAILY [facility]; Protocol Last Admin: 06/14/18 10:27 Dose: 40 mg Famotidine (Pepcid) 20 mg PO 1000,2200 [facility] Last Admin: 06/14/18 10:21 Dose: 20 mg Hydroxyzine HCl (Atarax) 25 mg PO Q8H PRN PRN Reason: Itching / Pruritus Doxycycline Hyclate 100 mg/ (Sodium Chloride) 100 mls @ 100 mls/hr IVPB Q12 [facility]; Protocol Stop: 06/21/18 22:01 Last Admin: 06/14/18 10:19 Dose: 100 mls/hr Cefepime HCl (Maxipime 1gm) 1 gm in 100 mls @ 100 mls/hr IVPB Q12 [facility]; Protocol Stop: 06/21/18 22:01 Last Admin: 06/14/18 10:20 Dose: 100 mls/hr Ipratropium Clayton (Atrovent) 0.5 mg IH TIDRESP [facility] Last Admin: 06/14/18 14:28 Dose: 0.5 mg Ipratropium Clayton (Atrovent) 0.5 mg IH Q2 PRN PRN Reason: SOB/WHEEZE Last Admin: 06/14/18 10:00 Dose: 0.5 mg Levalbuterol HCl (Xopenex) 0.63 mg IH TIDRESP [facility] Last Admin: 06/14/18 14:28 Dose: 0.63 mg Levalbuterol HCl (Xopenex) 0.63 mg IH Q2 PRN PRN Reason: SOB/WHEEZE Last Admin: 06/14/18 10:00 Dose: 0.63 mg Methylprednisolone (Solu-Medrol) 20 mg IVP Q12 [facility] Last Admin: 06/14/18 10:20 Dose: 20 mg Metoprolol Succinate (Toprol Xl) 50 mg PO DAILY [facility] Last Admin: 06/14/18 10:25 Dose: 50 mg Polyethylene Glycol (Miralax) 17 gm PO DAILY [facility] Last Admin: 06/14/18 10:27 Dose: 17 gm Tamsulosin HCl (Flomax) 0.4 mg PO DAILY [facility] Last Admin: 06/14/18 10:21 Dose: 0.4 mg - Labs Labs: 06/14/18 06:00 06/14/18 06:00 PT 12.8 SECONDS (9.4-12.5) H 06/12/18 15:31 INR 1.15 06/12/18 15:31 APTT 32.5 Seconds (26.9-38.3) 06/12/18 15:31 - Constitutional Appears: Non-toxic, Chronically Ill - Head Exam Head Exam: ATRAUMATIC, NORMOCEPHALIC - Eye Exam Eye Exam: EOMI. absent: Scleral icterus - ENT Exam ENT Exam: Mucous Membranes Moist - Neck Exam Neck exam: Positive for: Normal Inspection - Respiratory Exam Respiratory Exam: Clear to Auscultation Bilateral, Rales (fine bibasilar), Rhonchi (mild LLL). absent: Wheezes - Cardiovascular Exam Cardiovascular Exam: +S1, +S2. absent: Gallop, Rubs - GI/Abdominal Exam GI & Abdominal Exam: Normal Bowel Sounds, Soft. 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 Infectious disease consultation was requested. Plan: Sepsis Possible post obstructive pneumonia in setting of stage IV NSCLC Empirically on cefepime and doxy day 3 BCxs negative 2/2 day 2 Sputum cx pending Legionella negative Procal low Has been using IS Will follow with you Patient was seen and examined and case to be discussed at length with attending physician Thank you for the pleasure of participating in the care of this interesting patient <Reid Massey - Last Filed: 06/14/18 17:01> Objective - Vital Signs/Intake and Output Vital Signs (last 24 hours): Temp Pulse Resp BP Pulse Ox 97.1 F L 60 20 163/72 H 93 L 06/14/18 12:00 06/14/18 14:00 06/14/18 12:00 06/14/18 12:00 06/14/18 10:25 Intake and Output: 06/14/18 06/14/18 06:59 18:59 Intake Total 2180 Output Total 800 Balance 1380 - Medications Medications: Current Medications Acetaminophen (Tylenol 325mg Tab) 650 mg PO Q4 PRN PRN Reason: Fever >100.4 F Aspirin (Ecotrin) 81 mg PO DAILY [facility] Last Admin: 06/14/18 10:21 Dose: 81 mg Atorvastatin Calcium (Lipitor) 10 mg PO DIN [facility] Last Admin: 06/13/18 18:03 Dose: 10 mg Bicalutamide (Casodex) 50 mg PO DAILY [facility] Last Admin: 06/14/18 10:28 Dose: 50 mg Enoxaparin Sodium (Lovenox) 40 mg SC DAILY [facility]; Protocol Last Admin: 06/14/18 10:27 Dose: 40 mg Famotidine (Pepcid) 20 mg PO 1000,2200 [facility] Last Admin: 06/14/18 10:21 Dose: 20 mg Hydroxyzine HCl (Atarax) 25 mg PO Q8H PRN PRN Reason: Itching / Pruritus Doxycycline Hyclate 100 mg/ (Sodium Chloride) 100 mls @ 100 mls/hr IVPB Q12 [facility]; Protocol Stop: 06/21/18 22:01 Last Admin: 06/14/18 10:19 Dose: 100 mls/hr Cefepime HCl (Maxipime 1gm) 1 gm in 100 mls @ 100 mls/hr IVPB Q12 [facility]; Protocol Stop: 06/21/18 22:01 Last Admin: 06/14/18 10:20 Dose: 100 mls/hr Ipratropium Clayton (Atrovent) 0.5 mg IH TIDRESP [facility] Last Admin: 06/14/18 14:28 Dose: 0.5 mg Ipratropium Clayton (Atrovent) 0.5 mg IH Q2 PRN PRN Reason: SOB/WHEEZE Last Admin: 06/14/18 10:00 Dose: 0.5 mg Levalbuterol HCl (Xopenex) 0.63 mg IH TIDRESP [facility] Last Admin: 06/14/18 14:28 Dose: 0.63 mg Levalbuterol HCl (Xopenex) 0.63 mg IH Q2 PRN PRN Reason: SOB/WHEEZE Last Admin: 06/14/18 10:00 Dose: 0.63 mg Methylprednisolone (Solu-Medrol) 20 mg IVP Q12 [facility] Last Admin: 06/14/18 10:20 Dose: 20 mg Metoprolol Succinate (Toprol Xl) 50 mg PO DAILY [facility] Last Admin: 06/14/18 10:25 Dose: 50 mg Polyethylene Glycol (Miralax) 17 gm PO DAILY [facility] Last Admin: 06/14/18 10:27 Dose: 17 gm Tamsulosin HCl (Flomax) 0.4 mg PO DAILY [facility] Last Admin: 06/14/18 10:21 Dose: 0.4 mg - Labs Labs: 06/14/18 06:00 06/14/18 06:00 PT 12.8 SECONDS (9.4-12.5) H 06/12/18 15:31 INR 1.15 06/12/18 15:31 APTT 32.5 Seconds (26.9-38.3) 06/12/18 15:31 Attending/Attestation - Attestation I have personally seen and examined this patient.: Yes I have fully participated in the care of the patient.: Yes I have reviewed all pertinent clinical information, including history, physical exam and plan: Yes
--- NOTE | 2018-06-14 16:23 | PN ---
DATE: 06/14/2018 REASON FOR CONSULTATION AND FOLLOWUP: Admitted with shortness of breath, history of coronary artery disease, history of lung CA with metastases. SUBJECTIVE: The patient denies any chest pain, shortness of breath, or any palpitation. OBJECTIVE: GENERAL: Not in apparent distress. VITAL SIGNS: Temperature afebrile, heart rate 72 and blood pressure 149/75. HEENT: PERRLA. Extraocular muscles intact. NECK: Supple. No carotid bruits or thyromegaly. CHEST: Clear to auscultation. HEART: S1 and S2 regular. ABDOMEN: Soft. EXTREMITIES: Clubbing and cyanosis, negative. LABORATORY DATA: Blood workup as follows; WBC 11.2, hemoglobin 12, hematocrit 37.0 and platelet count 232. Chemistry shows sodium 139, potassium 5.0, chloride 105, carbon dioxide 25, anion gap of 14, BUN 26 and creatinine 1.1. IMPRESSION AND PLAN: An 88-year-old male with past medical history significant for coronary artery disease, status post stent in 2001, history of small cell with metastasis, who has been admitted with generalized weakness, shortness of breath, found to be in atrial fibrillation. A Cardiology consult was called. When looking closely EKG, the patient has normal sinus with few , is not actually atrial fibrillation. is to continue low dose recommendation. Continue low dose beta-patrick, continue aspirin, continue Lovenox, deep venous thrombosis prophylaxis. No need for Eliquis for now. Continue beta-patrick. We will follow. If no recent EKG or echo was done, we will do echo. Ankur Cunha MD
--- NOTE | 2018-06-14 21:06 | CARD ---
APPROVED REPORT Date of service: 06/14/2018 EKG Measurement Heart [id number] <Conclusion> Sinus rhythm with premature supraventricular complexes Left axis deviation Right bundle branch block Minimal voltage criteria for LVH, may be normal variant Abnormal ECG
--- NOTE | 2018-06-14 23:19 | CARD ---
APPROVED REPORT Date of service: 06/14/2018 EXAM: Two-dimensional and M-mode echocardiogram with Doppler and color Doppler. INDICATION Chest Pain 2D DIMENSIONS Left Atrium (2D)4.6 (1.6-4.0cm)IVSd1.0 (0.7-1.1cm) LVDd4.8 (3.9-5.9cm)PWd0.9 (0.7-1.1cm) LVDs2.7 (2.5-4.0cm)FS (%) 44.2 % LVEF (%)75.5 (>50%) M-Mode DIMENSIONS Aortic Root4.30 (2.2-3.7cm)Aortic Cusp Exc.1.10 (1.5-2.0cm) Aortic Valve AoV Peak Eksccxti003.0cm/sAoV VTI49.8cmAO Peak GR.17mmHg LVOT Peak Vopvrvko987.0cm/sLVOT VTI29.10cmAO Mean GR.8mmHg AI P 1/2 [id number] Mitral Valve MV EGW45lcO/A ratio0.0MVA (PHT)2.72cm2 TDI E/Lateral E'0.0E/Medial E'0.0 Pulmonary Valve PV Peak Tgujbtkn31.0cm/sPV Peak Grad.2mmHg Tricuspid Valve TR Peak [id number]/sRAP [id number] Peak Gr.50mmHg [id number] LEFT VENTRICLE The left ventricle is normal size. There is borderline concentric left ventricular hypertrophy. The left ventricular function is normal.EF-65-70% There is normal LV segmental wall motion. Transmitral Doppler flow pattern is Grade III-reversible restrictive diastolic dysfunction. No left ventricle thrombus noted on this study. There is no ventricular septal defect visualized. There is no left ventricular aneurysm. There is no mass noted in the left ventricle. RIGHT VENTRICLE The right ventricle is normal size. There is normal right ventricular wall thickness. The right ventricular systolic function is normal. ATRIA The left atrium is mildly dilated. The right atrium is mildly dilated. The interatrial septum is intact with no evidence for an atrial septal defect. AORTIC VALVE The aortic valve is calcified and displays decreased opening. Right coronary cusp is calcified andf some what immobile There is mild aortic regurgitation. There is mild to moderate valvular aortic stenosis. There is no aortic valvular vegetation. MITRAL VALVE The mitral valve is thickened but opens well. Mitral annular calcification is moderate. Mitral regurgitation is moderate to severe. There is no mitral valve stenosis. There is a partially flail anterior mitral valve leaflet with Chordal DEREK TRICUSPID VALVE The tricuspid valve leaflets are thickened , but open well. There is moderate tricuspid regurgitation.RVSP-60 mmof Hg There is moderate pulmonary hypertension. There is no tricuspid valve stenosis. There is no tricuspid valve prolapse or vegetation. PULMONIC VALVE The pulmonary valve is normal in structure. There is trace pulmonic valvular regurgitation. There is no pulmonic valvular stenosis. GREAT VESSELS The aortic root is normal in size. The ascending aorta is normal in size. The pulmonary artery is normal. The IVC is normal in size and collapses >50% with inspiration. PERICARDIAL EFFUSION There is no pleural effusion. There is no pericardial effusion. <Conclusion> The left ventricle is normal size. There is borderline concentric left ventricular hypertrophy. The left ventricular function is normal.EF-65-70% There is mild aortic regurgitation. There is mild to moderate valvular aortic stenosis. Mitral regurgitation is moderate to severe. There is moderate tricuspid regurgitation.RVSP-60 mmof Hg There is moderate pulmonary hypertension. There is trace pulmonic valvular regurgitation. The IVC is normal in size and collapses >50% with inspiration. There is no pericardial effusion. There is a partially flail anterior mitral valve leaflet with Chordal DEREK
--- NOTE | 2018-06-15 01:32 | PN ---
DATE: 06/14/2018 ONCOLOGY PROGRESS NOTE LOCATION: The patient is in room 263, bed 1. SUBJECTIVE: The patient is sitting in the armchair in the room, family is at the bedside. The patient is in no acute distress. No untoward effects or events noted overnight. The patient reports that shortness of breath with exertion with occasional coughing. He also reports that he is having some odd time going to the bathroom home he takes Colace and he is requesting the medicines to be dispensed here. He still complains of headaches, chest pain, abdominal pain, nausea, vomiting, diarrhea, leg pain or leg swelling at this time. Coughing had been productive, but has improved since admission. PHYSICAL EXAMINATION: GENERAL: The patient is in no acute distress. VITAL SIGNS: Stable, blood pressure is 149/75, pulse 77, O2 sat is 92% on nasal cannula, and T-max 97.6. HEENT: Head is normocephalic and atraumatic. Conjunctivae pale. Sclerae are anicteric. Pupils are equally reactive to light and accommodation. Examination of the oropharynx reveals no oropharyngeal lesion. NECK: Supple. There is no adenopathy. No jugular venous distention noted. LUNGS: Reveal scattered rhonchi. CARDIOVASCULAR: Reveals S1 and S2 to be normal. No gallop or murmur is heard. ABDOMEN: Soft and nontender. No rebound, rigidity, or guarding is noted. EXTREMITIES: Reveal no cyanosis, clubbing, or edema. NEUROLOGIC: Reveals higher functions to be normal. No focal deficits are noted. MEDICATIONS: The patient's medications are reviewed. He is on Tylenol 650 every 4 hours p.r.n. for temperature greater than 100.5, aspirin 81 mg daily, Lipitor 10 mg at bedtime, Casodex 50 mg daily, the patient is on cefepime 1 g every 12 hours, doxycycline 100 mg every 12 hours, Lovenox 40 mg subcutaneously daily, Pepcid 20 mg b.i.d., Atarax 25 mg every 8 hours p.r.n., Atrovent 0.5 mg inhaled three times a day, and Xopenex 0.63 mg inhaled three times a day. The patient is on Solu-Medrol 20 mg IV every 12 hours, metoprolol succinate 50 mg daily, MiraLax 17 g daily, and Flomax 0.4 mg daily. LABORATORY DATA: From today reveals white count 11.2, hemoglobin 12, hematocrit 37, and platelet count 232. Sodium is 139, K is 5, chloride is 106, CO2 is 25, BUN is 27, creatinine is 1.1, GFR is greater than is 60, blood sugar is 153, calcium is 9.1, phosphorous is 3.8, and magnesium is 2.2. AST and ALT are within normal limits. Alkaline phosphatase is 76, total protein is 6.1, albumin is 2.9, A/G ratio is 0.9, cholesterol is 131, and TSH is 0.41. Procalcitonin is less than 0.5. Blood cultures showed no growth at this time. Sputum shows few polymorphonuclear white cells, few Gram-positive cocci, cultures is pending. EKG report revealed sinus tachycardia with multiple APCs and no evidence of atrial fibrillation. The patient has already been seen by Dr. Cunha. ASSESSMENT, NOTES AND PLAN: The patient has metastatic carcinoma of the lung, squamous cell carcinoma stage IIIB, I believe, and also has high grade locally advanced urothelial malignancy, poorly differentiated involving the left ureter, and left renal pelvis for which the patient has had placement of the stent in the left ureter. The patient also has a diagnosis of recently discovered prostatic carcinoma, which is also locally advanced for which the patient has green laser light therapy and the patient has been placed on Casodex and Lupron. The patient has bone metastasis with evidence on prior PET-CT scan and most recent CAT scan with T10 vertebral metastasis. The patient has a history of hypertension, coronary artery disease, hyperlipidemia, and evidence of pneumonic patch on the CAT scan of the chest when he came in. The patient has been started on antibiotics for the same. The patient also on gastric and deep vein thrombosis prophylaxes as well along with bronchodilators. Plan, we will continue current antibiotics until cleared by ID. The patient will also continue his IV steroids. MiraLax has been added for his constipation. The patient will need swallowing study to rule out aspiration, which has been requested. The patient need outpatient testing for pulmonary function tests and probably sleep study as well. In the meantime when we taper back on the steroids, we will put him back on Medrol 4 mg alternating with 2 mg to prevent any undue reaction as a result of the therapy with Keytruda that he has been getting as an outpatient. Routine post exam instructions have been given to the patient, told the patient that we will wait and see the cultures of the sputum also along with the blood cultures. Check with ID whether we could switch him into oral drugs before planning on any early discharge plans. The patient does feel better since admission. We will continue the current treatment regimen for now. Please make a note this is a complex patient with multiple comorbid medical issues. Labs for a.m. have been requested. Malini Khalil MD
--- NOTE | 2018-06-15 06:32 | CP.PCM.PN ---
Subjective - Date & Time of Evaluation Date of Evaluation: 06/15/18 Time of Evaluation: 06:32 - Subjective Subjective: Orlin Benavides PGY2 - Progress Note for Dr. Khalil Patient seen and examined this AM. Reports indicate patient became bradycardic earlier this AM but was asymptomatic. Patient reports feeling stronger since admission. He does indicate shortness of breath when ambulating around his room. Nursing as well as respiratory therapist indicate patient becomes acutely short of breath off of oxygen while ambulating and at rest. He denies fever, chills, abdominal pain, nausea, vomiting. Goals of care were discussed with patient and evaluation for TCU was discussed for further re-conditioning. Patient agreeable for eval and potential transfer. Objective - Vital Signs/Intake and Output Vital Signs (last 24 hours): Temp Pulse Resp BP Pulse Ox 97.4 F L 53 L 20 127/65 93 L 06/15/18 00:01 06/15/18 00:01 06/15/18 00:01 06/15/18 00:01 06/15/18 00:01 Intake and Output: 06/14/18 06/15/18 18:59 06:59 Intake Total 1280 540 Output Total 675 600 Balance 605 -60 - Medications Medications: Current Medications Acetaminophen (Tylenol 325mg Tab) 650 mg PO Q4 PRN PRN Reason: Fever >100.4 F Aspirin (Ecotrin) 81 mg PO DAILY [facility] Last Admin: 06/14/18 10:21 Dose: 81 mg Atorvastatin Calcium (Lipitor) 10 mg PO DIN [facility] Last Admin: 06/14/18 17:33 Dose: 10 mg Bicalutamide (Casodex) 50 mg PO DAILY [facility] Last Admin: 06/14/18 10:28 Dose: 50 mg Doxycycline Hyclate (Doryx) 100 mg PO Q12 [facility]; Protocol Stop: 06/22/18 22:01 Last Admin: 06/14/18 21:30 Dose: 100 mg Enoxaparin Sodium (Lovenox) 40 mg SC DAILY [facility]; Protocol Last Admin: 06/14/18 10:27 Dose: 40 mg Famotidine (Pepcid) 20 mg PO 1000,2200 [facility] Last Admin: 06/14/18 21:31 Dose: 20 mg Hydroxyzine HCl (Atarax) 25 mg PO Q8H PRN PRN Reason: Itching / Pruritus Cefepime HCl (Maxipime 1gm) 1 gm in 100 mls @ 100 mls/hr IVPB Q12 [facility]; Protocol Stop: 06/21/18 22:01 Last Admin: 06/14/18 21:47 Dose: 100 mls/hr Ipratropium Mason (Atrovent) 0.5 mg IH TIDRESP [facility] Last Admin: 06/14/18 19:21 Dose: 0.5 mg Ipratropium Mason (Atrovent) 0.5 mg IH Q2 PRN PRN Reason: SOB/WHEEZE Last Admin: 06/14/18 10:00 Dose: 0.5 mg Levalbuterol HCl (Xopenex) 0.63 mg IH TIDRESP [facility]IE Last Admin: 06/14/18 19:21 Dose: 0.63 mg Levalbuterol HCl (Xopenex) 0.63 mg IH Q2 PRN PRN Reason: SOB/WHEEZE Last Admin: 06/14/18 10:00 Dose: 0.63 mg Methylprednisolone (Solu-Medrol) 20 mg IVP Q12 [facility] Last Admin: 06/14/18 21:31 Dose: 20 mg Metoprolol Succinate (Toprol Xl) 50 mg PO DAILY [facility] Last Admin: 06/14/18 10:25 Dose: 50 mg Polyethylene Glycol (Miralax) 17 gm PO DAILY [facility] Last Admin: 06/14/18 10:27 Dose: 17 gm Tamsulosin HCl (Flomax) 0.4 mg PO DAILY [facility] Last Admin: 06/14/18 10:21 Dose: 0.4 mg - Labs Labs: 06/14/18 06:00 06/14/18 06:00 PT 12.8 SECONDS (9.4-12.5) H 06/12/18 15:31 INR 1.15 06/12/18 15:31 APTT 32.5 Seconds (26.9-38.3) 06/12/18 15:31 - Constitutional Appears: No Acute Distress - Head Exam Head Exam: ATRAUMATIC, NORMOCEPHALIC - Eye Exam Eye Exam: EOMI, PERRL - ENT Exam ENT Exam: Mucous Membranes Moist - Neck Exam Neck Exam: Full ROM - Respiratory Exam Respiratory Exam: Decreased Breath Sounds, NORMAL BREATHING PATTERN - Cardiovascular Exam Cardiovascular Exam: REGULAR RHYTHM, +S1, +S2 - GI/Abdominal Exam GI & Abdominal Exam: Soft, Normal Bowel Sounds - Extremities Exam Extremities Exam: Full ROM. 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 Patient being empircally treated for potential pneumonia with ID, COPD and hypoxia being evaluated and treated by pulmonology, cardiac function evaluation from cardiology. Patient noted to have deconditioning requiring continuous oxygenation and frequent rest associated with minimal exertion. Plan: COPD exacerbation 2/2 pna - Pulmonary with Dr. Dixon consulted and following - IV lasix 20mg Daily - Ipratroium, Xopnex, procardia - Solumedrol 20mg IV BID, IV abx as per ID (Doxy and Cefepime) - ID consulted and following - continue doxy and cefepime - Maintain SaO2 >90%, supplemental Oxygen as needed Deconditioning - TCU evaluation - 6 minute walk test for oxygenation requirement - Patient noted to have low pulse ox on rest Elevated BNP - 1520 on admission, increased from 456 a year ago - EKG reviewed and appreciated - Cardiology consulted for further evaluation Metastatic primary lung cancer with stage IV NSLC - Chest CT reviewed and appreciated - On Keytruda - Monitor CBC - Further recs per Dr. Khalil HTN - BP normotensive - Patient showing signs of bradycardia, metoprolol held today CAD - BB on hold 2/2 bradycardia ASA 81mg HLD - Continue statin Prostate CA -Continue caodex -Continue flomax DVT/GI ppx Case discussed with attending, Dr. Edwards
[2018-06-15 07:16] LABS: BASO # 0.01 K/mm3 (0.0-2.0); BASO % 0.1 % (0.0-3.0); HEMOGLOBIN 11.9 g/dL (14.0-18.0); LYMPH # 0.6 (1.2-3.4); LYMPH % 4.9 % (22.0-35.0); MEAN CELL VOLUME 101.4 fl (80.0-105.0); MEAN CORPUSCULAR HEMOGLOBIN 32.7 pg (25.0-35.0); MEAN CORPUSCULAR HGB CONC 32.2 g/dl (31.0-37.0); MEAN PLATELET VOLUME 10.1 fl (7.0-11.0); MONO # 0.5 (0.1-0.6); MONO % 4.1 % (1.0-6.0); RBC 3.64 10^6/uL (3.5-6.1); RED CELL DISTRIBUTION WIDTH 13.4 % (11.5-14.5); WHITE BLOOD COUNT 11.7 10^3/uL (4.5-11.0)
[2018-06-15] MEDS: Ipratropium 0.02% Inhal Soln (0.5 mg/2.5 ml) UD IH SCH ×3 (07:55→19:45)
[2018-06-15] MEDS: Levalbuterol 0.63 MG/3 ML Inhal Soln UD IH SCH ×3 (07:55→19:45)
[2018-06-15 08:03] LABS: ALB/GLOB RATIO 1.1 (1.1-1.8); ALBUMIN 3.3 g/dL (3.0-4.8); ALT/SGPT 7 U/L (7-56); AST/SGOT 29 U/L (17-59); BLOOD UREA NITROGEN 29 mg/dL (7-21); CALCIUM 9.7 mg/dL (8.4-10.5); GFR NON-AFRICAN AMERICAN > 60
[2018-06-15] MEDS: Enoxaparin 40 mg Syringe SC SCH (10:18)
[2018-06-15] MEDS: Metoprolol Succinate 50 mg XL Tab PO SCH (10:21)
[2018-06-15] MEDS: POLYETHYLENE GLYCOL 3350 17 GM/Dose PACKET PO SCH (10:35)
[2018-06-15] MEDS: Cefepime 1gm in NS 100ml 1 GM/100 ML BAG IVPB SCH ×2 (10:58→21:56)
[2018-06-15] MEDS: MethylPREDNISolone 40 mg Vial IVP SCH ×2 (10:59→21:56)
--- NOTE | 2018-06-15 11:25 | PN ---
DATE: 06/15/2018 REASON FOR CONSULTATION AND FOLLOWUP: Admitted with shortness of breath, history of coronary artery disease, history of lung CA with metastases. SUBJECTIVE: The patient denies any chest pain, shortness of breath, or any palpitation. Feels a lot better. OBJECTIVE: GENERAL: Not in distress, lying flat on the bed. VITAL SIGNS: Temperature afebrile, heart rate 64, blood pressure 135/62. HEENT: PERRLA. Extraocular muscles intact. NECK: Supple. No carotid bruits or thyromegaly. CHEST: Clear to auscultation. HEART: S1, S2. Regular. ABDOMEN: Soft. EXTREMITIES: Clubbing, cyanosis negative. LABORATORY DATA: The patient had an echocardiography done yesterday that revealed ejection fraction 65 to 70%, mild aortic regurgitation, [id number] valvular aortic stenosis, [id number] mitral regurgitation, moderate tricuspid regurgitation, RV systolic pressure 60, moderate pulmonary hypertension. Today's labs: WBC 11.7, hemoglobin 11.9, hematocrit 36.9, platelet count 224. Chemistry shows sodium 138, potassium 5.4, chloride 105, carbon dioxide 27, anion gap of 11, BUN 29, creatinine 1. IMPRESSION: An 88-year-old male with past medical history significant for coronary artery disease, status post percutaneous transluminal coronary angi[place] [address] Kenney, history of lung carcinoma with metastasis, admitted with generalized weakness, found to be in atrial fibrillation. Cardiology consult was called. When electrocardiogram looking closely, the patient has normal sinus with atrial premature complexes. No evidence of atrial fibrillation. RECOMMENDATIONS: Continue low dose beta-patrick, continue aspirin, no need for anticoagulation for now. Echo as mentioned above. We will do stat potassium, and if repeat potassium is elevated, we will give Kayexalate. Continue DVT prophylaxis. Continue antibiotics. Most likely for this elevated potassium, continue prednisone. We will follow with you. If he remains stable, we will discontinue telemetry. We will put Kayexalate 30 g p.o. at 10:30 if repeat potassium more than 5.4. The patient had repeat EKG that showed normal sinus, premature SVT noted. Right bundle branch block. No evidence of atrial fibrillation. Thank you Dr. Mic Dougherty for providing us the opportunity in taking care of the patient Juan Cabrera. Ankur Cunha MD [facility] # [id number]
[2018-06-15] MEDS: NIFEdipine 30 mg ER Tab PO SCH (15:04)
--- NOTE | 2018-06-15 15:07 | PN ---
DATE: 06/15/2018 PULMONARY PROGRESS NOTE REFERRING PHYSICIAN: Mic Dougherty MD SUBJECTIVE: The patient was seen, sitting in armchair in room, family at bedside, in no acute distress, no overnight events reported, has had shortness of breath with exertion. No headache, rhinitis, chest pain, abdominal pain, nausea, vomiting, diarrhea, leg pain, or leg swelling reported. OBJECTIVE: VITAL SIGNS: Blood pressure 130/51, pulse 57, temperature 97.6, and oxygen saturation 80% on room air and 95% nasal cannula. GENERAL: In no acute distress. HEENT: Moist mucous membranes, Mallampati score 4. NECK: Supple, no JVD. LUNGS: Few scattered rhonchi. CARDIOVASCULAR: S1 and S2. ABDOMEN: Soft, nontender. No distention, no organomegaly. EXTREMITIES: No bilateral lower extremity edema. NEUROLOGIC: Awake and alert, verbal, follows commands. MEDICATIONS: Reviewed. Tylenol 650 mg every 4 hours p.r.n. fever greater than 100.4, aspirin 81 mg daily, Lipitor 10 mg with dinner, Casodex 50 mg daily, cefepime 1 g every 12 hours, doxycycline 100 mg every 12 hours, Lovenox 40 mg subcu daily, Pepcid 20 mg twice a day, Atarax 25 mg every 8 hours p.r.n., Atrovent 0.5 mg inhalation 3 times a day, Atrovent 0.5 mg inhalation every 2 hours p.r.n., Xopenex 0.63 mg inhalation three times a day, Xopenex 0.63 mg inhalation every 2 hours p.r.n., Solu-Medrol 20 mg every 12 hours, Toprol XL 50 mg daily, MiraLax 17 g daily, and Flomax 0.4 mg daily. LABORATORY DATA: Reviewed. WBC 11.7, RBC 3.64, hemoglobin 11.9, hematocrit 36.9, platelets 224. Sodium 138, potassium 4.9, chloride 105, carbon dioxide 27, anion gap 11, BUN 29, creatinine 1, GFR greater than 60, random glucose 131, calcium 9.7, phosphorus 3.5, magnesium 2.1, total bilirubin 0.2, AST 29, ALT 7, alkaline phosphatase 57, total protein 6.3, albumin 3.3, globulin 3.1, albumin-globulin ratio 1.1, and procalcitonin less than 0.05. Sputum culture shows normal oral jamel. Blood cultures preliminary no growth after 48 hours. Echocardiogram shows left ventricular function, ejection fraction 65-70%, mild aortic regurgitation, [id number] valvular aortic stenosis, mitral regurgitation, moderate tricuspid regurgitation, RVSP 60, moderate pulmonary hypertension, trace pulmonic valvular regurgitation. EKG, sinus rhythm with premature ventricular complexes. IMPRESSION AND PLAN: Chronic obstructive pulmonary disease exacerbation, squamous cell carcinoma in his lungs with T10 metastasis, emphysema, hypertension, coronary artery disease, hyperlipidemia, prostate cancer, and transitional cell carcinoma of the kidney. Echocardiogram shows possible diastolic dysfunction and moderate hypertension. We will place the patient on vasodilator and diuretics. We will start Procardia XL 30 mg daily, hold for systolic BP less than 100, start the patient on Lasix 20 mg daily,need to monitor BUN and creatinine and clinical improvement closely. We recommend this patient for a TCU evaluation for rehabilitation and the ability to titrate vasodilators and diuretics for close monitoring and manipulation of medications. Case was discussed with Dr. Khalil. Patient and daughter notified of new medications added. Continue inhaled bronchodilators, gastric prophylaxis, deep venous thrombosis prophylaxis. Followup evaluation was done and speech therapy recommends to continue regular/soft diet with thin liquid diet. The patient is noted with normal oral and pharyngeal phases of swallowing per speech therapy. We recommend the patient have full pulmonary function tests to assess chronic lung disease. We also recommend the patient have sleep study as outpatient to assess for sleep apnea. The patient was seen and examined with Dr. Dixon. Discussed assessment and plan as described above. The patient was seen and examined with Leandro Salas, nurse practitioner. Discussed assessment and plan as described above. Thank you for this consult. We will follow with you. Leandro Salas APN Ankur Dixon MD [facility]
--- NOTE | 2018-06-15 15:58 | CP.PCM.PN ---
<Michael Maurice - Last Filed: 06/15/18 15:55> Subjective - Date & Time of Evaluation Date of Evaluation: 06/15/18 Time of Evaluation: 09:35 - Subjective Subjective: Michael Maurice D.O. 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 Infectious disease consultation was requested. Patient was seen and examined at bedside. Breathing comfortably. Using IS. Eager to go home. Objective - Vital Signs/Intake and Output Vital Signs (last 24 hours): Temp Pulse Resp BP Pulse Ox 97.6 F 100 H 20 137/59 L 80 L 06/15/18 12:00 06/15/18 15:04 06/15/18 12:00 06/15/18 15:04 06/15/18 10:00 Intake and Output: 06/15/18 06/15/18 06:59 18:59 Intake Total 540 Output Total 600 Balance -60 - Medications Medications: Current Medications Acetaminophen (Tylenol 325mg Tab) 650 mg PO Q4 PRN PRN Reason: Fever >100.4 F Aspirin (Ecotrin) 81 mg PO DAILY [facility] Last Admin: 06/15/18 10:18 Dose: 81 mg Atorvastatin Calcium (Lipitor) 10 mg PO DIN [facility] Last Admin: 06/14/18 17:33 Dose: 10 mg Bicalutamide (Casodex) 50 mg PO DAILY [facility] Last Admin: 06/15/18 10:33 Dose: 50 mg Doxycycline Hyclate (Doryx) 100 mg PO Q12 [facility]; Protocol Stop: 06/22/18 22:01 Last Admin: 06/15/18 10:22 Dose: 100 mg Enoxaparin Sodium (Lovenox) 40 mg SC DAILY [facility]; Protocol Last Admin: 06/15/18 10:18 Dose: 40 mg Famotidine (Pepcid) 20 mg PO 1000,2200 [facility] Last Admin: 06/15/18 10:59 Dose: 20 mg Furosemide (Lasix) 20 mg PO DAILY [facility] Last Admin: 06/15/18 15:04 Dose: 20 mg Hydroxyzine HCl (Atarax) 25 mg PO Q8H PRN PRN Reason: Itching / Pruritus Last Admin: 06/15/18 10:18 Dose: 25 mg Cefepime HCl (Maxipime 1gm) 1 gm in 100 mls @ 100 mls/hr IVPB Q12 [facility]; Protocol Stop: 06/21/18 22:01 Last Admin: 06/15/18 10:58 Dose: 100 mls/hr Ipratropium [place] (Atrovent) 0.5 mg IH TIDRESP [facility] Last Admin: 06/15/18 13:34 Dose: 0.5 mg Ipratropium [place] (Atrovent) 0.5 mg IH Q2 PRN PRN Reason: SOB/WHEEZE Last Admin: 06/14/18 10:00 Dose: 0.5 mg Levalbuterol HCl (Xopenex) 0.63 mg IH TIDRESP [facility] Last Admin: 06/15/18 13:34 Dose: 0.63 mg Levalbuterol HCl (Xopenex) 0.63 mg IH Q2 PRN PRN Reason: SOB/WHEEZE Last Admin: 06/14/18 10:00 Dose: 0.63 mg Methylprednisolone (Solu-Medrol) 20 mg IVP Q12 [facility] Last Admin: 06/15/18 10:59 Dose: 20 mg Metoprolol Succinate (Toprol Xl) 50 mg PO DAILY [facility] Last Admin: 06/15/18 10:21 Dose: Not Given Nifedipine (Procardia Xl) 30 mg PO DAILY [facility] Last Admin: 06/15/18 15:04 Dose: 30 mg Polyethylene Glycol (Miralax) 17 gm PO DAILY [facility] Last Admin: 06/15/18 10:35 Dose: Not Given Tamsulosin HCl (Flomax) 0.4 mg PO DAILY [facility] Last Admin: 06/15/18 10:21 Dose: 0.4 mg - Labs Labs: 06/15/18 06:20 06/15/18 09:45 PT 12.8 SECONDS (9.4-12.5) H 06/12/18 15:31 INR 1.15 06/12/18 15:31 APTT 32.5 Seconds (26.9-38.3) 06/12/18 15:31 - Constitutional Appears: Non-toxic, Chronically Ill, NAD - Head Exam Head Exam: ATRAUMATIC, NORMOCEPHALIC - Eye Exam Eye Exam: EOMI. absent: Scleral icterus - ENT Exam ENT Exam: Mucous Membranes Moist - Neck Exam Neck exam: Positive for: Normal Inspection - Respiratory Exam Respiratory Exam: Clear to Auscultation Bilateral, Rales (fine bibasilar) - Cardiovascular Exam Cardiovascular Exam: +S1, +S2. absent: Gallop, Rubs - GI/Abdominal Exam GI & Abdominal Exam: Normal Bowel Sounds, Soft. 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 Infectious disease consultation was requested. Plan: Sepsis Possible post obstructive pneumonia in setting of stage IV NSCLC Asymptomatic bacteruria BCxs negative 2/2 day 3 Sputum cx negative Legionella negative Procal low Continue IS use Continue cefepime and doxy day 4 Pulm following, recs appreciated Hem/Onc following, recs appreciated Will follow with you Patient was seen and examined and case to be discussed at length with attending physician Thank you for the pleasure of participating in the care of this interesting patient <Reid Massey - Last Filed: 06/15/18 20:55> Objective - Vital Signs/Intake and Output Vital Signs (last 24 hours): Temp Pulse Resp BP Pulse Ox 97.4 F L 95 H 20 122/56 L 97 06/15/18 17:09 06/15/18 17:09 06/15/18 17:09 06/15/18 17:09 06/15/18 17:09 Intake and Output: 06/15/18 06/16/18 18:59 06:59 Intake Total 420 Balance 420 - Medications Medications: Current Medications Acetaminophen (Tylenol 325mg Tab) 650 mg PO Q4 PRN PRN Reason: Fever >100.4 F Aspirin (Ecotrin) 81 mg PO DAILY [facility] Last Admin: 06/15/18 10:18 Dose: 81 mg Atorvastatin Calcium (Lipitor) 10 mg PO DIN [facility] Last Admin: 06/15/18 17:18 Dose: 10 mg Bicalutamide (Casodex) 50 mg PO DAILY [facility] Last Admin: 06/15/18 10:33 Dose: 50 mg Doxycycline Hyclate (Doryx) 100 mg PO Q12 [facility]; Protocol Stop: 06/22/18 22:01 Last Admin: 06/15/18 10:22 Dose: 100 mg Enoxaparin Sodium (Lovenox) 40 mg SC DAILY [facility]; Protocol Last Admin: 06/15/18 10:18 Dose: 40 mg Famotidine (Pepcid) 20 mg PO 1000,2200 [facility] Last Admin: 06/15/18 10:59 Dose: 20 mg Furosemide (Lasix) 20 mg PO DAILY [facility] Last Admin: 06/15/18 15:04 Dose: 20 mg Hydroxyzine HCl (Atarax) 25 mg PO Q8H PRN PRN Reason: Itching / Pruritus Last Admin: 06/15/18 10:18 Dose: 25 mg Cefepime HCl (Maxipime 1gm) 1 gm in 100 mls @ 100 mls/hr IVPB Q12 [facility]; Protocol Stop: 06/21/18 22:01 Last Admin: 06/15/18 10:58 Dose: 100 mls/hr Ipratropium [place] (Atrovent) 0.5 mg IH TIDRESP [facility] Last Admin: 06/15/18 19:45 Dose: 0.5 mg Ipratropium [place] (Atrovent) 0.5 mg IH Q2 PRN PRN Reason: SOB/WHEEZE Last Admin: 06/14/18 10:00 Dose: 0.5 mg Levalbuterol HCl (Xopenex) 0.63 mg IH TIDRESP [facility] Last Admin: 06/15/18 19:45 Dose: 0.63 mg Levalbuterol HCl (Xopenex) 0.63 mg IH Q2 PRN PRN Reason: SOB/WHEEZE Last Admin: 06/14/18 10:00 Dose: 0.63 mg Methylprednisolone (Solu-Medrol) 20 mg IVP Q12 [facility] Last Admin: 06/15/18 10:59 Dose: 20 mg Metoprolol Succinate (Toprol Xl) 50 mg PO DAILY [facility] Nifedipine (Procardia Xl) 30 mg PO DAILY [facility] Last Admin: 06/15/18 15:04 Dose: 30 mg Polyethylene Glycol (Miralax) 17 gm PO DAILY [facility] Last Admin: 06/15/18 10:35 Dose: Not Given Tamsulosin HCl (Flomax) 0.4 mg PO DAILY [facility] Last Admin: 06/15/18 10:21 Dose: 0.4 mg - Labs Labs: 06/15/18 06:20 06/15/18 09:45 PT 12.8 SECONDS (9.4-12.5) H 06/12/18 15:31 INR 1.15 06/12/18 15:31 APTT 32.5 Seconds (26.9-38.3) 06/12/18 15:31 Attending/Attestation - Attestation I have personally seen and examined this patient.: Yes I have fully participated in the care of the patient.: Yes I have reviewed all pertinent clinical information, including history, physical exam and plan: Yes
[2018-06-16 06:31] LABS: BASO # 0.01 K/mm3 (0.0-2.0); BASO % 0.1 % (0.0-3.0); HEMOGLOBIN 12.9 g/dL (14.0-18.0); LYMPH # 0.8 (1.2-3.4); LYMPH % 6.5 % (22.0-35.0); MEAN CORPUSCULAR HEMOGLOBIN 32.7 pg (25.0-35.0); MEAN CORPUSCULAR HGB CONC 33.2 g/dl (31.0-37.0); MEAN PLATELET VOLUME 9.8 fl (7.0-11.0); MONO # 0.5 (0.1-0.6); MONO % 3.6 % (1.0-6.0); RBC 3.95 10^6/uL (3.5-6.1); RED CELL DISTRIBUTION WIDTH 13.1 % (11.5-14.5); WHITE BLOOD COUNT 12.5 10^3/uL (4.5-11.0)
[2018-06-16 06:54] LABS: MEAN CELL VOLUME 98.2 fl (80.0-105.0)
[2018-06-16 07:00] LABS: ALB/GLOB RATIO 1.1 (1.1-1.8); ALBUMIN 3.4 g/dL (3.0-4.8); ALT/SGPT 10 U/L (7-56); AST/SGOT 26 U/L (17-59); BLOOD UREA NITROGEN 28 mg/dL (7-21); CALCIUM 9.1 mg/dL (8.4-10.5); GFR NON-AFRICAN AMERICAN > 60
[2018-06-16] MEDS: Ipratropium 0.02% Inhal Soln (0.5 mg/2.5 ml) UD IH SCH ×3 (08:07→20:35)
[2018-06-16] MEDS: Levalbuterol 0.63 MG/3 ML Inhal Soln UD IH SCH ×3 (08:07→20:36)
--- NOTE | 2018-06-16 09:03 | CP.PCM.PN ---
Subjective - Date & Time of Evaluation Date of Evaluation: 06/16/18 Time of Evaluation: 07:10 - Subjective Subjective: Awake, alert, feels constipated Reason for consultation and follow up: Cardiac evaluation, ruled out atrial fibrillation, admitted for shortness of breath and generalized weakness, history of lung cancer with metastasis, history of coronary artery disease Seen and examined by me and Dr. Cunha Objective - Vital Signs/Intake and Output Vital Signs (last 24 hours): Temp Pulse Resp BP Pulse Ox 97.8 F 73 20 112/63 96 06/16/18 08:56 06/16/18 08:56 06/16/18 08:56 06/16/18 08:56 06/16/18 08:56 Intake and Output: 06/16/18 06/16/18 06:59 18:59 Intake Total 480 Output Total 400 Balance 80 - Medications Medications: Current Medications Acetaminophen (Tylenol 325mg Tab) 650 mg PO Q4 PRN PRN Reason: Fever >100.4 F Aspirin (Ecotrin) 81 mg PO DAILY [facility] Last Admin: 06/15/18 10:18 Dose: 81 mg Atorvastatin Calcium (Lipitor) 10 mg PO DIN [facility] Last Admin: 06/15/18 17:18 Dose: 10 mg Bicalutamide (Casodex) 50 mg PO DAILY [facility] Last Admin: 06/15/18 10:33 Dose: 50 mg Doxycycline Hyclate (Doryx) 100 mg PO Q12 [facility]; Protocol Stop: 06/22/18 22:01 Last Admin: 06/15/18 21:56 Dose: 100 mg Enoxaparin Sodium (Lovenox) 40 mg SC DAILY [facility]; Protocol Last Admin: 06/15/18 10:18 Dose: 40 mg Famotidine (Pepcid) 20 mg PO 1000,2200 [facility] Last Admin: 06/15/18 21:55 Dose: 20 mg Furosemide (Lasix) 20 mg PO DAILY [facility] Last Admin: 06/15/18 15:04 Dose: 20 mg Hydroxyzine HCl (Atarax) 25 mg PO Q8H PRN PRN Reason: Itching / Pruritus Last Admin: 06/15/18 10:18 Dose: 25 mg Cefepime HCl (Maxipime 1gm) 1 gm in 100 mls @ 100 mls/hr IVPB Q12 [facility]; Protocol Stop: 06/21/18 22:01 Last Admin: 06/15/18 21:56 Dose: 100 mls/hr Ipratropium [place] (Atrovent) 0.5 mg IH TIDRESP [facility] Last Admin: 06/16/18 08:07 Dose: 0.5 mg Ipratropium [place] (Atrovent) 0.5 mg IH Q2 PRN PRN Reason: SOB/WHEEZE Last Admin: 06/14/18 10:00 Dose: 0.5 mg Levalbuterol HCl (Xopenex) 0.63 mg IH TIDRESP [facility] Last Admin: 06/16/18 08:07 Dose: 0.63 mg Levalbuterol HCl (Xopenex) 0.63 mg IH Q2 PRN PRN Reason: SOB/WHEEZE Last Admin: 06/14/18 10:00 Dose: 0.63 mg Methylprednisolone (Solu-Medrol) 20 mg IVP Q12 [facility] Last Admin: 06/15/18 21:56 Dose: 20 mg Metoprolol Succinate (Toprol Xl) 50 mg PO DAILY [facility] Nifedipine (Procardia Xl) 30 mg PO DAILY [facility] Last Admin: 06/15/18 15:04 Dose: 30 mg Polyethylene Glycol (Miralax) 17 gm PO DAILY [facility] Last Admin: 06/15/18 10:35 Dose: Not Given Tamsulosin HCl (Flomax) 0.4 mg PO DAILY [facility] Last Admin: 06/15/18 10:21 Dose: 0.4 mg - Labs Labs: 06/16/18 06:15 06/16/18 06:15 PT 12.8 SECONDS (9.4-12.5) H 06/12/18 15:31 INR 1.15 06/12/18 15:31 APTT 32.5 Seconds (26.9-38.3) 06/12/18 15:31 - Constitutional Appears: Non-toxic, No Acute Distress - Head Exam Head Exam: NORMAL INSPECTION, NORMOCEPHALIC - Eye Exam Eye Exam: Normal appearance Pupil Exam: NORMAL ACCOMODATION - ENT Exam ENT Exam: Mucous Membranes Moist, Normal Exam - Respiratory Exam Respiratory Exam: Decreased Breath Sounds, Clear to Ausculation Bilateral, NORMAL BREATHING PATTERN - Cardiovascular Exam Cardiovascular Exam: +S1, +S2 - GI/Abdominal Exam GI & Abdominal Exam: Soft, Normal Bowel Sounds - Extremities Exam Extremities Exam: Full ROM, Normal Capillary Refill - Neurological Exam Neurological Exam: Alert, Awake, Oriented x3 - Psychiatric Exam Psychiatric exam: Normal Affect, Normal Mood - Skin Skin Exam: Dry, Normal Color, Warm Assessment and Plan - Assessment and Plan (Free Text) Assessment: An 88 year old male who came in to the ER due to shortness of breath and generalized weakness. 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 Cardiology consult was called for Atrial fibrillation. However, closely reading the EKG, patient on normal sinus rhythm with atrial premature complexes. Ruled out atrial fibrillation. Echo done and showed LVEF 65-70%, mild AR, mild to moderate aortic valvular stenosis,moderate to severe MR, moderate TR, RVSP 60 mmHg, moderate pulmonary hypertension, trace pulmonic valve regurgitation, partially flail anterior mitral valve leaflet with chordal DEREK. Repeat EKG showed normal sinus rhythm, premature SVT, RBBB, No evidence of atrial fibrillation. Cardiac status stable. Plan: No distress but feels constipated Will give Lactulose x 1 dose Heart rate stable Blood pressure stable On ASA 81 mg daily,Lipitor 10 mg daily,Lasix 20 mg daily, Solumedrol 20 mg daily, Toprol XL 50 mg daily, Flomax 0.4 mg daily Continue current medications Continue current treatment Will follow up Plan and treatment discussed with Dr. Cunha
[2018-06-16] MEDS: Enoxaparin 40 mg Syringe SC SCH (10:13)
[2018-06-16] MEDS: MethylPREDNISolone 40 mg Vial IVP SCH (10:43)
[2018-06-16] MEDS: POLYETHYLENE GLYCOL 3350 17 GM/Dose PACKET PO SCH (10:43)
[2018-06-16] MEDS: Cefepime 1gm in NS 100ml 1 GM/100 ML BAG IVPB SCH ×2 (10:44→21:08)
[2018-06-16] MEDS: Metoprolol Succinate 50 mg XL Tab PO SCH (10:45)
[2018-06-16] MEDS: NIFEdipine 30 mg ER Tab PO SCH (10:45)
--- NOTE | 2018-06-16 10:54 | PN ---
DATE: 06/16/2018 PULMONARY PROGRESS NOTE REFERRING PHYSICIAN: Mic Dougherty MD SUBJECTIVE: The patient was seen sitting up in chair in room. Reports feeling well this morning. Has shortness of breath with exertion. Occasional cough. No headache, rhinitis, chest pain, abdominal pain, nausea, vomiting, diarrhea, leg pain or leg swelling reported. OBJECTIVE: VITAL SIGNS: Blood pressure 112/63, pulse 73, temperature 97.8 and oxygen saturation 96% on nasal cannula. GENERAL: No acute distress. HEENT: Moist mucous membranes. Mallampati score 4. NECK: Supple. No JVD. LUNGS: Few scattered rhonchi. CARDIOVASCULAR: S1 and S2. ABDOMEN: Soft and nontender. No distention. No organomegaly. EXTREMITIES: No bilateral lower extremity edema. NEUROLOGIC: Awake, alert and verbal. Follows commands. MEDICATIONS: Reviewed. Tylenol 650 mg every 4 hours p.r.n. fever greater than 100.4, aspirin 81 mg daily, Lipitor 10 mg at dinner, Casodex 50 mg daily, cefepime 1 g every 12 hours, doxycycline 100 mg every 12 hours, Lovenox 40 mg subcu daily, Pepcid 20 mg twice a day, Lasix 20 mg daily, Atarax 25 mg every 8 hours p.r.n., Atrovent 0.5 mg inhalation 3 times a day, Atrovent 0.5 mg inhalation every 2 hours p.r.n., Xopenex 0.63 mg inhalation three times a day, Xopenex 0.63 mg inhalation every 2 hours p.r.n., Solu-Medrol 20 mg every 12 hours, Toprol XL 50 mg daily, Procardia 30 mg daily, MiraLax 17 g daily, and Flomax 0.4 mg daily. LABORATORY DATA: Reviewed. WBC 12.5, RBC 3.95, hemoglobin 12.9, hematocrit 38.8 and platelets 257. Sodium 137, potassium 4.2, chloride 101, carbon dioxide 29, anion gap 11, BUN 28, creatinine 0.9, GFR greater than 60, random glucose 141, calcium 9.1, total bilirubin 0.3, AST 26, ALT 10, alkaline phosphatase 57, total protein 6.4, albumin 3.4, globulin 3.0 and albumin-globulin ratio 1.1. IMPRESSION AND PLAN: Chronic obstructive pulmonary disease exacerbation, squamous cell carcinoma in lungs with T10 metastases, emphysema, hypertension, coronary artery disease, hyperlipidemia, prostate cancer and transitional cell carcinoma of the kidney, moderate pulmonary hypertension and diastolic dysfunction. Continue Procardia XL and Lasix daily. We will continue monitor labs. Continue inhaled bronchodilators, gastric prophylaxis and deep venous thrombosis prophylaxis. Case discussed with Rn Tele Dr. Cunha. We recommend this patient be evaluated for TCU for rehabilitation and monitoring and manipulation of medication. Continue Oncology and Hematology followup. We recommend pulmonary function test as outpatient to assess chronic lung disease. Recommend sleep study as outpatient to assess for sleep apnea. Fall precautions. This patient was seen and examined with Dr. Dixon. Discussed assessment and plan as described above. This patient was seen and examined with Leandro Salas, nurse practitioner. Discussed assessment and plan as described above. Thank you for this consult. We will follow with you. Leandro Salas APN Ankur Dixon MD
--- NOTE | 2018-06-16 15:16 | CP.PCM.PN ---
<Michael Maurice - Last Filed: 06/16/18 15:13> Subjective - Date & Time of Evaluation Date of Evaluation: 06/16/18 Time of Evaluation: 07:55 - Subjective Subjective: Michael Maurice D.O. 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 Infectious disease consultation was requested. Patient was seen and examined at chairside during breakfast. Looks much more comfortable then before. States breathing markedly better. Objective - Vital Signs/Intake and Output Vital Signs (last 24 hours): Temp Pulse Resp BP Pulse Ox 97.8 F 73 20 112/63 96 06/16/18 08:56 06/16/18 10:45 06/16/18 08:56 06/16/18 10:45 06/16/18 08:56 Intake and Output: 06/16/18 06/16/18 06:59 18:59 Intake Total 480 Output Total 400 Balance 80 - Medications Medications: Current Medications Acetaminophen (Tylenol 325mg Tab) 650 mg PO Q4 PRN PRN Reason: Fever >100.4 F Aspirin (Ecotrin) 81 mg PO DAILY [facility] Last Admin: 06/16/18 10:44 Dose: 81 mg Atorvastatin Calcium (Lipitor) 10 mg PO DIN [facility] Last Admin: 06/15/18 17:18 Dose: 10 mg Bicalutamide (Casodex) 50 mg PO DAILY [facility] Last Admin: 06/16/18 11:46 Dose: 50 mg Doxycycline Hyclate (Doryx) 100 mg PO Q12 [facility]; Protocol Stop: 06/22/18 22:01 Last Admin: 06/16/18 10:44 Dose: 100 mg Enoxaparin Sodium (Lovenox) 40 mg SC DAILY [facility]; Protocol Last Admin: 06/16/18 10:13 Dose: 40 mg Famotidine (Pepcid) 20 mg PO 1000,2200 [facility] Last Admin: 06/16/18 10:45 Dose: 20 mg Furosemide (Lasix) 20 mg PO DAILY [facility] Last Admin: 06/16/18 10:44 Dose: 20 mg Hydroxyzine HCl (Atarax) 25 mg PO Q8H PRN PRN Reason: Itching / Pruritus Last Admin: 06/15/18 10:18 Dose: 25 mg Cefepime HCl (Maxipime 1gm) 1 gm in 100 mls @ 100 mls/hr IVPB Q12 [facility]; Protocol Stop: 06/21/18 22:01 Last Admin: 06/16/18 10:44 Dose: 100 mls/hr Ipratropium [place] (Atrovent) 0.5 mg IH TIDRESP [facility] Last Admin: 06/16/18 13:49 Dose: 0.5 mg Ipratropium [place] (Atrovent) 0.5 mg IH Q2 PRN PRN Reason: SOB/WHEEZE Last Admin: 06/14/18 10:00 Dose: 0.5 mg Levalbuterol HCl (Xopenex) 0.63 mg IH TIDRESP [facility] Last Admin: 06/16/18 13:50 Dose: 0.63 mg Levalbuterol HCl (Xopenex) 0.63 mg IH Q2 PRN PRN Reason: SOB/WHEEZE Last Admin: 06/14/18 10:00 Dose: 0.63 mg Methylprednisolone (Solu-Medrol) 20 mg IVP DAILY [facility] Metoprolol Succinate (Toprol Xl) 50 mg PO DAILY [facility] Last Admin: 06/16/18 10:45 Dose: 50 mg Nifedipine (Procardia Xl) 30 mg PO DAILY [facility] Last Admin: 06/16/18 10:45 Dose: 30 mg Polyethylene Glycol (Miralax) 17 gm PO DAILY [facility] Last Admin: 06/16/18 10:43 Dose: 17 gm Tamsulosin HCl (Flomax) 0.4 mg PO DAILY [facility] Last Admin: 06/16/18 10:44 Dose: 0.4 mg - Labs Labs: 06/16/18 06:15 06/16/18 06:15 PT 12.8 SECONDS (9.4-12.5) H 06/12/18 15:31 INR 1.15 06/12/18 15:31 APTT 32.5 Seconds (26.9-38.3) 06/12/18 15:31 - Constitutional Appears: Non-toxic, Chronically Ill, NAD - Head Exam Head Exam: ATRAUMATIC, NORMOCEPHALIC - Eye Exam Eye Exam: EOMI. absent: Scleral icterus - ENT Exam ENT Exam: Mucous Membranes Moist - Neck Exam Neck exam: Positive for: Normal Inspection - Respiratory Exam Respiratory Exam: Clear to Auscultation Bilateral, Rales (fine bibasilar), no rhonchi - Cardiovascular Exam Cardiovascular Exam: +S1, +S2. absent: Gallop, Rubs - GI/Abdominal Exam GI & Abdominal Exam: Normal Bowel Sounds, Soft. 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 Infectious disease consultation was requested. Plan: Sepsis likely 2/2 post obstructive pneumonia in setting of stage IV NSCLC Asymptomatic bacteruria Improving everyday BCxs negative 2/2 day 3 Continue to encourage IS use, up to >2L Continue cefepime and doxy day 5 Pulm following, recs appreciated Hem/Onc following, recs appreciated We will follow with you Patient was seen and examined and case to be discussed at length with attending physician Thank you for the pleasure of participating in the care of this interesting patient <Reid Massey - Last Filed: 06/16/18 16:58> Objective - Vital Signs/Intake and Output Vital Signs (last 24 hours): Temp Pulse Resp BP Pulse Ox 97.8 F 73 20 112/63 96 06/16/18 08:56 06/16/18 10:45 06/16/18 08:56 06/16/18 10:45 06/16/18 08:56 Intake and Output: 06/16/18 06/16/18 06:59 18:59 Intake Total 480 Output Total 400 Balance 80 - Medications Medications: Current Medications Acetaminophen (Tylenol 325mg Tab) 650 mg PO Q4 PRN PRN Reason: Fever >100.4 F Aspirin (Ecotrin) 81 mg PO DAILY [facility] Last Admin: 06/16/18 10:44 Dose: 81 mg Atorvastatin Calcium (Lipitor) 10 mg PO DIN [facility] Last Admin: 06/15/18 17:18 Dose: 10 mg Bicalutamide (Casodex) 50 mg PO DAILY [facility] Last Admin: 06/16/18 11:46 Dose: 50 mg Doxycycline Hyclate (Doryx) 100 mg PO Q12 [facility]; Protocol Stop: 06/22/18 22:01 Last Admin: 06/16/18 10:44 Dose: 100 mg Enoxaparin Sodium (Lovenox) 40 mg SC DAILY [facility]; Protocol Last Admin: 06/16/18 10:13 Dose: 40 mg Famotidine (Pepcid) 20 mg PO 1000,2200 [facility] Last Admin: 06/16/18 10:45 Dose: 20 mg Furosemide (Lasix) 20 mg PO DAILY [facility] Last Admin: 06/16/18 10:44 Dose: 20 mg Hydroxyzine HCl (Atarax) 25 mg PO Q8H PRN PRN Reason: Itching / Pruritus Last Admin: 06/15/18 10:18 Dose: 25 mg Cefepime HCl (Maxipime 1gm) 1 gm in 100 mls @ 100 mls/hr IVPB Q12 [facility]; Protocol Stop: 06/21/18 22:01 Last Admin: 06/16/18 10:44 Dose: 100 mls/hr Ipratropium [place] (Atrovent) 0.5 mg IH TIDRESP [facility] Last Admin: 06/16/18 13:49 Dose: 0.5 mg Ipratropium [place] (Atrovent) 0.5 mg IH Q2 PRN PRN Reason: SOB/WHEEZE Last Admin: 06/14/18 10:00 Dose: 0.5 mg Levalbuterol HCl (Xopenex) 0.63 mg IH TIDRESP [facility] Last Admin: 06/16/18 13:50 Dose: 0.63 mg Levalbuterol HCl (Xopenex) 0.63 mg IH Q2 PRN PRN Reason: SOB/WHEEZE Last Admin: 06/14/18 10:00 Dose: 0.63 mg Methylprednisolone (Solu-Medrol) 20 mg IVP DAILY [facility] Metoprolol Succinate (Toprol Xl) 50 mg PO DAILY [facility] Last Admin: 06/16/18 10:45 Dose: 50 mg Nifedipine (Procardia Xl) 30 mg PO DAILY [facility] Last Admin: 06/16/18 10:45 Dose: 30 mg Polyethylene Glycol (Miralax) 17 gm PO DAILY [facility] Last Admin: 06/16/18 10:43 Dose: 17 gm Tamsulosin HCl (Flomax) 0.4 mg PO DAILY [facility] Last Admin: 06/16/18 10:44 Dose: 0.4 mg - Labs Labs: 06/16/18 06:15 06/16/18 06:15 PT 12.8 SECONDS (9.4-12.5) H 06/12/18 15:31 INR 1.15 06/12/18 15:31 APTT 32.5 Seconds (26.9-38.3) 06/12/18 15:31 Attending/Attestation - Attestation I have personally seen and examined this patient.: Yes I have fully participated in the care of the patient.: Yes I have reviewed all pertinent clinical information, including history, physical exam and plan: Yes
--- NOTE | 2018-06-16 17:29 | PN ---
DATE: 06/16/2018 This is [facility] on the medical floor. For Dr. Khalil. SUBJECTIVE: The patient is an 88-year-old male admitted for evaluation of shaking chills, weakness, known to have bouts of SVT/atrial fibrillation on admission with early pneumonia with the patient now slowly improving. He did have episode of constipation for which lactulose was given with good effect. At present, the patient is believed to be benefitted by a stay at transitional care; however, this was denied by his insurance company with other options being looked into as per social workers for discharge planning for this patient. He otherwise continues to be on antibiotics with slow improvement. PHYSICAL EXAMINATION: VITAL SIGNS: Temperature 97.8, pulse 73, respirations 20, blood pressure 112/63 with a pulse ox of 96%. HEENT: Unremarkable. NECK: Supple. HEART: Regular rate, occasional ectopic beat. LUNGS: Faint crackles on the right, occasional rhonchi on the left. ABDOMEN: Soft. EXTREMITIES: No edema. SKIN: Warm and dry. NEUROLOGIC: Awake and alert. LABORATORY DATA: The patient's labs were done. White blood cell count of 12.5, hemoglobin 12.9, hematocrit 38.8, and platelet count 257,000 with a metabolic panel showing a BUN of 28 with a non-fasting glucose of 141. TSH of 0.4. The patient's urine has moderate amount of blood with microbiology showing gram-positive cocci. Blood cultures are negative. The patient's repeat EKG done two days ago showed sinus rhythm with premature ventricular complexes, left axis deviation. The initial EKG done on 06/12/2018 showed atrial fibrillation, left anterior fascicular block, left ventricular hypertrophy, prolonged QT. The patient had echocardiogram done two days prior, was read as left ventricular ejection fraction 65%, moderate pulmonary hypertension, concentric LVH. 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 PLAN: The plan for this patient is to continue present medical regimen with antibiotics, to continue as per Infectious Disease consultants and recommendations as per Cardiology. We will attempt for reconditioning as per his insurance. He continues on Solu-Medrol 20 IV every 12 hours, we will make once a day as per Dr. Dixon. This is a complex patient with a comprehensive medically necessary and appropriate visit carried out in excess of 25 minutes with the patient's and his 's questions answered to their satisfaction. Mic Dougherty MD
--- NOTE | 2018-06-17 06:48 | CP.PCM.PN ---
Subjective - Date & Time of Evaluation Date of Evaluation: 06/17/18 Time of Evaluation: 06:20 - Subjective Subjective: Awake, alert, feels better Reason for consultation and follow up: Cardiac evaluation, ruled out atrial fibrillation, admitted for shortness of breath and generalized weakness, history of lung cancer with metastasis, history of coronary artery disease Seen and examined by me and Dr. Cunha Objective - Vital Signs/Intake and Output Vital Signs (last 24 hours): Temp Pulse Resp BP Pulse Ox 97.8 F 73 20 112/63 96 06/16/18 08:56 06/16/18 10:45 06/16/18 08:56 06/16/18 10:45 06/16/18 08:56 - Medications Medications: Current Medications Acetaminophen (Tylenol 325mg Tab) 650 mg PO Q4 PRN PRN Reason: Fever >100.4 F Aspirin (Ecotrin) 81 mg PO DAILY [facility] Last Admin: 06/16/18 10:44 Dose: 81 mg Atorvastatin Calcium (Lipitor) 10 mg PO DIN [facility] Last Admin: 06/16/18 17:37 Dose: 10 mg Bicalutamide (Casodex) 50 mg PO DAILY [facility] Last Admin: 06/16/18 11:46 Dose: 50 mg Doxycycline Hyclate (Doryx) 100 mg PO Q12 [facility]; Protocol Stop: 06/22/18 22:01 Last Admin: 06/16/18 21:08 Dose: 100 mg Enoxaparin Sodium (Lovenox) 40 mg SC DAILY [facility]; Protocol Last Admin: 06/16/18 10:13 Dose: 40 mg Famotidine (Pepcid) 20 mg PO 1000,2200 [facility] Last Admin: 06/16/18 21:08 Dose: 20 mg Furosemide (Lasix) 20 mg PO DAILY [facility] Last Admin: 06/16/18 10:44 Dose: 20 mg Hydroxyzine HCl (Atarax) 25 mg PO Q8H PRN PRN Reason: Itching / Pruritus Last Admin: 06/15/18 10:18 Dose: 25 mg Cefepime HCl (Maxipime 1gm) 1 gm in 100 mls @ 100 mls/hr IVPB Q12 [facility]; Protocol Stop: 06/21/18 22:01 Last Admin: 06/16/18 21:08 Dose: 100 mls/hr Ipratropium [place] (Atrovent) 0.5 mg IH TIDRESP [facility] Last Admin: 06/16/18 20:35 Dose: 0.5 mg Ipratropium [place] (Atrovent) 0.5 mg IH Q2 PRN PRN Reason: SOB/WHEEZE Last Admin: 06/14/18 10:00 Dose: 0.5 mg Levalbuterol HCl (Xopenex) 0.63 mg IH TIDRESP [facility] Last Admin: 06/16/18 20:36 Dose: 0.63 mg Levalbuterol HCl (Xopenex) 0.63 mg IH Q2 PRN PRN Reason: SOB/WHEEZE Last Admin: 06/14/18 10:00 Dose: 0.63 mg Methylprednisolone (Solu-Medrol) 20 mg IVP DAILY [facility] Metoprolol Succinate (Toprol Xl) 50 mg PO DAILY [facility] Last Admin: 06/16/18 10:45 Dose: 50 mg Nifedipine (Procardia Xl) 30 mg PO DAILY [facility] Last Admin: 06/16/18 10:45 Dose: 30 mg Polyethylene Glycol (Miralax) 17 gm PO DAILY [facility] Last Admin: 06/16/18 10:43 Dose: 17 gm Tamsulosin HCl (Flomax) 0.4 mg PO DAILY [facility] Last Admin: 06/16/18 10:44 Dose: 0.4 mg - Labs Labs: 06/16/18 06:15 06/16/18 06:15 PT 12.8 SECONDS (9.4-12.5) H 06/12/18 15:31 INR 1.15 06/12/18 15:31 APTT 32.5 Seconds (26.9-38.3) 06/12/18 15:31 - Constitutional Appears: Non-toxic, No Acute Distress - Head Exam Head Exam: NORMAL INSPECTION, NORMOCEPHALIC - Eye Exam Eye Exam: Normal appearance Pupil Exam: NORMAL ACCOMODATION - ENT Exam ENT Exam: Mucous Membranes Moist, Normal Exam - Respiratory Exam Respiratory Exam: Decreased Breath Sounds, Clear to Ausculation Bilateral, NORMAL BREATHING PATTERN - Cardiovascular Exam Cardiovascular Exam: +S1, +S2 - GI/Abdominal Exam GI & Abdominal Exam: Soft, Normal Bowel Sounds Additional comments: had bowel movement yesterday - Extremities Exam Extremities Exam: Full ROM, Normal Capillary Refill - Neurological Exam Neurological Exam: Alert, Awake, Oriented x3 - Psychiatric Exam Psychiatric exam: Normal Affect, Normal Mood - Skin Skin Exam: Dry, Normal Color, Warm Assessment and Plan - Assessment and Plan (Free Text) Assessment: An 88 year old male who came in to the ER due to shortness of breath and generalized weakness. 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 Cardiology consult was called for Atrial fibrillation. However, closely reading the EKG, patient on normal sinus rhythm with atrial premature complexes. Ruled out atrial fi brillation. Echo done and showed LVEF 65-70%, mild AR, mild to moderate aortic valvular stenosis,moderate to severe MR, moderate TR, RVSP 60 mmHg, moderate pulmonary hypertension, trace pulmonic valve regurgitation, partially flail anterior mitral valve leaflet with chordal DEREK. Repeat EKG showed normal sinus rhythm, premature SVT, RBBB, No evidence of atrial fibrillation. Cardiac status stable. Constipated and was given Lactulose with positive results. Feels okay today. Plan: No distress, feels better today, constipation resolved Cardiac status stable Heart rate stable Blood pressure stable On ASA 81 mg daily,Lipitor 10 mg daily,Lasix 20 mg daily, Solumedrol 20 mg daily, Toprol XL 50 mg daily, Flomax 0.4 mg daily Continue antibiotics per ID Continue current medications Continue current treatment Discharge planning Will follow up Plan and treatment discussed with Dr. Cunha
--- NOTE | 2018-06-17 06:57 | CP.PCM.PN ---
Subjective - Date & Time of Evaluation Date of Evaluation: 06/17/18 Time of Evaluation: 09:50 - Subjective Subjective: Orlin Benavides PGY2 - Progress Note Patient seen and examined at bedside. No acute events reported overnight. Patient denies chest pain, abdominal pain, nausea, vomiting, fever, chills. Patient continues to work with physical therapy. Tolerating well. Objective - Vital Signs/Intake and Output Vital Signs (last 24 hours): Temp Pulse Resp BP Pulse Ox 97.8 F 73 20 112/63 96 06/16/18 08:56 06/16/18 10:45 06/16/18 08:56 06/16/18 10:45 06/16/18 08:56 - Medications Medications: Current Medications Acetaminophen (Tylenol 325mg Tab) 650 mg PO Q4 PRN PRN Reason: Fever >100.4 F Aspirin (Ecotrin) 81 mg PO DAILY [facility] Last Admin: 06/16/18 10:44 Dose: 81 mg Atorvastatin Calcium (Lipitor) 10 mg PO DIN [facility] Last Admin: 06/16/18 17:37 Dose: 10 mg Bicalutamide (Casodex) 50 mg PO DAILY [facility] Last Admin: 06/16/18 11:46 Dose: 50 mg Doxycycline Hyclate (Doryx) 100 mg PO Q12 [facility]; Protocol Stop: 06/22/18 22:01 Last Admin: 06/16/18 21:08 Dose: 100 mg Enoxaparin Sodium (Lovenox) 40 mg SC DAILY [facility]; Protocol Last Admin: 06/16/18 10:13 Dose: 40 mg Famotidine (Pepcid) 20 mg PO 1000,2200 [facility] Last Admin: 06/16/18 21:08 Dose: 20 mg Furosemide (Lasix) 20 mg PO DAILY [facility] Last Admin: 06/16/18 10:44 Dose: 20 mg Hydroxyzine HCl (Atarax) 25 mg PO Q8H PRN PRN Reason: Itching / Pruritus Last Admin: 06/15/18 10:18 Dose: 25 mg Cefepime HCl (Maxipime 1gm) 1 gm in 100 mls @ 100 mls/hr IVPB Q12 [facility]; Protocol Stop: 06/21/18 22:01 Last Admin: 06/16/18 21:08 Dose: 100 mls/hr Ipratropium [place] (Atrovent) 0.5 mg IH TIDRESP [facility] Last Admin: 06/16/18 20:35 Dose: 0.5 mg Ipratropium [place] (Atrovent) 0.5 mg IH Q2 PRN PRN Reason: SOB/WHEEZE Last Admin: 06/14/18 10:00 Dose: 0.5 mg Levalbuterol HCl (Xopenex) 0.63 mg IH TIDRESP [facility] Last Admin: 06/16/18 20:36 Dose: 0.63 mg Levalbuterol HCl (Xopenex) 0.63 mg IH Q2 PRN PRN Reason: SOB/WHEEZE Last Admin: 06/14/18 10:00 Dose: 0.63 mg Methylprednisolone (Solu-Medrol) 20 mg IVP DAILY [facility] Metoprolol Succinate (Toprol Xl) 50 mg PO DAILY [facility] Last Admin: 06/16/18 10:45 Dose: 50 mg Nifedipine (Procardia Xl) 30 mg PO DAILY [facility] Last Admin: 06/16/18 10:45 Dose: 30 mg Polyethylene Glycol (Miralax) 17 gm PO DAILY [facility] Last Admin: 06/16/18 10:43 Dose: 17 gm Tamsulosin HCl (Flomax) 0.4 mg PO DAILY [facility] Last Admin: 06/16/18 10:44 Dose: 0.4 mg - Labs Labs: 06/16/18 06:15 06/16/18 06:15 PT 12.8 SECONDS (9.4-12.5) H 06/12/18 15:31 INR 1.15 06/12/18 15:31 APTT 32.5 Seconds (26.9-38.3) 06/12/18 15:31 - Constitutional Appears: No Acute Distress - Head Exam Head Exam: ATRAUMATIC, NORMOCEPHALIC - Eye Exam Eye Exam: EOMI, PERRL - ENT Exam ENT Exam: Mucous Membranes Moist - Neck Exam Neck Exam: Full ROM - Respiratory Exam Respiratory Exam: Decreased Breath Sounds, NORMAL BREATHING PATTERN - Cardiovascular Exam Cardiovascular Exam: REGULAR RHYTHM, +S1, +S2 - GI/Abdominal Exam GI & Abdominal Exam: Soft, Normal Bowel Sounds - Extremities Exam Extremities Exam: absent: Calf Tenderness, Pedal Edema - Neurological Exam Neurological Exam: Alert, Awake, Normal Gait, Oriented x3 Neuro motor strength exam: Left Upper Extremity: 5, Right Upper Extremity: 5, Left Lower Extremity: 5, Right Lower Extremity: 5 - Psychiatric Exam Psychiatric exam: Normal Affect, Normal Mood - Skin Skin Exam: Dry, Warm Assessment and Plan - Assessment and Plan (Free Text) Assessment: 88 year old male with 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 Patient being empircally treated for potential pneumonia with ID, COPD and hypoxia being evaluated and treated by pulmonology, cardiac function evaluation from cardiology. Patient requiring constant oxygenation Plan: COPD exacerbation 2/2 pna - Pulmonary with Dr. Dixon consulted and following - IV lasix 20mg Daily - Ipratroium, Xopnex, procardia - Solumedrol 20mg IV Daily, IV abx as per ID (Doxy and Cefepime) - ID consulted and following - continue doxy and cefepime - Maintain SaO2 >90%, supplemental oxygen as needed Deconditioning - TCU evaluation, patient does not qualify per insurance - Physical therapy recommending home with services. Patient is known to have sick at home and is having difficulty ambulating around room without supplemental oxygen - Patient noted to have low pulse ox on rest requires supplemental oxygen Metastatic primary lung cancer with stage IV NSLC - Chest CT reviewed and appreciated - On Keytruda - Monitor CBC - Further recs per Dr. Khalil HTN - BP normotensive - Toprol xl 50 daily CAD - ASA 81 - Toprol xl 50 Daily HLD - Continue statin Prostate CA -Continue caodex -Continue flomax DVT/GI ppx Case discussed with attending, Dr. Khalil
[2018-06-17] MEDS: Ipratropium 0.02% Inhal Soln (0.5 mg/2.5 ml) UD IH SCH ×3 (07:49→20:08)
[2018-06-17] MEDS: Levalbuterol 0.63 MG/3 ML Inhal Soln UD IH SCH ×3 (07:50→20:09)
[2018-06-17 08:01] LABS: BASO # 0.02 K/mm3 (0.0-2.0); BASO % 0.2 % (0.0-3.0); EOS # 0.1 (0.0-0.7); HEMOGLOBIN 12.2 g/dL (14.0-18.0); LYMPH # 1.5 (1.2-3.4); LYMPH % 12.6 % (22.0-35.0); MEAN CELL VOLUME 100.5 fl (80.0-105.0); MEAN CORPUSCULAR HEMOGLOBIN 32.4 pg (25.0-35.0); MEAN CORPUSCULAR HGB CONC 32.2 g/dl (31.0-37.0); MEAN PLATELET VOLUME 10.1 fl (7.0-11.0); MONO # 1.1 (0.1-0.6); RBC 3.77 10^6/uL (3.5-6.1); RED CELL DISTRIBUTION WIDTH 13.3 % (11.5-14.5); WHITE BLOOD COUNT 11.8 10^3/uL (4.5-11.0)
[2018-06-17 08:20] LABS: ALB/GLOB RATIO 1.1 (1.1-1.8); ALBUMIN 3.1 g/dL (3.0-4.8); ALT/SGPT 13 U/L (7-56); AST/SGOT 27 U/L (17-59); BLOOD UREA NITROGEN 31 mg/dL (7-21); GFR NON-AFRICAN AMERICAN > 60
[2018-06-17] MEDS: Metoprolol Succinate 50 mg XL Tab PO SCH (10:12)
[2018-06-17] MEDS: NIFEdipine 30 mg ER Tab PO SCH (10:12)
[2018-06-17] MEDS: MethylPREDNISolone 40 mg Vial IVP SCH (10:13)
[2018-06-17] MEDS: Enoxaparin 40 mg Syringe SC SCH (10:13)
[2018-06-17] MEDS: Cefepime 1gm in NS 100ml 1 GM/100 ML BAG IVPB SCH ×2 (10:14→21:37)
[2018-06-17] MEDS: POLYETHYLENE GLYCOL 3350 17 GM/Dose PACKET PO SCH (10:14)
--- NOTE | 2018-06-17 11:55 | PN ---
DATE: 06/17/2018 PULMONARY PROGRESS NOTE REFERRING PHYSICIAN: Dr. Mic Dougherty. SUBJECTIVE: The patient is seen today in chair in room. No acute distress. No overnight events reported. The patient does report feeling well this morning. He states that shortness of breath and cough has improved. No headache, rhinitis, chest pain, abdominal pain, nausea, vomiting, diarrhea, leg pain, or leg swelling reported. OBJECTIVE: GENERAL: No acute distress. VITAL SIGNS: Blood pressure 127/72, pulse 73, temperature 97.4, and oxygen saturation 94% on nasal cannula. HEENT: Moist mucous membranes. Mallampati score 4. NECK: Supple. No JVD. LUNGS: Scattered rhonchi bilaterally. CARDIOVASCULAR: S1 and S2. ABDOMEN: Soft and nontender. No distention. No organomegaly. EXTREMITIES: No bilateral lower extremity edema. NEUROLOGIC: Awake, alert, and verbal. Follows commands. MEDICATIONS: Reviewed. Tylenol 650 mg every 4 hours p.r.n. for fever greater than 100.4, aspirin 81 mg daily, Lipitor 10 mg at dinner, Casodex 50 mg daily, cefepime 1 g every 12 hours, doxycycline 100 mg every 12 hours, Lovenox 40 mg subcu daily, Pepcid 20 mg twice a day, Lasix 20 mg daily, Atarax 25 mg every 8 hours p.r.n., Atrovent 0.5 mg inhalation 3 times a day, Atrovent 0.5 mg inhalation every 2 hours p.r.n., Xopenex 0.63 mg inhalation three times a day, Xopenex 0.63 mg inhalation every 2 hours p.r.n., Solu-Medrol 20 mg daily, Toprol XL 50 mg daily, Procardia XL 30 mg daily, MiraLax 17 g daily, and Flomax 0.4 mg daily. LABORATORY DATA: Reviewed. WBC 11.8, RBC 3.77. hemoglobin 12.2, hematocrit 37.9, and platelets 234. Sodium 137, potassium 3.9, chloride 100, carbon dioxide 31, anion gap 9, BUN 31, creatinine 0.8, GFR is greater than 60, random glucose 79, calcium 9.0, total bilirubin 0.3, AST 27, ALT 13, alkaline phosphatase 62, total protein 6.0, albumin 3.1, globulin 2.9, and albumin-globulin ratio 1.1. Blood cultures preliminary, no growth after four days. 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 Continue diuretics. Continue pulmonary vasodilator. Continue inhaled bronchodilators, gastric prophylaxis, and deep venous thrombosis prophylaxis. We will continue to monitor labs. Continue Cardiology followup; physical therapy; out of bed to chair. We recommend pulmonary function test and sleep study as outpatient. Fall precautions. This patient was seen and examined with Dr. Dixon. Discussed assessment and plan as described above. This patient was seen and examined with Leandro Salas, nurse practitioner. Discussed assessment and plan as described above. Thank you for this consult. We will follow with you. Leandro Salas APN Ankur Dixon MD
--- NOTE | 2018-06-17 14:13 | CP.PCM.PN ---
<Michael Maurice - Last Filed: 06/17/18 14:10> Subjective - Date & Time of Evaluation Date of Evaluation: 06/17/18 Time of Evaluation: 08:25 - Subjective Subjective: Michael Maurice D.O. 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 Infectious disease consultation was requested. Patient was seen and examined at chairside. Feels "like a million bucks." Enjoying using IS, feels it helps his breathing. Much less coughing. Objective - Vital Signs/Intake and Output Vital Signs (last 24 hours): Temp Pulse Resp BP Pulse Ox 97.4 F L 73 20 127/72 94 L 06/17/18 06:00 06/17/18 06:00 06/17/18 06:00 06/17/18 10:12 06/17/18 06:00 Intake and Output: 06/17/18 06/17/18 06:59 18:59 Intake Total 360 Balance 360 - Medications Medications: Current Medications Acetaminophen (Tylenol 325mg Tab) 650 mg PO Q4 PRN PRN Reason: Fever >100.4 F Aspirin (Ecotrin) 81 mg PO DAILY [facility] Last Admin: 06/17/18 10:12 Dose: 81 mg Atorvastatin Calcium (Lipitor) 10 mg PO DIN [facility] Last Admin: 06/16/18 17:37 Dose: 10 mg Bicalutamide (Casodex) 50 mg PO DAILY [facility] Last Admin: 06/17/18 12:21 Dose: 50 mg Doxycycline Hyclate (Doryx) 100 mg PO Q12 [facility]; Protocol Stop: 06/22/18 22:01 Last Admin: 06/17/18 10:12 Dose: 100 mg Enoxaparin Sodium (Lovenox) 40 mg SC DAILY [facility]; Protocol Last Admin: 06/17/18 10:13 Dose: 40 mg Famotidine (Pepcid) 20 mg PO 1000,2200 [facility] Last Admin: 06/17/18 10:13 Dose: 20 mg Furosemide (Lasix) 20 mg PO DAILY [facility] Last Admin: 06/17/18 10:12 Dose: 20 mg Hydroxyzine HCl (Atarax) 25 mg PO Q8H PRN PRN Reason: Itching / Pruritus Last Admin: 06/15/18 10:18 Dose: 25 mg Cefepime HCl (Maxipime 1gm) 1 gm in 100 mls @ 100 mls/hr IVPB Q12 [facility]; Protocol Stop: 06/21/18 22:01 Last Admin: 06/17/18 10:14 Dose: 100 mls/hr Ipratropium [place] (Atrovent) 0.5 mg IH TIDRESP [facility] Last Admin: 06/17/18 13:57 Dose: 0.5 mg Ipratropium [place] (Atrovent) 0.5 mg IH Q2 PRN PRN Reason: SOB/WHEEZE Last Admin: 06/14/18 10:00 Dose: 0.5 mg Levalbuterol HCl (Xopenex) 0.63 mg IH TIDRESP [facility] Last Admin: 06/17/18 13:57 Dose: 0.63 mg Levalbuterol HCl (Xopenex) 0.63 mg I[facility] Q2 PRN PRN Reason: SOB/WHEEZE Last Admin: 06/14/18 10:00 Dose: 0.63 mg Methylprednisolone (Solu-Medrol) 20 mg IVP DAILY [facility] Last Admin: 06/17/18 10:13 Dose: 20 mg Metoprolol Succinate (Toprol Xl) 50 mg PO DAILY [facility] Last Admin: 06/17/18 10:12 Dose: 50 mg Nifedipine (Procardia Xl) 30 mg PO DAILY [facility] Last Admin: 06/17/18 10:12 Dose: 30 mg Polyethylene Glycol (Miralax) 17 gm PO DAILY [facility] Last Admin: 06/17/18 10:14 Dose: 17 gm Tamsulosin HCl (Flomax) 0.4 mg PO DAILY [facility] Last Admin: 06/17/18 10:12 Dose: 0.4 mg Tramadol HCl (Ultram) 50 mg PO TID PRN PRN Reason: Pain, moderate (4-7) Last Admin: 06/17/18 12:21 Dose: 50 mg - Labs Labs: 06/17/18 07:30 06/17/18 07:30 PT 12.8 SECONDS (9.4-12.5) H 06/12/18 15:31 INR 1.15 06/12/18 15:31 APTT 32.5 Seconds (26.9-38.3) 06/12/18 15:31 - Constitutional Appears: Non-toxic, Chronically Ill, NAD - Head Exam Head Exam: ATRAUMATIC, NORMOCEPHALIC - Eye Exam Eye Exam: EOMI. absent: Scleral icterus - ENT Exam ENT Exam: Mucous Membranes Moist - Neck Exam Neck exam: Positive for: Normal Inspection - Respiratory Exam Respiratory Exam: Clear to Auscultation Bilateral, Rales (fine bibasilar), no rhonchi - Cardiovascular Exam Cardiovascular Exam: +S1, +S2. absent: Gallop, Rubs - GI/Abdominal Exam GI & Abdominal Exam: Normal Bowel Sounds, Soft. 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 Infectious disease consultation was requested. Plan: Sepsis likely 2/2 post obstructive pneumonia in setting of stage IV NSCLC Asymptomatic bacteruria BCxs negative 2/2 day 4 Continue cefepime and doxy day 6 Pulm following, recs appreciated Hem/Onc following, recs appreciated We will follow with you Patient was seen and examined and case to be discussed at length with attending physician Thank you for the pleasure of participating in the care of this interesting patient <Reid Massey - Last Filed: 06/17/18 19:27> Objective - Vital Signs/Intake and Output Vital Signs (last 24 hours): Temp Pulse Resp BP Pulse Ox 98 F 73 20 112/63 96 06/17/18 18:00 06/17/18 18:00 06/17/18 18:00 06/17/18 18:00 06/17/18 18:00 Intake and Output: 06/17/18 06/18/18 18:59 06:59 Intake Total 420 Output Total 600 Balance -180 - Medications Medications: Current Medications Acetaminophen (Tylenol 325mg Tab) 650 mg PO Q4 PRN PRN Reason: Fever >100.4 F Aspirin (Ecotrin) 81 mg PO DAILY [facility] Last Admin: 06/17/18 10:12 Dose: 81 mg Atorvastatin Calcium (Lipitor) 10 mg PO DIN [facility] Last Admin: 06/17/18 17:59 Dose: 10 mg Bicalutamide (Casodex) 50 mg PO DAILY [facility] Last Admin: 06/17/18 12:21 Dose: 50 mg Doxycycline Hyclate (Doryx) 100 mg PO Q12 [facility]; Protocol Stop: 06/22/18 22:01 Last Admin: 06/17/18 10:12 Dose: 100 mg Enoxaparin Sodium (Lovenox) 40 mg SC DAILY [facility]; Protocol Last Admin: 06/17/18 10:13 Dose: 40 mg Famotidine (Pepcid) 20 mg PO 1000,2200 [facility] Last Admin: 06/17/18 10:13 Dose: 20 mg Furosemide (Lasix) 20 mg PO DAILY [facility] Last Admin: 06/17/18 10:12 Dose: 20 mg Hydroxyzine HCl (Atarax) 25 mg PO Q8H PRN PRN Reason: Itching / Pruritus Last Admin: 06/15/18 10:18 Dose: 25 mg Cefepime HCl (Maxipime 1gm) 1 gm in 100 mls @ 100 mls/hr IVPB Q12 [facility]; Protocol Stop: 06/21/18 22:01 Last Admin: 06/17/18 10:14 Dose: 100 mls/hr Ipratropium [place] (Atrovent) 0.5 mg IH TIDRESP [facility] Last Admin: 06/17/18 13:57 Dose: 0.5 mg Ipratropium [place] (Atrovent) 0.5 mg IH Q2 PRN PRN Reason: SOB/WHEEZE Last Admin: 06/14/18 10:00 Dose: 0.5 mg Levalbuterol HCl (Xopenex) 0.63 mg IH TIDRESP [facility] Last Admin: 06/17/18 13:57 Dose: 0.63 mg Levalbuterol HCl (Xopenex) 0.63 mg I[facility] Q2 PRN PRN Reason: SOB/WHEEZE Last Admin: 06/14/18 10:00 Dose: 0.63 mg Methylprednisolone (Solu-Medrol) 20 mg IVP DAILY [facility] Last Admin: 06/17/18 10:13 Dose: 20 mg Metoprolol Succinate (Toprol Xl) 50 mg PO DAILY [facility] Last Admin: 06/17/18 10:12 Dose: 50 mg Nifedipine (Procardia Xl) 30 mg PO DAILY [facility] Last Admin: 06/17/18 10:12 Dose: 30 mg Polyethylene Glycol (Miralax) 17 gm PO DAILY [facility] Last Admin: 06/17/18 10:14 Dose: 17 gm Tamsulosin HCl (Flomax) 0.4 mg PO DAILY [facility] Last Admin: 06/17/18 10:12 Dose: 0.4 mg Tramadol HCl (Ultram) 50 mg PO TID PRN PRN Reason: Pain, moderate (4-7) Last Admin: 06/17/18 12:21 Dose: 50 mg - Labs Labs: 06/17/18 07:30 06/17/18 07:30 PT 12.8 SECONDS (9.4-12.5) H 06/12/18 15:31 INR 1.15 06/12/18 15:31 APTT 32.5 Seconds (26.9-38.3) 06/12/18 15:31 Attending/Attestation - Attestation I have personally seen and examined this patient.: Yes I have fully participated in the care of the patient.: Yes I have reviewed all pertinent clinical information, including history, physical exam and plan: Yes
--- NOTE | 2018-06-17 21:22 | HP ---
DATE OF EXAM: 06/12/2018 CHIEF COMPLAINT: Cough and shortness of breath. HISTORY OF PRESENT ILLNESS: The patient is an 88-year-old male admitted by the emergency room with increasing shortness of breath, chills at home for approximately 2 days' time getting worse. He is accompanied by his family members with a list of medications given to an emergency room person to be transcribed to the computer system; however, the original is no longer available with the patient not remember his medications and the son reporting that the original written list of medication was not given back to him, this will be looked in too. The patient reports occasional productive cough and has significant medical issues including stage IV adenocarcinoma of the lungs. 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 FAMILY HISTORY AND SOCIAL HISTORY: Quit smoking in 2001 after approximately 55 years. Denied EtOH use. Otherwise, noncontributory. ALLERGIES: PLAVIX. MEDICATIONS: Include Casodex, aspirin, Atarax, metoprolol, Flomax and simvastatin. PAST SURGICAL HISTORY: Status post total left hip repair, history of pneumothorax. OBJECTIVE/PHYSICAL EXAMINATION: VITAL SIGNS: On admission; temperature 99.1, pulse 62, respirations 18, blood pressure 149/84, pulse ox 96% on 2 liters nasal cannula. HEENT: Unremarkable. NECK: Supple. HEART: Regular rate,occasional ectopic beats. LUNGS: Scattered rhonchi. ABDOMEN: Soft and nontender. EXTREMITIES: No edema. SKIN: Warm and dry. NEUROLOGIC: Awake and alert. LABORATORY DATA: The patient's labs were done. White blood cell count 10.5, hemoglobin 13.8, hematocrit 41.7 and platelet count of 236,000 with metabolic panel showing potassium of 5.3. B-natriuretic peptide of 1520. INR 1.1. D-dimmer 1164. The patient had a chest x-ray was read as increase in interstitial marking, stable left lower lobe pulmonary nodule mass. EKG was done showed atrial fibrillation, left anterior fascicular block, left ventricular hypertrophy toward sliding non-specific ST-T wave abnormality, prolonged QT abnormal EKG. It should be noted that the EKG was not read until after the patient was admitted to the telemetry floor. Continuation is as per addendum of the same day 06/12/2018, was as to continue on that. This is a complex patient with comprehensive medically necessary and appropriate visit carried out in excess of 55 minutes with the patient's questions were answered to their satisfaction while the family members is at the bedside. Mic Dougherty MD
--- NOTE | 2018-06-18 06:57 | CP.PCM.PN ---
Subjective - Date & Time of Evaluation Date of Evaluation: 06/18/18 Time of Evaluation: 06:55 - Subjective Subjective: Lying in bed, awake, alert, feels good Reason for consultation and follow up: Cardiac evaluation, ruled out atrial fibrillation, admitted for shortness of breath and generalized weakness, history of lung cancer with metastasis, history of coronary artery disease Seen and examined by me and Dr. Cunha Objective - Vital Signs/Intake and Output Vital Signs (last 24 hours): Temp Pulse Resp BP Pulse Ox 98 F 73 20 112/63 96 06/17/18 18:00 06/17/18 18:00 06/17/18 18:00 06/17/18 18:00 06/17/18 18:00 Intake and Output: 06/17/18 06/18/18 18:59 06:59 Intake Total 420 100 Output Total 600 Balance -180 100 - Medications Medications: Current Medications Acetaminophen (Tylenol 325mg Tab) 650 mg PO Q4 PRN PRN Reason: Fever >100.4 F Aspirin (Ecotrin) 81 mg PO DAILY [facility] Last Admin: 06/17/18 10:12 Dose: 81 mg Atorvastatin Calcium (Lipitor) 10 mg PO DIN [facility] Last Admin: 06/17/18 17:59 Dose: 10 mg Bicalutamide (Casodex) 50 mg PO DAILY [facility] Last Admin: 06/17/18 12:21 Dose: 50 mg Doxycycline Hyclate (Doryx) 100 mg PO Q12 [facility]; Protocol Stop: 06/22/18 22:01 Last Admin: 06/17/18 21:37 Dose: 100 mg Enoxaparin Sodium (Lovenox) 40 mg SC DAILY [facility]; Protocol Last Admin: 06/17/18 10:13 Dose: 40 mg Famotidine (Pepcid) 20 mg PO 1000,2200 [facility] Last Admin: 06/17/18 21:37 Dose: 20 mg Furosemide (Lasix) 20 mg PO DAILY [facility] Last Admin: 06/17/18 10:12 Dose: 20 mg Hydroxyzine HCl (Atarax) 25 mg PO Q8H PRN PRN Reason: Itching / Pruritus Last Admin: 06/15/18 10:18 Dose: 25 mg Cefepime HCl (Maxipime 1gm) 1 gm in 100 mls @ 100 mls/hr IVPB Q12 [facility]; Protocol Stop: 06/21/18 22:01 Last Admin: 06/17/18 21:37 Dose: 100 mls/hr Ipratropium [place] (Atrovent) 0.5 mg IH TIDRESP [facility] Last Admin: 06/17/18 20:08 Dose: 0.5 mg Ipratropium [place] (Atrovent) 0.5 mg IH Q2 PRN PRN Reason: SOB/WHEEZE Last Admin: 06/14/18 10:00 Dose: 0.5 mg Levalbuterol HCl (Xopenex) 0.63 mg IH TIDRESP [facility] Last Admin: 06/17/18 20:09 Dose: 0.63 mg Levalbuterol HCl (Xopenex) 0.63 mg IH Q2 PRN PRN Reason: SOB/WHEEZE Last Admin: 06/14/18 10:00 Dose: 0.63 mg Methylprednisolone (Solu-Medrol) 20 mg IVP DAILY [facility] Last Admin: 06/17/18 10:13 Dose: 20 mg Metoprolol Succinate (Toprol Xl) 50 mg PO DAILY [facility] Last Admin: 06/17/18 10:12 Dose: 50 mg Nifedipine (Procardia Xl) 30 mg PO DAILY [facility] Last Admin: 06/17/18 10:12 Dose: 30 mg Polyethylene Glycol (Miralax) 17 gm PO DAILY [facility] Last Admin: 06/17/18 10:14 Dose: 17 gm Tamsulosin HCl (Flomax) 0.4 mg PO DAILY [facility] Last Admin: 06/17/18 10:12 Dose: 0.4 mg Tramadol HCl (Ultram) 50 mg PO TID PRN PRN Reason: Pain, moderate (4-7) Last Admin: 06/18/18 06:41 Dose: 50 mg - Labs Labs: 06/17/18 07:30 06/17/18 07:30 PT 12.8 SECONDS (9.4-12.5) H 06/12/18 15:31 INR 1.15 06/12/18 15:31 APTT 32.5 Seconds (26.9-38.3) 06/12/18 15:31 - Constitutional Appears: Non-toxic, No Acute Distress - Head Exam Head Exam: NORMAL INSPECTION, NORMOCEPHALIC - Eye Exam Eye Exam: Normal appearance Pupil Exam: NORMAL ACCOMODATION - ENT Exam ENT Exam: Mucous Membranes Moist, Normal Exam - Respiratory Exam Respiratory Exam: Decreased Breath Sounds, Clear to Ausculation Bilateral, NORMAL BREATHING PATTERN - Cardiovascular Exam Cardiovascular Exam: +S1, +S2 - GI/Abdominal Exam GI & Abdominal Exam: Soft, Normal Bowel Sounds - Extremities Exam Extremities Exam: Full ROM, Normal Capillary Refill - Neurological Exam Neurological Exam: Alert, Awake, Oriented x3 - Psychiatric Exam Psychiatric exam: Normal Affect, Normal Mood - Skin Skin Exam: Dry, Normal Color, Warm Assessment and Plan - Assessment and Plan (Free Text) Assessment: An 88 year old male who came in to the ER due to shortness of breath and generalized weakness. 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 Cardiology consult was called for Atrial fibrillation. However, closely reading the EKG, patient on normal sinus rhythm with atrial premature complexes. Ruled out atrial fibrillation. Echo done and showed LVEF 65-70%, mild AR, mild to moderate aortic valvular stenosis,moderate to severe MR, moderate TR, RVSP 60 mmHg, moderate pulmonary hypertension, trace pulmonic valve regurgitation, partially flail anterior mitral valve leaflet with chordal DEREK. Repeat EKG showed normal sinus rhythm, premature SVT, RBBB, No evidence of atrial fibrillation. Cardiac status stable. Discharge planning. Patient not candidate for TCU. Oxygen saturation low (80's) when walking, for discharge with home oxygen. Clinically stable. Plan: Clinically stable No distress, feels good today Heart rate stable Blood pressure stable Cardiac status stable On ASA 81 mg daily,Lipitor 10 mg daily,Lasix 20 mg daily, Solumedrol 20 mg daily, Toprol XL 50 mg daily, Flomax 0.4 mg daily Continue antibiotics per ID Continue current medications Continue current treatment Discharge planning, home with oxygen Will follow up Plan and treatment discussed with Dr. Cunha
[2018-06-18 07:07] LABS: BASO # 0.03 K/mm3 (0.0-2.0); BASO % 0.3 % (0.0-3.0); EOS # 0.2 (0.0-0.7); EOS % 2.2 % (1.5-5.0); HEMOGLOBIN 12.6 g/dL (14.0-18.0); LYMPH # 1.6 (1.2-3.4); LYMPH % 15.2 % (22.0-35.0); MEAN CELL VOLUME 101.8 fl (80.0-105.0); MEAN CORPUSCULAR HEMOGLOBIN 32.2 pg (25.0-35.0); MEAN CORPUSCULAR HGB CONC 31.7 g/dl (31.0-37.0); MEAN PLATELET VOLUME 9.8 fl (7.0-11.0); MONO # 0.8 (0.1-0.6); MONO % 8.1 % (1.0-6.0); RBC 3.91 10^6/uL (3.5-6.1); RED CELL DISTRIBUTION WIDTH 13.2 % (11.5-14.5); WHITE BLOOD COUNT 10.4 10^3/uL (4.5-11.0)
[2018-06-18 07:31] LABS: ALB/GLOB RATIO 1.1 (1.1-1.8); ALBUMIN 3.2 g/dL (3.0-4.8); ALT/SGPT 18 U/L (7-56); AST/SGOT 24 U/L (17-59); BLOOD UREA NITROGEN 27 mg/dL (7-21); CALCIUM 9.1 mg/dL (8.4-10.5); GFR NON-AFRICAN AMERICAN > 60
[2018-06-18] MEDS: Ipratropium 0.02% Inhal Soln (0.5 mg/2.5 ml) UD IH SCH ×3 (08:15→19:45)
[2018-06-18] MEDS: Levalbuterol 0.63 MG/3 ML Inhal Soln UD IH SCH ×3 (08:15→19:45)
[2018-06-18] MEDS: POLYETHYLENE GLYCOL 3350 17 GM/Dose PACKET PO SCH (09:38)
[2018-06-18] MEDS: Enoxaparin 40 mg Syringe SC SCH (09:39)
[2018-06-18] MEDS: MethylPREDNISolone 40 mg Vial IVP SCH ×2 (09:39→21:11)
[2018-06-18] MEDS: NIFEdipine 30 mg ER Tab PO SCH (09:41)
[2018-06-18] MEDS: Metoprolol Succinate 50 mg XL Tab PO SCH (09:41)
[2018-06-18] MEDS: Cefepime 1gm in NS 100ml 1 GM/100 ML BAG IVPB SCH ×2 (09:45→21:10)
--- NOTE | 2018-06-18 10:44 | PN ---
DATE: 06/18/2018 PULMONARY PROGRESS NOTE REFERRING PHYSICIAN: Mic Dougherty MD SUBJECTIVE: The patient is seen sitting in armchair. No acute distress. No overnight events reported. The patient reports that he had just gone to the bathroom and walked back to the armchair. Nasal cannula not in place. Oxygen saturation checked and noted to be 86% on room air with minimal exhaustion. Oxygen via nasal cannula put back in place. No headache, rhinitis, chest pain, abdominal pain, nausea, vomiting, diarrhea, leg pain or leg swelling reported. The patient does get short of breath with exertion. Has increased cough with secretion. OBJECTIVE: VITAL SIGNS: Blood pressure 157/75, pulse 84, temperature 97.4, oxygen saturation 98% on room air. GENERAL: No acute distress. HEENT: Moist mucous membranes. Mallampati score 4. NECK: Supple. No JVD. LUNGS: rhonchi bilaterally. CARDIOVASCULAR: S1 and S2. ABDOMEN: Soft, nontender. No distention. No organomegaly. EXTREMITIES: No bilateral lower extremity edema. NEUROLOGIC: Awake, alert, and verbal. Follows commands. MEDICATIONS: Reviewed. Tylenol 650 every 4 hours p.r.n., fever greater than 100.4; aspirin 81 mg daily; Lipitor 10 mg at dinner; Casodex 50 mg daily; cefepime 1 g every 12 hours; doxycycline 100 mg every 12 hours; Lovenox 40 mg subcu daily; Pepcid 20 mg twice a day; Lasix 20 mg daily; Atarax 25 mg every 8 hours p.r.n.; Atrovent 0.5 mg inhalation three times a day; Atrovent 0.5 mg inhalation every 2 hours p.r.n.; Xopenex 0.63 mg inhalation every 2 hours p.r.n.; Solu-Medrol 20 mg IV push daily; Toprol XL 50 mg daily; Procardia XL 30 mg daily; MiraLax 17 g daily; Flomax 0.4 mg daily; Ultram 50 mg three times a day p.r.n. LABORATORY DATA: Reviewed. WBC 10.4, RBC 3.91, hemoglobin 12.6, hematocrit 39.8, platelets 237. Sodium 137, potassium 4.1, chloride 99, carbon dioxide 32, anion gap 9, BUN 27, creatinine 0.8, GFR greater than 60, POC glucose 145, random glucose 85, calcium 9.1, total bilirubin 0.3. AST 24, ALT 18, alkaline phosphatase 67, total protein 6.1, albumin 3.2, globulin 2.9, albumin-globulin ratio 1.1. 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 We will increase Lasix to 40 mg daily. Continue Procardia. We recommend the patient have another day or two stay in the hospital in order to manipulate medications appropriately. Continue inhaled bronchodilators, gastric prophylaxis, and deep venous thrombosis prophylaxis. Will increase steroids and add Singulair. We will order labs in the morning. Physical therapy. We recommend the patient have pulmonary function test and sleep study as outpatient. Fall precautions. This patient was seen and examined with Dr. Dixon. Discussed assessment and plan as described above. This patient was seen and examined with Leandro Salas, nurse practitioner. Discussed assessment and plan as described above. Thank you for this consult. We will follow with you. Leandro Salas APN Ankur Dixon MD [facility]
--- NOTE | 2018-06-18 22:34 | PN ---
DATE: 06/18/2018 SUBJECTIVE: The patient is in bed in no acute distress, nontoxic. PHYSICAL EXAMINATION: VITAL SIGNS: Temperature is 98, blood pressure is 107/50, and respiratory rate of 18. HEENT: Unremarkable. NECK: Supple. LUNGS: Have decreased breath sounds . HEART: Normal S1 and S2. ABDOMEN: Soft. LABORATORY DATA: Reveals a white count of 10,000 and hemoglobin of 12. BUN of 27 and creatinine of 0.8. Urinalysis is noted. Serology is reviewed. Microbiology is noted. The blood cultures are negative. Nares are noted. MEDICATIONS: Review of orders reveals the patient to be on p.o. doxycycline and cefepime and the pulmonary note is reviewed and appreciated. 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 We will discontinue the antibiotics after today's last dose. Neuro prognosis is quite poor, should consider hospice setting. The patient's 2 procalcitonin were negative. We will follow with you. Reid Massey MD
[2018-06-19 07:28] LABS: BLOOD UREA NITROGEN 32 mg/dL (7-21); CALCIUM 9.2 mg/dL (8.4-10.5); GFR NON-AFRICAN AMERICAN > 60
--- NOTE | 2018-06-19 07:32 | CP.PCM.PN ---
Subjective - Date & Time of Evaluation Date of Evaluation: 06/19/18 Time of Evaluation: 06:35 - Subjective Subjective: Awake, alert, no distress Reason for consultation and follow up: Cardiac evaluation, ruled out atrial fibrillation, admitted for shortness of breath and generalized weakness, history of lung cancer with metastasis, history of coronary artery disease Seen and examined by me and Dr. Cunha Objective - Vital Signs/Intake and Output Vital Signs (last 24 hours): Temp Pulse Resp BP Pulse Ox 98.4 F 71 18 107/54 L 98 06/18/18 16:41 06/18/18 16:41 06/18/18 16:41 06/18/18 16:41 06/18/18 16:41 Intake and Output: 06/19/18 06/19/18 06:59 18:59 Intake Total 780 Output Total 1200 Balance -420 - Medications Medications: Current Medications Acetaminophen (Tylenol 325mg Tab) 650 mg PO Q4 PRN PRN Reason: Fever >100.4 F Aspirin (Ecotrin) 81 mg PO DAILY [facility] Last Admin: 06/18/18 09:41 Dose: 81 mg Atorvastatin Calcium (Lipitor) 10 mg PO DIN [facility] Last Admin: 06/18/18 17:29 Dose: 10 mg Bicalutamide (Casodex) 50 mg PO DAILY [facility] Last Admin: 06/18/18 09:37 Dose: 50 mg Doxycycline Hyclate (Doryx) 100 mg PO Q12 [facility]; Protocol Stop: 06/22/18 22:01 Last Admin: 06/18/18 21:11 Dose: 100 mg Enoxaparin Sodium (Lovenox) 40 mg SC DAILY [facility]; Protocol Last Admin: 06/18/18 09:39 Dose: 40 mg Famotidine (Pepcid) 20 mg PO 1000,2200 [facility] Last Admin: 06/18/18 21:12 Dose: 20 mg Furosemide (Lasix) 40 mg PO DAILY [facility] Last Admin: 06/18/18 09:40 Dose: 40 mg Hydroxyzine HCl (Atarax) 25 mg PO Q8H PRN PRN Reason: Itching / Pruritus Last Admin: 06/15/18 10:18 Dose: 25 mg Cefepime HCl (Maxipime 1gm) 1 gm in 100 mls @ 100 mls/hr IVPB Q12 [facility]; Protocol Stop: 06/21/18 22:01 Last Admin: 06/18/18 21:10 Dose: 100 mls/hr Ipratropium [place] (Atrovent) 0.5 mg IH TIDRESP [facility] Last Admin: 06/18/18 19:45 Dose: 0.5 mg Ipratropium [place] (Atrovent) 0.5 mg IH Q2 PRN PRN Reason: SOB/WHEEZE Last Admin: 06/14/18 10:00 Dose: 0.5 mg Levalbuterol HCl (Xopenex) 0.63 mg IH TIDRESP [facility] Last Admin: 06/18/18 19:45 Dose: 0.63 mg Levalbuterol HCl (Xopenex) 0.63 mg IH Q2 PRN PRN Reason: SOB/WHEEZE Last Admin: 06/14/18 10:00 Dose: 0.63 mg Methylprednisolone (Solu-Medrol) 20 mg IVP Q12 [facility] Last Admin: 06/18/18 21:11 Dose: 20 mg Metoprolol Succinate (Toprol Xl) 50 mg PO DAILY [facility] Last Admin: 06/18/18 09:41 Dose: 50 mg Montelukast Sodium (Singulair) 10 mg PO HS [facility] Last Admin: 06/18/18 21:12 Dose: 10 mg Nifedipine (Procardia Xl) 30 mg PO DAILY [facility] Last Admin: 06/18/18 09:41 Dose: 30 mg Polyethylene Glycol (Miralax) 17 gm PO DAILY [facility] Last Admin: 06/18/18 09:38 Dose: 17 gm Tamsulosin HCl (Flomax) 0.4 mg PO DAILY [facility] Last Admin: 06/18/18 09:40 Dose: 0.4 mg Tramadol HCl (Ultram) 50 mg PO TID PRN PRN Reason: Pain, moderate (4-7) Last Admin: 06/18/18 06:41 Dose: 50 mg - Labs Labs: 06/18/18 05:00 06/19/18 05:00 PT 12.8 SECONDS (9.4-12.5) H 06/12/18 15:31 INR 1.15 06/12/18 15:31 APTT 32.5 Seconds (26.9-38.3) 06/12/18 15:31 - Constitutional Appears: Non-toxic, No Acute Distress - Head Exam Head Exam: NORMAL INSPECTION, NORMOCEPHALIC - Eye Exam Eye Exam: Normal appearance Pupil Exam: NORMAL ACCOMODATION - ENT Exam ENT Exam: Mucous Membranes Moist, Normal Exam - Respiratory Exam Respiratory Exam: Decreased Breath Sounds, Clear to Ausculation Bilateral, NORMAL BREATHING PATTERN - Cardiovascular Exam Cardiovascular Exam: +S1, +S2 - GI/Abdominal Exam GI & Abdominal Exam: Soft, Normal Bowel Sounds - Extremities Exam Extremities Exam: Full ROM, Normal Capillary Refill - Neurological Exam Neurological Exam: Alert, Awake, Oriented x3 - Psychiatric Exam Psychiatric exam: Normal Affect, Normal Mood - Skin Skin Exam: Dry, Normal Color, Warm Assessment and Plan - Assessment and Plan (Free Text) Assessment: An 88 year old male who came in to the ER due to shortness of breath and generalized weakness. 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 Cardiology consult was called for Atrial fibrillation. However, closely reading the EKG, patient on normal sinus rhythm with atrial premature complexes. Ruled out atrial fibrillation. Echo done and showed LVEF 65-70%, mild AR, mild to moderate aortic valvular stenosis,moderate to severe MR, moderate TR, RVSP 60 mmHg, moderate pulmonary hypertension, trace pulmonic valve regurgitation, partially flail anterior mitral valve leaflet with chordal DEREK. Repeat EKG showed normal sinus rhythm, premature SVT, RBBB, No evidence of atrial fibrillation. Cardiac status stable. Discharge planning. Patient not candidate for TCU. Going home with oxygen. Clinically stable. Completing antibiotics therapy as per ID. Plan: No distress, denies shortness of breath Heart rate stable Blood pressure stable Cardiac status stable On ASA 81 mg daily,Lipitor 10 mg daily,Lasix 20 mg daily, Solumedrol 20 mg daily, Toprol XL 50 mg daily, Flomax 0.4 mg daily Continue IV antibiotics per ID Continue current medications Continue current treatment Discharge planning, home with oxygen Will follow up Plan and treatment discussed with Dr. Cunha
[2018-06-19] MEDS: Ipratropium 0.02% Inhal Soln (0.5 mg/2.5 ml) UD IH SCH ×3 (08:03→19:28)
[2018-06-19] MEDS: Levalbuterol 0.63 MG/3 ML Inhal Soln UD IH SCH ×3 (08:03→19:28)
[2018-06-19] MEDS: Enoxaparin 40 mg Syringe SC SCH (09:45)
[2018-06-19] MEDS: POLYETHYLENE GLYCOL 3350 17 GM/Dose PACKET PO SCH (09:45)
[2018-06-19] MEDS: Metoprolol Succinate 50 mg XL Tab PO SCH (09:45)
[2018-06-19] MEDS: MethylPREDNISolone 40 mg Vial IVP SCH ×2 (09:46→21:18)
[2018-06-19] MEDS: NIFEdipine 30 mg ER Tab PO SCH (09:47)
--- NOTE | 2018-06-19 11:42 | PN ---
DATE: 06/19/2018 SUBJECTIVE: The patient is in bed, in no acute distress, nontoxic. PHYSICAL EXAMINATION: VITAL SIGNS: Temperature 97, blood pressure 125/60, respiratory rate 18, heart rate 71. HEENT: Exam is unremarkable. NECK: Supple. LUNGS: Decreased breath sounds . HEART: Normal S1 and S2. ABDOMEN: Soft, nontender. LABORATORY DATA: White count of 10.4, hemoglobin of 12, BUN of 32, and creatinine of 0.9. Procalcitonin 0.05. Microbiology reveals a gram-positive cocci. Urine culture shows gram-positive cocci; however, less than 10,000 colonies. The blood cultures have no growth. Nares culture, no MRSA is detected. Review of orders reveals the patient to be on doxycycline and cefepime. ASSESSMENT AND PLAN: This is a 88 year old male with stage IV cancer, on Keytruda, transitional cell of the kidney, emphysema, lung cancer with vertebral bone metastases, hypertension, hyperlipidemia, chronic obstructive lung disease. On this admission admitted with sepsis, most likely secondary to post obstructive pneumonitis with stage IV lung cancer with metastases, has completed 8 days of cefepime and doxycycline. Negative procalcitonin x2. No further antibiotics necessary. Overall, prognosis is poor. Reid Massey MD
--- NOTE | 2018-06-19 12:46 | PN ---
DATE: 06/19/2018 PULMONARY PROGRESS NOTE REQUESTING PHYSICIAN: Mic Dougherty MD SUBJECTIVE: The patient seen sitting in chair in room. No acute distress. No overnight events reported. The patient reports feeling much better compared to yesterday. The patient said yesterday he did not feel well. He had more secretions than coughing noted yesterday but today doing much better. No headache, rhinitis, chest pain, abdominal pain, nausea, vomiting, diarrhea, or leg pain or leg swelling reported. PHYSICAL EXAMINATION: GENERAL: No acute distress. VITAL SIGNS: Blood pressure 135/69, pulse 71, temperature 97.5, oxygen saturation 98 nasal cannula. HEENT: Moist mucous membranes. Mallampati score 4. NECK: Supple. No JVD. LUNGS: Few scattered rhonchi. CARDIOVASCULAR: S1 and S2. ABDOMEN: Soft, nontender. No distention. No organomegaly. EXTREMITIES: No bilateral lower extremity edema. NEUROLOGICAL: Awake, alert and verbal. Follows commands. MEDICATIONS: Reviewed. Tylenol 650 every 4 hours p.r.n., aspirin 81 mg daily, Lipitor 10 mg at dinner, Casodex 50 mg daily, Lovenox 40 mg subcutaneous daily, Pepcid 20 mg twice a day, Lasix 40 mg daily, Atarax 25 mg every 8 hours p.r.n., Atrovent 0.5 mg three times a day, Atrovent 0.5 mg inhalation every 2 hours p.r.n., Xopenex 0.63 mg inhalation 3 times a day, Xopenex 350 mg inhalation every 12 hour p.r.n, Solu-Medrol 20 mg every 12 hours, Toprol XL 50 mg daily, Singulair 10 mg at bedtime, Procardia XL 30 mg daily, MiraLax 17 g daily, Flomax 0.4 mg daily, tramadol 50 mg 3 times a day p.r.n. LABORATORY DATA: Reviewed. 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 Continue diuretics, vasodilators. The patient tends to get hypoxic with minimal exertion. Continue supplemental oxygen, inhaled bronchodilators, gastric prophylaxis, deep venous thrombosis prophylaxis. Continue inhaled bronchodilators, leukotriene inhibitors. We will continue to monitor her labs. We recommend that the patient have physical therapy. The patient have pulmonary function test and sleep study as outpatient. Fall precautions. This patient was seen and examined with Dr. Dixon. Discussed assessment and plan as described above. This patient was seen and examined with Leandro Salas, nurse practitioner. Discussed assessment and plan as described above. Thank you for this consult. We will follow with you. Leandro Salas APN Ankur Dixon MD [facility]
--- NOTE | 2018-06-19 13:33 | CT ---
Date of service: 06/19/2018 PROCEDURE: CT Abdomen and Pelvis without intravenous contrast HISTORY: Chest pain COMPARISON: 04/29/2017. TECHNIQUE: CT scan of the abdomen and pelvis was performed without administration of intravenous contrast. Oral contrast was not administered. Coronal and sagittal reformatted images were obtained. Radiation dose: Total exam DLP = 373.94 mGy-cm. This CT exam was performed using one or more of the following dose reduction techniques: Automated exposure control, adjustment of the mA and/or kV according to patient size, and/or use of iterative reconstruction technique. FINDINGS: LOWER THORAX: There is patchy ground-glass attenuation, peribronchial thickening and subsegmental atelectasis in visualized lower lobes, worse on the right. LIVER: Normal in size. There is a stable small simple cyst in the right hepatic lobe. No gross lesion or ductal dilatation. GALLBLADDER AND BILE DUCTS: Well distended. No calcified gallstones. No common bile duct dilatation. PANCREAS: Diffuse atrophy and coarse calcifications in the pancreas. No gross lesion or ductal dilatation. SPLEEN: Normal in size. ADRENALS: Normal in size. No discrete nodule. KIDNEYS AND URETERS: Both kidneys are normal in size. There is no right nephrolithiasis. There are punctate nonobstructing stones in the lower pole of the left kidney. There is the a stable cyst with peripheral calcification in the left interpolar region. There is redemonstration of asymmetric isodense lesion in the left upper collecting system. There is persistent mild hydronephrosis and mild distention of the renal pelvis pelvis a left ureteral stent remains in place. VASCULATURE: Normal in caliber. No aortic aneurysm. There are advanced atherosclerotic aortoiliac calcifications. 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 BOWEL: Evaluation of the bowel is limited in the absence of oral contrast. The small bowel loops are normal in caliber. There is large amount of stool in the colon. No bowel dilatation or wall thickening. No bowel obstruction. APPENDIX: Normal appendix. PERITONEUM: No free fluid. No free air. LYMPH NODES: No enlarged lymph nodes. BLADDER: Well distended and normal in appearance. REPRODUCTIVE: Evaluation is limited due to extensive streak artifacts from left hip arthroplasty allowing for this, the prostate gland is normal in size. BONES: No acute fracture. Diffuse bone demineralization and advanced multilevel degenerative disc disease with degenerative anterior listhesis of L4 on L5. There is a large osteolytic lesion in the T9 vertebral body. OTHER FINDINGS: None. IMPRESSION: 1. patchy ground-glass opacities in the lungs with fibrotic changes, worse on the right could represent nonspecific pneumonitis or early fibrosis. 2. Redemonstration of punctate nonobstructing stones in the lower pole of the left kidney. Left ureteral stent remains in place. Redemonstration of isodense lesion in the left upper pole collecting system with may represent urothelial thickening/infection however neoplasm cannot be excluded. Persistent mild left hydronephrosis. 3. Chronic pancreatitis. 4. Constipation. No evidence for bowel obstruction. 5. 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
--- NOTE | 2018-06-19 13:50 | CT ---
Date of service: 06/19/2018 PROCEDURE: CT Thoracic Spine without contrast HISTORY: CHEST PAIN; LUNG CA COMPARISON: None available. TECHNIQUE: Axial computed tomography images were obtained of the thoracic spine without intravenous contrast. Coronal and sagittal reformatted images were created and reviewed. Radiation dose: Total exam DLP = 450.08 mGy-cm. This CT exam was performed using one or more of the following dose reduction techniques: Automated exposure control, adjustment of the mA and/or kV according to patient size, and/or use of iterative reconstruction technique. FINDINGS: VERTEBRAE: There is normal alignment of the thoracic vertebral bodies. There is normal thoracic kyphosis. There is diffuse bone demineralization. There is a large osteolytic lesion in the right T10 vertebral body with destruction of the right lateral cortical margin and associated right paravertebral soft tissue component. DISCS/SPINAL CANAL/NEURAL FORAMINA: Within the limits of the CT technique, no large disc herniation seen. No central canal or neural foraminal stenosis.. There are multilevel Schmorl's nodes in the lower thoracic spine with endplate irregularity. PARASPINAL SOFT TISSUES: The paraspinous soft tissues are normal. OTHER FINDINGS: Unremarkable. IMPRESSION: 1. No acute pathologic fracture. 2. Large osteolytic metastatic lesion in the right T10 vertebral body with associated right paravertebral soft tissue component.
--- NOTE | 2018-06-20 05:59 | CP.PCM.PN ---
Subjective - Date & Time of Evaluation Date of Evaluation: 06/20/18 Time of Evaluation: 06:35 - Subjective Subjective: Awake, alert, no distress, talking on the phone Reason for consultation and follow up: Cardiac evaluation, ruled out atrial fibrillation, admitted for shortness of breath and generalized weakness, history of lung cancer with metastasis, history of coronary artery disease Seen and examined by me and Dr. Cunha Objective - Vital Signs/Intake and Output Vital Signs (last 24 hours): Temp Pulse Resp BP Pulse Ox 97.8 F 65 16 116/67 96 06/19/18 17:16 06/19/18 17:16 06/19/18 17:16 06/19/18 17:16 06/19/18 17:16 Intake and Output: 06/19/18 06/20/18 18:59 06:59 Intake Total 780 Output Total 600 Balance 180 - Medications Medications: Current Medications Acetaminophen (Tylenol 325mg Tab) 650 mg PO Q4 PRN PRN Reason: Fever >100.4 F Aspirin (Ecotrin) 81 mg PO DAILY [facility] Last Admin: 06/19/18 09:44 Dose: 81 mg Atorvastatin Calcium (Lipitor) 10 mg PO DIN [facility] Last Admin: 06/19/18 17:34 Dose: 10 mg Bicalutamide (Casodex) 50 mg PO DAILY [facility] Last Admin: 06/19/18 10:13 Dose: 50 mg Enoxaparin Sodium (Lovenox) 40 mg SC DAILY [facility]; Protocol Last Admin: 06/19/18 09:45 Dose: 40 mg Famotidine (Pepcid) 20 mg PO 1000,2200 [facility] Last Admin: 06/19/18 21:21 Dose: 20 mg Furosemide (Lasix) 40 mg PO DAILY [facility] Last Admin: 06/19/18 09:44 Dose: 40 mg Hydroxyzine HCl (Atarax) 25 mg PO Q8H PRN PRN Reason: Itching / Pruritus Last Admin: 06/15/18 10:18 Dose: 25 mg Ipratropium [place] (Atrovent) 0.5 mg IH TIDRESP [facility] Last Admin: 06/19/18 19:28 Dose: 0.5 mg Ipratropium [place] (Atrovent) 0.5 mg IH Q2 PRN PRN Reason: SOB/WHEEZE Last Admin: 06/14/18 10:00 Dose: 0.5 mg Levalbuterol HCl (Xopenex) 0.63 mg IH TIDRESP [facility] Last Admin: 06/19/18 19:28 Dose: 0.63 mg Levalbuterol HCl (Xopenex) 0.63 mg IH Q2 PRN PRN Reason: SOB/WHEEZE Last Admin: 06/14/18 10:00 Dose: 0.63 mg Methylprednisolone (Solu-Medrol) 20 mg IVP Q12 [facility] Last Admin: 06/19/18 21:18 Dose: 20 mg Metoprolol Succinate (Toprol Xl) 50 mg PO DAILY [facility] Last Admin: 06/19/18 09:45 Dose: 50 mg Montelukast Sodium (Singulair) 10 mg PO HS [facility] Last Admin: 06/19/18 21:21 Dose: 10 mg Nifedipine (Procardia Xl) 30 mg PO DAILY [facility] Last Admin: 06/19/18 09:47 Dose: 30 mg Polyethylene Glycol (Miralax) 17 gm PO DAILY [facility] Last Admin: 06/19/18 09:45 Dose: 17 gm Tamsulosin HCl (Flomax) 0.4 mg PO DAILY [facility] Last Admin: 06/19/18 09:44 Dose: 0.4 mg Tramadol HCl (Ultram) 50 mg PO TID PRN PRN Reason: Pain, moderate (4-7) Last Admin: 06/19/18 10:14 Dose: 50 mg - Labs Labs: 06/18/18 05:00 06/19/18 05:00 PT 12.8 SECONDS (9.4-12.5) H 06/12/18 15:31 INR 1.15 06/12/18 15:31 APTT 32.5 Seconds (26.9-38.3) 06/12/18 15:31 - Constitutional Appears: Non-toxic, No Acute Distress - Head Exam Head Exam: NORMAL INSPECTION, NORMOCEPHALIC - Eye Exam Eye Exam: Normal appearance - ENT Exam ENT Exam: Mucous Membranes Moist, Normal Exam - Respiratory Exam Respiratory Exam: Decreased Breath Sounds, Clear to Ausculation Bilateral, NORMAL BREATHING PATTERN - Cardiovascular Exam Cardiovascular Exam: +S1, +S2 - GI/Abdominal Exam GI & Abdominal Exam: Soft, Normal Bowel Sounds - Extremities Exam Extremities Exam: Full ROM, Normal Capillary Refill - Neurological Exam Neurological Exam: Alert, Awake, Oriented x3 - Psychiatric Exam Psychiatric exam: Normal Affect, Normal Mood - Skin Skin Exam: Dry, Normal Color, Warm Assessment and Plan - Assessment and Plan (Free Text) Assessment: An 88 year old male who came in to the ER due to shortness of breath and generalized weakness. 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 Cardiology consult was called for Atrial fibrillation. However, closely reading the EKG, patient on normal sinus rhythm with atrial premature complexes. Ruled out atrial fi brillation. Echo done and showed LVEF 65-70%, mild AR, mild to moderate aortic valvular stenosis,moderate to severe MR, moderate TR, RVSP 60 mmHg, moderate pulmonary hypertension, trace pulmonic valve regurgitation, partially flail anterior mitral valve leaflet with chordal DEREK. Repeat EKG showed normal sinus rhythm, premature SVT, RBBB, No evidence of atrial fibrillation. Cardiac status stable. Antibiotics therapy completed as per ID.Discharge planning. Patient not candidate for TCU. Going home with oxygen.Clinically stable. Plan: Cardiac status stable No distress, denies shortness of breath Heart rate stable Blood pressure stable On ASA 81 mg daily,Lipitor 10 mg daily,Lasix 20 mg daily, Solumedrol 20 mg daily, Toprol XL 50 mg daily, Flomax 0.4 mg daily OFF IV/completed antibiotics per ID Continue current medications Continue current treatment Discharge planning, home with oxygen Will follow up Plan and treatment discussed with Dr. Cunha
[2018-06-20] MEDS: Levalbuterol 0.63 MG/3 ML Inhal Soln UD IH SCH ×3 (07:46→20:40)
[2018-06-20] MEDS: Ipratropium 0.02% Inhal Soln (0.5 mg/2.5 ml) UD IH SCH ×3 (07:47→20:40)
[2018-06-20] MEDS: Metoprolol Succinate 50 mg XL Tab PO SCH (09:03)
[2018-06-20] MEDS: POLYETHYLENE GLYCOL 3350 17 GM/Dose PACKET PO SCH (09:03)
[2018-06-20] MEDS: NIFEdipine 30 mg ER Tab PO SCH (09:05)
[2018-06-20] MEDS: MethylPREDNISolone 40 mg Vial IVP SCH (09:07)
[2018-06-20] MEDS: Enoxaparin 40 mg Syringe SC SCH (09:08)
--- NOTE | 2018-06-20 09:09 | CP.PCM.PN ---
Subjective - Date & Time of Evaluation Date of Evaluation: 06/20/18 Time of Evaluation: 07:00 - Subjective Subjective: Amos Doherty DO, PGY-1 Hematology/Oncology Progress Note for Dr. Khalil Patient was seen and examined at bedside this AM. He reports continued back pain in his mid-thoracic region but states he is otherwise able to ambulate without significant difficulty. He offers no additional complaints this AM and denies fever/chills, CP, SOB, abd pain/nausea/vomiting, or urinary complaints. Objective - Vital Signs/Intake and Output Vital Signs (last 24 hours): Temp Pulse Resp BP Pulse Ox 97.6 F 66 20 137/70 97 06/20/18 08:00 06/20/18 08:00 06/20/18 08:00 06/20/18 08:00 06/20/18 08:00 Intake and Output: 06/20/18 06/20/18 06:59 18:59 Intake Total 780 Output Total 600 Balance 180 - Medications Medications: Current Medications Acetaminophen (Tylenol 325mg Tab) 650 mg PO Q4 PRN PRN Reason: Fever >100.4 F Aspirin (Ecotrin) 81 mg PO DAILY [facility] Last Admin: 06/19/18 09:44 Dose: 81 mg Atorvastatin Calcium (Lipitor) 10 mg PO DIN [facility] Last Admin: 06/19/18 17:34 Dose: 10 mg Bicalutamide (Casodex) 50 mg PO DAILY [facility] Last Admin: 06/19/18 10:13 Dose: 50 mg Enoxaparin Sodium (Lovenox) 40 mg SC DAILY [facility]; Protocol Last Admin: 06/19/18 09:45 Dose: 40 mg Famotidine (Pepcid) 20 mg PO 1000,2200 [facility] Last Admin: 06/19/18 21:21 Dose: 20 mg Furosemide (Lasix) 40 mg PO DAILY [facility] Last Admin: 06/19/18 09:44 Dose: 40 mg Hydroxyzine HCl (Atarax) 25 mg PO Q8H PRN PRN Reason: Itching / Pruritus Last Admin: 06/15/18 10:18 Dose: 25 mg Pamidronate Disodium 30 mg/ (Sodium Chloride) 510 mls @ 127.5 mls/hr IVPB ONCE ONE Stop: 06/20/18 13:05 Ipratropium [place] (Atrovent) 0.5 mg IH TIDRESP [facility] Last Admin: 06/20/18 07:47 Dose: 0.5 mg Ipratropium [place] (Atrovent) 0.5 mg IH Q2 PRN PRN Reason: SOB/WHEEZE Last Admin: 06/14/18 10:00 Dose: 0.5 mg Levalbuterol HCl (Xopenex) 0.63 mg IH TIDRESP [facility] Last Admin: 06/20/18 07:46 Dose: 0.63 mg Levalbuterol HCl (Xopenex) 0.63 mg IH Q2 PRN PRN Reason: SOB/WHEEZE Last Admin: 06/14/18 10:00 Dose: 0.63 mg Methylprednisolone (Solu-Medrol) 20 mg IVP Q12 [facility] Last Admin: 06/19/18 21:18 Dose: 20 mg Metoprolol Succinate (Toprol Xl) 50 mg PO DAILY [facility] Last Admin: 06/19/18 09:45 Dose: 50 mg Montelukast Sodium (Singulair) 10 mg PO HS [facility] Last Admin: 06/19/18 21:21 Dose: 10 mg Nifedipine (Procardia Xl) 30 mg PO DAILY [facility] Last Admin: 06/19/18 09:47 Dose: 30 mg Polyethylene Glycol (Miralax) 17 gm PO DAILY [facility] Last Admin: 06/19/18 09:45 Dose: 17 gm Tamsulosin HCl (Flomax) 0.4 mg PO DAILY [facility] Last Admin: 06/19/18 09:44 Dose: 0.4 mg Tramadol HCl (Ultram) 50 mg PO TID PRN PRN Reason: Pain, moderate (4-7) Last Admin: 06/19/18 10:14 Dose: 50 mg - Labs Labs: 06/18/18 05:00 06/19/18 05:00 PT 12.8 SECONDS (9.4-12.5) H 06/12/18 15:31 INR 1.15 06/12/18 15:31 APTT 32.5 Seconds (26.9-38.3) 06/12/18 15:31 - Constitutional Appears: Non-toxic, No Acute Distress - Head Exam Head Exam: ATRAUMATIC, NORMOCEPHALIC - Eye Exam Eye Exam: EOMI, PERRL - ENT Exam ENT Exam: Mucous Membranes Moist - Neck Exam Neck Exam: Full ROM, Normal Inspection - Respiratory Exam Respiratory Exam: Clear to Ausculation Bilateral, NORMAL BREATHING PATTERN. absent: Accessory Muscle Use, Rales, Rhonchi, Wheezes, Respiratory Distress - Cardiovascular Exam Cardiovascular Exam: REGULAR RHYTHM, RRR, +S1, +S2. absent: Gallop, Rubs, Murmur - GI/Abdominal Exam GI & Abdominal Exam: Soft, Normal Bowel Sounds. absent: Guarding, Tenderness - Extremities Exam Extremities Exam: Full ROM, Normal Inspection. absent: Pedal Edema - Back Exam Back Exam: paraspinal tenderness, tenderness (greatest mid-thoracic region), vertebral tenderness. 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 He is admitted for empiric treatment of PNA, physical deconditioning. 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 Camejo for [facility] recs HTN Has been normotensive throughout hospital stay Continue home meds with holding parameters CAD Continue home meds Cardiology following, all recs appreciated HLD Continue statin Prostate CA Continue caodex, flomax DVT/GI PPX: Lovenox/pepcid Full Code HHD Monitor on med/surg Patient seen, examined with, and plan discussed with my attending Dr. Simran Doherty, JordynO. IM Resident PGY-1
--- NOTE | 2018-06-20 12:23 | CP.PCM.CON ---
History of Present Illness - History of Present Illness History of Present Illness: Mr Cabrera is a 88 year old male with lung cancer and metastases to T10. He was initially diagnosed in 2018. He has been receiving keytruda for you for his lung cancer since his diagnosis. His Keytruda was stopped briefly from October to April due to side effects as per the patient. His last dose was three weeks ago. He was recently admitted on June 12, 2018 with chills, shortness of breath and cough. He also started having right sided lower rib pain with radiation to the back. On admission, he had a CT of the chest on June 13, 2018 which revealed a 2.9 x 4.1cm mass extension to the main pulmonary artery in the left lower lobe. There was a subcarinal mass measuring 2.1 x 3cm. There was a lytic lesion at T10. There was a mixed sclerotic lesion at L2 A CT of the thoracic spine confirmed a large osteolystic metastases at T10 with a soft tissue component on the right. He had a CT of the abdomen and pelvis which revealed constipation. He denies any lower extremity weakness or numbness. Since his hospitalization, his breathing has improved with medication and oxygen. We were asked to see him for palliative radiation to Review of Systems - Constitutional Constitutional: Weight Loss - Respiratory Respiratory: Cough, Dyspnea - Gastrointestinal Gastrointestinal: Diarrhea - Musculoskeletal Musculoskeletal: Back Pain Past Patient History - Infectious Disease Hx of Infectious Diseases: None - Tetanus Immunizations Tetanus Immunization: Unknown - Past Social History Smoking Status: Former Smoker Alcohol: None Home Situation {Lives}: With Family - CARDIAC Hx Hypertension: Yes - PULMONARY Hx Respiratory Disorders: Yes Other/Comment: SQUAMOUS CELL CARCINOMA. PNEUMOTHORAX - NEUROLOGICAL Hx Neurological Disorder: No - HEENT Hx Glaucoma: Yes - RENAL Hx Chronic Kidney Disease: Yes (UROTHELIAL MALIGNACY) - ENDOCRINE/METABOLIC Hx Endocrine Disorders: No - HEMATOLOGICAL/ONCOLOGICAL Hx Cancer: Yes (SQUAMOUS CELL CARCINOMA;UROTHELIAL MALIGNACY) - INTEGUMENTARY Hx Dermatological Problems: No - MUSCULOSKELETAL/RHEUMATOLOGICAL Hx Falls: No - GASTROINTESTINAL Hx Gastrointestinal Disorders: No - GENITOURINARY/GYNECOLOGICAL Hx Prostate Problems: Yes (PROSTATE CA) - PSYCHIATRIC Hx Substance Use: No - SURGICAL HISTORY Hx Surgeries: Yes Hx Cardiac Catheterization: Yes (STENTS X4) Hx Joint Replacement: Yes (LEFT ORIF) - ANESTHESIA Hx Anesthesia: No Hx Anesthesia Reactions: No Hx Malignant Hyperthermia: No Meds Allergies/Adverse Reactions: Allergies Allergy/AdvReac Type Severity Reaction Status Date / Time clopidogrel bisulfate Allergy ANAPHYLAXIS Verified 12/02/17 17:55 [From Plavix] - Medications Medications: Current Medications Acetaminophen (Tylenol 325mg Tab) 650 mg PO Q4 PRN PRN Reason: Fever >100.4 F Aspirin (Ecotrin) 81 mg PO DAILY [facility] Last Admin: 06/20/18 09:05 Dose: 81 mg Atorvastatin [place] (Lipitor) 10 mg PO DIN [facility] Last Admin: 06/19/18 17:34 Dose: 10 mg Bicalutamide (Casodex) 50 mg PO DAILY [facility] Last Admin: 06/20/18 09:08 Dose: 50 mg Enoxaparin Sodium (Lovenox) 40 mg SC DAILY [facility]; Protocol Last Admin: 06/20/18 09:08 Dose: 40 mg Famotidine (Pepcid) 20 mg PO 1000,2200 [facility] Last Admin: 06/20/18 09:06 Dose: 20 mg Furosemide (Lasix) 40 mg PO DAILY [facility] Last Admin: 06/20/18 09:06 Dose: 40 mg Hydroxyzine HCl (Atarax) 25 mg PO Q8H PRN PRN Reason: Itching / Pruritus Last Admin: 06/15/18 10:18 Dose: 25 mg Pamidronate Disodium 30 mg/ (Sodium Chloride) 510 mls @ 127.5 mls/hr IVPB ONCE ONE Stop: 06/20/18 13:05 Last Admin: 06/20/18 11:03 Dose: 127.5 mls/hr Ipratropium [place] (Atrovent) 0.5 mg IH TIDRESP [facility] Last Admin: 06/20/18 07:47 Dose: 0.5 mg Ipratropium [place] (Atrovent) 0.5 mg IH Q2 PRN PRN Reason: SOB/WHEEZE Last Admin: 06/14/18 10:00 Dose: 0.5 mg Levalbuterol HCl (Xopenex) 0.63 mg IH TIDRESP [facility] Last Admin: 06/20/18 07:46 Dose: 0.63 mg Levalbuterol HCl (Xopenex) 0.63 mg IH Q2 PRN PRN Reason: SOB/WHEEZE Last Admin: 06/14/18 10:00 Dose: 0.63 mg Methylprednisolone (Solu-Medrol) 20 mg IVP Q12 [facility] Last Admin: 06/20/18 09:07 Dose: 20 mg Metoprolol Succinate (Toprol Xl) 50 mg PO DAILY [facility] Last Admin: 06/20/18 09:03 Dose: 50 mg Montelukast Sodium (Singulair) 10 mg PO HS [facility] Last Admin: 06/19/18 21:21 Dose: 10 mg Nifedipine (Procardia Xl) 30 mg PO DAILY [facility] Last Admin: 06/20/18 09:05 Dose: 30 mg Polyethylene Glycol (Miralax) 17 gm PO DAILY [facility] Last Admin: 06/20/18 09:03 Dose: 17 gm Tamsulosin HCl (Flomax) 0.4 mg PO DAILY [facility] Last Admin: 06/20/18 09:03 Dose: 0.4 mg Tramadol HCl (Ultram) 50 mg PO TID PRN PRN Reason: Pain, moderate (4-7) Last Admin: 06/20/18 09:06 Dose: 50 mg Physical Exam - Head Exam Head Exam: NORMAL INSPECTION - Eye Exam Eye Exam: EOMI - ENT Exam ENT Exam: Mucous Membranes Moist - Respiratory Exam Additional comments: crackles at left lung base - Cardiovascular Exam Cardiovascular Exam: REGULAR RHYTHM - Neurological Exam Neurological exam: CN II-XII Intact, Oriented x3 Results - Vital Signs Recent Vital Signs: Last Vital Signs Temp 97.6 F 06/20/18 08:00 Pulse 66 06/20/18 08:00 Resp 20 06/20/18 08:00 BP 133/72 06/20/18 09:06 Pulse Ox 97 06/20/18 08:00 - Labs Result Diagrams: 06/18/18 05:00 06/19/18 05:00 Assessment & Plan - Assessment and Plan (Free Text) Assessment: Mr Cabrera is a 88 year old male with lung cancer and metastases to T10. On reviewing his pain as well as radiographic images, it appears that the T10 lesion is causing his current right sided lower rib pain with radiation to the back. We spoke to him and his daughter about palliative radiation therapy including the risks and benefits. Informed consent was obtained. We will arrange for him to get a simulation.
--- NOTE | 2018-06-20 14:32 | PN ---
DATE: 06/20/2018 PULMONARY PROGRESS NOTE REQUESTING PHYSICIAN: Mic Dougherty MD SUBJECTIVE: The patient is seen lying in bed. No acute distress. No overnight events reported. The patient reports feeling well today. Still has shortness of breath with exertion. Cough has improved. No headache, rhinitis, chest pain, nausea, vomiting, diarrhea, leg pain or leg swelling reported. The patient reports having some right upper quadrant pain, had CAT scan done which showed large osteolytic metastasis of T10 with soft tissue component on the right which is thought to be causing the patient's right-sided pain with radiation to his back. OBJECTIVE: VITAL SIGNS: Blood pressure 137/70, pulse 66, temperature 97.6, oxygen saturation 97% on nasal cannula. GENERAL: No acute distress. HEENT: Moist mucous membranes. Mallampati score 4. NECK: Supple. No JVD. LUNGS: Crackles to the left lung base. CARDIOVASCULAR: S1 and S2. ABDOMEN: Soft, nontender. No distention. No organomegaly. EXTREMITIES: No bilateral lower extremity edema. NEUROLOGICAL: Awake, alert and verbal. Following commands. MEDICATIONS: Reviewed. Tylenol 650 every 4 hours p.r.n. fever greater than 100.4, aspirin 81 mg daily; Lipitor 10 mg at dinner, Casodex 50 mg daily, Lovenox 40 mg subcu daily, Pepcid 20 mg twice a day, Lasix 40 mg daily, Atarax 25 mg every 8 hours p.r.n., Atrovent 0.5 mg inhalation three times a day, Atrovent 0.5 mg inhalation every 2 hours p.r.n., Xopenex 0.63 mg inhalation three times a day, Xopenex 0.63 mg inhalation every 2 hours p.r.n, Solu-Medrol 20 mg every 12 hours, Toprol XL 50 mg daily, Singulair 10 mg at bedtime, Procardia 30 mg daily, MiraLax 17 g daily, Flomax 0.4 mg daily, Ultram 50 mg three times a day p.r.n. LABORATORY DATA: Reviewed. No new labs since yesterday. 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 Thoracic spine CT shows no acute pathologic fracture, large osteolytic metastatic lesion in the right T10 vertebral body with associated right paravertebral soft tissue component. 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 The patient is scheduled to start palliative care radiation. Continue supplemental oxygen, inhaled bronchodilators, gastric prophylaxis, deep venous thrombosis prophylaxis, and leukotriene inhibitors. We will decrease Solu-Medrol to 20 mg daily. We will follow up with labs in the morning. We recommend this patient have full pulmonary function test and sleep study as outpatient. Fall precautions and physical therapy. This patient was seen and examined with Dr. Dixon. Discussed assessment and plan as described above. This patient was seen and examined with Leandro Salas, nurse practitioner. Discussed assessment and plan as described above. Thank you for this consult. We will follow with you. Leandro Salas APN Ankur Dixon MD ANA
--- NOTE | 2018-06-21 01:40 | PN ---
DATE: 06/20/2018 SUBJECTIVE: The patient is in bed, in no acute distress, nontoxic. No fevers or chills. PHYSICAL EXAMINATION: VITAL SIGNS: Temperature is 97, blood pressure is 105/50, respiratory rate of 18. HEENT: Unremarkable. NECK: Supple. LUNGS: Have decreased breath sounds. HEART: Normal S1, S2. ABDOMEN: Soft, nontender. LABORATORY EXAMINATION: Reveals a white count of 10,400, hemoglobin of 12. BUN of 32, creatinine of 0.9. Microbiology is noted. Review of orders reveals the patient to be on Solu-Medrol. ASSESSMENT AND PLAN: This is an 88-year-old with stage IV cancer with transitional cell type of the kidney, emphysema, lung cancer with vertebral bone metastases, hypertension, hyperlipidemia, chronic obstructive lung disease, admitted with sepsis, most likely secondary to obstructive pneumonitis with stage IV lung cancer metastases. He has completed 8 days of doxycycline and cefepime, currently now off of antibiotics, afebrile. Reid Massey MD
--- NOTE | 2018-06-21 06:48 | CP.PCM.PN ---
Subjective - Date & Time of Evaluation Date of Evaluation: 06/21/18 Time of Evaluation: 06:45 - Subjective Subjective: Awake, alert, no distress, verbalizing that he will have radiation Reason for consultation and follow up: Cardiac evaluation, ruled out atrial fibrillation, admitted for shortness of breath and generalized weakness, history of lung cancer with metastasis, history of coronary artery disease Seen and examined by me and Dr. Cunha Objective - Vital Signs/Intake and Output Vital Signs (last 24 hours): Temp Pulse Resp BP Pulse Ox 97.7 F 70 19 105/57 L 96 06/20/18 17:16 06/20/18 17:16 06/20/18 17:16 06/20/18 17:16 06/20/18 17:16 - Medications Medications: Current Medications Acetaminophen (Tylenol 325mg Tab) 650 mg PO Q4 PRN PRN Reason: Fever >100.4 F Aspirin (Ecotrin) 81 mg PO DAILY [facility] Last Admin: 06/20/18 09:05 Dose: 81 mg Atorvastatin Calcium (Lipitor) 10 mg PO DIN [facility] Last Admin: 06/20/18 17:18 Dose: 10 mg Bicalutamide (Casodex) 50 mg PO DAILY [facility] Last Admin: 06/20/18 09:08 Dose: 50 mg Enoxaparin Sodium (Lovenox) 40 mg SC DAILY [facility]; Protocol Last Admin: 06/20/18 09:08 Dose: 40 mg Famotidine (Pepcid) 20 mg PO 1000,2200 [facility] Last Admin: 06/20/18 21:18 Dose: 20 mg Furosemide (Lasix) 40 mg PO DAILY [facility] Last Admin: 06/20/18 09:06 Dose: 40 mg Hydroxyzine HCl (Atarax) 25 mg PO Q8H PRN PRN Reason: Itching / Pruritus Last Admin: 06/15/18 10:18 Dose: 25 mg Ipratropium [place] (Atrovent) 0.5 mg IH TIDRESP [facility] Last Admin: 06/20/18 20:40 Dose: 0.5 mg Ipratropium [place] (Atrovent) 0.5 mg IH Q2 PRN PRN Reason: SOB/WHEEZE Last Admin: 06/14/18 10:00 Dose: 0.5 mg Levalbuterol HCl (Xopenex) 0.63 mg IH TIDRESP [facility] Last Admin: 06/20/18 20:40 Dose: 0.63 mg Levalbuterol HCl (Xopenex) 0.63 mg IH Q2 PRN PRN Reason: SOB/WHEEZE Last Admin: 06/14/18 10:00 Dose: 0.63 mg Methylprednisolone (Solu-Medrol) 20 mg IVP DAILY [facility] Metoprolol Succinate (Toprol Xl) 50 mg PO DAILY [facility] Last Admin: 06/20/18 09:03 Dose: 50 mg Montelukast Sodium (Singulair) 10 mg PO HS [facility] Last Admin: 06/20/18 21:18 Dose: 10 mg Nifedipine (Procardia Xl) 30 mg PO DAILY [facility] Last Admin: 06/20/18 09:05 Dose: 30 mg Polyethylene Glycol (Miralax) 17 gm PO DAILY [facility] Last Admin: 06/20/18 09:03 Dose: 17 gm Tamsulosin HCl (Flomax) 0.4 mg PO DAILY [facility] Last Admin: 06/20/18 09:03 Dose: 0.4 mg Tramadol HCl (Ultram) 50 mg PO TID PRN PRN Reason: Pain, moderate (4-7) Last Admin: 06/21/18 05:35 Dose: 50 mg - Labs Labs: 06/18/18 05:00 06/19/18 05:00 PT 12.8 SECONDS (9.4-12.5) H 06/12/18 15:31 INR 1.15 06/12/18 15:31 APTT 32.5 Seconds (26.9-38.3) 06/12/18 15:31 - Constitutional Appears: Non-toxic, No Acute Distress - Head Exam Head Exam: NORMAL INSPECTION, NORMOCEPHALIC - Eye Exam Eye Exam: Normal appearance Pupil Exam: NORMAL ACCOMODATION - ENT Exam ENT Exam: Mucous Membranes Moist, Normal Exam - Respiratory Exam Respiratory Exam: Decreased Breath Sounds, Clear to Ausculation Bilateral, NORMAL BREATHING PATTERN - Cardiovascular Exam Cardiovascular Exam: +S1, +S2 - GI/Abdominal Exam GI & Abdominal Exam: Soft, Normal Bowel Sounds - Extremities Exam Extremities Exam: Full ROM, Normal Capillary Refill - Neurological Exam Neurological Exam: Alert, Awake, Oriented x3 - Psychiatric Exam Psychiatric exam: Normal Affect, Normal Mood - Skin Skin Exam: Dry, Normal Color, Warm Assessment and Plan - Assessment and Plan (Free Text) Assessment: An 88 year old male who came in to the ER due to shortness of breath and generalized weakness. 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 Cardiology consult was called for Atrial fibrillation. However, closely reading the EKG, patient on normal sinus rhythm with atrial premature complexes. Ruled out atrial fibril lation. Echo done and showed LVEF 65-70%, mild AR, mild to moderate aortic valvular stenosis,moderate to severe MR, moderate TR, RVSP 60 mmHg, moderate pulmonary hypertension, trace pulmonic valve regurgitation, partially flail anterior mitral valve leaflet with chordal DEREK. Repeat EKG showed normal sinus rhythm, premature SVT, RBBB, No evidence of atrial fibrillation. Cardiac status stable. Antibiotics therapy completed as per ID.Discharge planning. Patient not candidate for TCU. Going home with oxygen.Clinically stable. CT of thoracic spine showed osteolytic metastasis at T10. For palliative radiation. Plan: For radiation (metastasis to T10) Clinically stable No distress, denies shortness of breath, feels well Cardiac status stable Heart rate stable Blood pressure stable On ASA 81 mg daily,Lipitor 10 mg daily,Lasix 20 mg daily, Solumedrol 20 mg daily, Toprol XL 50 mg daily, Flomax 0.4 mg daily Continue current medications Continue current treatment Discharge planning, home with oxygen Will follow up Plan and treatment discussed with Dr. Cunha
[2018-06-21 06:55] LABS: BASO # 0.04 K/mm3 (0.0-2.0); BASO % 0.4 % (0.0-3.0); EOS # 0.3 (0.0-0.7); EOS % 2.5 % (1.5-5.0); HEMOGLOBIN 12.5 g/dL (14.0-18.0); LYMPH # 1.8 (1.2-3.4); LYMPH % 15.5 % (22.0-35.0); MEAN CORPUSCULAR HEMOGLOBIN 32.2 pg (25.0-35.0); MEAN CORPUSCULAR HGB CONC 31.9 g/dl (31.0-37.0); MEAN PLATELET VOLUME 9.8 fl (7.0-11.0); MONO % 8.5 % (1.0-6.0); RBC 3.88 10^6/uL (3.5-6.1); RED CELL DISTRIBUTION WIDTH 13.3 % (11.5-14.5); WHITE BLOOD COUNT 11.3 10^3/uL (4.5-11.0)
[2018-06-21 07:33] LABS: ALBUMIN 2.9 g/dL (3.0-4.8); ALT/SGPT 13 U/L (7-56); AST/SGOT 22 U/L (17-59); BLOOD UREA NITROGEN 31 mg/dL (7-21); CALCIUM 8.7 mg/dL (8.4-10.5); GFR NON-AFRICAN AMERICAN > 60
[2018-06-21] MEDS: Levalbuterol 0.63 MG/3 ML Inhal Soln UD IH SCH ×3 (07:45→20:15)
[2018-06-21] MEDS: Ipratropium 0.02% Inhal Soln (0.5 mg/2.5 ml) UD IH SCH ×3 (07:45→20:15)
--- NOTE | 2018-06-21 09:30 | CP.PCM.PN ---
Subjective - Date & Time of Evaluation Date of Evaluation: 06/21/18 Time of Evaluation: 07:00 - Subjective Subjective: Amos Doherty DO, PGY-1 Hematology/Oncology Progress Note for Dr. Khalil Patient was seen and examined at bedside this AM. He reports no new complaints and states his dyspnea has improved. He continues to have mid-thoracic back pain that is improved with ultram. He is scheduled for first RAILCAR SWITCHER session today. Objective - Vital Signs/Intake and Output Vital Signs (last 24 hours): Temp Pulse Resp BP Pulse Ox 97.7 F 68 18 111/57 L 95 06/21/18 08:36 06/21/18 08:36 06/21/18 08:36 06/21/18 08:36 06/21/18 08:36 - Medications Medications: Current Medications Acetaminophen (Tylenol 325mg Tab) 650 mg PO Q4 PRN PRN Reason: Fever >100.4 F Aspirin (Ecotrin) 81 mg PO DAILY [facility] Last Admin: 06/20/18 09:05 Dose: 81 mg Atorvastatin Calcium (Lipitor) 10 mg PO DIN [facility] Last Admin: 06/20/18 17:18 Dose: 10 mg Bicalutamide (Casodex) 50 mg PO DAILY [facility] Last Admin: 06/20/18 09:08 Dose: 50 mg Enoxaparin Sodium (Lovenox) 40 mg SC DAILY [facility]; Protocol Last Admin: 06/20/18 09:08 Dose: 40 mg Famotidine (Pepcid) 20 mg PO 1000,2200 [facility] Last Admin: 06/20/18 21:18 Dose: 20 mg Furosemide (Lasix) 40 mg PO DAILY [facility] Last Admin: 06/20/18 09:06 Dose: 40 mg Hydroxyzine HCl (Atarax) 25 mg PO Q8H PRN PRN Reason: Itching / Pruritus Last Admin: 06/15/18 10:18 Dose: 25 mg Ipratropium [place] (Atrovent) 0.5 mg IH TIDRESP [facility] Last Admin: 06/21/18 07:45 Dose: 0.5 mg Ipratropium [place] (Atrovent) 0.5 mg IH Q2 PRN PRN Reason: SOB/WHEEZE Last Admin: 06/14/18 10:00 Dose: 0.5 mg Levalbuterol HCl (Xopenex) 0.63 mg IH TIDRESP [facility] Last Admin: 06/21/18 07:45 Dose: 0.63 mg Levalbuterol HCl (Xopenex) 0.63 mg IH Q2 PRN PRN Reason: SOB/WHEEZE Last Admin: 06/14/18 10:00 Dose: 0.63 mg Methylprednisolone (Solu-Medrol) 20 mg IVP DAILY [facility] Metoprolol Succinate (Toprol Xl) 50 mg PO DAILY [facility] Last Admin: 06/20/18 09:03 Dose: 50 mg Montelukast Sodium (Singulair) 10 mg PO HS [facility] Last Admin: 06/20/18 21:18 Dose: 10 mg Nifedipine (Procardia Xl) 30 mg PO DAILY [facility] Last Admin: 06/20/18 09:05 Dose: 30 mg Polyethylene Glycol (Miralax) 17 gm PO DAILY [facility] Last Admin: 06/20/18 09:03 Dose: 17 gm Tamsulosin HCl (Flomax) 0.4 mg PO DAILY [facility] Last Admin: 06/20/18 09:03 Dose: 0.4 mg Tramadol HCl (Ultram) 50 mg PO TID PRN PRN Reason: Pain, moderate (4-7) Last Admin: 06/21/18 05:35 Dose: 50 mg - Labs Labs: 06/21/18 06:00 06/21/18 06:00 PT 12.8 SECONDS (9.4-12.5) H 06/12/18 15:31 INR 1.15 06/12/18 15:31 APTT 32.5 Seconds (26.9-38.3) 06/12/18 15:31 - Constitutional Appears: Non-toxic, No Acute Distress - Head Exam Head Exam: ATRAUMATIC, NORMOCEPHALIC - Eye Exam Eye Exam: EOMI, PERRL - ENT Exam ENT Exam: Mucous Membranes Moist - Neck Exam Neck Exam: Full ROM, Normal Inspection - Respiratory Exam Respiratory Exam: Clear to Ausculation Bilateral, NORMAL BREATHING PATTERN. absent: Rales, Rhonchi, Wheezes - Cardiovascular Exam Cardiovascular Exam: REGULAR RHYTHM, RRR, +S1, +S2. absent: Gallop, Rubs, Murmur - GI/Abdominal Exam GI & Abdominal Exam: Soft, Normal Bowel Sounds. absent: Guarding, Tenderness - Extremities Exam Extremities Exam: Full ROM. 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 with progressive dyspnea on exertion x 2 weeks. He is admitted for empiric treatment of PNA, physical deconditioning. 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 Camejo Deconditionlarissa PT recommends home with services Has been arranged per , patient will call to receive needed services Moderate Pulmonary HTN Recommend continue lasix 40 mg PO daily and procardia 30 mg daily at home Per cardiology, no additional intervention warranted at this time TTE without other significant findings Cardiology, Pulmonology following, all recs appreciated HTN Continue home meds with holding parameters CAD Continue home meds Cardiology following, all recs appreciated HLD Continue statin Prostate CA Continue caodex, flomax No active issues DVT/GI PPX: Lovenox/pepcid Full Code HHD Monitor on med/surg Patient seen, examined with, and plan discussed with my attending Dr. Simran Doherty D.O. IM Resident PGY-1
[2018-06-21] MEDS: POLYETHYLENE GLYCOL 3350 17 GM/Dose PACKET PO SCH ×2 (11:37→12:00)
[2018-06-21] MEDS: Metoprolol Succinate 50 mg XL Tab PO SCH (11:37)
[2018-06-21] MEDS: NIFEdipine 30 mg ER Tab PO SCH (11:39)
[2018-06-21] MEDS: MethylPREDNISolone 40 mg Vial IVP SCH (11:40)
[2018-06-21] MEDS: Enoxaparin 40 mg Syringe SC SCH (11:41)
--- NOTE | 2018-06-21 11:52 | PN ---
DATE: 06/21/2018 PULMONARY PROGRESS NOTE REFERRING PHYSICIAN: Dr. Mic Dougherty. SUBJECTIVE: The patient is seen sitting in armchair in room, daughter at bedside. No acute distress. No overnight events reported. Reports having bowel movement today. Still has cough, but has improved. Still has shortness of breath with exertion. The patient will start radiation therapy today for T10 metastasis. OBJECTIVE: GENERAL: No acute distress. VITAL SIGNS: Blood pressure 111/57, pulse 68, temperature 97.7, and oxygen saturation 95% on nasal cannula. HEENT: Moist mucous membranes. Mallampati score 4. NECK: Supple. No JVD. LUNGS: Decreased breath sounds at bases. CARDIOVASCULAR: S1 and S2. ABDOMEN: Soft and nontender. No distention. No organomegaly. EXTREMITIES: No bilateral lower extremity edema. NEUROLOGICAL: Awake, alert, and verbal. Follows commands. MEDICATIONS: Reviewed. Tylenol 650 every 4 hours p.r.n. for fever greater than 100.4, aspirin 81 mg daily, Lipitor 10 mg at dinner, Casodex 50 mg daily, Lovenox 40 mg subcutaneous daily, Pepcid 20 mg twice a day, Lasix 40 mg daily, Atarax 25 mg every 8 hours p.r.n., Atrovent 0.5 mg inhalation three times a day, Atrovent 0.5 mg inhalation every 2 hours p.r.n., Xopenex 0.63 mg inhalation three times a day, Xopenex 0.63 mg inhalation every 2 hours p.r.n, Solu-Medrol 20 mg daily, Toprol XL 50 mg daily, Singulair 10 mg at bedtime, Procardia XL 30 mg daily, MiraLax 17 g daily, Flomax 0.4 mg daily, and Ultram 50 mg three times a day p.r.n. LABORATORY DATA: Reviewed. WBC 11.3, RBC 3.88, hemoglobin 12.5, hematocrit 39.2, and platelets 217. Sodium 135, potassium 4.5, chloride 99, carbon dioxide 33, anion gap 7, BUN 31, creatinine 0.9, GFR greater than 60, random glucose 82, calcium 8.7, phosphorus 3.0, magnesium 2.2, and total bilirubin 0.3. AST 22, ALT 13, alkaline phosphatase 47, total protein 5.9, albumin 2.9, globulin 3.0, and albumin-globulin ratio 1.0. 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 The patient to start palliative care radiation therapy for T10 metastasis today. Monitor pulmonary status closely. Continue supplemental oxygen, inhaled bronchodilators, gastric prophylaxis, deep venous thrombosis prophylaxis, and leukotriene inhibitors. Continue steroids and diuretics. We recommend the patient have full pulmonary function test and sleep study as outpatient. Fall precautions. This patient was seen and examined with Dr. Dixon. Discussed assessment and plan as described above. This patient was seen and examined with Leandro Salas, nurse practitioner. Discussed assessment and plan as described above. Thank you for this consult. We will follow with you. Leandro Salas APN Ankur Dixon MD ANA
[2018-06-21 16:38] VITALS: RESP 20; TEMP 98.5; O2SAT 96
--- NOTE | 2018-06-21 21:19 | PN ---
DATE: 06/21/2018 SUBJECTIVE: The patient is in bed in no acute distress, nontoxic. PHYSICAL EXAMINATION VITAL SIGNS: Temperature is 97, blood pressure is 101/50, respiratory rate of 20. HEENT: Unremarkable. NECK: Supple. CARDIOPULMONARY: Heart, normal S1, S2. LUNGS: Have decreased breath sounds. ABDOMEN: Soft. LABORATORY DATA: Reveals a white count of 11,300, hemoglobin of 12. BUN of 31, creatinine of 0.9. Urinalysis is noted. Serology is noted. Microbiology is reviewed. MEDICATIONS: Review of orders reveals the patient to be off of antibiotics. ASSESSMENT AND PLAN: An 88-year-old male with stage IV cancer, transitional cell type of kidney, emphysema, lung cancer with vertebral bone metastases, hypertension, hyperlipidemia, chronic obstructive lung disease, admitted with sepsis secondary to obstructive pneumonitis, stage IV lung cancer and has completed 8 days of doxycycline and cefepime, now is off of antibiotics. The patient is at risk for developing nosocomial infections. We will follow with you. Reid Massey MD
[2018-06-22 07:10] LABS: BASO # 0.03 K/mm3 (0.0-2.0); BASO % 0.3 % (0.0-3.0); EOS # 0.2 (0.0-0.7); EOS % 2.2 % (1.5-5.0); HEMOGLOBIN 11.8 g/dL (14.0-18.0); LYMPH # 1.3 (1.2-3.4); LYMPH % 11.8 % (22.0-35.0); MEAN CELL VOLUME 100.5 fl (80.0-105.0); MEAN CORPUSCULAR HEMOGLOBIN 32.1 pg (25.0-35.0); MEAN CORPUSCULAR HGB CONC 31.9 g/dl (31.0-37.0); MEAN PLATELET VOLUME 10.1 fl (7.0-11.0); MONO # 1.1 (0.1-0.6); MONO % 10.1 % (1.0-6.0); RBC 3.68 10^6/uL (3.5-6.1); RED CELL DISTRIBUTION WIDTH 13.3 % (11.5-14.5); WHITE BLOOD COUNT 10.6 10^3/uL (4.5-11.0)
--- NOTE | 2018-06-22 07:36 | CP.PCM.PN ---
Subjective - Date & Time of Evaluation Date of Evaluation: 06/22/18 Time of Evaluation: 06:45 - Subjective Subjective: Ambulating to bathroom, Awake, alert, no distress, wanted to go home today Reason for consultation and follow up: Cardiac evaluation, ruled out atrial fibrillation, admitted for shortness of breath and generalized weakness, history of lung cancer with metastasis, history of coronary artery disease Seen and examined by me and Dr. Cunha Objective - Vital Signs/Intake and Output Vital Signs (last 24 hours): Temp Pulse Resp BP Pulse Ox 98.5 F 65 20 101/54 L 96 06/21/18 16:37 06/21/18 16:37 06/21/18 16:37 06/21/18 16:37 06/21/18 16:37 Intake and Output: 06/22/18 06/22/18 06:59 18:59 Intake Total 1580 Output Total 0 Balance 1580 - Medications Medications: Current Medications Acetaminophen (Tylenol 325mg Tab) 650 mg PO Q4 PRN PRN Reason: Fever >100.4 F Aspirin (Ecotrin) 81 mg PO DAILY [facility] Last Admin: 06/21/18 11:40 Dose: 81 mg Atorvastatin Calcium (Lipitor) 10 mg PO DIN [facility] Last Admin: 06/21/18 17:38 Dose: 10 mg Bicalutamide (Casodex) 50 mg PO DAILY [facility] Last Admin: 06/21/18 11:45 Dose: 50 mg Enoxaparin Sodium (Lovenox) 40 mg SC DAILY [facility]; Protocol Last Admin: 06/21/18 11:41 Dose: 40 mg Famotidine (Pepcid) 20 mg PO 1000,2200 [facility] Last Admin: 06/21/18 21:15 Dose: 20 mg Furosemide (Lasix) 40 mg PO DAILY [facility] Last Admin: 06/21/18 11:38 Dose: 40 mg Hydroxyzine HCl (Atarax) 25 mg PO Q8H PRN PRN Reason: Itching / Pruritus Last Admin: 06/15/18 10:18 Dose: 25 mg Ipratropium Humphrey (Atrovent) 0.5 mg IH TIDRESP [facility] Last Admin: 06/21/18 20:15 Dose: 0.5 mg Ipratropium Humphrey (Atrovent) 0.5 mg IH Q2 PRN PRN Reason: SOB/WHEEZE Last Admin: 06/14/18 10:00 Dose: 0.5 mg Levalbuterol HCl (Xopenex) 0.63 mg IH TIDRESP [facility] Last Admin: 06/21/18 20:15 Dose: 0.63 mg Levalbuterol HCl (Xopenex) 0.63 mg IH Q2 PRN PRN Reason: SOB/WHEEZE Last Admin: 06/14/18 10:00 Dose: 0.63 mg Methylprednisolone (Solu-Medrol) 20 mg IVP DAILY [facility] Last Admin: 06/21/18 11:40 Dose: 20 mg Metoprolol Succinate (Toprol Xl) 50 mg PO DAILY [facility] Last Admin: 06/21/18 11:37 Dose: 50 mg Montelukast Sodium (Singulair) 10 mg PO HS [facility] Last Admin: 06/21/18 21:16 Dose: 10 mg Nifedipine (Procardia Xl) 30 mg PO DAILY [facility] Last Admin: 06/21/18 11:39 Dose: 30 mg Polyethylene Glycol (Miralax) 17 gm PO DAILY [facility] Last Admin: 06/21/18 12:00 Dose: Not Given Tamsulosin HCl (Flomax) 0.4 mg PO DAILY [facility] Last Admin: 06/21/18 11:39 Dose: 0.4 mg Tramadol HCl (Ultram) 50 mg PO TID PRN PRN Reason: Pain, moderate (4-7) Last Admin: 06/22/18 05:20 Dose: 50 mg - Labs Labs: 06/22/18 06:45 06/21/18 06:00 PT 12.8 SECONDS (9.4-12.5) H 06/12/18 15:31 INR 1.15 06/12/18 15:31 APTT 32.5 Seconds (26.9-38.3) 06/12/18 15:31 - Constitutional Appears: Non-toxic, No Acute Distress - Head Exam Head Exam: NORMAL INSPECTION, NORMOCEPHALIC - Eye Exam Eye Exam: Normal appearance Pupil Exam: NORMAL ACCOMODATION - ENT Exam ENT Exam: Mucous Membranes Moist, Normal Exam - Respiratory Exam Respiratory Exam: Decreased Breath Sounds, Clear to Ausculation Bilateral, NORMAL BREATHING PATTERN - Cardiovascular Exam Cardiovascular Exam: +S1, +S2 - GI/Abdominal Exam GI & Abdominal Exam: Soft, Normal Bowel Sounds - Extremities Exam Extremities Exam: Full ROM, Normal Capillary Refill - Neurological Exam Neurological Exam: Alert, Awake, Oriented x3 - Psychiatric Exam Psychiatric exam: Normal Affect, Normal Mood - Skin Skin Exam: Dry, Normal Color, Warm Assessment and Plan - Assessment and Plan (Free Text) Assessment: An 88 year old male who came in to the ER due to shortness of breath and ge neralized weakness. 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 Cardiology consult was called for Atrial fibrillation. However, closely reading the EKG, patient on normal sinus rhythm with atrial premature complexes. Ruled out atrial fibrillation. Echo done and showed LVEF 65-70%, mild AR, mild to moderate aortic valvular stenosis,moderate to severe MR, moderate TR, RVSP 60 mmHg, moderate pulmonary hypertension, trace pulmonic valve regurgitation, partially flail anterior mitral valve leaflet with chordal DEREK. Repeat EKG showed normal sinus rhythm, premature SVT, RBBB, No evidence of atrial fibrillation. Antibiotics therapy completed as per ID.CT of thoracic spine showed osteolytic metastasis at T10. Had palliative radiation yesterday. Discharge planning. Going home with oxygen.Clinically stable. Cardiac status stable. Plan: Wanted to go home today Post radiation (metastasis to T10) yesterday No distress, denies shortness of breath, feels well Cardiac status stable Heart rate stable Blood pressure stable On ASA 81 mg daily,Lipitor 10 mg daily,Lasix 20 mg daily, Solumedrol 20 mg daily, Toprol XL 50 mg daily, Flomax 0.4 mg daily Continue current medications Continue current treatment Discharge planning, home with oxygen Cleared for discharge from cardiac standpoint Will follow up Plan and treatment discussed with Dr. Cunha
[2018-06-22 07:42] LABS: ALB/GLOB RATIO 0.9 (1.1-1.8); ALBUMIN 2.8 g/dL (3.0-4.8); ALT/SGPT 12 U/L (7-56); AST/SGOT 25 U/L (17-59); BLOOD UREA NITROGEN 28 mg/dL (7-21); CALCIUM 8.4 mg/dL (8.4-10.5); GFR NON-AFRICAN AMERICAN > 60
[2018-06-22] MEDS: Ipratropium 0.02% Inhal Soln (0.5 mg/2.5 ml) UD IH SCH ×2 (08:04→13:40)
[2018-06-22] MEDS: Levalbuterol 0.63 MG/3 ML Inhal Soln UD IH SCH ×2 (08:04→13:40)
[2018-06-22] MEDS: Enoxaparin 40 mg Syringe SC SCH (10:24)
[2018-06-22] MEDS: POLYETHYLENE GLYCOL 3350 17 GM/Dose PACKET PO SCH ×2 (10:25→11:03)
[2018-06-22] MEDS: NIFEdipine 30 mg ER Tab PO SCH (10:26)
[2018-06-22] MEDS: MethylPREDNISolone 40 mg Vial IVP SCH (10:26)
[2018-06-22] MEDS: Metoprolol Succinate 50 mg XL Tab PO SCH (10:26)
[2018-06-22 10:30] VITALS: BP 133/75; PULSE 72
--- NOTE | 2018-06-22 14:12 | PN ---
DATE: 06/22/2018 PULMONARY PROGRESS NOTE REFERRING PHYSICIAN: Dr. Mic Dougherty. SUBJECTIVE: The patient is seen sitting at bedside. No acute distress. No overnight events reported. Daughter is at bedside. The patient had radiation therapy this morning. States that cough and shortness of breath have improved. No headache, rhinitis, chest pain, abdominal pain, nausea, vomiting, diarrhea, leg pain or leg swelling reported. Reports having bowel movements today. OBJECTIVE: GENERAL: No acute distress. VITAL SIGNS: Blood pressure 133/75, pulse 72, temperature 98.5, oxygen saturation 96% on room air. HEENT: Moist mucous membranes. Mallampati score 4. NECK: Supple. No JVD. LUNGS: Fair airflow bilaterally. Few crackles at bases. CARDIOVASCULAR: S1, S2. ABDOMEN: Soft, nontender. No distention. No organomegaly. EXTREMITIES: No bilateral lower extremity edema. NEUROLOGICAL: Awake, alert, verbal. Follows commands. MEDICATIONS: Reviewed. Tylenol 650 every 4 hours p.r.n. fever greater than 100.4, aspirin 81 mg daily, Lipitor 10 mg at dinner, Casodex 50 mg daily, Lovenox 40 mg subcu daily, Pepcid 20 mg twice a day, Lasix 40 mg daily, Atarax 25 mg every 8 hours p.r.n., Atrovent 0.5 mg inhalation three times a day, Atrovent 0.5 mg inhalation every 2 hours p.r.n., Xopenex 0.63 mg inhalation three times a day, Xopenex 0.63 mg inhalation every 2 hours p.r.n, Solu-Medrol 20 mg IV push daily, Toprol XL 50 mg daily, Singulair 10 mg at bedtime, Procardia XL 30 mg daily, MiraLax 17 g daily, Flomax 0.4 mg p.o. daily and Ultram 50 mg three times a day p.r.n. LABORATORY DATA: Reviewed. WBC 10.6, RBC 3.68, hemoglobin 11.8, hematocrit 37, and platelets 218. Sodium 136, potassium 4.2, chloride 97, carbon dioxide 33, anion gap 10, BUN 28, creatinine 0.9, GFR greater than 60, random glucose 85, calcium 8.4, total bilirubin 0.2. AST 25, ALT 12, alkaline phosphatase 49, total protein 5.7, albumin 2.8, globulin 2.9, albumin-globulin ratio 0.9. 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 Monitor pulmonary status carefully. Continue present treatment, inhaled bronchodilators, gastric prophylaxis, supplemental oxygen, deep venous thrombosis prophylaxis, leukotriene inhibitors. Continue current steroid dosing, diuretics. We will continue to follow labs. We recommend the patient have full pulmonary function test and sleep study as outpatient. Recommend fall precautions, physical therapy. This patient was seen and examined with Dr. Dixon. Discussed assessment and plan as described above. This patient was seen and examined with Leandro Salas, nurse practitioner. Discussed assessment and plan as described above. Thank you for this consult. We will follow with you. Leandro Salas APN Ankur Dioxn MD
--- NOTE | 2018-06-22 17:21 | CP.PCM.DIS ---
Provider - Provider Date of Admission: 06/13/18 13:07 Attending physician: Mic Dougherty MD Primary care physician: Roby Villegas MD Consults: 06/12/18 17:42 Consult [Physician Consult] Stat Comment: routine Consulting Provider: Ankur Steele Consulting Physician: Ankur Steele Reason for Consult: elevated bnp 06/12/18 19:14 Consult [Physician Consult] Routine Comment: Consulting Provider: Reid Massey Consulting Physician: Reid Massey Reason for Consult: id eval 06/12/18 19:15 Consult [Physician Consult] Routine Comment: Consulting Provider: Ankur Dixon Consulting Physician: Ankur Dixon Reason for Consult: pulm eval 06/12/18 21:33 Social Work Referral Routine Comment: PROTOCOL Physician Instructions: Reason For Exam: RENEE 10 06/12/18 21:34 Nursing Referral for Palliative Care Routine Comment: Physician Instructions: Reason For Exam: PALLIATIVE 13 06/12/18 22:42 Inpatient INVENTORY CONTROL/SHIPPING RECEIVING Core Measures Referral Routine Comment: Physician Instructions: Reason For Exam: protocol Transition In Care/Readmission Reduction Routine Comment: Physician Instructions: Reason For Exam: protocol 06/15/18 13:48 TCU [Evaluation for TRCU] Routine Comment: Physician Instructions: Reason For Exam: rehab; close monitoring and titration of meds 06/16/18 12:01 Discharge Planning [Case Management Referral] Routine Comment: Physician Instructions: Reason For Exam: Reason for Referral: Discharge Planning 06/20/18 09:05 Physician Consult Routine Comment: Consulting Provider: Mary Lou Camejo Consulting Physician: Mary Lou Camejo Reason for Consult: T10 metastasis Time Spent in preparation of Discharge (in minutes): 45 Diagnosis - Discharge Diagnosis (1) Metastatic primary lung cancer Status: Acute Hospital Course - Lab Results Lab Results: Micro Results 06/12/18 16:20 Blood-Venous Blood Culture - Final NO GROWTH AFTER 5 DAYS 06/12/18 16:20 Blood-Venous Gram Stain - Final TEST NOT PERFORMED 06/12/18 15:31 Blood-Venous Blood Culture - Final NO GROWTH AFTER 5 DAYS 06/12/18 15:31 Blood-Venous Gram Stain - Final TEST NOT PERFORMED 06/13/18 17:30 Sputum Gram Stain - Final 06/13/18 17:30 Sputum Sputum Culture - Final NORMAL ORAL ASIM 06/13/18 11:25 Urine Random Urine Culture - Final Gram Positive Cocci 06/13/18 14:10 Naris MRSA Culture (Admit) - Final MRSA NOT DETECTED Most Recent Lab Values WBC 10.6 10^3/uL (4.5-11.0) 06/22/18 06:45 RBC 3.68 10^6/uL (3.5-6.1) 06/22/18 06:45 Hgb 11.8 g/dL (14.0-18.0) L 06/22/18 06:45 Hct 37.0 % (42.0-52.0) L 06/22/18 06:45 MCV 100.5 fl (80.0-105.0) 06/22/18 06:45 MCH 32.1 pg (25.0-35.0) 06/22/18 06:45 MCHC 31.9 g/dl (31.0-37.0) 06/22/18 06:45 RDW 13.3 % (11.5-14.5) 06/22/18 06:45 Plt Count 218 10^3/uL (120.0-450.0) 06/22/18 06:45 MPV 10.1 fl (7.0-11.0) 06/22/18 06:45 Neut % (Auto) 75.6 % (50.0-68.0) H 06/22/18 06:45 Lymph % (Auto) 11.8 % (22.0-35.0) L 06/22/18 06:45 [place] % (Auto) 10.1 % (1.0-6.0) H 06/22/18 06:45 Eos % (Auto) 2.2 % (1.5-5.0) 06/22/18 06:45 Baso % (Auto) 0.3 % (0.0-3.0) 06/22/18 06:45 Lymph # (Auto) 1.3 (1.2-3.4) 06/22/18 06:45 [place] # (Auto) 1.1 (0.1-0.6) H 06/22/18 06:45 Eos # (Auto) 0.2 (0.0-0.7) 06/22/18 06:45 Baso # (Auto) 0.03 K/mm3 (0.0-2.0) 06/22/18 06:45 Absolute Neuts (auto) 8.03 (1.4-6.5) H 06/22/18 06:45 Neutrophils % (Manual) 93 % (50.0-70.0) H 06/13/18 06:10 Lymphocytes % (Manual) 7 % (22.0-35.0) L 06/13/18 06:10 Monocytes % (Manual) TEST NOT PERFORMED 06/13/18 06:10 Platelet Evaluation Normal (NORMAL) 06/13/18 06:10 PT 12.8 SECONDS (9.4-12.5) H 06/12/18 15:31 INR 1.15 06/12/18 15:31 APTT 32.5 Seconds (26.9-38.3) 06/12/18 15:31 D-Dimer, Quantitative 1164 ng/mlDDU (0-243) H 06/12/18 15:31 pO2 14 mm/Hg (30-55) L 06/12/18 19:10 VBG pH 7.38 (7.32-7.43) 06/12/18 19:10 VBG pCO2 45.0 (40-60) 06/12/18 19:10 VBG HCO3 26.6 mmol/l (21-28) 06/12/18 19:10 VBG Total CO2 28.0 mmol.L (22-28) 06/12/18 19:10 VBG O2 Sat (Calc) 21.6 % (40-65) L 06/12/18 19:10 VBG Base Excess 1.0 mmol/L (0.0-2.0) 06/12/18 19:10 VBG Potassium 5.0 mmol/L (3.6-5.2) 06/12/18 19:10 Sodium 132.0 mmol/L (132-148) 06/12/18 19:10 Chloride 104.0 mmol/L (98-107) 06/12/18 19:10 Glucose 117 mg/dl (75-110) H 06/12/18 19:10 Lactate 1.3 mmol/L (0.7-2.1) 06/12/18 19:10 FiO2 21.0 % 06/12/18 19:10 Crit Value Called To Zohra florez 06/12/18 19:10 Crit Value Called By [facility] 06/12/18 19:10 Blood Gas Notified Time 191606/12/18 19:10 Sodium 136 mmol/L (132-148) 06/22/18 06:45 Potassium 4.2 mmol/L (3.6-5.0) 06/22/18 06:45 Chloride 97 mmol/L (98-107) L 06/22/18 06:45 Carbon Dioxide 33 mmol/L (21-33) 06/22/18 06:45 Anion Gap 10 (10-20) 06/22/18 06:45 BUN 28 mg/dL (7-21) H 06/22/18 06:45 Creatinine 0.9 mg/dl (0.8-1.5) 06/22/18 06:45 Est GFR ( Amer) > 60 06/22/18 06:45 Est GFR (Non-Af Amer) > 60 06/22/18 06:45 POC Glucose (mg/dL) 145 mg/dL (65-110) H 06/17/18 21:27 Random Glucose 85 mg/dL (70-110) 06/22/18 06:45 Hemoglobin A1c 6.1 % (4.2-6.5) 06/14/18 06:00 Calcium 8.4 mg/dL (8.4-10.5) 06/22/18 06:45 Phosphorus 3.0 mg/dL (2.5-4.5) 06/21/18 06:00 Magnesium 2.2 mg/dL (1.7-2.2) 06/21/18 06:00 Total Bilirubin 0.2 mg/dL (0.2-1.3) 06/22/18 06:45 AST 25 U/L (17-59) 06/22/18 06:45 ALT 12 U/L (7-56) 06/22/18 06:45 Alkaline Phosphatase 49 U/L (38-126) 06/22/18 06:45 Lactate Dehydrogenase 545 U/L (333-699) 06/12/18 15:31 Total Creatine Kinase 28 U/L (35-230) L 06/12/18 15:31 Troponin I < 0.01 ng/mL 06/12/18 15:31 NT-Pro-B Natriuret Pep 1520 pg/mL (0-450) H 06/12/18 15:31 Total Protein 5.7 g/dL (5.8-8.3) L 06/22/18 06:45 Albumin 2.8 g/dL (3.0-4.8) L 06/22/18 06:45 Globulin 2.9 gm/dL 06/22/18 06:45 Albumin/Globulin Ratio 0.9 (1.1-1.8) L 06/22/18 06:45 Triglycerides 45 mg/dL (35-160) 06/14/18 06:00 Cholesterol 131 mg/dL (130-200) 06/14/18 06:00 LDL Cholesterol Direct 77 mg/dL (0-129) 06/14/18 06:00 HDL Cholesterol 41 mg/dL (29-60) 06/14/18 06:00 Procalcitonin < 0.05 NG/ML (0.19-0.49) L 06/14/18 07:00 TSH 3rd Generation 0.41 mIU/mL (0.46-4.68) L 06/14/18 06:00 Venous Blood Potassium 5.0 mmol/L (3.6-5.2) 06/12/18 19:10 Urine Color Yellow (YELLOW) 06/13/18 11:25 Urine Appearance Turbid (CLEAR) 06/13/18 11:25 Urine pH 6.0 (4.7-8.0) 06/13/18 11:25 Ur Specific [place] 1.025 (1.005-1.035) 06/13/18 11:25 Urine Protein Negative mg/dL (<30 mg/dL) 06/13/18 11:25 Urine Glucose (UA) Negative mg/dL (NEGATIVE) 06/13/18 11:25 Urine Ketones Negative mg/dL (NEGATIVE) 06/13/18 11:25 Urine Blood Moderate (NEGATIVE) H 06/13/18 11:25 Urine Nitrate Negative (NEGATIVE) 06/13/18 11:25 Urine Bilirubin Negative (NEGATIVE) 06/13/18 11:25 Urine Urobilinogen 0.2 E.U./dL (<1 E.U./dL) 06/13/18 11:25 Ur Leukocyte Esterase Small Gopi/uL (NEGATIVE) H 06/13/18 11:25 Urine RBC 20 - 25 /hpf (0-2) H 06/13/18 11:25 Urine WBC 10 - 15 /hpf (0-6) H 06/13/18 11:25 Ur Epithelial Cells 0 - 2 /hpf (0-5) 06/13/18 11:25 Urine Bacteria Many /hpf (NONE) 06/13/18 11:25 Ur L.pneumophila Ag Negative (NEGATIVE) 06/13/18 11:25 - Hospital Course Hospital Course: Amos Doherty DO, PGY-1 Heme/Onc Discharge Summary for Dr. 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 He was admitted for empiric treatment of PNA and physical deconditioning. Hospitalization course: Patient's worsening dyspnea was treated with atrovent, xopenex treatments and singulair. His dyspnea continued to improve with these treatments. He was empirically treated for PNA and completed 8 days of doxycycline, cefepime per ID recs. He had additional work up for his worsened back pain and was found to have metastatic disease at T10. Radiation oncology was subsequently consulted and he received 2 XRT treatments prior to discharge. He will continue to follow with Dr. Camejo outpatient. On examination today, he reports his dyspnea has improved with breathing treatments. Case was discussed with pulmonology and atrovent, xopenex, singulair, and nebulizer was delivered to the bedside prior to patient's discharge. Discharge plan was discussed with patient in detail with follow up instructions. All questions were answered. Patient seen, examined, and discharge plan discussed with my attending Dr. Simran Doherty DO IM Resident PGY-1 Discharge Exam - Head Exam Head Exam: NORMAL INSPECTION, NORMOCEPHALIC - Eye Exam Eye Exam: EOMI, PERRL - ENT Exam ENT Exam: Mucous Membranes Moist - Neck Exam Neck exam: Full Rom, Normal Inspection - Respiratory Exam Respiratory Exam: Clear to PA & Lateral, NORMAL BREATHING PATTERN, UNREMARKABLE. absent: Rales, Rhonchi, Wheezes - Cardiovascular Exam Cardiovascular Exam: REGULAR RHYTHM, RRR, +S1, +S2. absent: Diastolic murmur, Gallop, Rubs, Systolic Murmur - GI/Abdominal Exam GI & Abdominal Exam: Normal Bowel Sounds, Unremarkable. absent: Tenderness - Extremities Exam Extremities exam: full ROM, normal inspection - Back Exam Back exam: NORMAL INSPECTION - Neurological Exam Neurological exam: Alert, Oriented x3 - Psychiatric Exam Psychiatric exam: Normal Affect, Normal Mood - Skin Skin Exam: Dry, Intact, Warm Discharge Plan - Discharge Medications Prescriptions: Furosemide [Lasix] 40 mg PO DAILY #30 tab methylPREDNISolone [Methylprednisolone] 4 mg PO DAILY #30 tab Montelukast [Singulair] 10 mg PO HS #30 tab NIFEdipine ER [Procardia XL] 30 mg PO DAILY #30 ter - Follow Up Plan Condition: FAIR Disposition: HOME/ ROUTINE Instructions: Lung Cancer, Non-small Cell Lung Cancer, Fever, Adult (DC), Lung Cancer (DC), When to Worry About a Fever, Urinary Tract Infection in Men (DC), Dysuria (GEN) Additional Instructions: Please follow up with Dr. Khalil within one week of discharge. Please follow up with your primary doctor, Dr. Villegas, within 1 week of discharge. Please follow up with the lung doctor, Dr. Dxion, within 2 weeks of discharge. His contact information has been included in your paperwork. Please continue your home medications as previously prescribed. If any of your symptoms return or worsen, please let Dr. Khalil know and present to nearest ED. Referrals: Roby Villegas MD [Primary Care Provider] - Malini Khalil MD [Staff Provider] - Ankur Dixon MD [Staff Provider] -
--- NOTE | 2018-06-24 10:40 | PQF ---
PROVIDER RESPONSE TEXT: Patient had 3/4 SIRS with tachycardia, tachypena, and leukocytosis. CT of the chest on admission xander ot rule out infiltrate in the setting of mass consistent with postobstructive pneumonia/pneumonitis. REVIEWER QUERY TEXT: Clinical Validity Additional clinical indicators are required to support your documented diagnosis of Please respond and also state in your next progress note whether: -- Condition exists and also please provide clinical indicators to support the diagnosis -- Condition does not exist and also please provide amended documentation in the medical record to cl pelon -- Unable to provide additional clarity regarding the diagnosis -- Other, please specify The patient's Clinical Indicators include: Your consultation and subsequent documentation noted sepsis due to postobstructive pneumonia as a broderick gnosis. Please provide the clinical indicators and or criteria to support this diagnosis or please specify if it was ruled out after thorough evaluation. Query created by: Sylvia Del Rosario on 06/16/2018 8:27 AM Electronically signed by: Michael Maurice 06/24/2018 10:37 AM
== END 2018-06-22 15:40 | disposition home health service (06) | DRG 180 ==
LOC: ED 15:04 → ERH 17:43 → 2RNO 20:20 → OBSVTOIN 06-13 13:07 → INTOOBSV 06-13 13:37 → OBSVTOIN 06-13 13:37 → 3RSO 06-15 14:24
PROVIDERS: ADMIT Family Medicine; ATTEND Family Medicine
PROC: DBY27ZZ Contact Radiation of Lung (ICD-10-PCS; principal; 2018-06-22)
DX: C34.92 Malignant neoplasm of unspecified part of left bronchus or lung (principal); J18.9 Pneumonia, unspecified organism; J44.1 Chronic obstructive pulmonary disease with (acute) exacerbation; C79.51 Secondary malignant neoplasm of bone; C64.9 Malignant neoplasm of unspecified kidney, except renal pelvis; I47.1 Supraventricular tachycardia; J44.0 Chronic obstructive pulmonary disease with (acute) lower respiratory infection; R65.10 Systemic inflammatory response syndrome (SIRS) of non-infectious origin without acute organ dysfunction; I12.9 Hypertensive chronic kidney disease with stage 1 through stage 4 chronic kidney disease, or unspecified chronic kidney disease; I25.10 Atherosclerotic heart disease of native coronary artery without angina pectoris; C61 Malignant neoplasm of prostate; Z87.891 Personal history of nicotine dependence; I27.20 Pulmonary hypertension, unspecified; R82.71 Bacteriuria; I45.10 Unspecified right bundle-branch block; K59.00 Constipation, unspecified; I44.4 Left anterior fascicular block; Z85.51 Personal history of malignant neoplasm of bladder; Z88.8 Allergy status to other drugs, medicaments and biological substances; Z87.892 Personal history of anaphylaxis; E78.6 Lipoprotein deficiency; G47.10 Hypersomnia, unspecified; H40.9 Unspecified glaucoma; I08.3 Combined rheumatic disorders of mitral, aortic and tricuspid valves; I48.91 Unspecified atrial fibrillation; Y95 Nosocomial condition; Z79.82 Long term (current) use of aspirin; Z95.5 Presence of coronary angioplasty implant and graft; Z96.641 Presence of right artificial hip joint; R00.0 Tachycardia, unspecified; D72.829 Elevated white blood cell count, unspecified

== ENCOUNTER 2018-07-05 11:50 | Inpatient (IN) | payer MEDICARE | END 2018-07-20 17:37 | disposition home or self-care (01) | LOC: 3RNO 07-06 14:40 → ED 11:50 → ERH 14:51 → 3RNO 18:34 ==

== ENCOUNTER → 2018-07-05 | Outpatient (CLI) | payer MEDICARE | LOC: LAB 12:00 ==

== ENCOUNTER 2018-07-21 17:06 | Inpatient (IN) | payer MEDICARE ==
--- NOTE | 2018-07-21 17:51 | ED PDOC ---
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 He was d/c yesterday [place] [facility] [place] and candidiasis. He reports feeling well upon return to home yesterday, however felt very cold after eating breakfast this morning. He reports chronically feeling cold, however worse today with associated fatigue. He reports eating and drinking adequately. He is able to walk around the house without difficulty. He denies chest pain, shortness of breath, nausea, vomiting, diarrhea, dysuria, numbness or tingling. He denies falls, loss of consciousness, or blurry vision. <Dayton Acosta - Last Filed: 07/21/18 18:58> - General Chief Complaint: Weakness/Neurological Deficit Time Seen by Provider: 07/21/18 17:26 Past Medical History - Provider Review Primary Care Physician: Roby Villegas MD <Omar Win - Last Filed: 07/21/18 18:43> - Infectious Disease Hx of Infectious Diseases: None - Tetanus Immunization Tetanus Immunization: Unknown - Cardiac Hx Cardiac Disorders: Yes Hx Hypertension: Yes - Pulmonary Hx Chronic Obstructive Pulmonary Disease (COPD): Yes - Neurological Hx Neurological Disorder: No - HEENT Hx HEENT Disorder: Yes Hx Glaucoma: Yes - Renal Hx Renal Disorder: Yes (UROTHELIAL MALIGNACY) - Endocrine/Metabolic Hx Endocrine Disorders: No - Hematological/Oncological Hx Blood Transfusions: Yes Hx Blood Transfusion Reaction: No - Integumentary Hx Dermatological Disorder: No - Musculoskeletal/Rheumatological Hx Musculoskeletal Disorders: No Hx Falls: No - Gastrointestinal Hx Gastrointestinal Disorders: No - Genitourinary/Gynecological Hx Genitourinary Disorders: Yes Hx Prostate Problems: Yes (PROSTATE CA) - Psychiatric Hx Psychophysiologic Disorder: No Hx Substance Use: No - Surgical History Hx Cardiac Catheterization: Yes (STENTS X4) Hx Joint Replacement: Yes (LEFT ORIF) - Anesthesia Hx Anesthesia Reactions: No <Dayton Acosta - Last Filed: 07/21/18 18:58> Family/Social History Family/Social History: No Known Family HX Smoking Status: Former Smoker Hx Alcohol Use: No Hx Substance Use: No <Carmelina Acostarosanolberto - Last Filed: 07/21/18 18:58> Allergies/Home Meds <Omar Win - Last Filed: 07/21/18 18:43> <Carmelina Acostarosanolberto - Last Filed: 07/21/18 18:58> Allergies/Adverse Reactions: Allergies clopidogrel bisulfate [From Plavix] Allergy (Verified 07/21/18 17:11) ANAPHYLAXIS Home Medications: Home Meds Medication Instructions Recorded Confirmed Metoprolol Lion/Hydrochlorothiaz 50 mg PO DAILY 06/30/17 07/21/18 [Metoprolol ER-Hctz 50-12.5 mg] Simvastatin 10 mg PO HS 06/30/17 07/21/18 Tamsulosin [Flomax] 0.4 mg PO BID 06/30/17 07/21/18 Loperamide [Imodium] 2 mg PO PRN PRN 06/12/18 07/21/18 Review of Systems - Review of Systems Constitutional: Fatigue Eyes: Normal ENT: Normal Respiratory: Normal Cardiovascular: Normal Gastrointestinal: Normal Genitourinary Male: Normal Musculoskeletal: Normal Skin: Rash Neurological: Normal Endocrine: Other (cold intolerance) Hemo/Lymphatic: Normal Psychiatric: Normal <Carmelina Acostarosanolberto - Last Filed: 07/21/18 18:58> Physical Exam Vital Signs Temp Pulse Resp BP Pulse Ox 07/21/18 17:07 98.3 F 92 H 18 106/51 L 95 <Omar Win - Last Filed: 07/21/18 18:43> Vital Signs Reviewed: Yes Vital Signs Temp Pulse Resp BP Pulse Ox 07/21/18 17:07 98.3 F 92 H 18 106/51 L 95 Temperature: Afebrile Blood Pressure: Normal Pulse: Regular Respiratory Rate: Normal Appearance: Positive for: Well-Appearing, Non-Toxic, Comfortable Pain Distress: None Mental Status: Positive for: Alert and Oriented X 3 - Systems Exam Head: Present: Atraumatic, Normocephalic Pupils: Present: PERRL Extroacular Muscles: Present: EOMI Conjunctiva: Present: Normal Mouth: Present: Dry Neck: Present: Normal Range of Motion Respiratory/Chest: Present: Decreased Breath Sounds. No: Respiratory Distress, Accessory Muscle Use Cardiovascular: Present: Regular Rate and Rhythm, Normal S1, S2. No: Murmurs, Rub, Gallop Abdomen: Present: Normal Bowel Sounds. No: Tenderness, Distention, Peritoneal Signs Upper Extremity: Present: Normal Inspection, Normal ROM, Neurovascularly Intact. No: Cyanosis, Edema Lower Extremity: Present: Normal Inspection, Normal ROM, Neurovascularly Intact. No: Edema, Cyanosis Neurological: Present: GCS=15, CN II-XII Intact, Speech Normal Skin: Present: Dry, Rashes, Other (erythematous papules and plaques with secondary crusting on the torso and back. pettechiae on b/l ankles. LLE raised skin colored plaque with erythematous border. ). No: Warm, Normal Color Psychiatric: Present: Alert, Oriented x 3, Normal Insight, Normal Concentration <Dayton Acosta - Last Filed: 07/21/18 18:58> Medical Decision Making ED Course and Treatment: 07/21/18 18:41 Patient Seen with Resident: In agreement with resident note which contains more details about the patient. Patient seen and evaluated with resident. Came up with plan and treatment together. - Lab Interpretations Lab Results: Total Bilirubin 0.5 mg/dL (0.2-1.3) 07/21/18 18:00 AST 26 U/L (17-59) 07/21/18 18:00 ALT 32 U/L (7-56) 07/21/18 18:00 Alkaline Phosphatase 47 U/L (38-126) 07/21/18 18:00 Total Protein 5.5 g/dL (5.8-8.3) L 07/21/18 18:00 Albumin 3.0 g/dL (3.0-4.8) 07/21/18 18:00 Globulin 2.6 gm/dL 07/21/18 18:00 Albumin/Globulin Ratio 1.2 (1.1-1.8) 07/21/18 18:00 - Medication Orders Current Medication Orders: Sodium Chloride (Sodium Chloride 0.9%) 1,000 mls @ 100 mls/hr IV .Q10H LILLIE Last Admin: 07/21/18 18:17 Dose: 100 mls/hr eMAR Start Stop Document 07/21/18 18:17 BB (Rec: 04/25/19 18:17 BB [id number]) Intravenous Solution Start Date 07/21/18 Start Time 18:17 <Omar Win - Last Filed: 07/21/18 18:43> ED Course and Treatment: 07/21/18 17:54 - IVF - CBC - CMP - heating blanket - rectal temp - reassess 07/21/18 18:56 - leukocytosis - patient reports improved symptoms - Spoke with Dr. Pino, admit to obs. - Medication Orders Current Medication Orders: Sodium Chloride (Sodium Chloride 0.9%) 1,000 mls @ 100 mls/hr IV .Q10H LILLIE <Dayton Acosta - Last Filed: 07/21/18 18:58> - PA / MOTHER SUPERIOR / Resident Statement / has reviewed & agrees with the documentation as recorded. / has examined the patient and agrees with the treatment plan. <Omar Win - Last Filed: 07/21/18 18:43> Disposition/Present on Arrival <Omar Win - Last Filed: 07/21/18 18:43> - Present on Arrival Any Indicators Present on Arrival: No History of DVT/PE: No History of Uncontrolled Diabetes: No Urinary Catheter: No History of Decub. Ulcer: No History Surgical Site Infection Following: None - Disposition Have Diagnosis and Disposition been Completed?: Yes Disposition Time: 18:58 <Dayton Acosta - Last Filed: 07/21/18 18:58> - Disposition Diagnosis: Lung cancer Disposition: HOSPITALIZED Condition: SERIOUS Referrals: Roby Villegas MD [Primary Care Provider] - Follow up with primary Forms: [employer] (Arabic)
[2018-07-21] MEDS ORDERED: Sodium Chloride 0.9% 1,000 ML IV SCH ×2 (18:00→21:18)
[2018-07-21 18:23] LABS: BASO # 0.01 K/mm3 (0.0-2.0); BASO % 0.1 % (0.0-3.0); EOS # 0.1 (0.0-0.7); EOS % 0.6 % (1.5-5.0); HEMOGLOBIN 11.6 g/dL (14.0-18.0); LYMPH # 0.7 (1.2-3.4); LYMPH % 5.9 % (22.0-35.0); MEAN CELL VOLUME 99.7 fl (80.0-105.0); MEAN CORPUSCULAR HEMOGLOBIN 33.1 pg (25.0-35.0); MEAN CORPUSCULAR HGB CONC 33.2 g/dl (31.0-37.0); MEAN PLATELET VOLUME 10.1 fl (7.0-11.0); MONO # 0.4 (0.1-0.6); PLATELET COUNT 117 10^3/uL (120.0-450.0); RED CELL DISTRIBUTION WIDTH 14.9 % (11.5-14.5); WHITE BLOOD COUNT 12.5 10^3/uL (4.5-11.0)
[2018-07-21 18:32] LABS: ALB/GLOB RATIO 1.2 (1.1-1.8); ALT/SGPT 32 U/L (7-56); AST/SGOT 26 U/L (17-59); BLOOD UREA NITROGEN 29 mg/dL (7-21); GFR NON-AFRICAN AMERICAN 57
[2018-07-21] MEDS ORDERED: MethylPREDNISolone 40 mg Vial IVP STA (18:46)
[2018-07-21 19:01] LABS: BAND 1 % (0-2); LYMPHOCYTE 3 % (22.0-35.0); MONOCYTE 3 % (1.0-6.0); NEUTROPHIL 93 % (50.0-70.0); PLATELET ESTIMATE LOW (NORMAL)
[2018-07-21 19:19] LABS: URINE BILIRUBIN NEGATIVE (NEGATIVE); URINE BLOOD TRACE-INTACT (NEGATIVE); URINE GLUCOSE (UA) NEGATIVE (NEGATIVE); URINE LEUKOCYTE ESTERASE NEGATIVE Leu/uL (NEGATIVE); URINE PROTEIN NEGATIVE mg/dL (<30 mg/dL); URINE UROBILINOGEN 0.2 E.U./dL (<1 E.U./dL)
[2018-07-21 19:20] LABS: URINE APPEARANCE CLEAR (CLEAR); URINE COLOR YELLOW (YELLOW)
[2018-07-21 19:35] LABS: URINE EPITHELIAL CELLS 0 - 2 /hpf (0-5); URINE WBC 0 - 2 /hpf (0-6)
[2018-07-21] MEDS ORDERED: Sodium Chloride 0.9% 1,000 ML IV STA (19:47)
[2018-07-21 21:33] VITALS: BMI 21.7
[2018-07-21] MEDS: Doxepin HCL 10 mg/mL ORAL SOLUTION PO SCH (21:53)
[2018-07-21] MEDS: Meropenem IV 1 gm in NS 1 GM/50 ML BAG IVPB SCH (21:53)
[2018-07-21] MEDS: MOMETASONE 0.1% TOP SCH (21:54)
[2018-07-21] MEDS: Silver Sulfadiazine 1% Cream (25 gm) TP SCH (21:54)
[2018-07-21] MEDS ORDERED: MEROPENEM 500 MG in NS 500 MG/50 ML BAG IVPB SCH (22:00)
--- NOTE | 2018-07-22 02:57 | HP ---
DATE OF EXAM: 07/21/2018 This is [facility] visit admission history and physical on the medical floor. For Dr. Khalil. CHIEF COMPLAINT: Shaking chills. HISTORY OF PRESENT ILLNESS: The patient is a very pleasant 88-year-old male accompanied by his , who was discharged yesterday from the [facility], now readmitted for shaking chills and worsening painful rash, radiation dermatitis first versus second degree michele to his anterior chest and back. The patient is known to suffer from squamous cell carcinoma of the lung with history of urothelial transitional cell carcinoma and ASCVD. At present, he is now admitted by the emergency room for treatment of above. 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 also squamous cell cancer of the lung and recent discharge for radiation dermatitis. ALLERGIES: TO PLAVIX AND POSSIBLY TO DIFLUCAN. MEDICATIONS: Include Lac-Hydrin, Brovana, Pulmicort, Diflucan, Claritin, Protonix, prednisone, triamcinolone cream, doxepin, Flomax, simvastatin, metoprolol and HCT, Pyridium, Imodium, Ecotrin, Casodex, Lasix, Singulair, Procardia XL, MiraLax, and tramadol. Also questionable Duricef 250 t.i.d. for five days. SOCIAL HISTORY: The patient smokes up until 15 years ago and he quit. Denies EtOH use; otherwise, noncontributory. He is , is at the bedside. REVIEW OF SYSTEMS: A 12-point review of systems was done, which was negative to questioning except for items mentioned in the history of present illness. It should be noted that the patient had a surgical pathology report on the biopsy done on 07/07/2017, which showed squamous cell carcinoma of the lung left lower lobe lung mass. PHYSICAL EXAMINATION: VITAL SIGNS: Temperature 98.9, pulse 88, respirations 18, blood pressure 95/55, and pulse ox 96%. HEENT: Sunken temples. The patient appears cachectic. Otherwise, tongue is dry. NECK: Supple. HEART: Regular rate, occasional ectopic beat. LUNGS: Scattered rhonchi. ABDOMEN: Soft, scaphoid, and nontender. EXTREMITIES: Muscle wasting. No edema. SKIN: Warm and dry with 5 x 5 cm red scaled patch to the anterior chest with a similar appearing skin change to his mid upper back corresponding to radiation area involved in recent treatment. He also has isolated macular changes, erythematous to the arms, legs, scattered possibly an allergic phenomenon, possibly secondary to medication and generalized changes to the skin. NEUROLOGIC: Awake, alert, and oriented x3. LABORATORY DATA: The patient's labs were done. White blood cell count 12.5, hemoglobin of 11.6, hematocrit of 34.9, and platelet count of 117,000. Metabolic panel shows chloride of 95, BUN of 29, nonfasting glucose of 129, calcium of 8, and total protein of 5.9. Urinalysis shows trace of blood, otherwise negative. 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 PLAN: After conversation with Dr. Khalil, continue his present medical regimen. However, we will discontinue Diflucan in the interim with Silvadene cream to be given for his burned areas along with antibiotics, status post consult with Dr. Massey, Infectious Disease; Dr. Dixon, Pulmonology; and Dr. Luu, gastrointestinal strategic sourcing consultant. We will add Carafate with IV fluids at 50 mL an hour for now with pureed diet with continuous monitoring of the patient. We will also ask for blood cultures to be drawn along with a procalcitonin level and an air mattress as the patient has considerable pain due to his michele as listed above. Tramadol will be given for pain or Tylenol with considerations for stronger analgesics as indicated. This is a complex patient with comprehensive medically necessary and appropriate visit carried out in excess of 65 minutes with the patient and his 's questions answered to their satisfaction. Mic Dougherty MD
--- NOTE | 2018-07-22 03:58 | CON ---
DATE: 07/21/2018 PULMONARY CONSULTATION REFERRING PHYSICIAN: Mic Dougherty MD. REASON FOR CONSULTATION: Chronic lung disease, pulmonary hypertension, may have sleep apnea syndrome. HISTORY OF PRESENT ILLNESS: This is an 88-year-old gentleman, known to me from previous admission, just got discharged on the day after esophagitis, secondary to radiation therapy, has a stage IV [id number] lung cancer, also has a transitional cell carcinoma of the kidney, chronic obstructive lung disease, hypertension, coronary artery disease, comes in because of feeling cold, no energy. Denying any significant fever, not much cough. No hemoptysis. Does have some loose bowel movement. No dysuria. No leg pain or leg swelling. PAST MEDICAL HISTORY: Stage IV [id number] lung cancer, chronic obstructive lung disease, hypertension, hyperlipidemia, coronary artery disease status post radiation therapy, resolving esophagitis, history of anemia, prostate cancer. FAMILY HISTORY: No significant cardiopulmonary disease reported. SOCIAL HISTORY: Former smoker, denying any alcohol use. ALLERGIES: TO PLAVIX. MEDICATIONS: He is on Brovana inhaled twice a day, Carafate 1 g daily, Casodex 50 mg daily, Claritin 10 mg daily, doxycycline 100 mg twice a day, Ecotrin 81 mg daily, Flomax 0.4 mg daily, Lasix 20 mg daily, meropenem 1 g IV twice a day, MiraLax 17 g daily, prednisone 20 mg daily, nifedipine XL 30 mg daily, Protonix 20 mg daily, Singulair 10 mg daily, IV fluid normal saline 50 mL/hr, Toprol XL 50 mg daily, Tylenol p.r.n., Ultram 50 mg three times a day. REVIEW OF SYSTEMS: No headache, no rhinitis, not much cough. No chest pain. No shortness of breath, no abdominal pain, does have a bowel movement. No leg swelling, feeling cold and chill. No fever, though. PHYSICAL EXAMINATION: GENERAL: Sleepy, arousable. VITAL SIGNS: Temperature is 98, heart rate 88, respiratory rate is 20, blood pressure 95/55, pulse ox of 96% on two liters nasal cannula. HEENT: Moist mucous membranes. Crowded airway. NECK: Supple. No JVD. LUNGS: There are scattered rhonchi. HEART: S1, S2. ABDOMEN: Soft, nontender. No organomegaly. EXTREMITIES: No edema. NEUROLOGIC: Awake and follows simple commands. LABORATORY DATA: Shows hemoglobin 11.6, hematocrit 34.9, WBC 12.5, platelets are 117. Sodium 133, potassium 3.9, chloride 195, bicarbonate 31, BUN 29, creatinine 1.2, glucose 129, lactic acid 1.3, calcium 8, magnesium 2.2, total bili 0.5, AST 26, ALT 32, alk phos is 47. Albumin is 3. Urinalysis shows WBC 0-2, RBC 1-3. Chest x-ray: There is no infiltrate. IMPRESSION AND PLAN: Aus-qhyli-xxbl lung cancer involving the vertebra at T10, status post radiation ending up with esophagitis, chronic lung disease, hyperlipidemia, pulmonary hypertension, hypertension, transitional cell carcinoma, cardiac diastolic dysfunction, alicia esophagitis. Case discussed with family at bedside. All the questions answered. The patient may have adrenal insufficiency. Will give Solu-Medrol 40 mg one dose. Continue prednisone 20 mg daily, continue inhaled bronchodilator. Stool for Clostridium difficile is being sent. The patient is started on broad spectrum antibiotics, associated organism, follow up labs in the morning. Thank you and we will follow with you. Ankur Dixon MD
[2018-07-22] MEDS: Pantoprazole 20 mg EC Tab PO SCH (05:06)
[2018-07-22 06:28] LABS: HEMOGLOBIN 10.9 g/dL (14.0-18.0); LYMPH # 0.3 (1.2-3.4); LYMPH % 2.6 % (22.0-35.0); MEAN CORPUSCULAR HEMOGLOBIN 32.5 pg (25.0-35.0); MEAN CORPUSCULAR HGB CONC 32.5 g/dl (31.0-37.0); MEAN PLATELET VOLUME 9.8 fl (7.0-11.0); MONO # 0.1 (0.1-0.6); MONO % 1.1 % (1.0-6.0); RBC 3.35 10^6/uL (3.5-6.1); RED CELL DISTRIBUTION WIDTH 15.1 % (11.5-14.5); WHITE BLOOD COUNT 9.8 10^3/uL (4.5-11.0)
[2018-07-22 06:38] LABS: ALB/GLOB RATIO 1.1 (1.1-1.8); ALBUMIN 2.6 g/dL (3.0-4.8); ALT/SGPT 32 U/L (7-56); AST/SGOT 27 U/L (17-59); BLOOD UREA NITROGEN 23 mg/dL (7-21); CALCIUM 7.7 mg/dL (8.4-10.5); GFR NON-AFRICAN AMERICAN > 60
--- NOTE | 2018-07-22 06:54 | CP.PCM.PN ---
Subjective - Date & Time of Evaluation Date of Evaluation: 07/22/18 Time of Evaluation: 06:54 - Subjective Subjective: Patient was seen because I was asked to co-sign order for Rey Waldron and MARGIE. Daughter is by bed side. States that she was feeling cold at night time. Has no complaints now. BP was 95/55 earlier. Rest of vital signs are OK. Medical record was reviewed. This 88 year old white woman was admitted with shaking chills and painful rash,radiation dermatitis vs. 2* burn. Has PMH of Urothelial transitional cell cancer of kidney, HLD, HTN, Urosepsis, pneumothorax, CT guided biopsy, stent in right coronary artery, glaucoma, left total hip surgery, chronic pancreatitis, sq cell Cancer of lung , radiation dermatitis. Objective - Vital Signs/Intake and Output Vital Signs (last 24 hours): Temp Pulse Resp BP Pulse Ox 98.9 F 88 18 95/55 L 96 07/21/18 20:26 07/21/18 20:26 07/21/18 21:38 07/21/18 20:26 07/21/18 20:26 - Medications Medications: Current Medications Acetaminophen (Tylenol 325mg Tab) 650 mg PO Q6H PRN PRN Reason: Pain, Mild (1-3) Arformoterol Tartrate (Brovana) 15 mcg IH [id number] LILLIE Aspirin (Ecotrin) 81 mg PO DAILY LILLIE Bicalutamide (Casodex) 50 mg PO DAILY LILLIE Doxycycline Hyclate (Doryx) 100 mg PO Q12 LILLIE; Protocol Stop: 07/28/18 22:01 Last Admin: 07/21/18 21:52 Dose: 100 mg Furosemide (Lasix) 20 mg PO DAILY LILLIE Meropenem (Merrem Iv 1 Gm Premix) 1 gm in 50 mls @ 100 mls/hr IVPB Q12 LILLIE; Protocol Stop: 07/29/18 22:01 Last Admin: 07/21/18 21:53 Dose: 100 mls/hr Sodium Chloride (Sodium Chloride 0.9%) 1,000 mls @ 50 mls/hr IV .Q20H LILLIE Last Admin: 07/21/18 21:54 Dose: 50 mls/hr Loratadine (Claritin) 10 mg PO DAILY LILLIE Metoprolol Succinate (Toprol Xl) 50 mg PO BRK LILLIE Mometasone Furoate (Elocon Lotion) 0 ml TOP BID [facility] Last Admin: 07/21/18 21:54 Dose: 1 dose Montelukast Sodium (Singulair) 10 mg PO HS [facility] Last Admin: 07/21/18 21:52 Dose: 10 mg Nifedipine (Procardia Xl) 30 mg PO DAILY [facility] Pantoprazole Sodium (Protonix Ec Tab) 20 mg PO 0600 [facility] Last Admin: 07/22/18 05:06 Dose: 20 mg Polyethylene Glycol (Miralax) 17 gm PO DAILY PRN PRN Reason: Constipation Prednisone (Prednisone Tab) 20 mg PO DAILY [facility] Silver Sulfadiazine (Silvadene 1% 25 Gm) 0 gm TP BID [facility] Last Admin: 07/21/18 21:54 Dose: 25 gm Sucralfate (Carafate Oral Susp) 1 gm PO DAILY [facility] Tamsulosin HCl (Flomax) 0.4 mg PO DAILY [facility] Tramadol HCl (Ultram) 50 mg PO TID PRN PRN Reason: Pain, moderate (4-7) Last Admin: 07/22/18 06:36 Dose: 50 mg - Labs Labs: 07/22/18 06:00 07/22/18 06:00 - Constitutional Appears: Well, No Acute Distress - Head Exam Head Exam: ATRAUMATIC, NORMAL INSPECTION, NORMOCEPHALIC - Eye Exam Eye Exam: Normal appearance - ENT Exam ENT Exam: Normal External Ear Exam - Neck Exam Neck Exam: Normal Inspection - Respiratory Exam Respiratory Exam: NORMAL BREATHING PATTERN - Cardiovascular Exam Cardiovascular Exam: absent: JVD - GI/Abdominal Exam GI & Abdominal Exam: absent: Distended - Rectal Exam Rectal Exam: Deferred - Exam Additional comments: Deferred. - Extremities Exam Extremities Exam: Normal Inspection - Back Exam Back Exam: NORMAL INSPECTION - Neurological Exam Neurological Exam: Alert, Awake - Psychiatric Exam Psychiatric exam: Normal Affect, Normal Mood - Skin Additional comments: Covered with bear hugger. Assessment and Plan - Assessment and Plan (Free Text) Assessment: Cold feeling. Cancer kidney. HLD HTN. Urosepsis. History pneumothorax. Coronary stent placement. Glaucoma. Radiation dermatitis. Plan: SCD. Bear hugger for feeling of cold. Continue present management.
[2018-07-22] MEDS: Arformoterol 15 mcg/2 ml Inh Sol IH SCH ×2 (07:58→20:17)
[2018-07-22] MEDS: NIFEdipine 30 mg ER Tab PO SCH (09:49)
[2018-07-22] MEDS: Meropenem IV 1 gm in NS 1 GM/50 ML BAG IVPB SCH ×2 (09:50→22:26)
[2018-07-22] MEDS: Metoprolol Succinate 50 mg XL Tab PO SCH (09:51)
[2018-07-22] MEDS: Sucralfate 1 gm/10 ml Oral Susp UD PO SCH ×2 (09:51→10:08)
[2018-07-22] MEDS ORDERED: Vancomycin 1gm in NS 250ml 1 GM/250 ML BAG IVPB SCH (10:00)
--- NOTE | 2018-07-22 10:07 | CP.PCM.CON ---
Past Patient History - Infectious Disease Hx of Infectious Diseases: None - Tetanus Immunizations Tetanus Immunization: Unknown - Past Social History Smoking Status: Never Smoked - CARDIAC Hx Cardiac Disorders: Yes (angioplasty) Hx Hypercholesterolemia: Yes Hx Hypertension: Yes - PULMONARY Hx Respiratory Disorders: Yes (lung ca) Hx Chronic Obstructive Pulmonary Disease (COPD): Yes Hx Pneumonia: Yes - NEUROLOGICAL Hx Neurological Disorder: No - HEENT Hx HEENT Problems: Yes Hx Glaucoma: Yes - RENAL Hx Chronic Kidney Disease: Yes (UROTHELIAL MALIGNACY) Other/Comment: kidney ca - ENDOCRINE/METABOLIC Hx Endocrine Disorders: No - HEMATOLOGICAL/ONCOLOGICAL Hx Blood Disorders: Yes Hx Cancer: Yes (lung ca, kidney ca, prostate ca) Hx Chemotherapy: Yes - INTEGUMENTARY Hx Dermatological Problems: Yes (radiation michele) - MUSCULOSKELETAL/RHEUMATOLOGICAL Hx Musculoskeletal Disorders: Yes (left hip orif) Hx Arthritis: Yes Hx Falls: No Hx Unsteady Gait: Yes - GASTROINTESTINAL Hx Gastrointestinal Disorders: No - GENITOURINARY/GYNECOLOGICAL Hx Genitourinary Disorders: Yes Hx Incontinence: Yes Hx Prostate Problems: Yes (PROSTATE CA) - PSYCHIATRIC Hx Psychophysiologic Disorder: No Hx Substance Use: No - SURGICAL HISTORY Hx Surgeries: Yes (cardiac cath) Hx Cardiac Catheterization: Yes (STENTS X4) Hx Joint Replacement: Yes (LEFT HIP ORIF) - ANESTHESIA Hx Anesthesia Reactions: No Meds Allergies/Adverse Reactions: Allergies Allergy/AdvReac Type Severity Reaction Status Date / Time clopidogrel bisulfate Allergy ANAPHYLAXIS Verified 07/21/18 17:11 [From Plavix] - Medications Medications: Current Medications Acetaminophen (Tylenol 325mg Tab) 650 mg PO Q6H PRN PRN Reason: Pain, Mild (1-3) Arformoterol Tartrate (Brovana) 15 mcg IH [id number] [facility] Last Admin: 07/22/18 07:58 Dose: 15 mcg Aspirin (Ecotrin) 81 mg PO DAILY [facility] Bicalutamide (Casodex) 50 mg PO DAILY [facility] Doxycycline Hyclate (Doryx) 100 mg PO Q12 [facility]; Protocol Stop: 07/28/18 22:01 Last Admin: 07/22/18 09:49 Dose: 100 mg Furosemide (Lasix) 20 mg PO DAILY [facility] Last Admin: 07/22/18 09:50 Dose: 20 mg Meropenem (Merrem Iv 1 Gm Premix) 1 gm in 50 mls @ 100 mls/hr IVPB Q12 [facility]; Protocol Stop: 07/29/18 22:01 Last Admin: 07/22/18 09:50 Dose: 100 mls/hr Sodium Chloride (Sodium Chloride 0.9%) 1,000 mls @ 50 mls/hr IV .Q20H [facility] Last Admin: 07/21/18 21:54 Dose: 50 mls/hr Loratadine (Claritin) 10 mg PO DAILY [facility] Last Admin: 07/22/18 09:49 Dose: 10 mg Metoprolol Succinate (Toprol Xl) 50 mg PO BRK [facility] Last Admin: 07/22/18 09:51 Dose: Not Given Mometasone Furoate (Elocon Lotion) 0 ml TOP BID [facility] Last Admin: 07/21/18 21:54 Dose: 1 dose Montelukast Sodium (Singulair) 10 mg PO HS [facility] Last Admin: 07/21/18 21:52 Dose: 10 mg Nifedipine (Procardia Xl) 30 mg PO DAILY [facility] Last Admin: 07/22/18 09:49 Dose: 30 mg Pantoprazole Sodium (Protonix Ec Tab) 20 mg PO 0600 [facility] Last Admin: 07/22/18 05:06 Dose: 20 mg Polyethylene Glycol (Miralax) 17 gm PO DAILY PRN PRN Reason: Constipation Prednisone (Prednisone Tab) 20 mg PO DAILY [facility] Last Admin: 07/22/18 09:49 Dose: 20 mg Silver Sulfadiazine (Silvadene 1% 25 Gm) 0 gm TP BID [facility] Last Admin: 07/21/18 21:54 Dose: 25 gm Sucralfate (Carafate Oral Susp) 1 gm PO DAILY [facility] Last Admin: 07/22/18 09:51 Dose: 1 gm Tamsulosin HCl (Flomax) 0.4 mg PO DAILY [facility] Last Admin: 07/22/18 09:48 Dose: 0.4 mg Tramadol HCl (Ultram) 50 mg PO TID PRN PRN Reason: Pain, moderate (4-7) Last Admin: 07/22/18 06:36 Dose: 50 mg Results - Vital Signs Recent Vital Signs: Last Vital Signs Temp 98.9 F 07/21/18 20:26 Pulse 79 07/22/18 09:49 Resp 18 07/21/18 21:38 BP 99/45 L 07/22/18 09:51 Pulse Ox 96 07/21/18 20:26 - Labs Result Diagrams: 07/22/18 06:00 07/22/18 06:00 Labs: Laboratory Results - last 24 hr 07/21/18 07/21/18 07/21/18 18:00 18:00 19:00 WBC 12.5 H D RBC 3.50 Hgb 11.6 L Hct 34.9 L MCV 99.7 MCH 33.1 MCHC 33.2 RDW 14.9 H Plt Count 117 L MPV 10.1 Neut % (Auto) 90.4 H Lymph % (Auto) 5.9 L Benzie % (Auto) 3.0 Eos % (Auto) 0.6 L Baso % (Auto) 0.1 Lymph # (Auto) 0.7 L Benzie # (Auto) 0.4 Eos # (Auto) 0.1 Baso # (Auto) 0.01 Absolute Neuts (auto) 11.26 H Neutrophils % (Manual) 93 H Band Neutrophils % 1 Lymphocytes % (Manual) 3 L Monocytes % (Manual) 3 Platelet Evaluation Low Sodium 133 Potassium 3.9 Chloride 95 L Carbon Dioxide 31 Anion Gap 11 BUN 29 H Creatinine 1.2 Est GFR ( Amer) > 60 Est GFR (Non-Af Amer) 57 Random Glucose 129 H Lactic Acid Calcium 8.0 L Magnesium 2.2 Total Bilirubin 0.5 AST 26 ALT 32 Alkaline Phosphatase 47 Total Protein 5.5 L Albumin 3.0 Globulin 2.6 Albumin/Globulin Ratio 1.2 Urine Color Yellow Urine Appearance Clear Urine pH 7.0 Ur Specific [place] 1.010 Urine Protein Negative Urine Glucose (UA) Negative Urine Ketones Negative Urine Blood Trace-intact H Urine Nitrate Negative Urine Bilirubin Negative Urine Urobilinogen 0.2 Ur Leukocyte Esterase Negative Urine RBC 1 - 3 H Urine WBC 0 - 2 Ur Epithelial Cells 0 - 2 07/21/18 07/22/18 07/22/18 19:25 06:00 06:00 WBC 9.8 D RBC 3.35 L Hgb 10.9 L Hct 33.5 L MCV 100.0 MCH 32.5 MCHC 32.5 RDW 15.1 H Plt Count 99 L MPV 9.8 Neut % (Auto) 96.3 H Lymph % (Auto) 2.6 L Benzie % (Auto) 1.1 Eos % (Auto) 0.0 L Baso % (Auto) 0.0 Lymph # (Auto) 0.3 L Benzie # (Auto) 0.1 Eos # (Auto) 0.0 Baso # (Auto) 0.00 Absolute Neuts (auto) 9.46 H Neutrophils % (Manual) Band Neutrophils % Lymphocytes % (Manual) Monocytes % (Manual) Platelet Evaluation Sodium 135 Potassium 4.3 Chloride 101 Carbon Dioxide 28 Anion Gap 10 BUN 23 H Creatinine 0.9 Est GFR ( Amer) > 60 Est GFR (Non-Af Amer) > 60 Random Glucose 143 H Lactic Acid 1.3 Calcium 7.7 L Magnesium Total Bilirubin 0.6 AST 27 ALT 32 Alkaline Phosphatase 46 Total Protein 5.1 L Albumin 2.6 L Globulin 2.4 Albumin/Globulin Ratio 1.1 Urine Color Urine Appearance Urine pH Ur Specific [place] Urine Protein Urine Glucose (UA) Urine Ketones Urine Blood Urine Nitrate Urine Bilirubin Urine Urobilinogen Ur Leukocyte Esterase Urine RBC Urine WBC Ur Epithelial Cells
--- NOTE | 2018-07-22 10:10 | CP.PCM.HP ---
<Derik Moore - Last Filed: 07/22/18 13:47> History of Present Illness - History of Present Illness History of Present Illness: Derik Moore PGY2 H&P for Dr. Khalil 88 year old male with stage IV NSLC on Keytruda, transitional cell carcinoma of the kidney, emphysema, COPD, HTN, HLD, CAD who presented after feeling cold at home. He also has a rash which has worsened. Patient was discharged to home two days ago after being treated for esophageal candidiasis, mild odynophagia, and HCAP. Patient denies chest pain, fever, but admits to chills, denies nausea, vomiting, diarrhea, sick contacts, or any other complaints at this time. PMH: as above PSH: Ureteral stent, Renal Bx, L hip replacement Fam Hx: non-contributory Soc Hx: Former tobacco user (~1ppd > 20 yrs, quit > 15 yrs ago), denies alc ohol/illicits/IVDA Meds: As per MAR Present on Admission - Present on Admission Any Indicators Present on Admission: No Review of Systems - Review of Systems Review of Systems: Negative except mentioned in HPI Past Patient History - Infectious Disease Hx of Infectious Diseases: None - Tetanus Immunizations Tetanus Immunization: Unknown - Past Social History Smoking Status: Never Smoked - CARDIAC Hx Cardiac Disorders: Yes (angioplasty) Hx Hypercholesterolemia: Yes Hx Hypertension: Yes - PULMONARY Hx Respiratory Disorders: Yes (lung ca) Hx Chronic Obstructive Pulmonary Disease (COPD): Yes Hx Pneumonia: Yes - NEUROLOGICAL Hx Neurological Disorder: No - HEENT Hx HEENT Problems: Yes Hx Glaucoma: Yes - RENAL Hx Chronic Kidney Disease: Yes (UROTHELIAL MALIGNACY) Other/Comment: kidney ca - ENDOCRINE/METABOLIC Hx Endocrine Disorders: No - HEMATOLOGICAL/ONCOLOGICAL Hx Blood Disorders: Yes Hx Cancer: Yes (lung ca, kidney ca, prostate ca) Hx Chemotherapy: Yes - INTEGUMENTARY Hx Dermatological Problems: Yes (radiation michele) - MUSCULOSKELETAL/RHEUMATOLOGICAL Hx Musculoskeletal Disorders: Yes (left hip orif) Hx Arthritis: Yes Hx Falls: No Hx Unsteady Gait: Yes - GASTROINTESTINAL Hx Gastrointestinal Disorders: No - GENITOURINARY/GYNECOLOGICAL Hx Genitourinary Disorders: Yes Hx Incontinence: Yes Hx Prostate Problems: Yes (PROSTATE CA) - PSYCHIATRIC Hx Psychophysiologic Disorder: No Hx Substance Use: No - SURGICAL HISTORY Hx Surgeries: Yes (cardiac cath) Hx Cardiac Catheterization: Yes (STENTS X4) Hx Joint Replacement: Yes (LEFT HIP ORIF) - ANESTHESIA Hx Anesthesia Reactions: No Meds Allergies/Adverse Reactions: Allergies Allergy/AdvReac Type Severity Reaction Status Date / Time clopidogrel bisulfate Allergy ANAPHYLAXIS Verified 07/21/18 17:11 [From Plavix] Physical Exam - Constitutional Appears: Non-toxic, No Acute Distress - Head Exam Head Exam: ATRAUMATIC, NORMAL INSPECTION, NORMOCEPHALIC - Eye Exam Eye Exam: EOMI, Normal appearance - Respiratory Exam Respiratory Exam: Clear to Auscultation Bilateral, NORMAL BREATHING PATTERN - Cardiovascular Exam Cardiovascular Exam: REGULAR RHYTHM - Neurological Exam Neurological exam: Alert, Oriented x3 - Skin Skin Exam: Erythema, Rash Additional comments: diffuse rash all over, with some blistering noted Results - Vital Signs Recent Vital Signs: Last Vital Signs Temp 98.9 F 07/21/18 20:26 Pulse 79 07/22/18 09:49 Resp 18 07/21/18 21:38 BP 99/45 L 07/22/18 09:51 Pulse Ox 96 07/21/18 20:26 - Labs Result Diagrams: 07/22/18 06:00 07/22/18 06:00 Labs: Laboratory Results - last 24 hr 07/21/18 07/21/18 07/21/18 18:00 18:00 19:00 WBC 12.5 H D RBC 3.50 Hgb 11.6 L Hct 34.9 L MCV 99.7 MCH 33.1 MCHC 33.2 RDW 14.9 H Plt Count 117 L MPV 10.1 Neut % (Auto) 90.4 H Lymph % (Auto) 5.9 L [place] % (Auto) 3.0 Eos % (Auto) 0.6 L Baso % (Auto) 0.1 Lymph # (Auto) 0.7 L [place] # (Auto) 0.4 Eos # (Auto) 0.1 Baso # (Auto) 0.01 Absolute Neuts (auto) 11.26 H Neutrophils % (Manual) 93 H Band Neutrophils % 1 Lymphocytes % (Manual) 3 L Monocytes % (Manual) 3 Platelet Evaluation Low Sodium 133 Potassium 3.9 Chloride 95 L Carbon Dioxide 31 Anion Gap 11 BUN 29 H Creatinine 1.2 Est GFR ( Amer) > 60 Est GFR (Non-Af Amer) 57 Random Glucose 129 H Lactic Acid Calcium 8.0 L Magnesium 2.2 Total Bilirubin 0.5 AST 26 ALT 32 Alkaline Phosphatase 47 Total Protein 5.5 L Albumin 3.0 Globulin 2.6 Albumin/Globulin Ratio 1.2 Urine Color Yellow Urine Appearance Clear Urine pH 7.0 Ur Specific [place] 1.010 Urine Protein Negative Urine Glucose (UA) Negative Urine Ketones Negative Urine Blood Trace-intact H Urine Nitrate Negative Urine Bilirubin Negative Urine Urobilinogen 0.2 Ur Leukocyte Esterase Negative Urine RBC 1 - 3 H Urine WBC 0 - 2 Ur Epithelial Cells 0 - 2 07/21/18 07/22/18 07/22/18 19:25 06:00 06:00 WBC 9.8 D RBC 3.35 L Hgb 10.9 L Hct 33.5 L MCV 100.0 MCH 32.5 MCHC 32.5 RDW 15.1 H Plt Count 99 L MPV 9.8 Neut % (Auto) 96.3 H Lymph % (Auto) 2.6 L [place] % (Auto) 1.1 Eos % (Auto) 0.0 L Baso % (Auto) 0.0 Lymph # (Auto) 0.3 L [place] # (Auto) 0.1 Eos # (Auto) 0.0 Baso # (Auto) 0.00 Absolute Neuts (auto) 9.46 H Neutrophils % (Manual) Band Neutrophils % Lymphocytes % (Manual) Monocytes % (Manual) Platelet Evaluation Sodium 135 Potassium 4.3 Chloride 101 Carbon Dioxide 28 Anion Gap 10 BUN 23 H Creatinine 0.9 Est GFR ( Amer) > 60 Est GFR (Non-Af Amer) > 60 Random Glucose 143 H Lactic Acid 1.3 Calcium 7.7 L Magnesium Total Bilirubin 0.6 AST 27 ALT 32 Alkaline Phosphatase 46 Total Protein 5.1 L Albumin 2.6 L Globulin 2.4 Albumin/Globulin Ratio 1.1 Urine Color Urine Appearance Urine pH Ur Specific [place] Urine Protein Urine Glucose (UA) Urine Ketones Urine Blood Urine Nitrate Urine Bilirubin Urine Urobilinogen Ur Leukocyte Esterase Urine RBC Urine WBC Ur Epithelial Cells Assessment & Plan - Assessment and Plan (Free Text) Plan: Rash -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 Khalil CAD -continue home meds -cardio consulted, Damaris HLD - Continue home statin Prostate CA -Continue caodex -Continue flomax <Malini Khalil P - Last Filed: 07/23/18 12:04> Results - Vital Signs Recent Vital Signs: Last Vital Signs Temp 98.6 F 07/23/18 06:00 Pulse 80 07/23/18 06:00 Resp 20 07/23/18 06:00 BP 106/67 07/23/18 10:23 Pulse Ox 100 07/23/18 06:00 - Labs Result Diagrams: 07/23/18 07:00 07/23/18 06:30 Labs: Laboratory Results - last 24 hr 07/21/18 07/23/18 07/23/18 18:00 06:30 07:00 WBC 16.2 H D RBC 3.27 L Hgb 10.6 L Hct 32.7 L MCV 100.0 MCH 32.4 MCHC 32.4 RDW 14.8 H Plt Count 99 L MPV 9.8 Neut % (Auto) 95.3 H Lymph % (Auto) 2.1 L [place] % (Auto) 2.6 Eos % (Auto) 0.0 L Baso % (Auto) 0.0 Lymph # (Auto) 0.3 L [place] # (Auto) 0.4 Eos # (Auto) 0.0 Baso # (Auto) 0.00 Absolute Neuts (auto) 15.40 H Sodium 134 Potassium 4.6 Chloride 100 Carbon Dioxide 28 Anion Gap 11 BUN 23 H Creatinine 0.9 Est GFR ( Amer) > 60 Est GFR (Non-Af Amer) > 60 Random Glucose 145 H Calcium 8.3 L Total Bilirubin 0.4 AST 21 ALT 32 Alkaline Phosphatase 48 Total Protein 5.2 L Albumin 2.7 L Globulin 2.5 Albumin/Globulin Ratio 1.1 Procalcitonin < 0.05 L Attending/Attestation - Attestation I have personally seen and examined this patient.: Yes I have fully participated in the care of the patient.: Yes I have reviewed all pertinent clinical information: Yes
[2018-07-22] MEDS: MOMETASONE 0.1% TOP SCH ×2 (10:42→17:18)
[2018-07-22] MEDS: Silver Sulfadiazine 1% Cream (25 gm) TP SCH ×2 (10:42→17:18)
--- NOTE | 2018-07-22 12:16 | CP.PCM.CON ---
History of Present Illness - History of Present Illness History of Present Illness: Palliative consult requested Dr Sydnie Khalil Reason Advance care planning This is an 88 year old male with significant history of NSCL cancer s/p XRT, receiving Keytruda who presented to ED because he was feeling cold with chills and weakness. He denied fever, nausea, vomiting, diarrhea, shortness of breath chest /abdominal pain,dysuria. He was recently admitted to [facility] [place] with esophageal candidiasis, and HCAP, discharged 3 days ago. Labs: Mccoy cultures pending PMHX: metastatic NSCL cancer, transitional cell carcinoma of kidney,COPD,HTN, HLD,CAD, s/p esophagitus, anemia, prostate cancer PSHx: Ureterel stent, renal biopsy, L hip replacement,angioplasty Family History: Non contributory Social History: Former smoker no alcohol or drug abuse. , lives with spouse. Advance Care Planning: The patient does not have an Advanced Directive Review of Systems: As per HPI, 12 point ROS negative Past Patient History - Infectious Disease Hx of Infectious Diseases: None - Tetanus Immunizations Tetanus Immunization: Unknown - Past Social History Smoking Status: Never Smoked - CARDIAC Hx Cardiac Disorders: Yes (angioplasty) Hx Hypercholesterolemia: Yes Hx Hypertension: Yes - PULMONARY Hx Respiratory Disorders: Yes (lung ca) Hx Chronic Obstructive Pulmonary Disease (COPD): Yes Hx Pneumonia: Yes - NEUROLOGICAL Hx Neurological Disorder: No - HEENT Hx HEENT Problems: Yes Hx Glaucoma: Yes - RENAL Hx Chronic Kidney Disease: Yes (UROTHELIAL MALIGNACY) Other/Comment: kidney ca - ENDOCRINE/METABOLIC Hx Endocrine Disorders: No - HEMATOLOGICAL/ONCOLOGICAL Hx Blood Disorders: Yes Hx Cancer: Yes (lung ca, kidney ca, prostate ca) Hx Chemotherapy: Yes - INTEGUMENTARY Hx Dermatological Problems: Yes (radiation michele) - MUSCULOSKELETAL/RHEUMATOLOGICAL Hx Musculoskeletal Disorders: Yes (left hip orif) Hx Arthritis: Yes Hx Falls: No Hx Unsteady Gait: Yes - GASTROINTESTINAL Hx Gastrointestinal Disorders: No - GENITOURINARY/GYNECOLOGICAL Hx Genitourinary Disorders: Yes Hx Incontinence: Yes Hx Prostate Problems: Yes (PROSTATE CA) - PSYCHIATRIC Hx Psychophysiologic Disorder: No Hx Substance Use: No - SURGICAL HISTORY Hx Surgeries: Yes (cardiac cath) Hx Cardiac Catheterization: Yes (STENTS X4) Hx Joint Replacement: Yes (LEFT HIP ORIF) - ANESTHESIA Hx Anesthesia Reactions: No Meds Allergies/Adverse Reactions: Allergies Allergy/AdvReac Type Severity Reaction Status Date / Time clopidogrel bisulfate Allergy ANAPHYLAXIS Verified 07/21/18 17:11 [From Plavix] - Medications Medications: Current Medications Acetaminophen (Tylenol 325mg Tab) 650 mg PO Q6H PRN PRN Reason: Pain, Mild (1-3) Al Hydrox/Mg Hydrox/Simethicone (Maalox Plus 30 Ml) 30 ml PO 1200 PRN PRN Reason: Indigestion / Heartburn Arformoterol Tartrate (Brovana) 15 mcg IH [id number] [facility] Last Admin: 07/22/18 07:58 Dose: 15 mcg Aspirin (Ecotrin) 81 mg PO DAILY [facility] Last Admin: 07/22/18 10:41 Dose: 81 mg Bicalutamide (Casodex) 50 mg PO DAILY [facility] Last Admin: 07/22/18 10:41 Dose: 50 mg Docusate Sodium (Colace) 100 mg PO DAILY [facility] Doxycycline Hyclate (Doryx) 100 mg PO Q12 [facility]; Protocol Stop: 07/28/18 22:01 Last Admin: 07/22/18 09:49 Dose: 100 mg Furosemide (Lasix) 20 mg PO DAILY [facility] Last Admin: 07/22/18 09:50 Dose: 20 mg Meropenem (Merrem Iv 1 Gm Premix) 1 gm in 50 mls @ 100 mls/hr IVPB Q12 [facility]; Protocol Stop: 07/29/18 22:01 Last Admin: 07/22/18 09:50 Dose: 100 mls/hr Loratadine (Claritin) 10 mg PO DAILY [facility] Last Admin: 07/22/18 09:49 Dose: 10 mg Metoprolol Succinate (Toprol Xl) 50 mg PO BRK [facility] Last Admin: 07/22/18 09:51 Dose: Not Given Mometasone Furoate (Elocon Lotion) 0 ml TOP BID [facility] Last Admin: 07/22/18 10:42 Dose: 1 applic Montelukast Sodium (Singulair) 10 mg PO HS [facility] Last Admin: 07/21/18 21:52 Dose: 10 mg Nifedipine (Procardia Xl) 30 mg PO DAILY [facility] Last Admin: 07/22/18 09:49 Dose: 30 mg Pantoprazole Sodium (Protonix Ec Tab) 20 mg PO 0600 [facility] Last Admin: 07/22/18 05:06 Dose: 20 mg Polyethylene Glycol (Miralax) 17 gm PO DAILY PRN PRN Reason: Constipation Prednisone (Prednisone Tab) 20 mg PO DAILY [facility] Last Admin: 07/22/18 09:49 Dose: 20 mg Silver Sulfadiazine (Silvadene 1% 25 Gm) 0 gm TP BID [facility] Last Admin: 07/22/18 10:42 Dose: 25 gm Tamsulosin HCl (Flomax) 0.4 mg PO DAILY [facility] Last Admin: 07/22/18 09:48 Dose: 0.4 mg Tramadol HCl (Ultram) 50 mg PO TID PRN PRN Reason: Pain, moderate (4-7) Last Admin: 07/22/18 06:36 Dose: 50 mg Physical Exam - Constitutional Appears: No Acute Distress, Chronically Ill - Head Exam Head Exam: NORMOCEPHALIC - Eye Exam Eye Exam: Normal appearance, PERRL - ENT Exam ENT Exam: Mucous Membranes Moist - Respiratory Exam Respiratory Exam: Clear to Auscultation Bilateral, NORMAL BREATHING PATTERN - Cardiovascular Exam Cardiovascular Exam: REGULAR RHYTHM, +S1, +S2 - GI/Abdominal Exam GI & Abdominal Exam: Normal Bowel Sounds, Soft - Extremities Exam Extremities exam: Positive for: pedal pulses present - Neurological Exam Neurological exam: Alert, Oriented x3 - Skin Skin Exam: Dry, Pallor Additional comments: diffuse erythematous rash over entire body, karina to back and chest Results - Vital Signs Recent Vital Signs: Last Vital Signs Temp 98.9 F 07/21/18 20:26 Pulse 79 07/22/18 09:49 Resp 18 07/21/18 21:38 BP 99/45 L 07/22/18 09:51 Pulse Ox 96 07/21/18 20:26 - Labs Result Diagrams: 07/22/18 06:00 07/22/18 06:00 Labs: Laboratory Results - last 24 hr 07/21/18 07/21/18 07/21/18 18:00 18:00 19:00 WBC 12.5 H D RBC 3.50 Hgb 11.6 L Hct 34.9 L MCV 99.7 MCH 33.1 MCHC 33.2 RDW 14.9 H Plt Count 117 L MPV 10.1 Neut % (Auto) 90.4 H Lymph % (Auto) 5.9 L [place] % (Auto) 3.0 Eos % (Auto) 0.6 L Baso % (Auto) 0.1 Lymph # (Auto) 0.7 L [place] # (Auto) 0.4 Eos # (Auto) 0.1 Baso # (Auto) 0.01 Absolute Neuts (auto) 11.26 H Neutrophils % (Manual) 93 H Band Neutrophils % 1 Lymphocytes % (Manual) 3 L Monocytes % (Manual) 3 Platelet Evaluation Low Sodium 133 Potassium 3.9 Chloride 95 L Carbon Dioxide 31 Anion Gap 11 BUN 29 H Creatinine 1.2 Est GFR ( Amer) > 60 Est GFR (Non-Af Amer) 57 Random Glucose 129 H Lactic Acid Calcium 8.0 L Magnesium 2.2 Total Bilirubin 0.5 AST 26 ALT 32 Alkaline Phosphatase 47 Total Protein 5.5 L Albumin 3.0 Globulin 2.6 Albumin/Globulin Ratio 1.2 Plasma Cortisol PM Urine Color Yellow Urine Appearance Clear Urine pH 7.0 Ur Specific [place] 1.010 Urine Protein Negative Urine Glucose (UA) Negative Urine Ketones Negative Urine Blood Trace-intact H Urine Nitrate Negative Urine Bilirubin Negative Urine Urobilinogen 0.2 Ur Leukocyte Esterase Negative Urine RBC 1 - 3 H Urine WBC 0 - 2 Ur Epithelial Cells 0 - 2 07/21/18 07/21/18 07/22/18 19:25 19:28 06:00 WBC 9.8 D RBC 3.35 L Hgb 10.9 L Hct 33.5 L MCV 100.0 MCH 32.5 MCHC 32.5 RDW 15.1 H Plt Count 99 L MPV 9.8 Neut % (Auto) 96.3 H Lymph % (Auto) 2.6 L [place] % (Auto) 1.1 Eos % (Auto) 0.0 L Baso % (Auto) 0.0 Lymph # (Auto) 0.3 L [place] # (Auto) 0.1 Eos # (Auto) 0.0 Baso # (Auto) 0.00 Absolute Neuts (auto) 9.46 H Neutrophils % (Manual) Band Neutrophils % Lymphocytes % (Manual) Monocytes % (Manual) Platelet Evaluation Sodium Potassium Chloride Carbon Dioxide Anion Gap BUN Creatinine Est GFR ( Amer) Est GFR (Non-Af Amer) Random Glucose Lactic Acid 1.3 Calcium Magnesium Total Bilirubin AST ALT Alkaline Phosphatase Total Protein Albumin Globulin Albumin/Globulin Ratio Plasma Cortisol PM 11.5 Urine Color Urine Appearance Urine pH Ur Specific [place] Urine Protein Urine Glucose (UA) Urine Ketones Urine Blood Urine Nitrate Urine Bilirubin Urine Urobilinogen Ur Leukocyte Esterase Urine RBC Urine WBC Ur Epithelial Cells 07/22/18 06:00 WBC RBC Hgb Hct MCV MCH MCHC RDW Plt Count MPV Neut % (Auto) Lymph % (Auto) [place] % (Auto) Eos % (Auto) Baso % (Auto) Lymph # (Auto) [place] # (Auto) Eos # (Auto) Baso # (Auto) Absolute Neuts (auto) Neutrophils % (Manual) Band Neutrophils % Lymphocytes % (Manual) Monocytes % (Manual) Platelet Evaluation Sodium 135 Potassium 4.3 Chloride 101 Carbon Dioxide 28 Anion Gap 10 BUN 23 H Creatinine 0.9 Est GFR ( Amer) > 60 Est GFR (Non-Af Amer) > 60 Random Glucose 143 H Lactic Acid Calcium 7.7 L Magnesium Total Bilirubin 0.6 AST 27 ALT 32 Alkaline Phosphatase 46 Total Protein 5.1 L Albumin 2.6 L Globulin 2.4 Albumin/Globulin Ratio 1.1 Plasma Cortisol PM Urine Color Urine Appearance Urine pH Ur Specific [place] Urine Protein Urine Glucose (UA) Urine Ketones Urine Blood Urine Nitrate Urine Bilirubin Urine Urobilinogen Ur Leukocyte Esterase Urine RBC Urine WBC Ur Epithelial Cells Assessment & Plan - Assessment and Plan (Free Text) Assessment: 88 year old male with history of metastatic NSCL cancer s/p XRT now on Keytruda, transitional cell carcinoma of kidney,COPD,HTN, HLD,CAD,esophagitus, anemia, prostate cancer who is admited with chills, weakness michele non chest and back and diffuse body rash Patients and two daughter's at bedside. Palliative services introduced. The patient and family open and receptive to discussion.The pait indicated that he was open to speaking with me in front of his family. When goals of care and advanced care planning was initiated, patients became agitated. She stated "people are always asking about this and there is "nothing to talk about". She went on to say that she will make all the decisions and wants everything done. I tried to explain that I was actually wanting to hear more with her about his wishes and would be glad to come back at another time. Mr Cabrera did not want to discuss goals of care or advance care planning today Time spent with patient and family in goals of care and advance care planning, 20 minutes Plan: Goals of care and advance care planning Chest/back michele: Continue Silvadene cream to affected areas Dermatitis: Secondary to Keytruda? Diflucan discontinued, on Doxycycline and Merrem. ID consult pending. Pulmonary following, res reviewed, continue Brovana, Singilar, Loratadine,Prednisone Ecotrin, Toprol daily Tramadol for pain
--- NOTE | 2018-07-22 12:32 | PN ---
DATE: 07/22/2018 PULMONARY PROGRESS NOTE REFERRING PHYSICIAN: Mic Dougherty MD SUBJECTIVE: The patient is seen sitting up at bed, family at bedside. Reports having rash that has extended all over his chest, arms, head, states that rash is painful. The patient is covered with Gala Hugger. Reports feeling little bit better from yesterday. No headache, rhinitis, cough, shortness of breath, chest pain, abdominal pain, nausea, vomiting, diarrhea, leg pain or leg swelling reported. States that he does get shortness of breath with exertion. OBJECTIVE: GENERAL: No acute distress. VITAL SIGNS: Blood pressure 106/42, pulse 79, temperature 98.9, oxygen saturations 96% on nasal cannula. HEENT: Moist mucous membranes. Crowded airway. NECK: Supple. No JVD. LUNGS: Few scattered rhonchi bilaterally. CARDIOVASCULAR: S1 and S2. ABDOMEN: Soft, nontender. No distention. No organomegaly. EXTREMITIES: No bilateral lower extremity edema. NEUROLOGIC: Awake alert and verbal. Following commands. MEDICATIONS: Reviewed. Tylenol 650 mg every 6 hours p.r.n. for mild pain, Maalox 30 mL p.o. p.r.n., Brovana 15 mcg every 12 hours, aspirin 81 mg daily, Casodex 50 mg daily, Colace 100 mg daily, doxycycline 100 mg every 12 hours, Lasix 20 mg daily, Claritin 10 mg daily, meropenem 1 g every 12 hours, metoprolol succinate 50 mg at breakfast, Elocon lotion topically twice a day to affected area, Singulair 10 mg at bedtime, Procardia-XL 30 mg daily, Protonix 20 mg daily, MiraLax 17 g p.r.n., Silvadene topically twice a day to affected area, sodium chloride 0.9% 1000 mL at 50 mL per hour, Flomax 0.4 mg daily, Ultram 50 mg 3 times a day p.r.n. LABORATORY DATA: Reviewed. WBC 9.8, RBC 3.35, hemoglobin 10.9, hematocrit 33.5, and platelets 99. Sodium 135, potassium 4.3, chloride 101, carbon dioxide 28, anion gap of 10, BUN 23, creatinine 0.9, GFR greater than 60, random glucose 143, calcium 7.7, total bilirubin 0.6, AST 27, ALT 32, alkaline phosphatase 46, total protein 5.1, albumin 2.6, globulin 2.4 and albumin-globulin ration 1.1. 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 Continue current steroid dosing. Continue inhaled bronchodilators. Procalcitonin pending, stool ordered for Clostridium difficile. Continue antibiotics per Infectious Disease. We will discontinue IV fluids at this time. Gastroenterology followup. Continue Hematology and Oncology followup. This patient was seen and examined with Dr. Dixon. Discussed assessment and plan as described above. This patient was seen and examined with Leandro Salas, nurse practitioner. Discussed assessment and plan as described above. Thank you for the consult, we will follow with you. Leandro Salas APN Ankur Dixon MD ANA
[2018-07-22] MEDS: Alum-Mag Hydrox-Simethicone Susp (30 mL) PO PRN (22:26)
[2018-07-22] MEDS: Doxepin HCL 10 mg/mL ORAL SOLUTION PO SCH (22:26)
[2018-07-23] MEDS: Pantoprazole 20 mg EC Tab PO SCH (06:17)
[2018-07-23 07:32] LABS: HEMOGLOBIN 10.6 g/dL (14.0-18.0); LYMPH # 0.3 (1.2-3.4); LYMPH % 2.1 % (22.0-35.0); MEAN CORPUSCULAR HEMOGLOBIN 32.4 pg (25.0-35.0); MEAN CORPUSCULAR HGB CONC 32.4 g/dl (31.0-37.0); MEAN PLATELET VOLUME 9.8 fl (7.0-11.0); MONO # 0.4 (0.1-0.6); MONO % 2.6 % (1.0-6.0); RBC 3.27 10^6/uL (3.5-6.1); RED CELL DISTRIBUTION WIDTH 14.8 % (11.5-14.5); WHITE BLOOD COUNT 16.2 10^3/uL (4.5-11.0)
[2018-07-23 07:52] LABS: ALB/GLOB RATIO 1.1 (1.1-1.8); ALBUMIN 2.7 g/dL (3.0-4.8); ALT/SGPT 32 U/L (7-56); AST/SGOT 21 U/L (17-59); BLOOD UREA NITROGEN 23 mg/dL (7-21); CALCIUM 8.3 mg/dL (8.4-10.5); GFR NON-AFRICAN AMERICAN > 60
[2018-07-23] MEDS: Arformoterol 15 mcg/2 ml Inh Sol IH SCH ×2 (08:22→21:20)
[2018-07-23] MEDS: Meropenem IV 1 gm in NS 1 GM/50 ML BAG IVPB SCH (10:22)
[2018-07-23] MEDS: Silver Sulfadiazine 1% Cream (25 gm) TP SCH ×2 (10:24→17:44)
[2018-07-23] MEDS: Metoprolol Succinate 50 mg XL Tab PO SCH (10:24)
[2018-07-23] MEDS: MOMETASONE 0.1% TOP SCH ×2 (10:26→17:45)
[2018-07-23] MEDS: NIFEdipine 30 mg ER Tab PO SCH (12:35)
--- NOTE | 2018-07-23 13:10 | CP.PCM.CON ---
<HonorioVivian - Last Filed: 07/24/18 07:57> History of Present Illness - History of Present Illness History of Present Illness: Podiatry Consult Note: Dr. Gomez 88M patient with PMHx of PMH stage IV NSLC, transitional cell carcinoma of the kidney, COPD, HTN, HLD, CAD, seen and examined at bedside for painful elongated nails. Patient states that he used to follow up with Dr. Lugo in office, however he doesn't see her anymore. He states that his nails cause him pain and discomfort in his shoes and he cannot debride them himself. He denies any nausea/vomiting/fever. PMHx: PMH stage IV NSLC, transitional cell carcinoma of the kidney, COPD, HTN, HLD, CAD PSHx: L hip replacement, Ureteral stent SH: Former tobacco use ALL: Clopidogrel Review of Systems - Constitutional Constitutional: As Per HPI Past Patient History - Infectious Disease Hx of Infectious Diseases: None - Tetanus Immunizations Tetanus Immunization: Unknown - Past Social History Smoking Status: Never Smoked - CARDIAC Hx Cardiac Disorders: Yes (angioplasty) Hx Hypercholesterolemia: Yes Hx Hypertension: Yes - PULMONARY Hx Respiratory Disorders: Yes (lung ca) Hx Chronic Obstructive Pulmonary Disease (COPD): Yes Hx Pneumonia: Yes - NEUROLOGICAL Hx Neurological Disorder: No - HEENT Hx HEENT Problems: Yes Hx Glaucoma: Yes - RENAL Hx Chronic Kidney Disease: Yes (UROTHELIAL MALIGNACY) Other/Comment: kidney ca - ENDOCRINE/METABOLIC Hx Endocrine Disorders: No - HEMATOLOGICAL/ONCOLOGICAL Hx Blood Disorders: Yes Hx Cancer: Yes (lung ca, kidney ca, prostate ca) Hx Chemotherapy: Yes - INTEGUMENTARY Hx Dermatological Problems: Yes (radiation michele) - MUSCULOSKELETAL/RHEUMATOLOGICAL Hx Musculoskeletal Disorders: Yes (left hip orif) Hx Arthritis: Yes Hx Falls: No Hx Unsteady Gait: Yes - GASTROINTESTINAL Hx Gastrointestinal Disorders: No - GENITOURINARY/GYNECOLOGICAL Hx Genitourinary Disorders: Yes Hx Incontinence: Yes Hx Prostate Problems: Yes (PROSTATE CA) - PSYCHIATRIC Hx Psychophysiologic Disorder: No Hx Substance Use: No - SURGICAL HISTORY Hx Surgeries: Yes (cardiac cath) Hx Cardiac Catheterization: Yes (STENTS X4) Hx Joint Replacement: Yes (LEFT HIP ORIF) - ANESTHESIA Hx Anesthesia Reactions: No Meds Allergies/Adverse Reactions: Allergies Allergy/AdvReac Type Severity Reaction Status Date / Time clopidogrel bisulfate Allergy ANAPHYLAXIS Verified 07/21/18 17:11 [From Plavix] - Medications Medications: Current Medications Acetaminophen (Tylenol 325mg Tab) 650 mg PO Q6H PRN PRN Reason: Pain, Mild (1-3) Al Hydrox/Mg Hydrox/Simethicone (Maalox Plus 30 Ml) 30 ml PO 1200 PRN PRN Reason: Indigestion / Heartburn Last Admin: 07/22/18 22:26 Dose: 30 ml Arformoterol Tartrate (Brovana) 15 mcg IH [id number] [facility] Last Admin: 07/23/18 08:22 Dose: 15 mcg Aspirin (Ecotrin) 81 mg PO DAILY [facility] Last Admin: 07/23/18 12:35 Dose: 81 mg Bicalutamide (Casodex) 50 mg PO DAILY [facility] Last Admin: 07/23/18 11:03 Dose: 50 mg Docusate Sodium (Colace) 100 mg PO DAILY [facility] Last Admin: 07/23/18 10:23 Dose: 100 mg Furosemide (Lasix) 20 mg PO DAILY [facility] Last Admin: 07/23/18 10:23 Dose: 20 mg Lidocaine HCl (Xylocaine 2%) 0 ea TOP TID PRN PRN Reason: Pain, Mild (1-3) Loratadine (Claritin) 10 mg PO DAILY [facility] Last Admin: 07/23/18 10:23 Dose: 10 mg Metoprolol Succinate (Toprol Xl) 50 mg PO BRK [facility] Last Admin: 07/23/18 10:24 Dose: Not Given Mometasone Furoate (Elocon Lotion) 0 ml TOP BID [facility] Last Admin: 07/23/18 10:26 Dose: 1 applic Nifedipine (Procardia Xl) 30 mg PO DAILY [facility] Last Admin: 07/23/18 12:35 Dose: 30 mg Pantoprazole Sodium (Protonix Ec Tab) 20 mg PO 0600 [facility] Last Admin: 07/23/18 06:17 Dose: 20 mg Polyethylene Glycol (Miralax) 17 gm PO DAILY PRN PRN Reason: Constipation Prednisone (Prednisone Tab) 20 mg PO DAILY [facility] Last Admin: 07/23/18 10:22 Dose: 20 mg Silver Sulfadiazine (Silvadene 1% 25 Gm) 0 gm TP BID [facility] Last Admin: 07/23/18 10:24 Dose: 25 gm Tamsulosin HCl (Flomax) 0.4 mg PO DAILY [facility] Last Admin: 07/23/18 10:22 Dose: 0.4 mg Tramadol HCl (Ultram) 50 mg PO TID PRN PRN Reason: Pain, moderate (4-7) Last Admin: 07/23/18 06:20 Dose: 50 mg Physical Exam - Constitutional Appears: Non-toxic, No Acute Distress - Head Exam Head Exam: ATRAUMATIC, NORMOCEPHALIC - Extremities Exam Extremities exam: Positive for: normal capillary refill. Negative for: calf tenderness Additional comments: Vascular: DP/PT 2/4, CFT < 3 seconds, TG warm to warm, no edema appreciated Ortho: Pain upon palpation of nails, MMT 5/5 Neuro: Gross and protective sensation intact Derm: Elongated, dystrophic nails x10, erythematous patches on lower and upper extremities appreciated, no open lesions, no drainage, no purulence - Neurological Exam Neurological exam: Alert, Oriented x3 - Psychiatric Exam Psychiatric exam: Normal Affect, Normal Mood - Skin Skin Exam: Warm Results - Vital Signs Recent Vital Signs: Last Vital Signs Temp 98.6 F 07/23/18 06:00 Pulse 80 07/23/18 06:00 Resp 20 07/23/18 06:00 BP 106/67 07/23/18 10:23 Pulse Ox 100 07/23/18 06:00 - Labs Result Diagrams: 07/23/18 07:00 07/23/18 06:30 Labs: Laboratory Results - last 24 hr 07/23/18 07/23/18 06:30 07:00 WBC 16.2 H D RBC 3.27 L Hgb 10.6 L Hct 32.7 L MCV 100.0 MCH 32.4 MCHC 32.4 RDW 14.8 H Plt Count 99 L MPV 9.8 Neut % (Auto) 95.3 H Lymph % (Auto) 2.1 L [place] % (Auto) 2.6 Eos % (Auto) 0.0 L Baso % (Auto) 0.0 Lymph # (Auto) 0.3 L [place] # (Auto) 0.4 Eos # (Auto) 0.0 Baso # (Auto) 0.00 Absolute Neuts (auto) 15.40 H Sodium 134 Potassium 4.6 Chloride 100 Carbon Dioxide 28 Anion Gap 11 BUN 23 H Creatinine 0.9 Est GFR ( Amer) > 60 Est GFR (Non-Af Amer) > 60 Random Glucose 145 H Calcium 8.3 L Total Bilirubin 0.4 AST 21 ALT 32 Alkaline Phosphatase 48 Total Protein 5.2 L Albumin 2.7 L Globulin 2.5 Albumin/Globulin Ratio 1.1 Assessment & Plan - Assessment and Plan (Free Text) Assessment: 88M patient with elongated/dystrophic painful nails x10 Plan: Patient seen and evaluated Discussed patient with Dr. Gomez Nails debrided x10 with a large nail nipper without incident Podiatry to sign off Thank you for the consult - Date & Time Date: 07/23/18 Time: 13:10 <Thompson Gomez - Last Filed: 07/26/18 12:40> Meds - Medications Medications: Current Medications Acetaminophen (Tylenol 325mg Tab) 650 mg PO Q6H PRN PRN Reason: Pain, Mild (1-3) Last Admin: 07/25/18 06:05 Dose: 650 mg Al Hydrox/Mg Hydrox/Simethicone (Maalox Plus 30 Ml) 30 ml PO 1200 PRN PRN Reason: Indigestion / Heartburn Last Admin: 07/22/18 22:26 Dose: 30 ml Arformoterol Tartrate (Brovana) 15 mcg IH [id number] [facility] Last Admin: 07/26/18 07:52 Dose: 15 mcg Aspirin (Ecotrin) 81 mg PO DAILY [facility] Last Admin: 07/26/18 10:34 Dose: 81 mg Bicalutamide (Casodex) 50 mg PO DAILY [facility] Last Admin: 07/25/18 10:16 Dose: 50 mg Docusate Sodium (Colace) 100 mg PO BID [facility] Last Admin: 07/26/18 10:34 Dose: 100 mg Dorzolamide HCl (Trusopt) 0 ml OD BID [facility]; Protocol Last Admin: 07/26/18 10:37 Dose: 1 drop Furosemide (Lasix) 20 mg PO DAILY [facility] Last Admin: 07/26/18 10:35 Dose: 20 mg Home Med (Home Med) 0 unit TOP TID [facility] Hydrocortisone (Cortizone 2.5% Cream) 0 applic TOP DAILY [facility] Lidocaine HCl (Xylocaine 2%) 0 ea TOP TID PRN PRN Reason: Pain, Mild (1-3) Last Admin: 07/24/18 10:40 Dose: 1 applic Loratadine (Claritin) 10 mg PO DAILY [facility] Last Admin: 07/26/18 10:34 Dose: 10 mg Methylprednisolone (Solu-Medrol) 40 mg IVP Q12H [facility] Last Admin: 07/26/18 12:30 Dose: 40 mg Metoprolol Succinate (Toprol Xl) 50 mg PO BRK [facility] Last Admin: 07/26/18 08:00 Dose: 50 mg Mometasone Furoate (Elocon Lotion) 0 ml TOP BID [facility] Last Admin: 07/24/18 17:27 Dose: Not Given Mupirocin (Bactroban Ointment) 0 gm TOP BID [facility] Nifedipine (Procardia Xl) 30 mg PO DAILY [facility] Last Admin: 07/26/18 10:36 Dose: 30 mg Oxycodone HCl (Oxycodone Immediate Release Tab) 20 mg PO Q4H PRN PRN Reason: Pain, severe (8-10) Last Admin: 07/26/18 10:33 Dose: 20 mg Pantoprazole Sodium (Protonix Ec Tab) 20 mg PO 0600 [facility] Last Admin: 07/26/18 06:09 Dose: 20 mg Polyethylene Glycol (Miralax) 17 gm PO DAILY PRN PRN Reason: Constipation Last Admin: 07/24/18 13:53 Dose: 17 gm Tamsulosin HCl (Flomax) 0.4 mg PO DAILY [facility] Last Admin: 07/26/18 10:34 Dose: 0.4 mg Tramadol HCl (Ultram) 50 mg PO TID PRN PRN Reason: Pain, moderate (4-7) Last Admin: 07/23/18 06:20 Dose: 50 mg Valacyclovir HCl (Valtrex) 250 mg PO TID [facility]; Protocol Last Admin: 07/26/18 10:37 Dose: 250 mg Results - Vital Signs Recent Vital Signs: Last Vital Signs Temp 97.7 F 07/26/18 08:56 Pulse 78 07/26/18 10:36 Resp 20 07/26/18 08:56 BP 122/71 07/26/18 10:36 Pulse Ox 99 07/26/18 08:56 - Labs Result Diagrams: 07/25/18 07:00 07/25/18 07:00 Attending/Attestation - Attestation I have personally seen and examined this patient.: Yes I have fully participated in the care of the patient.: Yes I have reviewed all pertinent clinical information: Yes
[2018-07-23] MEDS: Lidocaine 2% Jelly (30 ml) TOP PRN (13:58)
--- NOTE | 2018-07-23 18:03 | CP.PCM.CON ---
History of Present Illness - History of Present Illness History of Present Illness: GENERAL SURGERY CONSULT NOTE FOR DR. 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 Pt was recently admitted from 07/05 to 07/21 for alicia esophagitis and UTI. Pt was discharged home on Diflucan. Pt developed rash last week which has now spread to most of his body. 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 Pt's last radiation treatment was on July 04. Pt reports severe pain associated with the rash as well as pruritis. Since initiation of treatment, patient reports improvement in his symptoms. Pt examined with daughter and son in law at bedside. Pt was OOB to chair and eating a full meal. No BM for a few days. 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, transitional cell carcinoma of the kidney, emphysema, COPD, HTN, HLD, CAD s/p stents on ASA PSH: Ureteral stent, Renal Bx, L hip replacement Allergies: plavix Soc Hx: Former tobacco user (~1ppd > 20 yrs, quit in 2001), former etoh (quit in 2001) Review of Systems - Review of Systems All systems: reviewed and no additional remarkable complaints except (as per HPI) Past Patient History - Infectious Disease Hx of Infectious Diseases: None - Tetanus Immunizations Tetanus Immunization: Unknown - Past Social History Smoking Status: Never Smoked - CARDIAC Hx Cardiac Disorders: Yes (angioplasty) Hx Hypercholesterolemia: Yes Hx Hypertension: Yes - PULMONARY Hx Respiratory Disorders: Yes (lung ca) Hx Chronic Obstructive Pulmonary Disease (COPD): Yes Hx Pneumonia: Yes - NEUROLOGICAL Hx Neurological Disorder: No - HEENT Hx HEENT Problems: Yes Hx Glaucoma: Yes - RENAL Hx Chronic Kidney Disease: Yes (UROTHELIAL MALIGNACY) Other/Comment: kidney ca - ENDOCRINE/METABOLIC Hx Endocrine Disorders: No - HEMATOLOGICAL/ONCOLOGICAL Hx Blood Disorders: Yes Hx Cancer: Yes (lung ca, kidney ca, prostate ca) Hx Chemotherapy: Yes - INTEGUMENTARY Hx Dermatological Problems: Yes (radiation michele) - MUSCULOSKELETAL/RHEUMATOLOGICAL Hx Musculoskeletal Disorders: Yes (left hip orif) Hx Arthritis: Yes Hx Falls: No Hx Unsteady Gait: Yes - GASTROINTESTINAL Hx Gastrointestinal Disorders: No - GENITOURINARY/GYNECOLOGICAL Hx Genitourinary Disorders: Yes Hx Incontinence: Yes Hx Prostate Problems: Yes (PROSTATE CA) - PSYCHIATRIC Hx Psychophysiologic Disorder: No Hx Substance Use: No - SURGICAL HISTORY Hx Surgeries: Yes (cardiac cath) Hx Cardiac Catheterization: Yes (STENTS X4) Hx Joint Replacement: Yes (LEFT HIP ORIF) - ANESTHESIA Hx Anesthesia Reactions: No Meds Allergies/Adverse Reactions: Allergies Allergy/AdvReac Type Severity Reaction Status Date / Time clopidogrel bisulfate Allergy ANAPHYLAXIS Verified 07/21/18 17:11 [From Plavix] - Medications Medications: Current Medications Acetaminophen (Tylenol 325mg Tab) 650 mg PO Q6H PRN PRN Reason: Pain, Mild (1-3) Al Hydrox/Mg Hydrox/Simethicone (Maalox Plus 30 Ml) 30 ml PO 1200 PRN PRN Reason: Indigestion / Heartburn Last Admin: 07/22/18 22:26 Dose: 30 ml Arformoterol Tartrate (Brovana) 15 mcg IH [id number] [facility] Last Admin: 07/23/18 08:22 Dose: 15 mcg Aspirin (Ecotrin) 81 mg PO DAILY [facility] Last Admin: 07/23/18 12:35 Dose: 81 mg Bicalutamide (Casodex) 50 mg PO DAILY [facility] Last Admin: 07/23/18 11:03 Dose: 50 mg Docusate Sodium (Colace) 100 mg PO DAILY [facility] Last Admin: 07/23/18 10:23 Dose: 100 mg Furosemide (Lasix) 20 mg PO DAILY [facility] Last Admin: 07/23/18 10:23 Dose: 20 mg Lidocaine HCl (Xylocaine 2%) 0 ea TOP TID PRN PRN Reason: Pain, Mild (1-3) Last Admin: 07/23/18 13:58 Dose: 1 applic Loratadine (Claritin) 10 mg PO DAILY [facility] Last Admin: 07/23/18 10:23 Dose: 10 mg Metoprolol Succinate (Toprol Xl) 50 mg PO BRK [facility] Last Admin: 07/23/18 10:24 Dose: Not Given Mometasone Furoate (Elocon Lotion) 0 ml TOP BID [facility] Last Admin: 07/23/18 17:45 Dose: 1 applic Nifedipine (Procardia Xl) 30 mg PO DAILY [facility] Last Admin: 07/23/18 12:35 Dose: 30 mg Pantoprazole Sodium (Protonix Ec Tab) 20 mg PO 0600 [facility] Last Admin: 07/23/18 06:17 Dose: 20 mg Polyethylene Glycol (Miralax) 17 gm PO DAILY PRN PRN Reason: Constipation Prednisone (Prednisone Tab) 20 mg PO DAILY [facility] Last Admin: 07/23/18 10:22 Dose: 20 mg Silver Sulfadiazine (Silvadene 1% 25 Gm) 0 gm TP BID [facility] Last Admin: 07/23/18 17:44 Dose: 25 gm Tamsulosin HCl (Flomax) 0.4 mg PO DAILY [facility] Last Admin: 07/23/18 10:22 Dose: 0.4 mg Tramadol HCl (Ultram) 50 mg PO TID PRN PRN Reason: Pain, moderate (4-7) Last Admin: 07/23/18 06:20 Dose: 50 mg Physical Exam - Constitutional Appears: Non-toxic, No Acute Distress - Head Exam Head Exam: ATRAUMATIC, NORMAL INSPECTION - Eye Exam Eye Exam: EOMI, Normal appearance - Respiratory Exam Respiratory Exam: NORMAL BREATHING PATTERN. absent: Respiratory Distress - Cardiovascular Exam Cardiovascular Exam: +S1, +S2 - GI/Abdominal Exam GI & Abdominal Exam: Firm (inferior abdomen mildly firm). absent: Tenderness - Neurological Exam Neurological exam: Alert, Oriented x3 - Psychiatric Exam Psychiatric exam: Normal Affect, Normal Mood - Skin Skin Exam: Rash (Diffuse rash covering chest, abdomen, back, bilateral ears, neck. Some areas with prior blisters now with silvadene ) Results - Vital Signs Recent Vital Signs: Last Vital Signs Temp 98 F 07/23/18 16:00 Pulse 85 07/23/18 16:00 Resp 20 07/23/18 16:00 BP 110/61 07/23/18 16:00 Pulse Ox 99 07/23/18 16:00 - Labs Result Diagrams: 07/23/18 07:00 07/23/18 06:30 Labs: Laboratory Results - last 24 hr 07/23/18 07/23/18 06:30 07:00 WBC 16.2 H D RBC 3.27 L Hgb 10.6 L Hct 32.7 L MCV 100.0 MCH 32.4 MCHC 32.4 RDW 14.8 H Plt Count 99 L MPV 9.8 Neut % (Auto) 95.3 H Lymph % (Auto) 2.1 L [place] % (Auto) 2.6 Eos % (Auto) 0.0 L Baso % (Auto) 0.0 Lymph # (Auto) 0.3 L [place] # (Auto) 0.4 Eos # (Auto) 0.0 Baso # (Auto) 0.00 Absolute Neuts (auto) 15.40 H Sodium 134 Potassium 4.6 Chloride 100 Carbon Dioxide 28 Anion Gap 11 BUN 23 H Creatinine 0.9 Est GFR ( Amer) > 60 Est GFR (Non-Af Amer) > 60 Random Glucose 145 H Calcium 8.3 L Total Bilirubin 0.4 AST 21 ALT 32 Alkaline Phosphatase 48 Total Protein 5.2 L Albumin 2.7 L Globulin 2.5 Albumin/Globulin Ratio 1.1 Assessment & Plan - Assessment and Plan (Free Text) Assessment: 88yo M with PMHx of 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 Surgery was consulted for punch biopsy of skin. Plan: - Continue Silvadene - Continue solumedrol, triamcinolone - Continue Abx per ID - Pt and daughter refuse skin biopsy at this time. They would like to wait a few more days to see if rash resolves with medications/creams. - Discussed plan with Dr. Maria Luisa Story PGY-4
--- NOTE | 2018-07-23 18:40 | PN ---
DATE: 07/23/2018 This is [facility] visit on the medical floor. For Dr. Khalil. SUBJECTIVE: The patient is an 88-year-old male, admitted for shaking chills with a generalized painful rash, now on his whole body with radiation dermatitis changes to his anterior chest in the form of a second-degree burn with blistering and radiation cellulitis possibly causing his shaking chills for which he was admitted. The patient also had significant problems swallowing at the time of admission, which has now modestly been improved. He is known to suffer from stage IV squamous cell carcinoma of the lung with history of transitional urothelial carcinoma. At present, he reports feeling better after treatment was begun with Silvadene cream for his michele. However, now reports that his right ear is also involved with significant erythema and blistering changes noted there also. It should be noted the patient had treatment with Keytruda in the recent past and he also was treated with Diflucan with suspicion that this may be a drug-induced allergic phenomenon with cellulitis and suspicion of possible early sepsis for which the patient was admitted. We await consults with Infectious Disease consultants and Gastrointestinal datapower consultant regarding his swallowing issues as he had problems with radiation esophagitis and now radiation dermatitis to his anterior chest and posterior back. OBJECTIVE/PHYSICAL EXAMINATION: VITAL SIGNS: Temperature 98.6, pulse 80, respirations 20, blood pressure 106/57, and pulse ox 100%. HEENT: Unremarkable. NECK: Supple. HEART: Regular rate. LUNGS: Occasional rhonchi. ABDOMEN: Soft, scaphoid, and nontender. EXTREMITIES: No edema. SKIN: With generalized maculopapular changes and an occasional vesicle noted with a square-shaped burn to his anterior chest wall along with a similar upper back second-degree burn associated with his radiation recently completed. Also his right ear is markedly erythematous with small sickle of change there also noted on this physical. NEUROLOGIC: Awake and alert. LABORATORY DATA: The patient's labs were done. White blood dell count 16.2, the patient is on steroids; hemoglobin 10.6; hematocrit 32.7; and platelet count of 99,000 with a metabolic panel showing a BUN 23, calcium of 8.3, total protein of 5.2; otherwise, negative panel. It shall also be noted the patient had procalcitonin level of 0.05 with a urine specimen showing a trace of blood. The patient's blood cultures are negative as is his urine culture. To this end, antibiotics were given prophylactically and have now been discontinued by Infectious Disease datapower consultant as per nursing. ASSESSMENT: For this patient is that of early sepsis? radiation dermatitis/cellulitis, generalized body rash possibly secondary to medication, chronic obstructive pulmonary disease, history of squamous cell carcinoma of the lung stage IV, metastasis to the T10 vertebral body which radiation was given, history of transitional cell cancer of the bladder, history of prostate cancer, recent alicia esophagitis, pulmonary hypertension, gastroesophageal reflux disease, failure to thrive, glaucoma and deconditioning. Also onychomycosis/gomphosis for which our hydro pneumatic tester had seen the patient. PLAN: For this patient after conversation with Dr. Khalil is to continue his present medical regimen along with adding lidocaine gel to his external ear to see if this will help his discomfort there with consideration for a biopsy of his skin lesions to determine the etiology. To this end, we will ask for a consult with Dr. Glass as indicated. We will monitor clinically with labs. This is a complex patient with a comprehensive medically necessary and appropriate visit carried out in excess of 45 minutes with the patient's questions answered to his satisfaction. Mic Dougherty MD
--- NOTE | 2018-07-23 22:41 | PN ---
DATE: 07/23/2018 PULMONARY PROGRESS NOTE REFERRING PHYSICIAN: Mic Dougherty MD. SUBJECTIVE: He is getting out of bathroom. From pulmonary point of view, decreased cough and shortness of breath. He has a diffuse rash in the trunk. No nausea, vomiting, diarrhea, leg pain, or leg swelling. OBJECTIVE: VITAL SIGNS: Temperature is 98, heart rate 80, respiratory rate is 20, blood pressure 106/67, pulse ox of 100% on two liters nasal cannula. HEENT: Moist mucous membranes. Crowded airway. NECK: Supple. No JVD. LUNGS: Have fair airflow with few rhonchi. HEART: S1 and S2. ABDOMEN: Soft, nontender, no organomegaly. EXTREMITIES: No edema. NEUROLOGIC: Awake and follows simple commands. SKIN: Has a diffuse rash. MEDICATIONS: He is on Brovana inhaled twice a day, Casodex 50 mg daily, Claritin 10 mg daily, Colace 100 mg twice a day, doxycycline 100 mg twice a day, Ecotrin 81 mg daily, getting Flomax 0.4 mg daily, Lasix 20 mg daily, meropenem 1 g IV every 12 hours, MiraLax 17 g daily, prednisone 20 mg daily, Procardia XL 30 mg daily, Protonix 40 mg daily, Singulair 10 mg daily, Toprol-XL 50 mg daily, Tylenol p.r.n. basis, Ultram 50 mg three times a day. LABORATORY DATA: Shows hemoglobin 10.6, hematocrit 32.7, WBC 16.2, platelet is 99. Sodium 134, potassium 4.6, chloride 100, bicarbonate 28, BUN 23, creatinine 0.9, glucose 145, calcium is 8.3, AST 21, ALT 32, alk phos is 48, albumin is 2.7, procalcitonin 2 days ago 0.05. Cortisol level was 11.5. Microbiology, blood culture has been negative. IMPRESSION AND PLAN: [id number] lung cancer involving the vertebra at T10, status post radiation, chronic lung disease, hyperlipidemia, pulmonary hypertension, hypertension, transitional cell carcinoma of the bladder, cardiac diastolic dysfunction, alicia esophagitis now has a new rash all over the trunk, has been on steroids. From a pulmonary point of view, continue bronchodilator and aspiration precaution. We will suggest discontinuing doxycycline and meropenem for now and also streamline medications. Continue antihistamine for itching for now. Continue close followup. Thank you and we will follow with you. Ankur Dixon MD
--- NOTE | 2018-07-23 22:50 | PN ---
DATE: 07/23/2018 SUBJECTIVE: The patient is in bed in no acute distress. PHYSICAL EXAMINATION: VITAL SIGNS: Temperature of 98, blood pressure is 110/60, respiratory rate of 20. HEENT: Unremarkable. NECK: Supple. LUNGS: Have decreased breath sounds. HEART: Normal S1, S2. ABDOMEN: Soft. LABORATORY DATA: Reveals a white count of 16,000, hemoglobin of 10 and creatinine 0.9. Procalcitonin 0.05. Microbiology is negative blood cultures, negative urine cultures. ASSESSMENT AND PLAN: This is an 88-year-old male with non-small cell lung cancer with involvement of vertebra, esophagitis, chronic lung disease, hyperlipidemia, pulmonary hypertension, and transitional cell carcinoma, diastolic dysfunction, Maisha esophagitis with negative blood cultures, negative urine cultures, currently on prednisone. The patient is off of antibiotics. Negative procalcitonin. We will follow with you. Reid Massey MD
--- NOTE | 2018-07-23 22:57 | CP.PCM.PN ---
Subjective - Date & Time of Evaluation Date of Evaluation: 07/23/18 Time of Evaluation: 08:00 - Subjective Subjective: No complaints of p.o. intake tolerating the pured diet well. His main complaint is of the skin rash. Concerned about it. Presently patient is off antibiotics Objective - Vital Signs/Intake and Output Vital Signs (last 24 hours): Temp Pulse Resp BP Pulse Ox 98 F 85 20 110/61 99 07/23/18 16:00 07/23/18 16:00 07/23/18 16:00 07/23/18 16:00 07/23/18 16:00 - Medications Medications: Current Medications Acetaminophen (Tylenol 325mg Tab) 650 mg PO Q6H PRN PRN Reason: Pain, Mild (1-3) Al Hydrox/Mg Hydrox/Simethicone (Maalox Plus 30 Ml) 30 ml PO 1200 PRN PRN Reason: Indigestion / Heartburn Last Admin: 07/22/18 22:26 Dose: 30 ml Arformoterol Tartrate (Brovana) 15 mcg IH [id number] [facility] Last Admin: 07/23/18 21:20 Dose: 15 mcg Aspirin (Ecotrin) 81 mg PO DAILY [facility] Last Admin: 07/23/18 12:35 Dose: 81 mg Bicalutamide (Casodex) 50 mg PO DAILY [facility] Last Admin: 07/23/18 11:03 Dose: 50 mg Docusate Sodium (Colace) 100 mg PO DAILY [facility] Last Admin: 07/23/18 10:23 Dose: 100 mg Furosemide (Lasix) 20 mg PO DAILY [facility] Last Admin: 07/23/18 10:23 Dose: 20 mg Lidocaine HCl (Xylocaine 2%) 0 ea TOP TID PRN PRN Reason: Pain, Mild (1-3) Last Admin: 07/23/18 13:58 Dose: 1 applic Loratadine (Claritin) 10 mg PO DAILY [facility] Last Admin: 07/23/18 10:23 Dose: 10 mg Metoprolol Succinate (Toprol Xl) 50 mg PO BRK [facility] Last Admin: 07/23/18 10:24 Dose: Not Given Mometasone Furoate (Elocon Lotion) 0 ml TOP BID [facility] Last Admin: 07/23/18 17:45 Dose: 1 applic Nifedipine (Procardia Xl) 30 mg PO DAILY [facility] Last Admin: 07/23/18 12:35 Dose: 30 mg Pantoprazole Sodium (Protonix Ec Tab) 20 mg PO 0600 [facility] Last Admin: 07/23/18 06:17 Dose: 20 mg Polyethylene Glycol (Miralax) 17 gm PO DAILY PRN PRN Reason: Constipation Prednisone (Prednisone Tab) 20 mg PO DAILY [facility] Last Admin: 07/23/18 10:22 Dose: 20 mg Silver Sulfadiazine (Silvadene 1% 25 Gm) 0 gm TP BID [facility] Last Admin: 07/23/18 17:44 Dose: 25 gm Tamsulosin HCl (Flomax) 0.4 mg PO DAILY [facility] Last Admin: 07/23/18 10:22 Dose: 0.4 mg Tramadol HCl (Ultram) 50 mg PO TID PRN PRN Reason: Pain, moderate (4-7) Last Admin: 07/23/18 06:20 Dose: 50 mg - Labs Labs: 07/23/18 07:00 07/23/18 06:30 - Head Exam Head Exam: ATRAUMATIC - Eye Exam Pupil Exam: NORMAL ACCOMODATION, PERRL - ENT Exam ENT Exam: Mucous Membranes Moist - Neck Exam Neck Exam: Full ROM. absent: Lymphadenopathy - Respiratory Exam Respiratory Exam: NORMAL BREATHING PATTERN. absent: Accessory Muscle Use - Cardiovascular Exam Cardiovascular Exam: +S1, +S2. absent: JVD - GI/Abdominal Exam GI & Abdominal Exam: Soft. absent: Tenderness, Mass - Neurological Exam Neurological Exam: Alert, Awake, Oriented x3 Assessment and Plan - Assessment and Plan (Free Text) Assessment: Metastatic non-small cell carcinoma status post radiation patient was admitted with odynophagia Patient was found to have a mid esophageal inflammation and erosions. Suspected to be secondary to the radiation. Patient also had a esophageal candidiasis was treated with the Diflucan. Patient was also on empiric antibiotic coverage as per the ED patient had a generalized erythematous rashes. In addition to the rash over the chest and the back which may be related to the radiation. Patient is presently off antibiotics. Patient was seen with the surgery offered a skin biopsy family electing about it at the present time. GI perspective patient can continue the PPI
[2018-07-24] MEDS: Pantoprazole 20 mg EC Tab PO SCH (05:11)
[2018-07-24] MEDS: Lidocaine 2% Jelly (30 ml) TOP PRN ×2 (06:36→10:40)
[2018-07-24] MEDS: Arformoterol 15 mcg/2 ml Inh Sol IH SCH ×2 (07:49→19:23)
[2018-07-24 08:31] LABS: BASO # 0.01 K/mm3 (0.0-2.0); BASO % 0.1 % (0.0-3.0); EOS # 0.1 (0.0-0.7); LYMPH # 0.5 (1.2-3.4); MEAN CELL VOLUME 101.2 fl (80.0-105.0); MEAN CORPUSCULAR HEMOGLOBIN 32.7 pg (25.0-35.0); MEAN CORPUSCULAR HGB CONC 32.4 g/dl (31.0-37.0); MEAN PLATELET VOLUME 10.7 fl (7.0-11.0); MONO # 0.3 (0.1-0.6); MONO % 2.7 % (1.0-6.0); RBC 3.36 10^6/uL (3.5-6.1); RED CELL DISTRIBUTION WIDTH 15.8 % (11.5-14.5)
[2018-07-24 08:39] LABS: ALB/GLOB RATIO 1.1 (1.1-1.8); ALBUMIN 2.8 g/dL (3.0-4.8); ALT/SGPT 24 U/L (7-56); AST/SGOT 16 U/L (17-59); BLOOD UREA NITROGEN 24 mg/dL (7-21); CALCIUM 8.3 mg/dL (8.4-10.5); GFR NON-AFRICAN AMERICAN > 60
[2018-07-24] MEDS: Metoprolol Succinate 50 mg XL Tab PO SCH (08:48)
[2018-07-24] MEDS: NIFEdipine 30 mg ER Tab PO SCH (09:29)
[2018-07-24] MEDS: MOMETASONE 0.1% TOP SCH ×2 (10:40→17:27)
[2018-07-24] MEDS: Silver Sulfadiazine 1% Cream (25 gm) TP SCH ×2 (10:40→17:27)
--- NOTE | 2018-07-24 12:12 | RAD ---
Date of service: 07/24/2018 HISTORY: Elevated temp COMPARISON: Chest radiograph dated 07/05/2018 TECHNIQUE: Chest PA and lateral views FINDINGS: LUNGS: Stable chronic prominence of the bilateral interstitial markings. 3.4 cm mass in the left upper lobe, unchanged. PLEURA: No significant pleural effusion identified. No pneumothorax apparent. CARDIOVASCULAR: Aortic atherosclerotic calcifications. Cardiomediastinal silhouette stably enlarged. OSSEOUS STRUCTURES: Unchanged. VISUALIZED UPPER ABDOMEN: Normal. OTHER FINDINGS: None. IMPRESSION: No active disease. Stable appearance of left upper lobe 3.4 cm mass
[2018-07-24] MEDS: POLYETHYLENE GLYCOL 3350 17 GM/Dose PACKET PO PRN (13:53)
[2018-07-24 17:04] LABS: URINE APPEARANCE SLIGHT-CLOUDY (CLEAR); URINE BILIRUBIN NEGATIVE (NEGATIVE); URINE BLOOD LARGE (NEGATIVE); URINE COLOR DARK YELLOW (YELLOW); URINE GLUCOSE (UA) NEGATIVE (NEGATIVE); URINE LEUKOCYTE ESTERASE TRACE Leu/uL (NEGATIVE); URINE PROTEIN 100 mg/dL (<30 mg/dL); URINE UROBILINOGEN 0.2 E.U./dL (<1 E.U./dL)
[2018-07-24 17:10] LABS: URINE RBC TNTC /hpf (0-2)
--- NOTE | 2018-07-24 18:24 | CP.PCM.PN ---
Subjective - Date & Time of Evaluation Date of Evaluation: 07/24/18 Time of Evaluation: 10:15 - Subjective Subjective: This patient was seen and evaluated here earlier. Patient did spike temperature to 101,8 Objective - Vital Signs/Intake and Output Vital Signs (last 24 hours): Temp Pulse Resp BP Pulse Ox 99.2 F 79 19 103/63 97 07/24/18 16:35 07/24/18 16:35 07/24/18 16:35 07/24/18 16:35 07/24/18 16:35 Intake and Output: 07/24/18 07/24/18 06:59 18:59 Intake Total 180 Balance 180 - Medications Medications: Current Medications Acetaminophen (Tylenol 325mg Tab) 650 mg PO Q6H PRN PRN Reason: Pain, Mild (1-3) Last Admin: 07/24/18 11:30 Dose: 650 mg Al Hydrox/Mg Hydrox/Simethicone (Maalox Plus 30 Ml) 30 ml PO 1200 PRN PRN Reason: Indigestion / Heartburn Last Admin: 07/22/18 22:26 Dose: 30 ml Arformoterol Tartrate (Brovana) 15 mcg IH [id number] [facility] Last Admin: 07/24/18 07:49 Dose: 15 mcg Aspirin (Ecotrin) 81 mg PO DAILY [facility] Last Admin: 07/24/18 09:30 Dose: 81 mg Bicalutamide (Casodex) 50 mg PO DAILY [facility] Last Admin: 07/24/18 10:38 Dose: 50 mg Docusate Sodium (Colace) 100 mg PO BID [facility] Last Admin: 07/24/18 17:26 Dose: 100 mg Furosemide (Lasix) 20 mg PO DAILY [facility] Last Admin: 07/24/18 09:29 Dose: 20 mg Lidocaine HCl (Xylocaine 2%) 0 ea TOP TID PRN PRN Reason: Pain, Mild (1-3) Last Admin: 07/24/18 10:40 Dose: 1 applic Loratadine (Claritin) 10 mg PO DAILY [facility] Last Admin: 07/24/18 09:29 Dose: 10 mg Metoprolol Succinate (Toprol Xl) 50 mg PO BRK [facility] Last Admin: 07/24/18 08:48 Dose: Not Given Mometasone Furoate (Elocon Lotion) 0 ml TOP BID [facility] Last Admin: 07/24/18 17:27 Dose: Not Given Nifedipine (Procardia Xl) 30 mg PO DAILY [facility] Last Admin: 07/24/18 09:29 Dose: 30 mg Pantoprazole Sodium (Protonix Ec Tab) 20 mg PO 0600 [facility] Last Admin: 07/24/18 05:11 Dose: 20 mg Polyethylene Glycol (Miralax) 17 gm PO DAILY PRN PRN Reason: Constipation Last Admin: 07/24/18 13:53 Dose: 17 gm Prednisone (Prednisone Tab) 20 mg PO DAILY [facility] Last Admin: 07/24/18 09:30 Dose: 20 mg Silver Sulfadiazine (Silvadene 1% 25 Gm) 0 gm TP BID [facility] Last Admin: 07/24/18 17:27 Dose: Not Given Tamsulosin HCl (Flomax) 0.4 mg PO DAILY [facility] Last Admin: 07/24/18 09:29 Dose: 0.4 mg Tramadol HCl (Ultram) 50 mg PO TID PRN PRN Reason: Pain, moderate (4-7) Last Admin: 07/23/18 06:20 Dose: 50 mg - Labs Labs: 07/24/18 07:00 07/24/18 07:00 - Head Exam Head Exam: ATRAUMATIC, NORMOCEPHALIC - Eye Exam Eye Exam: EOMI Pupil Exam: PERRL - ENT Exam ENT Exam: Mucous Membranes Moist, Normal Oropharynx - Respiratory Exam Respiratory Exam: NORMAL BREATHING PATTERN. absent: Accessory Muscle Use - Cardiovascular Exam Cardiovascular Exam: REGULAR RHYTHM, +S1, +S2. absent: JVD - GI/Abdominal Exam GI & Abdominal Exam: Soft, Normal Bowel Sounds. absent: Tenderness, Mass - Neurological Exam Neurological Exam: Alert, Oriented x3 - Skin Skin Exam: Erythema, Rash Additional comments: Maculopapular rash is noticed. Multiple over the trunk and all the extremities. There is a red patch of erythema noticed in the anterior chest wall and also in the back. Assessment and Plan - Assessment and Plan (Free Text) Assessment: Metastatic non-small cell carcinoma status post radiation patient was admitted with odynophagia Patient was found to have a mid esophageal inflammation and erosions. Suspected to be secondary to the radiation. Patient also had a esophageal candidiasis was treated with the Diflucan. Patient was also on empiric antibiotic coverage as per the ED patient had a generalized erythematous rashes. In addition to the rash over the chest and the back which may be related to the radiation. Patient is presently off antibiotics. Patient was seen with the surgery offered a skin biopsy family electing about it at the present time. GI perspective patient can continue the PPI Patient spiked melena 1.8 temperature. Patient appears slightly lethargic now Patient has been on steroid prednisone. Follow-up cultures. patient was on pured diet and this was changed to a regular diet . we would r ecommend to change it to soft mechanical diet as patient did have some significant dysphagia before and no odynophagia before status post radiation
--- NOTE | 2018-07-24 18:27 | CP.PCM.PN ---
Subjective - Date & Time of Evaluation Date of Evaluation: 07/22/18 Time of Evaluation: 10:00 - Subjective Subjective: Improved odynophagia. Patient has a generalized rash. In addition to these aspergillus presenting the chest and the back. Patient is concerned more about that. No abdominal pain. Objective - Vital Signs/Intake and Output Vital Signs (last 24 hours): Temp Pulse Resp BP Pulse Ox 98.4 F 79 19 99/45 L 96 07/22/18 04:37 07/22/18 09:49 07/22/18 04:37 07/22/18 09:51 07/22/18 04:37 - Medications Medications: Current Medications Acetaminophen (Tylenol 325mg Tab) 650 mg PO Q6H PRN PRN Reason: Pain, Mild (1-3) Al Hydrox/Mg Hydrox/Simethicone (Maalox Plus 30 Ml) 30 ml PO 1200 PRN PRN Reason: Indigestion / Heartburn Arformoterol Tartrate (Brovana) 15 mcg IH [id number] [facility] Last Admin: 07/22/18 20:17 Dose: 15 mcg Aspirin (Ecotrin) 81 mg PO DAILY [facility] Last Admin: 07/22/18 10:41 Dose: 81 mg Bicalutamide (Casodex) 50 mg PO DAILY [facility] Last Admin: 07/22/18 10:41 Dose: 50 mg Docusate Sodium (Colace) 100 mg PO DAILY [facility] Last Admin: 07/22/18 12:42 Dose: 100 mg Doxycycline Hyclate (Doryx) 100 mg PO Q12 [facility]; Protocol Stop: 07/28/18 22:01 Last Admin: 07/22/18 09:49 Dose: 100 mg Furosemide (Lasix) 20 mg PO DAILY [facility] Last Admin: 07/22/18 09:50 Dose: 20 mg Meropenem (Merrem Iv 1 Gm Premix) 1 gm in 50 mls @ 100 mls/hr IVPB Q12 [facility]; Protocol Stop: 07/29/18 22:01 Last Admin: 07/22/18 09:50 Dose: 100 mls/hr Loratadine (Claritin) 10 mg PO DAILY [facility] Last Admin: 07/22/18 09:49 Dose: 10 mg Metoprolol Succinate (Toprol Xl) 50 mg PO BRK [facility] Last Admin: 07/22/18 09:51 Dose: Not Given Mometasone Furoate (Elocon Lotion) 0 ml TOP BID [facility] Last Admin: 07/22/18 17:18 Dose: 1 applic Montelukast Sodium (Singulair) 10 mg PO HS [facility] Last Admin: 07/21/18 21:52 Dose: 10 mg Nifedipine (Procardia Xl) 30 mg PO DAILY [facility] Last Admin: 07/22/18 09:49 Dose: 30 mg Pantoprazole Sodium (Protonix Ec Tab) 20 mg PO 0600 [facility] Last Admin: 07/22/18 05:06 Dose: 20 mg Polyethylene Glycol (Miralax) 17 gm PO DAILY PRN PRN Reason: Constipation Prednisone (Prednisone Tab) 20 mg PO DAILY [facility] Last Admin: 07/22/18 09:49 Dose: 20 mg Silver Sulfadiazine (Silvadene 1% 25 Gm) 0 gm TP BID [facility] Last Admin: 07/22/18 17:18 Dose: 25 gm Tamsulosin HCl (Flomax) 0.4 mg PO DAILY [facility] Last Admin: 07/22/18 09:48 Dose: 0.4 mg Tramadol HCl (Ultram) 50 mg PO TID PRN PRN Reason: Pain, moderate (4-7) Last Admin: 07/22/18 06:36 Dose: 50 mg - Labs Labs: 07/22/18 06:00 07/22/18 06:00 - Head Exam Head Exam: ATRAUMATIC, NORMOCEPHALIC - Eye Exam Eye Exam: EOMI - Neck Exam Neck Exam: Full ROM. absent: Lymphadenopathy - Respiratory Exam Respiratory Exam: absent: Accessory Muscle Use - Cardiovascular Exam Cardiovascular Exam: REGULAR RHYTHM, +S1, +S2. 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 Patient found to have candidiasis in esophagus. Patient was on Diflucan. Patient is on doxycycline now. The rash is macular papular rash diffuse differential diagnoses include drug-induced. Continue pured food PPI.
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
--- NOTE | 2018-07-24 23:01 | PN ---
DATE: 07/24/2018 PULMONARY PROGRESS NOTE REFERRING PHYSICIAN: Malini Khalil MD SUBJECTIVE: He is lying in the bed. Head at 45 degrees. Does not feel well. Has some cough, fever up to 101.8. Rash is spreading, now it is hole body. He has some new lesion. No hemoptysis, hematemesis, hematuria, or diarrhea. PHYSICAL EXAMINATION: GENERAL: No acute distress. VITAL SIGNS: Temperature is 101.8, heart rate 79, respiratory rate is 19, blood pressure 103/63, pulse 77, pulse ox 97% on nasal cannula. HEENT: Moist mucous membranes. No ulcer or thrush. NECK: Supple. No JVD. LUNGS: Scattered rhonchi. HEART: S1, S2. ABDOMEN: Soft, nontender. No organomegaly. EXTREMITIES: No edema. NEUROLOGIC: Awake, alert. Follows simple commands. SKIN: Has a diffuse rash over the body. MEDICATIONS: He is on Brovana inhaled twice a day, Casodex 50 mg daily, Claritin 10 mg daily, Colace 100 mg twice a day, Ecotrin 81 mg daily, getting Elocon lotion on the body, Flomax 0.4 mg daily, Lasix 20 mg daily, MiraLax 17 g daily, prednisone 20 mg daily, Procardia XL 30 mg daily, Protonix 20 mg daily, Silvadene cream to affected area, Toprol-XL 50 mg twice a day, Tylenol p.r.n., Ultram 50 mg every 8 hours, lidocaine 2% to affected area. LABORATORY DATA: Reviewed. Shows hemoglobin 11, hematocrit 34, WBC 12,000, platelet is 111, eosinophil is unremarkable. Sodium 136, potassium 4.3, chloride 102, bicarbonate 27, BUN 24, creatinine 1.1, glucose 106, calcium is 8.3. Total bili 0.2, AST 16, ALT 24, alkaline phosphatase is 52, albumin is 2.8, procalcitonin for last two days has been negative, plasma cortisol level is 11.5. Urinalysis shows wbc 1-3, rbc too numerous to count. Microbiology, so far blood culture is negative, urine culture is negative, procalcitonin is negative. Chest x-ray done today which shows no active disease, stable appearance of the left upper lobe 3.4 cm mass. IMPRESSION AND PLAN: [id number]-[id number] lung cancer involving the vertebra at T10, status post radiation therapy, chronic lung disease, hyperlipidemia, pulmonary hypertension, hypertension, transitional cell carcinoma of the bladder, cardiac diastolic dysfunction, history of alicia esophagitis present. He has a head to toe rash, drug allergies versus viral, fungal, bacteria, or autoimmune. Continue antihistamine. Local care. Being followed by Dr. Massey. We will leave up to him for decision upon antibiotics. We will suggest surgical consult for possible skin biopsy. Thank you and we will follow with you. Ankur Dixon MD
--- NOTE | 2018-07-25 02:14 | PN ---
DATE: 07/24/2018 SUBJECTIVE: The patient was seen earlier this morning in room 374, bed 2. He was at that time doing better, no fevers and no chills; however, subsequently I received a call from a nurse who said that the patient had a temperature of 101.8. PHYSICAL EXAMINATION: VITAL SIGNS: Blood pressure is 103/60, respiratory rate of 18, heart rate of 79. HEENT: Unremarkable. NECK: Supple. LUNGS: Decreased breath sounds. HEART: Normal S1 and S2. ABDOMEN: Soft LABORATORY EXAMINATION: Reveals a white count of 12,000, hemoglobin of 11 and platelets of 111. Chemistries reveal a BUN of 24, creatinine of 1.1. Procalcitonin is 0.05. Urinalysis with 1 to 3 wbc's. Microbiology from the initial blood cultures are negative. Urine cultures are negative. a chest x-ray as there is no active disease. MEDICATIONS: Review of the orders reveals the patient to be on prednisone and no antibiotics. ASSESSMENT AND PLAN: This is an 88-year-old male with non-small cell lung cancer with involvement of the vertebrae, esophagitis, chronic lung disease, hyperlipidemia, pulmonary hypertension, transitional cell carcinoma, diastolic dysfunction, alicia esophagitis, negative cultures now with a new fever of 101.8 and a white count of 12,000. We will check on the repeat pancultures, blood cultures, urine cultures, and sputum cultures. Chest x-ray is reported to be negative. Procalcitonin is negative. The patient is now clinically not ill. We will follow the patient off antibiotics. Overall prognosis is quite poor for this patient who is terminal. Reid Massey MD
[2018-07-25] MEDS: Pantoprazole 20 mg EC Tab PO SCH (05:17)
[2018-07-25 07:18] LABS: EOS # 0.2 (0.0-0.7); EOS % 1.9 % (1.5-5.0); HEMOGLOBIN 11.3 g/dL (14.0-18.0); LYMPH # 0.4 (1.2-3.4); LYMPH % 4.5 % (22.0-35.0); MEAN CELL VOLUME 100.6 fl (80.0-105.0); MEAN CORPUSCULAR HEMOGLOBIN 32.5 pg (25.0-35.0); MEAN CORPUSCULAR HGB CONC 32.3 g/dl (31.0-37.0); MEAN PLATELET VOLUME 10.1 fl (7.0-11.0); MONO # 0.2 (0.1-0.6); MONO % 2.2 % (1.0-6.0); PLATELET COUNT 96 10^3/uL (120.0-450.0); RBC 3.48 10^6/uL (3.5-6.1); WHITE BLOOD COUNT 9.4 10^3/uL (4.5-11.0)
[2018-07-25] MEDS: Arformoterol 15 mcg/2 ml Inh Sol IH SCH ×2 (07:38→20:11)
[2018-07-25 08:34] LABS: ALBUMIN 2.5 g/dL (3.0-4.8); ALT/SGPT 25 U/L (7-56); AST/SGOT 21 U/L (17-59); BLOOD UREA NITROGEN 23 mg/dL (7-21); CALCIUM 8.2 mg/dL (8.4-10.5); GFR NON-AFRICAN AMERICAN > 60
--- NOTE | 2018-07-25 08:49 | CP.PCM.PN ---
<Derik Moore - Last Filed: 07/25/18 13:38> Subjective - Date & Time of Evaluation Date of Evaluation: 07/25/18 Time of Evaluation: 06:00 - Subjective Subjective: Derik Moore PGY2 Heme/Onc Progress Note for Dr. Khalil Patient seen and examined bedside in AM. Overnight had fever. Rash is still painful patient says. He also states he has been constipated. Denies other complaints. Objective - Vital Signs/Intake and Output Vital Signs (last 24 hours): Temp Pulse Resp BP Pulse Ox 101.9 F H 98 H 20 109/60 94 L 07/25/18 08:41 07/25/18 08:41 07/25/18 08:41 07/25/18 08:41 07/25/18 08:41 Intake and Output: 07/25/18 07/25/18 06:59 18:59 Intake Total 120 Output Total 0 Balance 120 - Medications Medications: Current Medications Acetaminophen (Tylenol 325mg Tab) 650 mg PO Q6H PRN PRN Reason: Pain, Mild (1-3) Last Admin: 07/25/18 06:05 Dose: 650 mg Al Hydrox/Mg Hydrox/Simethicone (Maalox Plus 30 Ml) 30 ml PO 1200 PRN PRN Reason: Indigestion / Heartburn Last Admin: 07/22/18 22:26 Dose: 30 ml Arformoterol Tartrate (Brovana) 15 mcg IH [id number] [facility] Last Admin: 07/25/18 07:38 Dose: 15 mcg Aspirin (Ecotrin) 81 mg PO DAILY [facility] Last Admin: 07/24/18 09:30 Dose: 81 mg Bicalutamide (Casodex) 50 mg PO DAILY [facility] Last Admin: 07/24/18 10:38 Dose: 50 mg Docusate Sodium (Colace) 100 mg PO BID [facility] Last Admin: 07/24/18 17:26 Dose: 100 mg Furosemide (Lasix) 20 mg PO DAILY [facility] Last Admin: 07/24/18 09:29 Dose: 20 mg Lidocaine HCl (Xylocaine 2%) 0 ea TOP TID PRN PRN Reason: Pain, Mild (1-3) Last Admin: 07/24/18 10:40 Dose: 1 applic Loratadine (Claritin) 10 mg PO DAILY [facility] Last Admin: 07/24/18 09:29 Dose: 10 mg Metoprolol Succinate (Toprol Xl) 50 mg PO BRK [facility] Last Admin: 07/24/18 08:48 Dose: Not Given Mometasone Furoate (Elocon Lotion) 0 ml TOP BID [facility] Last Admin: 07/24/18 17:27 Dose: Not Given Nifedipine (Procardia Xl) 30 mg PO DAILY [facility] Last Admin: 07/24/18 09:29 Dose: 30 mg Pantoprazole Sodium (Protonix Ec Tab) 20 mg PO 0600 [facility] Last Admin: 07/25/18 05:17 Dose: 20 mg Polyethylene Glycol (Miralax) 17 gm PO DAILY PRN PRN Reason: Constipation Last Admin: 07/24/18 13:53 Dose: 17 gm Prednisone (Prednisone Tab) 20 mg PO DAILY [facility] Last Admin: 07/24/18 09:30 Dose: 20 mg Silver Sulfadiazine (Silvadene 1% 25 Gm) 0 gm TP BID [facility] Last Admin: 07/24/18 17:27 Dose: Not Given Tamsulosin HCl (Flomax) 0.4 mg PO DAILY [facility] Last Admin: 07/24/18 09:29 Dose: 0.4 mg Tramadol HCl (Ultram) 50 mg PO TID PRN PRN Reason: Pain, moderate (4-7) Last Admin: 07/23/18 06:20 Dose: 50 mg - Labs Labs: 07/25/18 07:00 07/25/18 07:00 - Respiratory Exam Respiratory Exam: NORMAL BREATHING PATTERN - Cardiovascular Exam Cardiovascular Exam: +S1, +S2 - Neurological Exam Neurological Exam: Alert, Awake - Skin Skin Exam: Rash Additional comments: Diffuse rash, erythema with some blistering all over the body Assessment and Plan - Assessment and Plan (Free Text) Plan: Rash -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 Khalil CAD -continue home meds -cardio consultedDamaris HLD - Continue home statin Prostate CA -Continue caodex -Continue flomax <Malini Khalil P - Last Filed: 08/08/18 22:50> Objective - Vital Signs/Intake and Output Vital Signs (last 24 hours): Temp Pulse Resp BP Pulse Ox 99.0 F 76 18 133/76 99 08/07/18 00:00 08/07/18 00:00 08/07/18 00:00 08/07/18 10:51 08/07/18 00:00 - Labs Labs: 08/04/18 10:05 08/04/18 06:30 Attending/Attestation - Attestation I have personally seen and examined this patient.: Yes I have fully participated in the care of the patient.: Yes I have reviewed all pertinent clinical information, including history, physical exam and plan: Yes
--- NOTE | 2018-07-25 08:54 | CON ---
DATE: 07/22/2018 LOCATION: The patient is seen earlier this morning in room 374, bed 2. CHIEF COMPLAINT: Chills times 1 day. HISTORY OF PRESENT ILLNESS: This is an 88-year-old male with stage IV lung cancer, healthcare-associated pneumonia, prostate cancer, transitional cell and obstructive pneumonitis, chronic obstructive lung disease, emphysema, and esophageal candidiasis, who was just recently discharged, now was admitted with chills times 1 day duration. REVIEW OF SYSTEMS: Reveals he has had no fevers. No chest pain. He does have mild shortness of breath. A 12-point review of systems was performed. PAST MEDICAL HISTORY: Significant for stage IV lung cancer, healthcare-associated pneumonia, prostate cancer, transitional cell cancer, and obstructive pneumonitis. PAST SURGICAL HISTORY: Cardiac catheterization with stent, renal biopsy. The patient was also has COPD and emphysema. ALLERGIES: THE PATIENT IS ALLERGIES TO CLOPIDOGREL. HOME MEDICATIONS: Reviewed. PHYSICAL EXAMINATION: GENERAL: The patient is seen in bed, appearing chronically ill, and debilitated. VITAL SIGNS: Temperature of 98, blood pressure of 106/40, respiratory rate of 18, and heart rate of 76 is up to 92. HEENT: Unremarkable. NECK: Supple. LUNGS: Decreased breath sounds. HEART: Normal S1 and S2. ABDOMEN: Soft and nontender. LABORATORY DATA: Reveals a white count of 12,500, hemoglobin of 11, platelets of 117, and 90% polys. Procalcitonin is less than 0.05. Creatinine is 1.2. Urinalysis is unremarkable. Microbiology reveals blood cultures are negative and the patient also had a pulmonary consultation with Dr. Dixon. ASSESSMENT AND PLAN: This is an 88-year-old with nonsmall-cell lung cancer with metastasis to the vertebrae at T10, status post radiation with radiation esophagitis, chronic obstructive lung disease, hyperlipidemia, pulmonary hypertension, emphysema, prostate cancer and rash consistent with radiation , and dermatitis. Systemic inflammatory response syndrome and for sputum culture and imaging, doxycycline and meropenem and Solu-Medrol. Negative procalcitonin, although prognosis is quite poor, should consider on hospice setting for his end-stage patient. Reid Massey MD
[2018-07-25 09:17] LABS: ANISOCYTOSIS SLIGHT; EOSINOPHIL 4 % (0.0-3.0); LYMPHOCYTE 5 % (22.0-35.0); MONOCYTE 3 % (1.0-6.0); NEUTROPHIL 88 % (50.0-70.0); PLATELET ESTIMATE LOW (NORMAL)
[2018-07-25] MEDS: NIFEdipine 30 mg ER Tab PO SCH (10:12)
[2018-07-25] MEDS: Metoprolol Succinate 50 mg XL Tab PO SCH (10:15)
--- NOTE | 2018-07-25 10:16 | CP.PCM.PN ---
<Gerard Neal - Last Filed: 07/25/18 10:13> Subjective - Date & Time of Evaluation Date of Evaluation: 07/25/18 Time of Evaluation: 10:13 - Subjective Subjective: Podiatry progress note - Drs. Gomez/Brittney 88M seen and evaluated at bedside this AM with Dr. Lugo. Patient is well known to Dr. Boland service. Reports pain to digits and itching at lower legs and over body. States he has been going through radiation and has a rash all over his body. Denies n/v/f/c/sob today and has no other acute complaints. Objective - Vital Signs/Intake and Output Vital Signs (last 24 hours): Temp Pulse Resp BP Pulse Ox 101.9 F H 98 H 20 109/60 94 L 07/25/18 08:41 07/25/18 08:41 07/25/18 08:41 07/25/18 08:41 07/25/18 08:41 Intake and Output: 07/25/18 07/25/18 06:59 18:59 Intake Total 120 Output Total 0 Balance 120 - Medications Medications: Current Medications Acetaminophen (Tylenol 325mg Tab) 650 mg PO Q6H PRN PRN Reason: Pain, Mild (1-3) Last Admin: 07/25/18 06:05 Dose: 650 mg Al Hydrox/Mg Hydrox/Simethicone (Maalox Plus 30 Ml) 30 ml PO 1200 PRN PRN Reason: Indigestion / Heartburn Last Admin: 07/22/18 22:26 Dose: 30 ml Arformoterol Tartrate (Brovana) 15 mcg IH [id number] [facility] Last Admin: 07/25/18 07:38 Dose: 15 mcg Aspirin (Ecotrin) 81 mg PO DAILY [facility] Last Admin: 07/24/18 09:30 Dose: 81 mg Bicalutamide (Casodex) 50 mg PO DAILY [facility] Last Admin: 07/24/18 10:38 Dose: 50 mg Docusate Sodium (Colace) 100 mg PO BID [facility] Last Admin: 07/24/18 17:26 Dose: 100 mg Furosemide (Lasix) 20 mg PO DAILY [facility] Last Admin: 07/24/18 09:29 Dose: 20 mg Lidocaine HCl (Xylocaine 2%) 0 ea TOP TID PRN PRN Reason: Pain, Mild (1-3) Last Admin: 07/24/18 10:40 Dose: 1 applic Loratadine (Claritin) 10 mg PO DAILY [facility] Last Admin: 07/24/18 09:29 Dose: 10 mg Metoprolol Succinate (Toprol Xl) 50 mg PO BRK [facility] Last Admin: 07/24/18 08:48 Dose: Not Given Mometasone Furoate (Elocon Lotion) 0 ml TOP BID [facility] Last Admin: 07/24/18 17:27 Dose: Not Given Nifedipine (Procardia Xl) 30 mg PO DAILY [facility] Last Admin: 07/24/18 09:29 Dose: 30 mg Pantoprazole Sodium (Protonix Ec Tab) 20 mg PO 0600 [facility] Last Admin: 07/25/18 05:17 Dose: 20 mg Polyethylene Glycol (Miralax) 17 gm PO DAILY PRN PRN Reason: Constipation Last Admin: 07/24/18 13:53 Dose: 17 gm Prednisone (Prednisone Tab) 20 mg PO DAILY [facility] Last Admin: 07/24/18 09:30 Dose: 20 mg Silver Sulfadiazine (Silvadene 1% 25 Gm) 0 gm TP BID [facility] Last Admin: 07/24/18 17:27 Dose: Not Given Tamsulosin HCl (Flomax) 0.4 mg PO DAILY [facility] Last Admin: 07/24/18 09:29 Dose: 0.4 mg Tramadol HCl (Ultram) 50 mg PO TID PRN PRN Reason: Pain, moderate (4-7) Last Admin: 07/23/18 06:20 Dose: 50 mg - Labs Labs: 07/25/18 07:00 07/25/18 07:00 - Constitutional Appears: Non-toxic - Head Exam Head Exam: ATRAUMATIC - Extremities Exam Additional comments: Vascular: DP/PT 2/4, CFT < 3 seconds, TG warm to warm, no edema appreciated Ortho: Pain upon palpation of nails, MMT 5/5 Neuro: Gross and protective sensation intact Derm: Erythematous patches on lower and upper extremities appreciated, no open lesions, no drainage, no purulence - Neurological Exam Neurological Exam: Alert, Awake, Oriented x3 - Psychiatric Exam Psychiatric exam: Normal Affect Assessment and Plan - Assessment and Plan (Free Text) Assessment: 88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 Lugo Febrile, WBC 9.4 Legs left open and monitored for skin breakdown Multipodus boots ordered Recommend biafine cream for radiation dermatitis Will continue to follow <Cecy Lugo - Last Filed: 08/05/18 11:49> Objective - Vital Signs/Intake and Output Vital Signs (last 24 hours): Temp Pulse Resp BP Pulse Ox 97.6 F 76 20 124/73 94 L 08/05/18 09:12 08/05/18 09:52 08/05/18 09:12 08/05/18 09:52 08/05/18 09:12 Intake and Output: 08/05/18 08/05/18 06:59 18:59 Intake Total 120 Output Total 500 Balance -380 - Medications Medications: Current Medications Acetaminophen (Tylenol 325mg Tab) 650 mg PO Q6H PRN PRN Reason: Pain, Mild (1-3) Last Admin: 07/25/18 06:05 Dose: 650 mg Al Hydrox/Mg Hydrox/Simethicone (Maalox Plus 30 Ml) 30 ml PO 1200 PRN PRN Reason: Indigestion / Heartburn Last Admin: 07/27/18 18:21 Dose: 30 ml Arformoterol Tartrate (Brovana) 15 mcg IH [id number] [facility] Last Admin: 08/05/18 08:40 Dose: 15 mcg Aspirin (Ecotrin) 81 mg PO DAILY [facility] Last Admin: 08/05/18 09:49 Dose: 81 mg Bicalutamide (Casodex) 50 mg PO DAILY [facility] Last Admin: 08/05/18 09:48 Dose: 50 mg Al Hydrox/Mg Hydrox/Simethicone 30 ml/Diphenhydramine HCl 75 mg/Lidocaine 30 ml 0 ml PO Q3H PRN PRN Reason: Mouth/Throat Pain Last Admin: 07/31/18 09:56 Dose: 10 ml Docusate Sodium (Colace) 100 mg PO BID [facility] Last Admin: 08/05/18 09:49 Dose: 100 mg Dorzolamide HCl (Trusopt) 0 ml OD BID [facility]; Protocol Last Admin: 08/05/18 09:52 Dose: 1 drop Emollient Ointment (Vaseline Oint) 0 gm TOP BID [facility] Last Admin: 08/05/18 09:53 Dose: 5 gm Enoxaparin Sodium (Lovenox) 40 mg SC DAILY [facility]; Protocol Last Admin: 08/05/18 09:50 Dose: 40 mg Furosemide (Lasix) 20 mg PO DAILY [facility] Last Admin: 08/05/18 09:50 Dose: 20 mg Home Med (Home Med) 0 unit TOP TID [facility] Last Admin: 08/05/18 09:50 Dose: Not Given Hydrocortisone (Cortizone 2.5% Cream) 0 applic TOP DAILY [facility] Last Admin: 08/05/18 09:49 Dose: 20 applic Lidocaine HCl (Xylocaine 2%) 0 ea TOP TID PRN PRN Reason: Pain, Mild (1-3) Last Admin: 07/28/18 07:06 Dose: 1 applic Loratadine (Claritin) 10 mg PO DAILY [facility] Last Admin: 08/05/18 09:48 Dose: 10 mg Metoprolol Succinate (Toprol Xl) 50 mg PO BRK [facility] Last Admin: 08/05/18 09:52 Dose: 50 mg Mometasone Furoate (Elocon Lotion) 0 ml TOP BID [facility] Last Admin: 08/05/18 09:50 Dose: 1 applic Multivitamins (Thera Tab) 1 tab PO DAILY [facility] Last Admin: 08/05/18 09:52 Dose: 1 tab Mupirocin (Bactroban Ointment) 0 gm TOP BID [facility] Last Admin: 08/05/18 09:45 Dose: 1 applic Nifedipine (Procardia Xl) 30 mg PO DAILY [facility] Last Admin: 08/05/18 09:51 Dose: 30 mg Pantoprazole Sodium (Protonix Ec Tab) 20 mg PO 0600 [facility] Last Admin: 08/05/18 05:36 Dose: 20 mg Polyethylene Glycol (Miralax) 17 gm PO DAILY [facility] Last Admin: 08/05/18 09:51 Dose: 17 gm Prednisone (Prednisone Tab) 5 mg PO DAILY [facility] Prednisone (Prednisone Tab) 2 mg PO DAILY [facility] Tamsulosin HCl (Flomax) 0.4 mg PO DAILY [facility] Last Admin: 08/05/18 09:50 Dose: 0.4 mg Tramadol HCl (Ultram) 50 mg PO TID PRN PRN Reason: Pain, moderate (4-7) Last Admin: 08/04/18 10:03 Dose: 50 mg - Labs Labs: 08/04/18 10:05 08/04/18 06:30 Attending/Attestation - Attestation I have personally seen and examined this patient.: Yes I have fully participated in the care of the patient.: Yes I have reviewed all pertinent clinical information, including history, physical exam and plan: Yes
[2018-07-25 10:45] LABS: ERYTHROCYTE SEDIMENTATION RATE 23 mm/hr (0.00-15.0)
[2018-07-25] MEDS ORDERED: oxyCODONE 20 mg Immediate Release Tab PO PRN (11:24)
[2018-07-25] MEDS ORDERED: Magnesium Hydroxide Susp 30 ml UD PO ONE (11:40)
--- NOTE | 2018-07-25 13:53 | PN ---
DATE: 07/25/2018 PULMONARY PROGRESS NOTE REFERRING PHYSICIAN: Mic Dougherty MD SUBJECTIVE: The patient is seen sitting up in bed, family at bedside. Reports cough and shortness of breath are doing better. States he has not have a bowel movement in four days. No headache, rhinitis, chest pain, abdominal pain, nausea, vomiting, diarrhea, leg pain or leg swelling reported. The patient also reports that he is in pain from rash especially rash to chest area, nursing aware and will medicate the patient. OBJECTIVE: GENERAL: No acute distress. VITAL SIGNS: Blood pressure 109/60, pulse 98, oxygen saturations 94% and temperature 101.9. HEENT: Moist mucous membranes. NECK: Supple. No JVD. LUNGS: Scattered rhonchi bilaterally. CARDIOVASCULAR: S1 and S2. ABDOMEN: Soft and nontender. No distention. No organomegaly. EXTREMITIES: No bilateral lower extremity edema. NEUROLOGIC: Awake, alert and verbal. Following commands. SKIN: Diffused rash all over body. MEDICATIONS: Reviewed. Tylenol 650 mg every 6 hours p.r.n. for mild pain, Maalox 30 mL daily p.r.n., Brovana 15 mcg inhalation every 12 hours, aspirin 81 mg daily, Casodex 50 mg daily, Colace 100 mg twice a day, Lasix 20 mg daily, lidocaine patch three times a day p.r.n., Claritin 10 mg daily, metoprolol succinate 50 mg at breakfast, Elocon lotion twice a day topically to affected area, Procardia-XL 30 mg daily, oxycodone 20 mg every 4 hours p.r.n., Protonix 20 mg daily, MiraLax 17 g daily, prednisone 20 mg daily, Silvadene topically twice a day to affected area, Flomax 0.4 mg daily and tramadol 50 mg three times a day p.r.n. LABORATORY DATA: Reviewed. WBC 9.4, RBC 3.48, hemoglobin 11.3, hematocrit 35, and platelets 96. Sodium 135, potassium 4, chloride 100, carbon dioxide 29, anion gap of 10, BUN 23, creatinine 0.8, GFR greater than 60, random glucose 107, calcium 8.2, total bilirubin 0.5, AST 21, ALT 25, alkaline phosphatase 48, total protein 5, albumin 2.5, globulin 2.4 and albumin-globulin ratio 1. Procalcitonin less than 0.05. Urinalysis shows urine protein 100, urine blood large, urine leukocyte esterase, trace urine RBC's positive. Blood cultures preliminary no growth after 24 hours. 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 The patient presently with head to toe rash which may be drug related, viral, fungal, bacteria and autoimmune. Pulmonary point of view, continue inhaled bronchodilators, gastric prophylaxis, sequential compression devices to bilateral lower extremities. Continue antihistamine. Continue follow with Infectious Disease. Antibiotics per Infectious Disease. Ordered Dulcolax suppository one time dose to be given for complaint of constipation. Monitor bowel movements. This patient was seen and examined with Dr. Dixon. Discussed assessment and plan as described above. This patient was seen and examined with Leandro Salas, nurse practitioner. Discussed assessment and plan as described above. Thank you for the consult and we will follow with you. Leandro Salas APN Ankur Dixon MD ANA
[2018-07-25] MEDS ORDERED: Morphine 2 mg/ml ISec IVP ONE (16:25)
[2018-07-25] MEDS: oxyCODONE 10 mg Immediate Release Tab PO PRN (16:27)
--- NOTE | 2018-07-25 16:36 | CP.PCM.PN ---
<FlavioLos allan Ivonne - Last Filed: 07/25/18 16:30> Subjective - Date & Time of Evaluation Date of Evaluation: 07/25/18 Time of Evaluation: 16:30 - Subjective Subjective: I'm working as house doctor. I was paged for a skin tear. Patient was going to the bathroom when he became unsteady and was about to fall when his son grabbed his left forearm to break his fall which resulted in a 2 in x 4 in skin tear - the skin flap was still attached. By the time I arrived the superficial blood had began to clot - there was no bleeding. Wound care nurse Nydia was paged and she arrived. She covered the wound with the skin flap and applied bactroban and wrapped the wound with a non-adhesive gauze. Patient also had anterior chest pain due to a demarcated skin lesion due to radiation - wound care nurse Nydia applied silvadene and wrapped entire chest and back with a non-adhesive gauze. Patient's pain was addressed by giving him the prn oxycodone which was available to him. His vitals were normal. Son was at bedside. Objective - Vital Signs/Intake and Output Vital Signs (last 24 hours): Temp Pulse Resp BP Pulse Ox 101.9 F H 98 H 20 109/60 94 L 07/25/18 08:41 07/25/18 10:15 07/25/18 08:41 07/25/18 10:15 07/25/18 08:41 Intake and Output: 07/25/18 07/25/18 06:59 18:59 Intake Total 120 Output Total 0 Balance 120 - Medications Medications: Current Medications Acetaminophen (Tylenol 325mg Tab) 650 mg PO Q6H PRN PRN Reason: Pain, Mild (1-3) Last Admin: 07/25/18 06:05 Dose: 650 mg Al Hydrox/Mg Hydrox/Simethicone (Maalox Plus 30 Ml) 30 ml PO 1200 PRN PRN Reason: Indigestion / Heartburn Last Admin: 07/22/18 22:26 Dose: 30 ml Arformoterol Tartrate (Brovana) 15 mcg IH [id number] [facility] Last Admin: 07/25/18 07:38 Dose: 15 mcg Aspirin (Ecotrin) 81 mg PO DAILY [facility] Last Admin: 07/25/18 10:15 Dose: 81 mg Bicalutamide (Casodex) 50 mg PO DAILY [facility] Last Admin: 07/25/18 10:16 Dose: 50 mg Docusate Sodium (Colace) 100 mg PO BID [facility] Last Admin: 07/25/18 10:11 Dose: 100 mg Furosemide (Lasix) 20 mg PO DAILY [facility] Last Admin: 07/25/18 10:12 Dose: 20 mg Lidocaine HCl (Xylocaine 2%) 0 ea TOP TID PRN PRN Reason: Pain, Mild (1-3) Last Admin: 07/24/18 10:40 Dose: 1 applic Loratadine (Claritin) 10 mg PO DAILY [facility] Last Admin: 07/25/18 10:11 Dose: 10 mg Metoprolol Succinate (Toprol Xl) 50 mg PO BRK [facility] Last Admin: 07/25/18 10:15 Dose: 50 mg Mometasone Furoate (Elocon Lotion) 0 ml TOP BID [facility] Last Admin: 07/24/18 17:27 Dose: Not Given Morphine Sulfate (Morphine) 2 mg IVP ONCE ONE Stop: 07/25/18 16:26 Nifedipine (Procardia Xl) 30 mg PO DAILY [facility] Last Admin: 07/25/18 10:12 Dose: 30 mg Oxycodone HCl (Oxycodone Immediate Release Tab) 20 mg PO Q4H PRN PRN Reason: Pain, severe (8-10) Pantoprazole Sodium (Protonix Ec Tab) 20 mg PO 0600 [facility] Last Admin: 07/25/18 05:17 Dose: 20 mg Polyethylene Glycol (Miralax) 17 gm PO DAILY PRN PRN Reason: Constipation Last Admin: 07/24/18 13:53 Dose: 17 gm Prednisone (Prednisone Tab) 20 mg PO DAILY [facility] Last Admin: 07/25/18 10:12 Dose: 20 mg Silver Sulfadiazine (Silvadene 1% 25 Gm) 0 gm TP BID [facility] Last Admin: 07/24/18 17:27 Dose: Not Given Tamsulosin HCl (Flomax) 0.4 mg PO DAILY [facility] Last Admin: 07/25/18 10:12 Dose: 0.4 mg Tramadol HCl (Ultram) 50 mg PO TID PRN PRN Reason: Pain, moderate (4-7) Last Admin: 07/23/18 06:20 Dose: 50 mg Valacyclovir HCl (Valtrex) 250 mg PO TID [facility]; Protocol - Labs Labs: 07/25/18 07:00 07/25/18 07:00 <Malini Khalil P - Last Filed: 08/08/18 22:48> Objective - Vital Signs/Intake and Output Vital Signs (last 24 hours): Temp Pulse Resp BP Pulse Ox 99.0 F 76 18 133/76 99 08/07/18 00:00 08/07/18 00:00 08/07/18 00:00 08/07/18 10:51 08/07/18 00:00 - Labs Labs: 08/04/18 10:05 08/04/18 06:30 Attending/Attestation - Attestation I have personally seen and examined this patient.: Yes I have fully participated in the care of the patient.: Yes I have reviewed all pertinent clinical information, including history, physical exam and plan: Yes
--- NOTE | 2018-07-25 20:33 | CP.PCM.PN ---
Subjective - Date & Time of Evaluation Date of Evaluation: 07/25/18 Time of Evaluation: 16:30 - Subjective Subjective: Patient tolerating regular food. He is concerned mainly of this rash. Objective - Vital Signs/Intake and Output Vital Signs (last 24 hours): Temp Pulse Resp BP Pulse Ox 97.3 F L 81 20 97/62 L 98 07/25/18 17:05 07/25/18 17:05 07/25/18 17:05 07/25/18 17:05 07/25/18 17:05 Intake and Output: 07/25/18 07/26/18 18:59 06:59 Intake Total 120 Output Total 0 Balance 120 - Medications Medications: Current Medications Acetaminophen (Tylenol 325mg Tab) 650 mg PO Q6H PRN PRN Reason: Pain, Mild (1-3) Last Admin: 07/25/18 06:05 Dose: 650 mg Al Hydrox/Mg Hydrox/Simethicone (Maalox Plus 30 Ml) 30 ml PO 1200 PRN PRN Reason: Indigestion / Heartburn Last Admin: 07/22/18 22:26 Dose: 30 ml Arformoterol Tartrate (Brovana) 15 mcg IH [id number] [facility] Last Admin: 07/25/18 20:11 Dose: 15 mcg Aspirin (Ecotrin) 81 mg PO DAILY [facility] Last Admin: 07/25/18 10:15 Dose: 81 mg Bicalutamide (Casodex) 50 mg PO DAILY [facility] Last Admin: 07/25/18 10:16 Dose: 50 mg Docusate Sodium (Colace) 100 mg PO BID [facility] Last Admin: 07/25/18 17:42 Dose: 100 mg Dorzolamide HCl (Trusopt) 0 ml OD BID [facility]; Protocol Furosemide (Lasix) 20 mg PO DAILY [facility] Last Admin: 07/25/18 10:12 Dose: 20 mg Home Med (Home Med) 0 unit TOP TID [facility] Lidocaine HCl (Xylocaine 2%) 0 ea TOP TID PRN PRN Reason: Pain, Mild (1-3) Last Admin: 07/24/18 10:40 Dose: 1 applic Loratadine (Claritin) 10 mg PO DAILY [facility] Last Admin: 07/25/18 10:11 Dose: 10 mg Methylprednisolone (Solu-Medrol) 40 mg IVP Q8H [facility] Metoprolol Succinate (Toprol Xl) 50 mg PO BRK [facility] Last Admin: 07/25/18 10:15 Dose: 50 mg Mometasone Furoate (Elocon Lotion) 0 ml TOP BID [facility] Last Admin: 07/24/18 17:27 Dose: Not Given Mupirocin (Bactroban Ointment) 0 gm TOP BID [facility] Nifedipine (Procardia Xl) 30 mg PO DAILY [facility] Last Admin: 07/25/18 10:12 Dose: 30 mg Oxycodone HCl (Oxycodone Immediate Release Tab) 20 mg PO Q4H PRN PRN Reason: Pain, severe (8-10) Last Admin: 07/25/18 16:27 Dose: 20 mg Pantoprazole Sodium (Protonix Ec Tab) 20 mg PO 0600 [facility] Last Admin: 07/25/18 05:17 Dose: 20 mg Polyethylene Glycol (Miralax) 17 gm PO DAILY PRN PRN Reason: Constipation Last Admin: 07/24/18 13:53 Dose: 17 gm Silver Sulfadiazine (Silvadene 1% 25 Gm) 0 gm TP BID [facility] Last Admin: 07/24/18 17:27 Dose: Not Given Tamsulosin HCl (Flomax) 0.4 mg PO DAILY [facility] Last Admin: 07/25/18 10:12 Dose: 0.4 mg Tramadol HCl (Ultram) 50 mg PO TID PRN PRN Reason: Pain, moderate (4-7) Last Admin: 07/23/18 06:20 Dose: 50 mg Valacyclovir HCl (Valtrex) 250 mg PO TID [facility]; Protocol Last Admin: 07/25/18 17:41 Dose: 250 mg - Labs Labs: 07/25/18 07:00 07/25/18 07:00 - Head Exam Head Exam: ATRAUMATIC, NORMOCEPHALIC - Eye Exam Eye Exam: EOMI, PERRL - ENT Exam ENT Exam: Mucous Membranes Moist - Neck Exam Neck Exam: Full ROM. absent: Lymphadenopathy - Respiratory Exam Respiratory Exam: NORMAL BREATHING PATTERN. absent: Accessory Muscle Use - Cardiovascular Exam Cardiovascular Exam: +S1, +S2. absent: JVD - GI/Abdominal Exam GI & Abdominal Exam: Soft, Normal Bowel Sounds. absent: Tenderness, Mass - Neurological Exam Neurological Exam: Alert, Awake, Oriented x3 - Skin Skin Exam: Rash Additional comments: Diffuse macular rash noticed both extremities and the trunk Assessment and Plan - Assessment and Plan (Free Text) Assessment: Metastatic non-small cell carcinoma. Status post radiation therapy Patient was admitted with odynophagia EGD revealed a erythematous areas in the mid esophagus with erosions. Esophageal candidiasis patient was treated with Diflucan Tolerating the diet well now on PPI continue The main concern is a rash. Patient also spiked a temperature. On steroid. Continue antibiotics as per ID. Oncology and pulmonary follow-up.
--- NOTE | 2018-07-25 21:30 | PN ---
DATE: 07/25/2018 SUBJECTIVE: The patient is in bed, in no acute distress, nontoxic. PHYSICAL EXAMINATION VITAL SIGNS: Temperature is 97, T-max of 101.9, respiratory rate is 18, heart rate of 91. HEENT: Unremarkable. NECK: Supple. LUNGS: Have decreased breath sounds. HEART: Normal S1, S2. ABDOMEN: Soft, nontender. LABORATORY DATA: Reveals the patient's white count of 9.4, hemoglobin of 11. Chemistries reveal a BUN of 23, creatinine of 0.8. Procalcitonin is less than 0.05. Microbiology reveals the blood cultures are negative and repeat blood cultures are negative. Urine cultures are negative. REVIEW OF ORDERS: Reveals the patient to be on Valtrex. ASSESSMENT AND PLAN: An 88-year-old male with non-small cell lung cancer involving the vertebrae and the patient also with esophagitis and chronic lung disease, hyperlipidemia, pulmonary hypertension, transitional cell carcinoma, diastolic dysfunction, Maisha esophagitis with negative cultures. Currently now with systemic inflammatory response syndrome. The patient did have AN ALLERGIC REACTION TO WHAT APPEARS TO BE PER MY DISCUSSION WITH DR. GARDNER TO KEFLEX. We will follow with you. Overall prognosis is quite poor for this 88-year-old male, consider palliative care. Reid Massey MD
[2018-07-25] MEDS: MethylPREDNISolone 40 mg Vial IVP SCH (21:55)
[2018-07-26] MEDS: MethylPREDNISolone 40 mg Vial IVP SCH ×3 (04:30→23:08)
[2018-07-26] MEDS: Pantoprazole 20 mg EC Tab PO SCH (06:09)
[2018-07-26] MEDS: Arformoterol 15 mcg/2 ml Inh Sol IH SCH ×2 (07:52→20:04)
[2018-07-26] MEDS: Metoprolol Succinate 50 mg XL Tab PO SCH (08:00)
--- NOTE | 2018-07-26 09:28 | PCM.OP ---
Operative Report - Operative Report Date of Surgery/Procedure: 07/14/18 Time of Surgery/Procedure: 13:30 Surgeon: Sadaf Kim DPM Pin Attacher: Dr. Chaka Vaz PGY1 Anesthesia/Sedation: IV Sedation with Local Anesthesia Pre-Operative Diagnosis: Left Leg Wound Post-Operative Diagnosis: same as above Indication for Surgery: Procedures 1) Full Thickness wound debridement 2) Application of Skin Graft Indications: The patient is a 88 year old male with the above diagnoses. The patient has exhausted all conservative treatment at this time and now requires surgical intervention. The patient signed the consent after careful explanation of risks, benefits, complications and alternatives for surgical procedure. No guarantees were given nor implied. NPO status was confirmed prior to taking patient to the OR. Operative Findings: Operative Findings: Preparation: The patient was brought in to the operating room and placed on the operating room table in a supine position. Timeout was performed for identification of the correct patient and procedure. The lower extremity was then prepped and draped in normal sterile manner and the procedure began. No tourniquet was used during the procedure. Procedure/Operation Description: Procedure 1: Full Thickness Wound Debridement Attention was then directed to the plantar aspect of the left foot where a non- healing wound measuring approximately 6 cm x 10 cm x 0.6 cm was present. A sterile 15 blade and forceps were utilized to excise all necrotic tissue from the wound bed and wound margins. Next the ulceration was excisonally debrided of all remaining fibrotic and non-viable tissue until fresh and healthy bleeding granular tissue appeared. Wound culture was obtained. Procedure 2: Application of Apligraft At this time, Apligraf was prepped and applied to the wound bed. The graft was secured with 3-0 Vicryl. The site was dressed with adaptic, gauze, abdominal pads, and Kerlix. Estimated Blood Loss: 5 cc Complications: none Discharge & Condition: Postoperative Condition: The patient tolerated the anesthesia and procedure well and was escorted to the recovery room with vital signs stable and neurovascular status intact to the left foot.
[2018-07-26] MEDS: oxyCODONE 10 mg Immediate Release Tab PO PRN (10:33)
[2018-07-26] MEDS: NIFEdipine 30 mg ER Tab PO SCH (10:36)
[2018-07-26] MEDS: Dorzolamide 2% Opht Sol 10ml OD SCH ×2 (10:37→18:39)
--- NOTE | 2018-07-26 10:59 | CP.PCM.PN ---
Subjective - Date & Time of Evaluation Date of Evaluation: 07/26/18 Time of Evaluation: 10:55 - Subjective Subjective: Surgery Progress Note for Dr. Glass 88M seen and evaluated at bedside this morning. No acute events overnight. No complaints this morning. Rash seems to be improving. Pruritis has improved. Tolerating his diet. Denies f/c, n/v/d, SOB, CP, or urinary symptoms. Objective - Vital Signs/Intake and Output Vital Signs (last 24 hours): Temp Pulse Resp BP Pulse Ox 97.7 F 78 20 122/71 99 07/26/18 08:56 07/26/18 10:36 07/26/18 08:56 07/26/18 10:36 07/26/18 08:56 Intake and Output: 07/26/18 07/26/18 06:59 18:59 Intake Total 240 Output Total 475 Balance -235 - Medications Medications: Current Medications Acetaminophen (Tylenol 325mg Tab) 650 mg PO Q6H PRN PRN Reason: Pain, Mild (1-3) Last Admin: 07/25/18 06:05 Dose: 650 mg Al Hydrox/Mg Hydrox/Simethicone (Maalox Plus 30 Ml) 30 ml PO 1200 PRN PRN Reason: Indigestion / Heartburn Last Admin: 07/22/18 22:26 Dose: 30 ml Arformoterol Tartrate (Brovana) 15 mcg IH [id number] Last Admin: 07/26/18 07:52 Dose: 15 mcg Aspirin (Ecotrin) 81 mg PO DAILY [facility] Last Admin: 07/26/18 10:34 Dose: 81 mg Bicalutamide (Casodex) 50 mg PO DAILY [facility] Last Admin: 07/25/18 10:16 Dose: 50 mg Docusate Sodium (Colace) 100 mg PO BID [facility] Last Admin: 07/26/18 10:34 Dose: 100 mg Dorzolamide HCl (Trusopt) 0 ml OD BID [facility]; Protocol Last Admin: 07/26/18 10:37 Dose: 1 drop Furosemide (Lasix) 20 mg PO DAILY [facility] Last Admin: 07/26/18 10:35 Dose: 20 mg Home Med (Home Med) 0 unit TOP TID [facility] Hydrocortisone (Cortizone 2.5% Cream) 0 applic TOP DAILY [facility] Lidocaine HCl (Xylocaine 2%) 0 ea TOP TID PRN PRN Reason: Pain, Mild (1-3) Last Admin: 07/24/18 10:40 Dose: 1 applic Loratadine (Claritin) 10 mg PO DAILY [facility] Last Admin: 07/26/18 10:34 Dose: 10 mg Methylprednisolone (Solu-Medrol) 40 mg IVP Q8H [facility] Last Admin: 07/26/18 04:30 Dose: 40 mg Metoprolol Succinate (Toprol Xl) 50 mg PO BRK [facility] Last Admin: 07/26/18 08:00 Dose: 50 mg Mometasone Furoate (Elocon Lotion) 0 ml TOP BID [facility] Last Admin: 07/24/18 17:27 Dose: Not Given Mupirocin (Bactroban Ointment) 0 gm TOP BID [facility] Nifedipine (Procardia Xl) 30 mg PO DAILY [facility] Last Admin: 07/26/18 10:36 Dose: 30 mg Oxycodone HCl (Oxycodone Immediate Release Tab) 20 mg PO Q4H PRN PRN Reason: Pain, severe (8-10) Last Admin: 07/26/18 10:33 Dose: 20 mg Pantoprazole Sodium (Protonix Ec Tab) 20 mg PO 0600 [facility] Last Admin: 07/26/18 06:09 Dose: 20 mg Polyethylene Glycol (Miralax) 17 gm PO DAILY PRN PRN Reason: Constipation Last Admin: 07/24/18 13:53 Dose: 17 gm Silver Sulfadiazine (Silvadene 1% 25 Gm) 0 gm TP BID [facility] Last Admin: 07/24/18 17:27 Dose: Not Given Tamsulosin HCl (Flomax) 0.4 mg PO DAILY [facility] Last Admin: 07/26/18 10:34 Dose: 0.4 mg Tramadol HCl (Ultram) 50 mg PO TID PRN PRN Reason: Pain, moderate (4-7) Last Admin: 07/23/18 06:20 Dose: 50 mg Valacyclovir HCl (Valtrex) 250 mg PO TID [facility]; Protocol Last Admin: 07/26/18 10:37 Dose: 250 mg - Labs Labs: 07/25/18 07:00 07/25/18 07:00 - Constitutional Appears: Well, Non-toxic, No Acute Distress - Head Exam Head Exam: ATRAUMATIC, NORMAL INSPECTION, NORMOCEPHALIC - Eye Exam Eye Exam: EOMI - ENT Exam ENT Exam: Mucous Membranes Dry - Respiratory Exam Respiratory Exam: NORMAL BREATHING PATTERN. absent: Wheezes, Respiratory Distress - GI/Abdominal Exam GI & Abdominal Exam: Soft, Normal Bowel Sounds. absent: Tenderness - Neurological Exam Neurological Exam: Alert, Awake - Psychiatric Exam Psychiatric exam: Normal Affect, Normal Mood - Skin Additional comments: Diffuse maculopapular rash w/ excorations, erythema w/ areas of confluence - no purulence or bleeding noted - rash seems to have started centrally and spread peripherally Assessment and Plan - Assessment and Plan (Free Text) Assessment: 88M w/ diffuse maculopapular rash Plan: Rash likely secondary to Antibiotics/Medication At this time, will defer biopsy Family agrees that they would not like biopsy at this time Monitor rash for improvement No acute surgical intervention indicated at this time Assessed patient with attending as well D/w Dr. Maria Luisa Mcdonald PGY1
--- NOTE | 2018-07-26 12:14 | CP.PCM.PN ---
<Derik Moore - Last Filed: 07/26/18 14:14> Subjective - Date & Time of Evaluation Date of Evaluation: 07/26/18 Time of Evaluation: 06:00 - Subjective Subjective: Derik Moore PGY2 Heme/Onc Progress Note for Dr. Khalil Patient seen and examined bedside in AM. Patient states rash is improving. Denies any other complaints. Objective - Vital Signs/Intake and Output Vital Signs (last 24 hours): Temp Pulse Resp BP Pulse Ox 97.7 F 78 20 122/71 99 07/26/18 08:56 07/26/18 10:36 07/26/18 08:56 07/26/18 10:36 07/26/18 08:56 Intake and Output: 07/26/18 07/26/18 06:59 18:59 Intake Total 240 Output Total 475 Balance -235 - Medications Medications: Current Medications Acetaminophen (Tylenol 325mg Tab) 650 mg PO Q6H PRN PRN Reason: Pain, Mild (1-3) Last Admin: 07/25/18 06:05 Dose: 650 mg Al Hydrox/Mg Hydrox/Simethicone (Maalox Plus 30 Ml) 30 ml PO 1200 PRN PRN Reason: Indigestion / Heartburn Last Admin: 07/22/18 22:26 Dose: 30 ml Arformoterol Tartrate (Brovana) 15 mcg IH [id number] [facility] Last Admin: 07/26/18 07:52 Dose: 15 mcg Aspirin (Ecotrin) 81 mg PO DAILY [facility] Last Admin: 07/26/18 10:34 Dose: 81 mg Bicalutamide (Casodex) 50 mg PO DAILY [facility] Last Admin: 07/25/18 10:16 Dose: 50 mg Docusate Sodium (Colace) 100 mg PO BID [facility] Last Admin: 07/26/18 10:34 Dose: 100 mg Dorzolamide HCl (Trusopt) 0 ml OD BID [facility]; Protocol Last Admin: 07/26/18 10:37 Dose: 1 drop Furosemide (Lasix) 20 mg PO DAILY [facility] Last Admin: 07/26/18 10:35 Dose: 20 mg Home Med (Home Med) 0 unit TOP TID [facility] Hydrocortisone (Cortizone 2.5% Cream) 0 applic TOP DAILY [facility] Lidocaine HCl (Xylocaine 2%) 0 ea TOP TID PRN PRN Reason: Pain, Mild (1-3) Last Admin: 07/24/18 10:40 Dose: 1 applic Loratadine (Claritin) 10 mg PO DAILY [facility] Last Admin: 07/26/18 10:34 Dose: 10 mg Methylprednisolone (Solu-Medrol) 40 mg IVP Q12H [facility] Metoprolol Succinate (Toprol Xl) 50 mg PO BRK [facility] Last Admin: 07/26/18 08:00 Dose: 50 mg Mometasone Furoate (Elocon Lotion) 0 ml TOP BID [facility] Last Admin: 07/24/18 17:27 Dose: Not Given Mupirocin (Bactroban Ointment) 0 gm TOP BID [facility] Nifedipine (Procardia Xl) 30 mg PO DAILY [facility] Last Admin: 07/26/18 10:36 Dose: 30 mg Oxycodone HCl (Oxycodone Immediate Release Tab) 20 mg PO Q4H PRN PRN Reason: Pain, severe (8-10) Last Admin: 07/26/18 10:33 Dose: 20 mg Pantoprazole Sodium (Protonix Ec Tab) 20 mg PO 0600 [facility] Last Admin: 07/26/18 06:09 Dose: 20 mg Polyethylene Glycol (Miralax) 17 gm PO DAILY PRN PRN Reason: Constipation Last Admin: 07/24/18 13:53 Dose: 17 gm Tamsulosin HCl (Flomax) 0.4 mg PO DAILY [facility] Last Admin: 07/26/18 10:34 Dose: 0.4 mg Tramadol HCl (Ultram) 50 mg PO TID PRN PRN Reason: Pain, moderate (4-7) Last Admin: 07/23/18 06:20 Dose: 50 mg Valacyclovir HCl (Valtrex) 250 mg PO TID [facility]; Protocol Last Admin: 07/26/18 10:37 Dose: 250 mg - Labs Labs: 07/25/18 07:00 07/25/18 07:00 - Constitutional Appears: No Acute Distress - Head Exam Head Exam: ATRAUMATIC, NORMAL INSPECTION, NORMOCEPHALIC - Eye Exam Eye Exam: Normal appearance - Respiratory Exam Respiratory Exam: Clear to Ausculation Bilateral - Cardiovascular Exam Cardiovascular Exam: +S1, +S2 - Neurological Exam Neurological Exam: Alert, Awake, Oriented x3 - Skin Skin Exam: Rash Additional comments: improving general rash Assessment and Plan - Assessment and Plan (Free Text) Plan: Rash -imroving -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 Khalil CAD -continue home meds -cardio consulted, Damaris HLD - Continue home statin Prostate CA -Continue caodex -Continue flomax <Malini Khalil P - Last Filed: 08/08/18 22:48> Objective - Vital Signs/Intake and Output Vital Signs (last 24 hours): Temp Pulse Resp BP Pulse Ox 99.0 F 76 18 133/76 99 08/07/18 00:00 08/07/18 00:00 08/07/18 00:00 08/07/18 10:51 08/07/18 00:00 - Labs Labs: 08/04/18 10:05 08/04/18 06:30 Attending/Attestation - Attestation I have personally seen and examined this patient.: Yes I have fully participated in the care of the patient.: Yes I have reviewed all pertinent clinical information, including history, physical exam and plan: Yes
--- NOTE | 2018-07-26 12:47 | PN ---
DATE: 07/26/2018 REFERRING PHYSICIAN: Mic Dougherty MD SUBJECTIVE: The patient is seen sitting up in the bed. No acute distress. Family at bedside. Reports that he feels better today. He reports that pruritus is improving. States that he had a bowel movement yesterday. Cough and shortness of breath have improved. No headache, rhinitis, chest pain, abdominal pain, nausea, vomiting, diarrhea, leg pain, or leg swelling reported. OBJECTIVE: VITAL SIGNS: Blood pressure 122/71, pulse 78, temperature 97.7, oxygen saturation 99%. GENERAL: No acute distress. HEENT: Moist mucous membranes. No oral thrush. NECK: Supple. No JVD. LUNGS: Scattered rhonchi bilaterally. CARDIOVASCULAR: S1 and S2. ABDOMEN: Soft and nontender. No distention. No organomegaly. EXTREMITIES: No bilateral lower extremity edema. SKIN: Diffuse rash all over the body, improving. NEUROLOGIC: Awake, alert and verbal. Following commands. MEDICATIONS: Reviewed. Tylenol 650 mg every 6 hours p.r.n. mild pain, Maalox 30 mL daily p.r.n., Brovana 15 mcg every 12 hours, aspirin 81 mg daily, Casodex 50 mg daily, Colace 100 mg twice a day, Cosopt eyedrops twice a day, Lasix 20 mg daily, hydrocortisone cream topically daily, lidocaine topically three times a day p.r.n., Claritin 10 mg daily, Solu-Medrol 40 mg every 8 hours, metoprolol succinate 50 mg at breakfast, Elocon lotion topically twice a day, Bactroban topically twice a day, Procardia-XL 30 mg daily, oxycodone 20 mg every 4 hours p.r.n., Protonix 20 mg daily, MiraLax 17 g daily, Flomax 0.4 mg daily, Ultram 50 mg three time a day p.r.n., Valtrex 250 mg three times a day. LABORATORY DATA: Reviewed. Urine culture final no growth. Blood cultures preliminary no growth after 24 hours. 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 Infectious Disease note appreciated who believe rash may be allergic reaction to Keflex. Surgical notes appreciated. Family has refused skin biopsy at this time. Pulmonary point of view, continue inhaled bronchodilators. Gastric prophylaxis. Sequential compression devices to bilateral lower extremities. Continue antihistamines. Antibiotics per Infectious Disease. We will decrease Solu-Medrol to 40 mg every 12 hours. We recommend the patient to have sleep study and have full pulmonary function test as outpatient. This patient was seen and examined with Dr. Dixon. Discussed assessment and plan as described above. This patient was seen and examined with Leandro Salas, nurse practitioner. Discussed assessment and plan as described above. Thank you for this consult. We will follow with you. Leandro Salas APN Ankur Dixon MD
[2018-07-26] MEDS ORDERED: Magnesium Hydroxide Susp 30 ml UD PO PRN (15:41)
[2018-07-26] MEDS: Alum-Mag Hydrox-Simethicone Susp (30 mL) PO PRN (18:39)
[2018-07-26] MEDS: Aluminum Hydroxide/Magnesium 30 ML, DiphenhydrAMINE 75 MG, Lidocaine 2% Viscous 30 ML PO PRN (18:40)
--- NOTE | 2018-07-27 01:23 | PN ---
DATE: 07/26/2018 SUBJECTIVE: The patient is in bed, in no acute distress, nontoxic. PHYSICAL EXAMINATION VITAL SIGNS: Temperature is 97, blood pressure is 115/50, respiratory rate is 20. HEENT: Unremarkable. NECK: Supple. LUNGS: Have decreased breath sounds. HEART: Normal S1 and S2. ABDOMEN: Soft. LABORATORY EXAMINATION: Reveals a white count of 9.4, hemoglobin of 11, BUN of 23, creatinine of 0.8. Urinalysis is noted. Microbiology reveals urine cultures and blood cultures are negative. REVIEW OF ORDERS: Reveals the patient to be off antibiotics. ASSESSMENT AND PLAN: An 88-year-old with nonsmall-cell lung cancer involving the vertebrae, and the patient is with esophagitis, chronic lung disease, hyperlipidemia, pulmonary hypertension, transitional cell carcinoma, diastolic dysfunction, Maisha esophagitis with negative cultures. Currently with systemic inflammatory response syndrome. The patient did have AN ALLERGIC REACTION TO WHAT APPEARS TO BE PER DISCUSSION WITH DR. GARDNER TO [facility]. If the rash persists, we should consider biopsy. Reid Massey MD
[2018-07-27] MEDS: Pantoprazole 20 mg EC Tab PO SCH (05:24)
[2018-07-27] MEDS: Aluminum Hydroxide/Magnesium 30 ML, DiphenhydrAMINE 75 MG, Lidocaine 2% Viscous 30 ML PO PRN ×2 (05:35→10:47)
[2018-07-27] MEDS: Arformoterol 15 mcg/2 ml Inh Sol IH SCH ×2 (07:37→20:57)
[2018-07-27] MEDS: Metoprolol Succinate 50 mg XL Tab PO SCH (08:54)
[2018-07-27] MEDS: Mupirocin 2% Ointment 15 GM TUBE TOP SCH ×2 (10:43→18:19)
[2018-07-27] MEDS: MOMETASONE 0.1% TOP SCH ×3 (10:44→18:20)
[2018-07-27] MEDS: NIFEdipine 30 mg ER Tab PO SCH (10:46)
[2018-07-27] MEDS: Dorzolamide 2% Opht Sol 10ml OD SCH ×2 (10:46→18:20)
[2018-07-27] MEDS: ACYCLOVIR 5% TOP SCH ×3 (10:46→18:20)
[2018-07-27] MEDS: oxyCODONE 10 mg Immediate Release Tab PO PRN (11:05)
[2018-07-27] MEDS: MethylPREDNISolone 40 mg Vial IVP SCH ×2 (13:23→21:40)
[2018-07-27] MEDS: Multivitamin Therapeutic Tab PO SCH (13:24)
[2018-07-27] MEDS ORDERED: Lidocaine 1% Inj (20ml) IJ STA (14:09)
[2018-07-27] MEDS ORDERED: MethylPREDNISolone 40 mg Vial IVP SCH (14:52)
--- NOTE | 2018-07-27 16:28 | PN ---
DATE: 07/27/2018 PULMONARY PROGRESS NOTE REFERRING PHYSICIAN: Mic Dougherty MD SUBJECTIVE: The patient is seen sitting in chair in room. Family at bedside. No acute distress. No overnight events reported. The patient reports feeling well today. No cough. No shortness of breath. No headache, rhinitis, chest pain, abdominal pain, nausea, vomiting, diarrhea, leg pain, or leg swelling reported. Also reports that rash is doing and feeling better. OBJECTIVE: GENERAL: No acute distress. VITAL SIGNS: Blood pressure 1116/62, pulse 87, temperature 97.5, and oxygen saturation 99%. HEENT: Moist mucous membranes. No oral thrush. NECK: Supple. No JVD. LUNGS: Few scattered rhonchi bilaterally. CARDIOVASCULAR: S1 and S2. ABDOMEN: Soft and nontender. No distention. No organomegaly. EXTREMITIES: No bilateral lower extremity edema. SKIN: Diffuse rash all over the body, improving. NEUROLOGIC: Awake, alert and verbal. Following commands. MEDICATIONS: Reviewed. Tylenol 650 mg every 6 hours p.r.n. for mild pain, Maalox 30 mL daily p.r.n., Magic Mouthwash every 3 hours p.r.n., Brovana 15 mcg every 12 hours, aspirin 81 mg daily, Casodex 50 mg daily, Colace 100 mg twice a day, dorzolamide twice a day eye drops, Lasix 20 mg daily, cortisone cream topically daily, lidocaine cream topically three times a day p.r.n., Claritin 10 mg daily, Solu-Medrol 40 mg IV push every 12 hours, metoprolol succinate 50 mg at breakfast, Elocon lotion topically twice a day, multivitamin 1 tablet daily, Bactroban topically twice a day, Procardia-XL 30 mg daily, oxycodone 20 mg every 4 hours p.r.n., Protonix 20 mg daily, MiraLax 17 g daily p.r.n., Flomax 0.4 mg daily, Ultram 50 mg three time a day p.r.n., and Valtrex 250 mg three times a day. LABORATORY DATA: Reviewed. Blood cultures pulmonary no growth after 3 days. Gram-stain sputum shows few polymorphonuclear WBCs, many gram-positive bacilli, many gram-negative rods, moderate gram-positive cocci; culture pending. IMPRESSION AND PLAN: Nonsmall cell lung cancer involving the vertebrae at T1, status post radiation therapy, chronic lung disease, hyperlipidemia, pulmonary hypertension, transitional cell carcinoma of the bladder, hypertension, cardiac diastolic dysfunction, history of Maisha esophagitis, presently with diffuse rash allover his body, maybe allergic reaction Keflex. Family has refused skin biopsy. Pulmonary point of view, continue inhaled bronchodilators, gastric prophylaxis, sequential compression devices to bilateral lower extremity edema. Continue antihistamines. Antibiotics per Infectious Disease. We will decrease Solu-Medrol to 20 mg every 12 hours. Recommend sleep study and have full pulmonary function test as outpatient. This patient was seen and examined with Dr. Dixon. Discussed assessment and plan as described above. This patient was seen and examined with Maritza Reeves, nurse practitioner. Discussed assessment and plan as described above. Thank you for this consult. We will follow with you. Leandro Salas APN Ankur Dixon MD
--- NOTE | 2018-07-27 17:05 | CP.PCM.PN ---
Subjective - Date & Time of Evaluation Date of Evaluation: 07/27/18 Time of Evaluation: 04:30 - Subjective Subjective: General Surgery Procedure Note PRE-OP DIAGNOSIS: Rash of unknown origin POST-OP DIAGNOSIS: Same PROCEDURE: Punch skin biopsy Performing Physician: Nick Barton PGY4 Supervising Physician: Dr. Glass PROCEDURE: Punch Biopsy 4mm The area surrounding the skin lesion was prepared and draped in the usual sterile manner. 1% lidocaine was injected in to the prepped area for biopsy. The area for biopsy was chosen due to the clear margin between rash and normal skin. The skin was removed in the usual manner by Punch biopsy. Hemostasis was assured via closure with an interrupted 4-0 Nylon suture. The patient tolerated the proc edure well without complications. Objective - Vital Signs/Intake and Output Vital Signs (last 24 hours): Temp Pulse Resp BP Pulse Ox 97.5 F L 78 20 124/70 99 07/27/18 08:27 07/27/18 10:46 07/27/18 08:27 07/27/18 10:46 07/27/18 08:27 Intake and Output: 07/27/18 07/27/18 06:59 18:59 Intake Total 120 Output Total 350 Balance -230 - Medications Medications: Current Medications Acetaminophen (Tylenol 325mg Tab) 650 mg PO Q6H PRN PRN Reason: Pain, Mild (1-3) Last Admin: 07/25/18 06:05 Dose: 650 mg Al Hydrox/Mg Hydrox/Simethicone (Maalox Plus 30 Ml) 30 ml PO 1200 PRN PRN Reason: Indigestion / Heartburn Last Admin: 07/26/18 18:39 Dose: 30 ml Arformoterol Tartrate (Brovana) 15 mcg IH [id number] [facility] Last Admin: 07/27/18 07:37 Dose: 15 mcg Aspirin (Ecotrin) 81 mg PO DAILY [facility] Last Admin: 07/27/18 10:44 Dose: 81 mg Bicalutamide (Casodex) 50 mg PO DAILY [facility] Last Admin: 07/27/18 10:45 Dose: 50 mg Al Hydrox/Mg Hydrox/Simethicone 30 ml/Diphenhydramine HCl 75 mg/Lidocaine 30 ml 0 ml PO Q3H PRN PRN Reason: Mouth/Throat Pain Last Admin: 07/27/18 10:47 Dose: 15 ml Docusate Sodium (Colace) 100 mg PO BID [facility] Last Admin: 07/27/18 10:43 Dose: 100 mg Dorzolamide HCl (Trusopt) 0 ml OD BID [facility]; Protocol Last Admin: 07/27/18 10:46 Dose: 1 drop Furosemide (Lasix) 20 mg PO DAILY [facility] Last Admin: 07/27/18 10:46 Dose: 20 mg Home Med (Home Med) 0 unit TOP TID [facility] Last Admin: 07/27/18 13:22 Dose: 1 unit Hydrocortisone (Cortizone 2.5% Cream) 0 applic TOP DAILY [facility] Last Admin: 07/27/18 10:43 Dose: Not Given Lidocaine HCl (Xylocaine 2%) 0 ea TOP TID PRN PRN Reason: Pain, Mild (1-3) Last Admin: 07/24/18 10:40 Dose: 1 applic Loratadine (Claritin) 10 mg PO DAILY [facility] Last Admin: 07/27/18 10:43 Dose: 10 mg Methylprednisolone (Solu-Medrol) 20 mg IVP Q12H [facility] Last Admin: 07/27/18 16:38 Dose: Not Given Metoprolol Succinate (Toprol Xl) 50 mg PO BRK [facility] Last Admin: 07/27/18 08:54 Dose: 50 mg Mometasone Furoate (Elocon Lotion) 0 ml TOP BID [facility] Last Admin: 07/27/18 10:44 Dose: 1 applic Multivitamins (Thera Tab) 1 tab PO DAILY [facility] Last Admin: 07/27/18 13:24 Dose: 1 tab Mupirocin (Bactroban Ointment) 0 gm TOP BID [facility] Last Admin: 07/27/18 10:43 Dose: Not Given Nifedipine (Procardia Xl) 30 mg PO DAILY [facility] Last Admin: 07/27/18 10:46 Dose: 30 mg Oxycodone HCl (Oxycodone Immediate Release Tab) 20 mg PO Q4H PRN PRN Reason: Pain, severe (8-10) Last Admin: 07/27/18 11:05 Dose: 20 mg Pantoprazole Sodium (Protonix Ec Tab) 20 mg PO 0600 [facility] Last Admin: 07/27/18 05:24 Dose: 20 mg Polyethylene Glycol (Miralax) 17 gm PO DAILY PRN PRN Reason: Constipation Last Admin: 07/24/18 13:53 Dose: 17 gm Tamsulosin HCl (Flomax) 0.4 mg PO DAILY [facility] Last Admin: 07/27/18 10:44 Dose: 0.4 mg Tramadol HCl (Ultram) 50 mg PO TID PRN PRN Reason: Pain, moderate (4-7) Last Admin: 07/23/18 06:20 Dose: 50 mg Valacyclovir HCl (Valtrex) 250 mg PO TID [facility]; Protocol Last Admin: 07/27/18 13:24 Dose: 250 mg - Labs Labs: 07/25/18 07:00 07/25/18 07:00
[2018-07-27] MEDS: POLYETHYLENE GLYCOL 3350 17 GM/Dose PACKET PO PRN (18:21)
[2018-07-27] MEDS: Alum-Mag Hydrox-Simethicone Susp (30 mL) PO PRN (18:21)
--- NOTE | 2018-07-28 02:15 | PN ---
DATE: 07/27/2018 This is [facility] [employer] [facility] visit on the medical floor. For Dr. Khalil. SUBJECTIVE: The patient is an 88-year-old male, now showing improvement of his generalized rash, family at the bedside with known non-small cell CA of the lung with vertebral metastasis. The patient had spiking elevation of temperatures currently treated for systemic inflammatory response with what appears to be Keflex allergy. PHYSICAL EXAMINATION: VITAL SIGNS: Temperature 97.5, pulse 78, respirations 20, blood pressure 124/70, pulse ox 99%. HEENT: Unremarkable. NECK: Supple. HEART: Regular rate. LUNGS: Scattered rhonchi. ABDOMEN: Soft, nontender. EXTREMITIES: No edema. SKIN: Slow improvement of his generalized body rash. NEUROLOGIC: Awake and alert. LABORATORY DATA: The patient's labs will be repeated in the morning. 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 PLAN: Plan for this patient is to continue present medical regimen with biopsy of skin lesions to be done as per surgical recommendations and Dr. Khalil's recommendations. This is a complex patient with a comprehensive medically necessary and appropriate visit carried out in excess of 20 minutes with the patient's questions answered to his satisfaction. Mic Dougherty MD
--- NOTE | 2018-07-28 02:35 | PN ---
DATE: 07/27/2018 SUBJECTIVE: The patient is seen earlier this morning. He is awake and alert. He was actually seen in room 374, bed 2 this morning. PHYSICAL EXAMINATION: VITAL SIGNS: On exam, temperature is 97, blood pressure is 116/60, respiratory rate of 18. HEENT: Unremarkable. NECK: Supple. LUNGS: Have decreased breath sounds. HEART EXAM: Normal S1 and S2. ABDOMEN: Soft. LABORATORY EXAMINATION: Revealed a white count of 9.4, hemoglobin of 11, BUN of 23, creatinine of 0.8. Procalcitonin less than 0.05. Microbiology reveals blood cultures negative. Urine culture is negative. Sputum cultures are pending. ASSESSMENT AND PLAN: This is an 88-year-old with non-small cell lung cancer involving the vertebrae in a patient with esophagitis, chronic lung disease, hyperlipidemia, on Coumadin, hypertension, transitional cell carcinoma - diastolic dysfunction, Maisha esophagitis. Negative cultures. Most likely patient with systemic inflammatory response syndrome and allergic reaction to what appears to be as per to Dr. Khalil's discussion to Keflex. Her rash appears to be improved, currently off of antibiotics. The patient at this time is on Valtrex also. Reid Massey MD
[2018-07-28] MEDS: Pantoprazole 20 mg EC Tab PO SCH (05:41)
[2018-07-28 06:54] LABS: BASO # 0.01 K/mm3 (0.0-2.0); BASO % 0.1 % (0.0-3.0); HEMOGLOBIN 10.8 g/dL (14.0-18.0); LYMPH # 0.4 (1.2-3.4); MEAN CELL VOLUME 100.9 fl (80.0-105.0); MEAN CORPUSCULAR HEMOGLOBIN 32.5 pg (25.0-35.0); MEAN CORPUSCULAR HGB CONC 32.2 g/dl (31.0-37.0); MEAN PLATELET VOLUME 10.2 fl (7.0-11.0); MONO # 0.4 (0.1-0.6); MONO % 4.5 % (1.0-6.0); RBC 3.32 10^6/uL (3.5-6.1); RED CELL DISTRIBUTION WIDTH 15.6 % (11.5-14.5); WHITE BLOOD COUNT 8.6 10^3/uL (4.5-11.0)
[2018-07-28] MEDS: Aluminum Hydroxide/Magnesium 30 ML, DiphenhydrAMINE 75 MG, Lidocaine 2% Viscous 30 ML PO PRN (07:05)
[2018-07-28] MEDS: Lidocaine 2% Jelly (30 ml) TOP PRN (07:06)
[2018-07-28 07:18] LABS: ALB/GLOB RATIO 1.1 (1.1-1.8); ALBUMIN 2.6 g/dL (3.0-4.8); ALT/SGPT 24 U/L (7-56); AST/SGOT 26 U/L (17-59); BLOOD UREA NITROGEN 24 mg/dL (7-21); CALCIUM 8.4 mg/dL (8.4-10.5); GFR NON-AFRICAN AMERICAN > 60
[2018-07-28] MEDS: Arformoterol 15 mcg/2 ml Inh Sol IH SCH ×2 (07:54→20:49)
--- NOTE | 2018-07-28 09:35 | CP.PCM.PN ---
Subjective - Date & Time of Evaluation Date of Evaluation: 07/28/18 Time of Evaluation: 07:00 - Subjective Subjective: General Surgery Dr. Glass Pt seen and examined @bedside. Pt underwent bedside skin punch biopsy yesterday. Pt tolerated procedure well w/ no complications. No acute events overnight. Pt has no complaints this AM. denies CP, SOB, F/C, N/V, abd pain, D/C. tolerating diet. Objective - Vital Signs/Intake and Output Vital Signs (last 24 hours): Temp Pulse Resp BP Pulse Ox 97.7 F 88 20 101/65 94 L 07/28/18 08:42 07/28/18 08:42 07/28/18 08:42 07/28/18 08:42 07/28/18 08:42 Intake and Output: 07/28/18 07/28/18 06:59 18:59 Intake Total 1440 Output Total 700 Balance 740 - Medications Medications: Current Medications Acetaminophen (Tylenol 325mg Tab) 650 mg PO Q6H PRN PRN Reason: Pain, Mild (1-3) Last Admin: 07/25/18 06:05 Dose: 650 mg Al Hydrox/Mg Hydrox/Simethicone (Maalox Plus 30 Ml) 30 ml PO 1200 PRN PRN Reason: Indigestion / Heartburn Last Admin: 07/27/18 18:21 Dose: 30 ml Arformoterol Tartrate (Brovana) 15 mcg IH [id number] [facility] Last Admin: 07/28/18 07:54 Dose: 15 mcg Aspirin (Ecotrin) 81 mg PO DAILY [facility] Last Admin: 07/27/18 10:44 Dose: 81 mg Bicalutamide (Casodex) 50 mg PO DAILY [facility] Last Admin: 07/27/18 10:45 Dose: 50 mg Al Hydrox/Mg Hydrox/Simethicone 30 ml/Diphenhydramine HCl 75 mg/Lidocaine 30 ml 0 ml PO Q3H PRN PRN Reason: Mouth/Throat Pain Last Admin: 07/28/18 07:05 Dose: 15 ml Docusate Sodium (Colace) 100 mg PO BID [facility] Last Admin: 07/27/18 18:19 Dose: 100 mg Dorzolamide HCl (Trusopt) 0 ml OD BID [facility]; Protocol Last Admin: 07/27/18 18:20 Dose: 1 drop Furosemide (Lasix) 20 mg PO DAILY [facility] Last Admin: 07/27/18 10:46 Dose: 20 mg Home Med (Home Med) 0 unit TOP TID [facility] Last Admin: 07/27/18 18:20 Dose: 1 unit Hydrocortisone (Cortizone 2.5% Cream) 0 applic TOP DAILY [facility] Last Admin: 07/27/18 10:43 Dose: Not Given Lidocaine HCl (Xylocaine 2%) 0 ea TOP TID PRN PRN Reason: Pain, Mild (1-3) Last Admin: 07/28/18 07:06 Dose: 1 applic Loratadine (Claritin) 10 mg PO DAILY [facility] Last Admin: 07/27/18 10:43 Dose: 10 mg Methylnaltrexone [place] (Relistor) 8 mg SC ONCE ONE Stop: 07/28/18 10:01 Methylprednisolone (Solu-Medrol) 20 mg IVP Q12H [facility] Last Admin: 07/27/18 21:40 Dose: 20 mg Metoprolol Succinate (Toprol Xl) 50 mg PO BRK [facility] Last Admin: 07/27/18 08:54 Dose: 50 mg Mometasone Furoate (Elocon Lotion) 0 ml TOP BID [facility] Last Admin: 07/27/18 18:20 Dose: Not Given Multivitamins (Thera Tab) 1 tab PO DAILY [facility] Last Admin: 07/27/18 13:24 Dose: 1 tab Mupirocin (Bactroban Ointment) 0 gm TOP BID [facility] Last Admin: 07/27/18 18:19 Dose: Not Given Nifedipine (Procardia Xl) 30 mg PO DAILY [facility] Last Admin: 07/27/18 10:46 Dose: 30 mg Oxycodone HCl (Oxycodone Immediate Release Tab) 20 mg PO Q4H PRN PRN Reason: Pain, severe (8-10) Last Admin: 07/27/18 11:05 Dose: 20 mg Pantoprazole Sodium (Protonix Ec Tab) 20 mg PO 0600 [facility] Last Admin: 07/28/18 05:41 Dose: 20 mg Polyethylene Glycol (Miralax) 17 gm PO DAILY PRN PRN Reason: Constipation Last Admin: 07/27/18 18:21 Dose: 17 gm Tamsulosin HCl (Flomax) 0.4 mg PO DAILY [facility] Last Admin: 07/27/18 10:44 Dose: 0.4 mg Tramadol HCl (Ultram) 50 mg PO TID PRN PRN Reason: Pain, moderate (4-7) Last Admin: 07/23/18 06:20 Dose: 50 mg Valacyclovir HCl (Valtrex) 250 mg PO TID [facility]; Protocol Last Admin: 07/27/18 18:20 Dose: 250 mg - Labs Labs: 07/28/18 06:30 07/28/18 06:30 - Constitutional Appears: Non-toxic, No Acute Distress - Head Exam Head Exam: NORMAL INSPECTION - Eye Exam Eye Exam: Normal appearance - ENT Exam ENT Exam: Mucous Membranes Moist - Respiratory Exam Respiratory Exam: NORMAL BREATHING PATTERN. absent: Accessory Muscle Use, Respiratory Distress Additional comments: dressing c/d/i - Cardiovascular Exam Cardiovascular Exam: absent: Bradycardia, Tachycardia - GI/Abdominal Exam GI & Abdominal Exam: Soft. absent: Tenderness - Extremities Exam Extremities Exam: Normal Inspection - Neurological Exam Neurological Exam: Alert, Awake, Oriented x3 - Psychiatric Exam Psychiatric exam: Normal Affect, Normal Mood - Skin Skin Exam: Dry, Intact, Rash Assessment and Plan - Assessment and Plan (Free Text) Assessment: 88 y/o M w/ diffuse maculopapular rash of unknown origin s/p bedside punch biopsy Plan: - f/u pathology - Monitor rash for improvement - anti-itch meds PRN - cont medical management per PMD - No further surgical intervention at this time Pt discussed w/ Dr. Maria Luisa Mehta DO PGY3
[2018-07-28] MEDS: NIFEdipine 30 mg ER Tab PO SCH (09:48)
[2018-07-28] MEDS: MethylPREDNISolone 40 mg Vial IVP SCH ×2 (09:51→22:44)
[2018-07-28] MEDS: Multivitamin Therapeutic Tab PO SCH (09:52)
[2018-07-28] MEDS: Metoprolol Succinate 50 mg XL Tab PO SCH (09:52)
[2018-07-28] MEDS: Dorzolamide 2% Opht Sol 10ml OD SCH ×2 (09:53→17:15)
[2018-07-28] MEDS: ACYCLOVIR 5% TOP SCH ×3 (09:54→17:14)
[2018-07-28] MEDS: oxyCODONE 10 mg Immediate Release Tab PO PRN (11:19)
--- NOTE | 2018-07-28 12:22 | PN ---
DATE: 07/28/2018 PULMONARY PROGRESS NOTE REFERRING PHYSICIAN: Mic Dougherty MD SUBJECTIVE: The patient is seen sitting up in bed. No acute distress. No overnight events reported. The patient ordered Relistor to be given one time dose this morning for constipation. The patient reports that cough has improved. Denies shortness of breath. No headache, rhinitis, chest pain, abdominal pain, nausea, vomiting, diarrhea, leg pain or leg swelling reported. Reports improvement in pruritus rash. OBJECTIVE: GENERAL: No acute distress. VITAL SIGNS: Blood pressure 101/65, pulse 88, temperature 97.4, oxygen saturation 94%. HEENT: Moist mucous membranes. No oral thrush. NECK: Supple. No JVD. LUNGS: Few scattered rhonchi bilaterally. CARDIOVASCULAR: S1 and S2. ABDOMEN: Soft, nontender. No distention. No organomegaly. EXTREMITIES: No bilateral lower extremity edema. SKIN: Diffuse rash all over body, drying up, peeling and improving. NEUROLOGIC: Awake, alert and verbal. Following commands. MEDICATIONS: Reviewed. Tylenol 650 every 6 hours p.r.n. for mild pain, Maalox 30 mL daily p.r.n., Magic Mouthwash every 3 hours p.r.n., Brovana 15 mcg inhalation every 12 hours, aspirin 81 mg daily, Casodex 50 mg daily, Colace 100 mg twice a day, Trusopt eyedrops twice a day, Lasix 20 mg daily, hydrocortisone topically daily, lidocaine topically three times a day p.r.n. affected area, Claritin 10 mg daily, Solu-Medrol 20 mg IV push every 12 hours, Toprol XL 50 mg at breakfast, Elocon lotion topically twice a day, multivitamin 1 tab daily, Bactroban topically twice a day, Procardia-XL 30 mg daily, oxycodone 20 mg every 4 hours p.r.n., Protonix 20 mg daily, MiraLax 17 g daily p.r.n., Flomax 0.4 mg p.o. daily, Tramadol 50 mg three time a day p.r.n., Valtrex 250 mg three times a day. LABORATORY DATA: Reviewed. WBC 8.6, RBC 3.32, hemoglobin 10.8, hematocrit 33.5, platelets 131. Sodium 137, potassium 4.8, chloride 102, carbon dioxide 28, anion gap of 11, BUN 24, creatinine 0.8, GFR greater than 60, random glucose 155, calcium 8.4, total bilirubin 0.3, AST 26, ALT 24, alkaline phosphatase 53, total protein 5, albumin 2.6, globulin 2.4, albumin-globulin ratio 1.1. Sputum culture preliminary shows gram-negative rods. Blood cultures preliminary no growth after three days. 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 Per Infectious Disease and Oncology notes, may be allergic reaction to Keflex. Refused skin biopsy. The patient with preliminary positive sputum culture, we will order chest x-ray and procalcitonin to be done today. The patient with recurrent constipation, will change MiraLax from as-needed basis to daily. Continue inhaled bronchodilators, gastric prophylaxis, sequential compression devices to bilateral lower extremities as the patient cannot be on chemical prophylaxis due to anemia. Continue antihistamines. Continue steroids. The patient presently is only on Valtrex. Continue followup with Infectious Disease. We recommend the patient have sleep study and full pulmonary function tests as outpatient. The patient was seen and examined with Dr. Dixon. Discussed assessment and plan as described above. The patient was seen and examined with Leandro Salas, nurse practitioner. Discussed assessment and plan as described above. Thank you for this consult. We will follow with you. Leandro Salas APN Ankur Dixon MD ANA
--- NOTE | 2018-07-28 12:51 | RAD ---
Date of service: 07/28/2018 HISTORY: preliminary sputum culture positive; r/o infiltrat COMPARISON: 07/24/2018 TECHNIQUE: 1 view obtained. FINDINGS: LUNGS: There is a 4 cm mass in the left upper lobe adjacent to the heart border. This is unchanged. The lungs are otherwise clear PLEURA: No significant pleural effusion identified, no pneumothorax apparent. CARDIOVASCULAR: Aortic calcification Normal cardiac size. No pulmonary vascular congestion. OSSEOUS STRUCTURES: No significant abnormalities. VISUALIZED UPPER ABDOMEN: Normal. OTHER FINDINGS: None. IMPRESSION: There is a 4 cm mass in the left upper lobe adjacent to the heart border. This is unchanged. The lungs are otherwise clear
[2018-07-28] MEDS: Mupirocin 2% Ointment 15 GM TUBE TOP SCH (14:06)
[2018-07-28] MEDS: MOMETASONE 0.1% TOP SCH (17:14)
--- NOTE | 2018-07-28 23:55 | PN ---
DATE: 07/28/2018 [facility] on the medical floor. For Dr. Khalil. 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 At this point, the patient is being followed by infectious disease consultants along with his wound care nurse and the patient is reporting that his rash is slowly improving. However, he still has episodes of severe chills with a recent temperature spike of 101.9 for which he was omalley cultured with a sputum culture now showing heavy growth of Gram-negative rods reported yesterday. His blood cultures, however, remained negative as were his urine cultures with further followup as per infectious disease corporate travel consultant. OBJECTIVE: PHYSICAL EXAMINATION: VITAL SIGNS: Temperature 97.8, pulse 105, respirations 20, blood pressure 115/60, pulse ox 94%. HEENT: Unremarkable. NECK: Supple. HEART: Tachy rate, regular rhythm. LUNGS: Occasional rhonchi bilaterally. ABDOMEN: Soft, nontender. EXTREMITIES: No edema. SKIN: Rash persists. Generalized body rash with improvement of his face with both ears now involved with increased erythema to his sacral area for which the patient is reporting discomfort. NEUROLOGIC: Awake and alert. LABORATORY DATA: The patient's labs were done. White blood cell count of 8.6, hemoglobin 10.8, hematocrit 33.5, platelet count of 131,000 with a metabolic panel showing a BUN of 24, creatinine of 0.8 with a total protein of 5. His urinalysis done three days prior showed large amount of blood in the urine. The patient had a chest x-ray done earlier today. It was read as 4 cm mass, left upper lobe adjacent to the heart border, unchanged. The lungs are otherwise clear. 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 The patient is now status post biopsy as per surgical consult, Dr. Glass. We await results for his skin biopsy also. We will ask for the wound care consultants to evaluate his sacrum with continuation of his present medical regimen with treatment of his sputum as per Dr. Massey, infectious disease corporate travel consultant. This is a complex patient with a comprehensive medically necessary and appropriate visit carried out in excess of 20 minutes with the patient's questions answered to his satisfaction. Mic Dougherty MD
--- NOTE | 2018-07-29 00:24 | CP.PCM.PN ---
Subjective - Date & Time of Evaluation Date of Evaluation: 07/26/18 Time of Evaluation: 09:45 - Subjective Subjective: Tolerating the diet complains of skin rash Objective - Vital Signs/Intake and Output Vital Signs (last 24 hours): Temp Pulse Resp BP Pulse Ox 97.4 F L 77 20 115/56 L 98 07/26/18 16:09 07/26/18 16:09 07/26/18 16:09 07/26/18 16:09 07/26/18 16:09 - Medications Medications: Current Medications Acetaminophen (Tylenol 325mg Tab) 650 mg PO Q6H PRN PRN Reason: Pain, Mild (1-3) Last Admin: 07/25/18 06:05 Dose: 650 mg Al Hydrox/Mg Hydrox/Simethicone (Maalox Plus 30 Ml) 30 ml PO 1200 PRN PRN Reason: Indigestion / Heartburn Last Admin: 07/26/18 18:39 Dose: 30 ml Arformoterol Tartrate (Brovana) 15 mcg IH [id number] [facility] Last Admin: 07/26/18 20:04 Dose: 15 mcg Aspirin (Ecotrin) 81 mg PO DAILY [facility] Last Admin: 07/26/18 10:34 Dose: 81 mg Bicalutamide (Casodex) 50 mg PO DAILY [facility] Last Admin: 07/25/18 10:16 Dose: 50 mg Al Hydrox/Mg Hydrox/Simethicone 30 ml/Diphenhydramine HCl 75 mg/Lidocaine 30 ml 0 ml PO Q3H PRN PRN Reason: Mouth/Throat Pain Last Admin: 07/26/18 18:40 Dose: 15 ml Docusate Sodium (Colace) 100 mg PO BID [facility] Last Admin: 07/26/18 18:41 Dose: 100 mg Dorzolamide HCl (Trusopt) 0 ml OD BID [facility]; Protocol Last Admin: 07/26/18 18:39 Dose: 1 drop Furosemide (Lasix) 20 mg PO DAILY [facility] Last Admin: 07/26/18 10:35 Dose: 20 mg Home Med (Home Med) 0 unit TOP TID [facility] Hydrocortisone (Cortizone 2.5% Cream) 0 applic TOP DAILY [facility] Lidocaine HCl (Xylocaine 2%) 0 ea TOP TID PRN PRN Reason: Pain, Mild (1-3) Last Admin: 07/24/18 10:40 Dose: 1 applic Loratadine (Claritin) 10 mg PO DAILY [facility] Last Admin: 07/26/18 10:34 Dose: 10 mg Methylprednisolone (Solu-Medrol) 40 mg IVP Q12H [facility] Last Admin: 07/26/18 23:08 Dose: 40 mg Metoprolol Succinate (Toprol Xl) 50 mg PO BRK [facility] Last Admin: 07/26/18 08:00 Dose: 50 mg Mometasone Furoate (Elocon Lotion) 0 ml TOP BID [facility] Last Admin: 07/24/18 17:27 Dose: Not Given Mupirocin (Bactroban Ointment) 0 gm TOP BID [facility] Nifedipine (Procardia Xl) 30 mg PO DAILY [facility] Last Admin: 07/26/18 10:36 Dose: 30 mg Oxycodone HCl (Oxycodone Immediate Release Tab) 20 mg PO Q4H PRN PRN Reason: Pain, severe (8-10) Last Admin: 07/26/18 10:33 Dose: 20 mg Pantoprazole Sodium (Protonix Ec Tab) 20 mg PO 0600 [facility] Last Admin: 07/26/18 06:09 Dose: 20 mg Polyethylene Glycol (Miralax) 17 gm PO DAILY PRN PRN Reason: Constipation Last Admin: 07/24/18 13:53 Dose: 17 gm Tamsulosin HCl (Flomax) 0.4 mg PO DAILY [facility] Last Admin: 07/26/18 10:34 Dose: 0.4 mg Tramadol HCl (Ultram) 50 mg PO TID PRN PRN Reason: Pain, moderate (4-7) Last Admin: 07/23/18 06:20 Dose: 50 mg Valacyclovir HCl (Valtrex) 250 mg PO TID [facility]; Protocol Last Admin: 07/26/18 18:40 Dose: 250 mg - Labs Labs: 07/25/18 07:00 07/25/18 07:00 - Head Exam Head Exam: ATRAUMATIC, NORMOCEPHALIC - Eye Exam Eye Exam: EOMI, PERRL - ENT Exam ENT Exam: Mucous Membranes Moist, Normal Oropharynx - Respiratory Exam Respiratory Exam: NORMAL BREATHING PATTERN. absent: Accessory Muscle Use - Cardiovascular Exam Cardiovascular Exam: +S1, +S2. absent: JVD - GI/Abdominal Exam GI & Abdominal Exam: Soft. absent: Tenderness, Mass - Neurological Exam Neurological Exam: Alert, Awake, Oriented x3 Assessment and Plan - Assessment and Plan (Free Text) Assessment: This 88-year-old patient with non-small cell carcinoma status post radiation admitted with a dysphagia odynophagia patient had an endoscopy done which showed esophageal candidiasis erythema is of a inflammation in the mid esophageal area. Patient was treated with a PPI and Carafate with good improvement. However patient developed an extensive skin lesions. Antibiotics has been discontinued Patient is still on prednisone Continue soft diet. Patient does not like pured Continue PPI Off antibiotics Attending/Attestation - Attestation I have personally seen and examined this patient.: Yes I have fully participated in the care of the patient.: Yes I have reviewed all pertinent clinical information, including history, physical exam and plan: Yes Notes (Text): p 07/27/18 00:00
--- NOTE | 2018-07-29 00:28 | CP.PCM.PN ---
Subjective - Date & Time of Evaluation Date of Evaluation: 07/27/18 Time of Evaluation: 18:00 - Subjective Subjective: p Objective - Vital Signs/Intake and Output Vital Signs (last 24 hours): Temp Pulse Resp BP Pulse Ox 97.5 F L 78 20 124/70 99 07/27/18 08:27 07/27/18 10:46 07/27/18 08:27 07/27/18 10:46 07/27/18 08:27 Intake and Output: 07/27/18 07/28/18 18:59 06:59 Intake Total 1200 Output Total 350 Balance 850 - Medications Medications: Current Medications Acetaminophen (Tylenol 325mg Tab) 650 mg PO Q6H PRN PRN Reason: Pain, Mild (1-3) Last Admin: 07/25/18 06:05 Dose: 650 mg Al Hydrox/Mg Hydrox/Simethicone (Maalox Plus 30 Ml) 30 ml PO 1200 PRN PRN Reason: Indigestion / Heartburn Last Admin: 07/27/18 18:21 Dose: 30 ml Arformoterol Tartrate (Brovana) 15 mcg IH [id number] [facility] Last Admin: 07/27/18 20:57 Dose: 15 mcg Aspirin (Ecotrin) 81 mg PO DAILY [facility] Last Admin: 07/27/18 10:44 Dose: 81 mg Bicalutamide (Casodex) 50 mg PO DAILY [facility] Last Admin: 07/27/18 10:45 Dose: 50 mg Al Hydrox/Mg Hydrox/Simethicone 30 ml/Diphenhydramine HCl 75 mg/Lidocaine 30 ml 0 ml PO Q3H PRN PRN Reason: Mouth/Throat Pain Last Admin: 07/27/18 10:47 Dose: 15 ml Docusate Sodium (Colace) 100 mg PO BID [facility] Last Admin: 07/27/18 18:19 Dose: 100 mg Dorzolamide HCl (Trusopt) 0 ml OD BID [facility]; Protocol Last Admin: 07/27/18 18:20 Dose: 1 drop Furosemide (Lasix) 20 mg PO DAILY [facility] Last Admin: 07/27/18 10:46 Dose: 20 mg Home Med (Home Med) 0 unit TOP TID [facility] Last Admin: 07/27/18 18:20 Dose: 1 unit Hydrocortisone (Cortizone 2.5% Cream) 0 applic TOP DAILY [facility] Last Admin: 07/27/18 10:43 Dose: Not Given Lidocaine HCl (Xylocaine 2%) 0 ea TOP TID PRN PRN Reason: Pain, Mild (1-3) Last Admin: 07/24/18 10:40 Dose: 1 applic Loratadine (Claritin) 10 mg PO DAILY [facility] Last Admin: 07/27/18 10:43 Dose: 10 mg Methylnaltrexone [place] (Relistor) 8 mg SC ONCE ONE Stop: 07/28/18 10:01 Methylprednisolone (Solu-Medrol) 20 mg IVP Q12H [facility] Last Admin: 07/27/18 21:40 Dose: 20 mg Metoprolol Succinate (Toprol Xl) 50 mg PO BRK [facility] Last Admin: 07/27/18 08:54 Dose: 50 mg Mometasone Furoate (Elocon Lotion) 0 ml TOP BID [facility] Last Admin: 07/27/18 18:20 Dose: Not Given Multivitamins (Thera Tab) 1 tab PO DAILY [facility] Last Admin: 07/27/18 13:24 Dose: 1 tab Mupirocin (Bactroban Ointment) 0 gm TOP BID [facility] Last Admin: 07/27/18 18:19 Dose: Not Given Nifedipine (Procardia Xl) 30 mg PO DAILY [facility] Last Admin: 07/27/18 10:46 Dose: 30 mg Oxycodone HCl (Oxycodone Immediate Release Tab) 20 mg PO Q4H PRN PRN Reason: Pain, severe (8-10) Last Admin: 07/27/18 11:05 Dose: 20 mg Pantoprazole Sodium (Protonix Ec Tab) 20 mg PO 0600 [facility] Last Admin: 07/27/18 05:24 Dose: 20 mg Polyethylene Glycol (Miralax) 17 gm PO DAILY PRN PRN Reason: Constipation Last Admin: 07/27/18 18:21 Dose: 17 gm Tamsulosin HCl (Flomax) 0.4 mg PO DAILY [facility] Last Admin: 07/27/18 10:44 Dose: 0.4 mg Tramadol HCl (Ultram) 50 mg PO TID PRN PRN Reason: Pain, moderate (4-7) Last Admin: 07/23/18 06:20 Dose: 50 mg Valacyclovir HCl (Valtrex) 250 mg PO TID [facility]; Protocol Last Admin: 07/27/18 18:20 Dose: 250 mg - Labs Labs: 07/25/18 07:00 07/25/18 07:00 - Head Exam Head Exam: ATRAUMATIC, NORMOCEPHALIC - Eye Exam Eye Exam: EOMI, PERRL - ENT Exam ENT Exam: Mucous Membranes Moist, Normal Oropharynx - Neck Exam Neck Exam: Full ROM. absent: Lymphadenopathy - Cardiovascular Exam Cardiovascular Exam: REGULAR RHYTHM, +S1, +S2. absent: JVD - GI/Abdominal Exam GI & Abdominal Exam: Soft. 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 Patient did have esophagitis treated with PPI and Carafate. Patient could not tolerate the Carafate which has been discontinued. Now she is patient is tolerating a soft diet Main concern is a generalized rash which is slowly improving None patient was on pured diet which has been increased to soft diet patient is tolerating that Will sign off and do reconsult as needed Thank you very much for allowing us to participate in the care of the patient
--- NOTE | 2018-07-29 00:45 | PN ---
DATE: 07/28/2018 SUBJECTIVE: The patient is in bed, in no acute distress. PHYSICAL EXAMINATION VITAL SIGNS: Temperature is 97, blood pressure is 115/60, respiratory rate 20, heart rate of 105. HEENT: Unremarkable. NECK: Supple. LUNGS: Decreased breath sounds. HEART: Normal S1, S2. ABDOMEN: Soft. SKIN: The patient's rash appears to be resolving. LABORATORY DATA: Reveals a white count of 8.6, hemoglobin 10. BUN 24, creatinine of 0.8. Microbiology is noted. Sputum with a gram-negative jacoby. The patient has had a chest x-ray, which is reviewed, the left upper lobe mass is unchanged. His lungs otherwise are clear. Procalcitonin was less than 0.05. REVIEW OF ORDERS: Reveals the patient to be off of antibiotics. The patient is on Solu-Medrol. ASSESSMENT AND PLAN: An 88-year-old male with non-small cell lung cancer involving the vertebrae. The patient with esophagitis, chronic obstructive lung disease, hyperlipidemia, on Coumadin and hypertension, transitional cell carcinoma, diastolic dysfunction, Maisha esophagitis, now with a maculopapular rash most likely secondary to ALLERGY TO KEFLEX. The patient improving. The patient is at risk for developing nosocomial infection to gram-negative rods. The sputum most likely a colonization with a negative change in x-ray, but overall prognosis is poor. Reid Massey MD
[2018-07-29] MEDS: Pantoprazole 20 mg EC Tab PO SCH (05:58)
[2018-07-29] MEDS: Arformoterol 15 mcg/2 ml Inh Sol IH SCH ×2 (07:29→20:15)
[2018-07-29] MEDS: Mupirocin 2% Ointment 15 GM TUBE TOP SCH ×3 (09:59→17:45)
[2018-07-29] MEDS: MOMETASONE 0.1% TOP SCH ×2 (10:01→17:45)
[2018-07-29] MEDS: POLYETHYLENE GLYCOL 3350 17 GM/Dose PACKET PO SCH (10:02)
[2018-07-29] MEDS: ACYCLOVIR 5% TOP SCH ×3 (10:02→17:46)
[2018-07-29] MEDS: NIFEdipine 30 mg ER Tab PO SCH (10:03)
[2018-07-29] MEDS: Multivitamin Therapeutic Tab PO SCH (10:06)
[2018-07-29] MEDS: MethylPREDNISolone 40 mg Vial IVP SCH (10:06)
[2018-07-29] MEDS: Metoprolol Succinate 50 mg XL Tab PO SCH (10:06)
[2018-07-29] MEDS: Dorzolamide 2% Opht Sol 10ml OD SCH ×2 (10:07→17:46)
--- NOTE | 2018-07-29 11:23 | PCM.PPROG ---
History of Present Illness - History of Present Illness History of Present Illness: Alert, states he is feeling much better Review of Systems - Review of Systems All systems: reviewed and no additional remarkable complaints except Physical Exam - Constitutional Appears: No Acute Distress, Chronically Ill - Eye Exam Eye Exam: Normal appearance, PERRL - ENT Exam ENT Exam: Mucous Membranes Moist Additional comments: healing sores around lips and mouth - Respiratory Exam Respiratory Exam: Clear to Auscultation Bilateral, NORMAL BREATHING PATTERN - Cardiovascular Exam Cardiovascular Exam: REGULAR RHYTHM, +S1, +S2 - GI/Abdominal Exam GI & Abdominal Exam: Normal Bowel Sounds, Soft - Extremities Exam Extremities exam: Positive for: pedal pulses present - Neurological Exam Neurological exam: Alert, Oriented x3 - Skin Skin Exam: Erythema, Pallor, Rash, Warm Palliative Care Assessment - Modified MRC Dyspnea Scale Modified MRC Dyspnea Scale: Not troubled by breathlessness except on strenous exercise Grade: 1 - Pain Scale Pain Score: 2 Pain Scale Used: Numeric - Pain Location Pain Location Body Site: Palate, Throat - Pain Description Description: Intermittent, Burning Intensity of pain at present: 2 Alleviating Factors/Management Techniques: Medication - Victor [place] Scale Sensory Perception: Slightly Limited Moisture: Occasionally Moist Activity: Walks Occasionally Mobility: Slightly Impaired Nutrition: Adequate Friction & Shear: Problem Total Score - Skin Risk Assessment: 16 - Psychosocial Distress Outcome: Resolved Palliative Care - Goals Treatment Goal(s): Alleviate symptoms, Improve ADLs, Improve quality of life End of life care discussed: Yes - Plan Interdisciplinary involved: field crop harvest worker Discharge planning: Home Assessment & Plan - Assessment and Plan (Free Text) Assessment: 88 natalie old male with history of NSCL cancer, transitional cell carcinoma of kidney,COPD,HTN, HLD,CAD who is admitted with diffuse maculopapular rash, esophagitis,deconditioning. The patient is alert, states he is feeling much better. Complains of soreness in mouth and lips, but adds that this is slowly improving. Patient's daughter at bedside. Revisited goals of care and advance care planning discussion. The patient states that he completely understand the ramifications of CPR/intubation,but does not want to make decision regarding this matter. His is opposed to DNR/DNI and he feels that this would upset her. I explained, in his daughter's presence that the decision was his to make. The patient states that he understands but does not want to cause his emotional distress. I encouraged him to at least discuss his wishes with his children so they could advocate for him if needed. Daughter affirms that her mother has been very opposed to this kind of conversation and does not want to face the thought of losing her father. Psychosocial support provided Time spent with patient and family in goals of care discussion,30 minutes Plan: Goals of care and advance care planning Rash pending: improving, continue triamcilone hs,amlactin in am. Continue Acyclovir and steroids. g Esophagitis/candidiasis; s/p Diflucan therapy, monitor for worsening symptoms Deconditioning; PT/OT NSCL cancer; F/U with Dr Khalil
[2018-07-29] MEDS: oxyCODONE 10 mg Immediate Release Tab PO PRN (11:58)
--- NOTE | 2018-07-29 12:17 | PN ---
DATE: 07/29/2018 PULMONARY PROGRESS NOTE REFERRING PHYSICIAN: Mic Dougherty MD SUBJECTIVE: The patient seen sitting up in bed. Family is at bedside. The patient reports feeling well this morning. No headache, rhinitis, cough, shortness of breath, chest pain, abdominal pain, nausea, vomiting, diarrhea, leg pain or leg swelling reported. Reports he had a bowel movement yesterday. States that rash is feeling much better. OBJECTIVE: VITAL SIGNS: Blood pressure 121/64, pulse 76, temperature 97.8, and oxygen saturation 94% on room air. GENERAL: No acute distress. HEENT: Moist mucous membranes. No oral thrush. NECK: Supple. No JVD. LUNGS: Few scattered rhonchi bilaterally. CARDIOVASCULAR: S1 and S2. ABDOMEN: Soft and nontender. No distention. No organomegaly. EXTREMITIES: No bilateral lower extremity edema. NEUROLOGIC: Awake, alert, and verbal. Following commands. SKIN: Diffuse rash all over body, drying up, peeling. MEDICATIONS: Reviewed. Tylenol 650 every 6 hours p.r.n. mild pain, Maalox 30 mL p.o. daily p.r.n., Magic Mouthwash every 3 hours p.r.n., Brovana 15 mcg every 12 hours, aspirin 81 mg daily, Casodex 50 mg daily, Colace 100 mg twice a day, Trusopt twice a day, Lasix 20 mg daily, hydrocortisone topically daily to affected area, lidocaine topically three times a day as needed to affected area, Claritin 10 mg daily, Solu-Medrol 20 mg IV push every 12 hours, metoprolol succinate 50 mg at breakfast, Elocon lotion topically twice a day to affected area, multivitamin 1 tab daily, Bactroban topically twice a day to affected area, Procardia XL 30 mg p.o. daily, oxycodone 10 mg every 6 hours p.r.n., Protonix 20 mg daily, MiraLax 17 g daily, Flomax 0.4 mg p.o. daily, Ultram 50 mg three time a day p.r.n. LABORATORY DATA: Reviewed. Sputum culture final shows Klebsiella pneumoniae. Chest x-ray shows 4 cm mass in the left upper lobe adjacent to the heart border which is unchanged. Lungs are otherwise clear. Procalcitonin pending. IMPRESSION AND PLAN: Non-small cell lung cancer involving vertebrae, status post radiation therapy, chronic lung disease, hyperlipidemia, pulmonary hypertension, transitional cell carcinoma of the bladder, hypertension, cardiac diastolic dysfunction, history of alicia esophagitis, maculopapular rash, most likely secondary to allergic reaction to Keflex. Rash is improving. Infectious Disease notes appreciated, sputum culture, most likely related to colonization as chest x-ray is negative. Procalcitonin negative. Chest x-ray negative. The patient does not need treatment at this time. If symptoms of acute bronchitis do develop, the patient may need treatment at that time. Case discussed with family and the patient at bedside, verbalized understanding. Continue inhaled bronchodilators, gastric prophylaxis, sequential compression devices to bilateral lower extremities as the patient cannot be on chemical prophylaxis due to anemia. Continue steroids, antihistamines. Infectious Disease followup. We recommend the patient have sleep study and full pulmonary function tests as outpatient. The patient was seen and examined with Dr. Dixon. Discussed assessment and plan as described above. The patient was seen and examined with Leandro Salas, nurse practitioner. Discussed assessment and plan as described above. Thank you for this consult. We will follow with you. Leandro Salas APN Ankur Dixon MD
--- NOTE | 2018-07-29 17:02 | PN ---
DATE: 07/29/2018 This is [facility] the medical floor. For Dr. Khalil. 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 Sputum cultures show heavy growth of gram negative rods with the patient continuing with wound care for his secondary michele on his anterior chest and upper back with his skin now peeling and significant decubitus obtained being dressed by Wound Care nursing. PHYSICAL EXAMINATION VITAL SIGNS: Temperature 97.8, pulse 76, respirations 20, blood pressure 121/68, and pulse ox 94%. HEENT: Unremarkable. Lips now are dry, crusted with facial rash improving. NECK: Supple. HEART: Regular rate. LUNGS: Clear. ABDOMEN: Soft, scaphoid, and nontender. EXTREMITIES: She has muscle waisting with +1 edema in the feet, with body edema of his elbows, dependent edema with sacrum. SKIN: With generalized rash now, dried with flakiness noted with burn area dressed with dressing dry and intact. NEUROLOGIC: Awake and alert. LABORATORY DATA: The patient's labs were done yesterday. White blood cell count 8.6, hemoglobin 10.9, hematocrit 33.5, platelet count of 131,000 with a metabolic panel showing a low protein of 5.0. 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 PLAN: To this patient, to wait his biopsy report with continued support of care as per home service consultant's recommendations with the patient to participate in physiotherapy. This is a complex patient with a comprehensive medically necessary and appropriate visit carried out in excess of 20 minutes with the patient's and family member's questions answered to their satisfaction Mic Dougherty MD
--- NOTE | 2018-07-30 03:03 | PN ---
DATE: 07/29/2018 SUBJECTIVE: The patient is in bed, in no acute distress, nontoxic. PHYSICAL EXAMINATION: VITAL SIGNS: On exam, temperature is 98, blood pressure is 120/40, respiratory rate of 20. HEENT: Unremarkable. NECK: Supple. LUNGS: Have decreased breath sounds. HEART: Normal S1, S2. ABDOMEN: Soft. LABORATORY EXAMINATION: Reveals a white count of 8.6. Chemistries are noted. Microbiology is reviewed with Klebsiella in sputum and review of orders reveals the patient to be on Solu-Medrol. The patient's rash is much improved, almost resolved. ySeda Gan's note is reviewed and appreciated. ASSESSMENT AND PLAN: This is an 88-year-old male with non-small cell lung cancer involving the vertebrae, esophagitis, chronic obstructive lung disease, hyperlipidemia, hypertension, transitional cell carcinoma, diastolic dysfunction, and maculopapular rash, ALLERGIC TO KEFLEX. Currently off of antibiotics. The patient is at risk for developing nosocomial infections. Reid Massey MD
[2018-07-30] MEDS: Pantoprazole 20 mg EC Tab PO SCH (05:40)
[2018-07-30] MEDS: Arformoterol 15 mcg/2 ml Inh Sol IH SCH ×2 (08:01→20:05)
[2018-07-30] MEDS: oxyCODONE 10 mg Immediate Release Tab PO PRN ×2 (09:22→17:48)
[2018-07-30] MEDS: Mupirocin 2% Ointment 15 GM TUBE TOP SCH ×2 (09:24→17:43)
[2018-07-30] MEDS: MOMETASONE 0.1% TOP SCH ×3 (09:27→17:53)
[2018-07-30] MEDS: ACYCLOVIR 5% TOP SCH ×3 (09:29→17:49)
[2018-07-30] MEDS: POLYETHYLENE GLYCOL 3350 17 GM/Dose PACKET PO SCH (09:29)
[2018-07-30] MEDS: NIFEdipine 30 mg ER Tab PO SCH (09:30)
[2018-07-30] MEDS: MethylPREDNISolone 40 mg Vial IVP SCH ×2 (09:30→13:22)
[2018-07-30] MEDS: Multivitamin Therapeutic Tab PO SCH (09:30)
[2018-07-30] MEDS: Metoprolol Succinate 50 mg XL Tab PO SCH (09:31)
[2018-07-30] MEDS: Dorzolamide 2% Opht Sol 10ml OD SCH ×2 (09:31→17:48)
[2018-07-30] MEDS: Aluminum Hydroxide/Magnesium 30 ML, DiphenhydrAMINE 75 MG, Lidocaine 2% Viscous 30 ML PO PRN (09:32)
--- NOTE | 2018-07-30 10:32 | PN ---
DATE: 07/30/2018 PULMONARY PROGRESS NOTE REFERRING PHYSICIAN: Mic Dougherty MD SUBJECTIVE: The patient is seen sitting up in bed. No acute distress. No overnight events reported. The patient just states that rash is improving, but his skin feels very dry and tight as rash improves. Denies any cough, any shortness of breath, headache, rhinitis, chest pain, abdominal pain, nausea, vomiting, diarrhea, leg pain, leg swelling. OBJECTIVE: GENERAL: No acute distress. VITAL SIGNS: Blood pressure 116/66, pulse 79, temperature 97.7, oxygen saturation 100. HEENT: Moist mucous membranes. NECK: Supple. No JVD. LUNGS: Few scattered rhonchi bilaterally. CARDIOVASCULAR: S1, S2. ABDOMEN: Soft, nontender. No distention. No organomegaly. EXTREMITIES: No bilateral lower extremity edema. NEUROLOGIC: Awake, alert, and verbal. Following commands. SKIN: Diffuse rash drying up and peeling. MEDICATIONS: Reviewed. Tylenol 650 every 6 hours p.r.n. mild pain, Maalox 30 mL p.o. daily p.r.n., Magic Mouthwash every 3 hours p.r.n., Brovana 15 mcg every 12 hours, aspirin 81 mg daily, Casodex 50 mg daily, Colace 100 mg twice a day, Trusopt eyedrops twice a day, Lasix 20 mg daily, hydrocortisone topically daily, lidocaine topically three times a day p.r.n. to affected area, Claritin 10 mg daily, Solu-Medrol 20 mg every 12 hours, metoprolol succinate 50 mg at breakfast, Elocon lotion topically twice a day, multivitamin 1 tab daily, Bactroban topically twice a day, Procardia XL 30 mg p.o. daily, oxycodone 10 mg every 6 hours p.r.n., Protonix 20 mg daily, MiraLax 17 g daily, Flomax 0.4 mg daily, tramadol 50 mg p.o. three times a day p.r.n. LABORATORY DATA: Reviewed. No new labs. Procalcitonin less than 0.05. IMPRESSION AND PLAN: Non-small cell lung cancer involving vertebrae, status post radiation therapy, chronic lung disease, hyperlipidemia, pulmonary hypertension, transitional cell carcinoma of the bladder, cardiac diastolic dysfunction, hypertension, history of alicia esophagitis, maculopapular rash improving, most likely secondary to allergic reaction to Keflex. Procalcitonin negative. Chest x-ray negative. The patient with positive sputum culture which is most likely colonized per Infectious Disease. No treatment necessary at this time. We will continue to monitor the patient. The patient needs to be monitored for any symptoms of acute bronchitis and may need treatment at that time. Continue inhaled bronchodilators, gastric prophylaxis, sequential compression devices to bilateral lower extremities. The patient cannot be on chemical prophylaxis due to anemia. We will decrease steroids to Solu-Medrol 20 mg daily. Continue antihistamine. We will add petroleum jelly as needed to affected area for dryness and peeling. Recommend the patient have sleep study and full pulmonary function test as outpatient. The patient was seen and examined with Dr. Dixon. Discussed assessment and plan as described above. The patient was seen and examined with Leandro Salas, nurse practitioner. Discussed assessment and plan as described above. Thank you for this consult. We will follow with you. Leandro Salas APN Ankur Dixon MD
[2018-07-30] MEDS: Petrolatum Oint Foilpak (5 gm) TOP PRN (12:44)
[2018-07-31] MEDS: oxyCODONE 10 mg Immediate Release Tab PO PRN ×4 (00:41→21:57)
--- NOTE | 2018-07-31 01:03 | PN ---
DATE: 07/30/2018 SUBJECTIVE: The patient is seen in bed in no acute distress, nontoxic. PHYSICAL EXAMINATION: VITAL SIGNS: Temperature is 97, blood pressure is 104/60, respiratory rate of 18. HEENT: Unremarkable. NECK: Supple. LUNGS: Have decreased breath sounds. HEART: Normal S1, S2. ABDOMEN: Soft. LABORATORY EXAMINATION: Reveals a white count of 8.6, hemoglobin of 10, platelets of 131. Chemistries are noted, creatinine is 0.8. REVIEW OF ORDERS: Reveals the patient is off antibiotics. Review of the skin reveals the patient's dermitis, maculopapular rashes completely resolved. ASSESSMENT AND PLAN: An 88-year-old male with non-small cell lung cancer involving the vertebrae, esophagitis, chronic obstructive lung disease, hyperlipidemia, hypertension, transitional cell carcinoma, diastolic dysfunction, maculopapular rash, ALLERGIC TO KEFLEX. The patient is at risk for developing nosocomial infection. Reid Massey MD
[2018-07-31] MEDS: Pantoprazole 20 mg EC Tab PO SCH (05:49)
[2018-07-31] MEDS: Arformoterol 15 mcg/2 ml Inh Sol IH SCH ×2 (07:20→19:22)
--- NOTE | 2018-07-31 08:30 | PN ---
DATE: 07/31/2018 REFERRING PHYSICIAN: Mic Dougherty MD SUBJECTIVE: The patient is seen sitting up at bedside. No acute distress. No overnight events reported. Reports that he feels well this morning. Just states that his left lower extremity was noted slightly swollen, no pain reported. No headache, rhinitis, shortness of breath, coughing, chest pain, abdominal pain, nausea, vomiting, diarrhea, leg pain reported. OBJECTIVE: VITAL SIGNS: Blood pressure 104/63, pulse 98, temperature 97.9, oxygen saturation 97% on room air. GENERAL: No acute distress. HEENT: Moist mucous membranes. NECK: Supple. No JVD. LUNGS: Few scattered rhonchi bilaterally. CARDIOVASCULAR: S1, S2. ABDOMEN: Soft, nontender. No distention. No organomegaly. EXTREMITIES: Trace left lower extremity edema. NEUROLOGIC: Awake, alert, verbal. Following commands. SKIN: Diffuse rash, drying and peeling. MEDICATIONS: Reviewed. Tylenol 650 every 6 hours p.r.n. mild pain, Maalox 30 mL p.o. daily p.r.n., Magic Mouthwash every 3 hours p.r.n., Brovana 15 mcg inhalation every 12 hours, aspirin 81 mg daily, Casodex 50 mg daily, Colace 100 mg twice a day, Trusopt eyedrops twice a day, Vaseline ointment topically daily as needed, Lasix 20 mg daily, hydrocortisone topically daily to affected area, lidocaine topically three times a day p.r.n. to affected area, Claritin 10 mg daily, Solu-Medrol 20 mg IV push daily, metoprolol succinate 50 mg at breakfast, Elocon lotion topically twice a day to affected area, multivitamin 1 tab daily, Bactroban ointment topically twice a day to affected area, Procardia XL 30 mg p.o. daily, oxycodone 10 mg every 6 hours p.r.n., Protonix 20 mg daily, MiraLax 17 g daily, Flomax 0.4 mg daily, tramadol 50 mg three times a day p.r.n. LABORATORY DATA: Reviewed. No new labs. IMPRESSION AND PLAN: Non-small cell lung cancer including vertebrae T10, status post radiation therapy, chronic lung disease, hyperlipidemia, pulmonary hypertension, transitional cell carcinoma of the bladder, cardiac diastolic dysfunction, hypertension, history of alicia esophagitis, maculopapular rash improving, most likely secondary to allergic reaction to Keflex. Continue inhaled bronchodilators, gastric prophylaxis. We will place the patient on Lovenox for deep venous thrombosis prophylaxis. We will order labs in the morning. Continue antihistamine. Continue topicals to affected area. Recommend the patient have sleep study and full pulmonary function test as outpatient. The patient was seen and examined with Dr. Dixon. Discussed assessment and plan as described above. The patient was seen and examined with Leandro Salas, nurse practitioner. Discussed assessment and plan as described above. Thank you for this consult. We will follow with you. Leandro Salas APN Ankur Dixon MD
[2018-07-31] MEDS: Mupirocin 2% Ointment 15 GM TUBE TOP SCH ×2 (09:51→18:11)
[2018-07-31] MEDS: MOMETASONE 0.1% TOP SCH ×2 (09:53→18:12)
[2018-07-31] MEDS: ACYCLOVIR 5% TOP SCH ×2 (09:53→18:12)
[2018-07-31] MEDS: Enoxaparin 40 mg Syringe SC SCH (09:54)
[2018-07-31] MEDS: POLYETHYLENE GLYCOL 3350 17 GM/Dose PACKET PO SCH (09:54)
[2018-07-31] MEDS: NIFEdipine 30 mg ER Tab PO SCH (09:54)
[2018-07-31] MEDS: Metoprolol Succinate 50 mg XL Tab PO SCH (09:55)
[2018-07-31] MEDS: MethylPREDNISolone 40 mg Vial IVP SCH (09:55)
[2018-07-31] MEDS: Dorzolamide 2% Opht Sol 10ml OD SCH ×2 (09:55→18:13)
[2018-07-31] MEDS: Petrolatum Oint Foilpak (5 gm) TOP PRN (09:55)
[2018-07-31] MEDS: Aluminum Hydroxide/Magnesium 30 ML, DiphenhydrAMINE 75 MG, Lidocaine 2% Viscous 30 ML PO PRN (09:56)
[2018-07-31] MEDS: Multivitamin Therapeutic Tab PO SCH (10:16)
--- NOTE | 2018-07-31 21:51 | PN ---
DATE: 07/31/2018 SUBJECTIVE: The patient is in bed, in no acute distress, nontoxic. PHYSICAL EXAMINATION: VITAL SIGNS: Temperature is 97, blood pressure is 107/60, respiratory rate of 20 and heart rate of 98. HEENT: Unremarkable. NECK: Supple. LUNGS: Have decreased breath sounds. HEART: Normal S1, S2. ABDOMEN: Soft and nontender. LABORATORY DATA: Reveals the patient's white count is 8.6. REVIEW OF ORDERS: Reveals the patient to be off of antibiotics. The patient is on Solu-Medrol. ASSESSMENT AND PLAN: This is an 88-year-old male with non-small cell lung cancer involving the vertebrae. The patient also has esophagitis, chronic obstructive lung disease, hyperlipidemia, hypertension, transitional cell carcinoma, diastolic dysfunction, maculopapular rash, and ALLERGIC TO KEFLEX. Currently off of antibiotics. The rash is resolved. He is doing better. Reid Massey MD
[2018-08-01] MEDS: Pantoprazole 20 mg EC Tab PO SCH (05:22)
[2018-08-01 06:38] LABS: BASO # 0.01 K/mm3 (0.0-2.0); BASO % 0.2 % (0.0-3.0); EOS # 0.3 (0.0-0.7); EOS % 6.3 % (1.5-5.0); HEMOGLOBIN 10.1 g/dL (14.0-18.0); LYMPH # 0.7 (1.2-3.4); LYMPH % 14.3 % (22.0-35.0); MEAN CELL VOLUME 100.3 fl (80.0-105.0); MEAN CORPUSCULAR HEMOGLOBIN 32.5 pg (25.0-35.0); MEAN CORPUSCULAR HGB CONC 32.4 g/dl (31.0-37.0); MEAN PLATELET VOLUME 9.8 fl (7.0-11.0); MONO # 0.2 (0.1-0.6); MONO % 4.3 % (1.0-6.0); RBC 3.11 10^6/uL (3.5-6.1); RED CELL DISTRIBUTION WIDTH 15.7 % (11.5-14.5); WHITE BLOOD COUNT 5.1 10^3/uL (4.5-11.0)
[2018-08-01 06:51] LABS: ALBUMIN 2.6 g/dL (3.0-4.8); ALT/SGPT 23 U/L (7-56); AST/SGOT 30 U/L (17-59); BLOOD UREA NITROGEN 23 mg/dL (7-21); GFR NON-AFRICAN AMERICAN > 60
[2018-08-01] MEDS: Arformoterol 15 mcg/2 ml Inh Sol IH SCH ×2 (07:25→19:22)
[2018-08-01] MEDS: oxyCODONE 10 mg Immediate Release Tab PO PRN ×2 (07:39→18:27)
[2018-08-01] MEDS: Enoxaparin 40 mg Syringe SC SCH (09:45)
[2018-08-01] MEDS: POLYETHYLENE GLYCOL 3350 17 GM/Dose PACKET PO SCH (09:46)
[2018-08-01] MEDS: NIFEdipine 30 mg ER Tab PO SCH (09:47)
[2018-08-01] MEDS: Multivitamin Therapeutic Tab PO SCH (09:47)
[2018-08-01] MEDS: MethylPREDNISolone 40 mg Vial IVP SCH (09:48)
[2018-08-01] MEDS: Metoprolol Succinate 50 mg XL Tab PO SCH (09:51)
[2018-08-01] MEDS: ACYCLOVIR 5% TOP SCH ×3 (09:52→18:31)
--- NOTE | 2018-08-01 13:08 | PN ---
DATE: 08/01/2018 PULMONARY PROGRESS NOTE REFERRING PHYSICIAN: Mic Dougherty MD SUBJECTIVE: The patient is seen sitting in armchair in room. No acute distress. No overnight events reported. Reports feeling well this morning. No headache, rhinitis, cough, shortness of breath, chest pain, abdominal pain, nausea, vomiting, diarrhea and leg pain reported. Does have some lower extremity swelling. OBJECTIVE: GENERAL: No acute distress. VITAL SIGNS: Blood pressure 134/72, pulse 73, temperature 97.6 and oxygen saturation 99%. HEENT: Moist mucous membranes. NECK: Supple. No JVD. LUNGS: Few scattered rhonchi bilaterally. CARDIOVASCULAR: S1 and S2. ABDOMEN: Soft and nontender. No distention. No organomegaly. EXTREMITIES: +1 left lower extremity edema, trace right lower extremity edema. NEUROLOGIC: Awake, alert, and verbal. Following commands. SKIN: Rash resolved. MEDICATIONS: Reviewed. Tylenol 650 mg every 6 hours p.r.n. mild pain, Maalox 30 mL p.o. daily p.r.n., Magic Mouthwash every 3 hours p.r.n., Brovana 15 mcg inhalation every 12 hours, aspirin 81 mg daily, Casodex 50 mg daily, Colace 100 mg twice a day, Trusopt eyedrops twice a day, Vaseline ointment topically daily p.r.n., Lovenox 40 mg subcutaneous daily, Lasix 20 mg daily, hydrocortisone topically daily, lidocaine topically three times a day p.r.n, Claritin 10 mg daily, Solu-Medrol 20 mg daily, Toprol 50 mg at breakfast, Elocon lotion topically twice a day, multivitamin 1 tab daily, Bactroban topically twice a day, Procardia 30 mg daily, oxycodone 10 mg every 6 hours p.r.n., Protonix 20 mg daily, MiraLax 17 g daily, Flomax 0.4 mg daily and Ultram 50 mg three times a day p.r.n. LABORATORY DATA: WBC 5.1, RBC 3.11, hemoglobin 10.1, hematocrit 31.2 and platelets 163. Sodium 136, potassium 4.1, chloride 101, carbon dioxide 30, anion gap 9, BUN 23, creatinine 0.8, GFR is greater than 60, random glucose 90, calcium 8.0, total bilirubin 0.3, AST 30, ALT 23, alkaline phosphatase 44, total protein 5.0, albumin 2.6, globulin 2.5 and albumin globulin ratio 1.0. IMPRESSION AND PLAN: Non-small cell lung cancer including with metastasis to vertebrae T10, status post radiation therapy, chronic lung disease, hyperlipidemia, pulmonary hypertension, transitional cell carcinoma of the bladder, cardiac diastolic dysfunction, hypertension, history of alicia esophagitis, maculopapular rash resolved most likely due to allergic reaction to Keflex. Continue inhaled bronchodilators, gastric prophylaxis. Continue deep venous thrombosis prophylaxis and antihistamines. Continue topical to affected area. We will discontinue Solu-Medrol and start the patient on prednisone 15 mg daily. We will change Vaseline topical to twice a day routine to affected area. The patient does have diastolic dysfunction with pulmonary hypertension. At this time he is experiencing some edema to bilateral lower extremities, but he is clinically stable at this time. If the patient experiences edema with shortness of breath, we will then increase Lasix at this time. Continue Lasix 20 mg daily. Recommend the patient have sleep study and full pulmonary function test as outpatient. The patient was seen and examined with Dr. Dixon. Discussed assessment and plan as described above. The patient was seen and examined with Leandro Salas, nurse practitioner. Discussed assessment and plan as described above. Thank you for this consult and we will follow with you. Leandro Salas APN Ankur Dixon MD [facility]
--- NOTE | 2018-08-01 15:02 | CP.PCM.PN ---
Subjective - Date & Time of Evaluation Date of Evaluation: 08/01/18 Time of Evaluation: 14:58 - Subjective Subjective: Heme/onc progress note Patient seen and examined at bedside. No acute overnight events; patient denies any complaints at present Objective - Vital Signs/Intake and Output Vital Signs (last 24 hours): Temp Pulse Resp BP Pulse Ox 97.6 F 75 20 134/72 99 08/01/18 07:55 08/01/18 09:51 08/01/18 07:55 08/01/18 09:51 08/01/18 07:55 Intake and Output: 08/01/18 08/01/18 06:59 18:59 Intake Total 240 Output Total 500 Balance -260 - Medications Medications: Current Medications Acetaminophen (Tylenol 325mg Tab) 650 mg PO Q6H PRN PRN Reason: Pain, Mild (1-3) Last Admin: 07/25/18 06:05 Dose: 650 mg Al Hydrox/Mg Hydrox/Simethicone (Maalox Plus 30 Ml) 30 ml PO 1200 PRN PRN Reason: Indigestion / Heartburn Last Admin: 07/27/18 18:21 Dose: 30 ml Arformoterol Tartrate (Brovana) 15 mcg IH [id number] [facility] Last Admin: 08/01/18 07:25 Dose: 15 mcg Aspirin (Ecotrin) 81 mg PO DAILY [facility] Last Admin: 08/01/18 09:47 Dose: 81 mg Bicalutamide (Casodex) 50 mg PO DAILY [facility] Last Admin: 08/01/18 09:44 Dose: 50 mg Al Hydrox/Mg Hydrox/Simethicone 30 ml/Diphenhydramine HCl 75 mg/Lidocaine 30 ml 0 ml PO Q3H PRN PRN Reason: Mouth/Throat Pain Last Admin: 07/31/18 09:56 Dose: 10 ml Docusate Sodium (Colace) 100 mg PO BID [facility] Last Admin: 08/01/18 09:47 Dose: 100 mg Dorzolamide HCl (Trusopt) 0 ml OD BID [facility]; Protocol Last Admin: 07/31/18 18:13 Dose: 1 drop Emollient Ointment (Vaseline Oint) 0 gm TOP BID [facility] Enoxaparin Sodium (Lovenox) 40 mg SC DAILY [facility]; Protocol Last Admin: 08/01/18 09:45 Dose: 40 mg Furosemide (Lasix) 20 mg PO DAILY [facility] Last Admin: 08/01/18 09:47 Dose: 20 mg Home Med (Home Med) 0 unit TOP TID [facility] Last Admin: 08/01/18 09:52 Dose: 1 unit Hydrocortisone (Cortizone 2.5% Cream) 0 applic TOP DAILY [facility] Last Admin: 07/31/18 09:52 Dose: Not Given Lidocaine HCl (Xylocaine 2%) 0 ea TOP TID PRN PRN Reason: Pain, Mild (1-3) Last Admin: 07/28/18 07:06 Dose: 1 applic Loratadine (Claritin) 10 mg PO DAILY [facility] Last Admin: 08/01/18 09:47 Dose: 10 mg Metoprolol Succinate (Toprol Xl) 50 mg PO BRK [facility] Last Admin: 08/01/18 09:51 Dose: 50 mg Mometasone Furoate (Elocon Lotion) 0 ml TOP BID [facility] Last Admin: 07/31/18 18:12 Dose: 1 applic Multivitamins (Thera Tab) 1 tab PO DAILY [facility] Last Admin: 08/01/18 09:47 Dose: 1 tab Mupirocin (Bactroban Ointment) 0 gm TOP BID [facility] Last Admin: 07/31/18 18:11 Dose: Not Given Nifedipine (Procardia Xl) 30 mg PO DAILY [facility] Last Admin: 08/01/18 09:47 Dose: 30 mg Oxycodone HCl (Oxycodone Immediate Release Tab) 10 mg PO Q6H PRN PRN Reason: Pain, severe (8-10) Last Admin: 08/01/18 07:39 Dose: 10 mg Pantoprazole Sodium (Protonix Ec Tab) 20 mg PO 0600 [facility] Last Admin: 08/01/18 05:22 Dose: 20 mg Polyethylene Glycol (Miralax) 17 gm PO DAILY [facility] Last Admin: 08/01/18 09:46 Dose: 17 gm Prednisone (Prednisone Tab) 15 mg PO DAILY [facility] Tamsulosin HCl (Flomax) 0.4 mg PO DAILY [facility] Last Admin: 08/01/18 09:48 Dose: 0.4 mg Tramadol HCl (Ultram) 50 mg PO TID PRN PRN Reason: Pain, moderate (4-7) Last Admin: 07/31/18 19:36 Dose: 50 mg - Labs Labs: 08/01/18 06:00 08/01/18 06:00 - Constitutional Appears: Well - Head Exam Head Exam: ATRAUMATIC, NORMAL INSPECTION, NORMOCEPHALIC - Eye Exam Eye Exam: EOMI, Normal appearance, PERRL Pupil Exam: NORMAL ACCOMODATION, PERRL - ENT Exam ENT Exam: Mucous Membranes Moist, Normal Exam - Neck Exam Neck Exam: Full ROM, Normal Inspection. absent: Lymphadenopathy - Respiratory Exam Respiratory Exam: Clear to Ausculation Bilateral, NORMAL BREATHING PATTERN - Cardiovascular Exam Cardiovascular Exam: REGULAR RHYTHM, +S1, +S2. absent: Murmur - GI/Abdominal Exam GI & Abdominal Exam: Soft, Normal Bowel Sounds. absent: Tenderness - Extremities Exam Extremities Exam: Full ROM, Normal Capillary Refill, Normal Inspection. absent: Joint Swelling, Pedal Edema - Back Exam Back Exam: NORMAL INSPECTION - Neurological Exam Neurological Exam: Alert, Awake, CN II-XII Intact, Normal Gait, Oriented x3 - Psychiatric Exam Psychiatric exam: Normal Affect, Normal Mood - Skin Skin Exam: Dry, Intact, Normal Color, Warm - Additional Findings Additional findings: Rash from previous notes appears to have resolved. 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 Khalil CAD - Continue home meds - Cardio consultedDamaris HLD - Continue home statin Prostate CA - Continue caodex - Continue flomax
[2018-08-01] MEDS: Mupirocin 2% Ointment 15 GM TUBE TOP SCH ×2 (18:24→18:36)
[2018-08-01] MEDS: MOMETASONE 0.1% TOP SCH ×2 (18:25→18:29)
[2018-08-01] MEDS: Dorzolamide 2% Opht Sol 10ml OD SCH ×2 (18:30→18:35)
--- NOTE | 2018-08-02 00:29 | PN ---
DATE: 08/01/2018 SUBJECTIVE: The patient is in bed, in no acute distress, nontoxic. PHYSICAL EXAMINATION: VITAL SIGNS: Temperature is 97, blood pressure is 107/60, respiratory rate 20, heart rate of 76. HEENT: Unremarkable. NECK: Supple. LUNGS: Have decreased breath sounds. HEART: Normal S1, S2. ABDOMEN: Soft. LABORATORY EXAMINATION: Reveals a white count of 5.1, hemoglobin of 23, creatinine of 0.8, and review of orders. ASSESSMENT AND PLAN: An 88-year-old male with [id number] lung cancer involving the vertebrae, has esophagitis, chronic obstructive lung disease, hyperlipidemia, hypertension, transitional cell carcinoma, diastolic dysfunction, maculopapular rash on possibly Keflex which is resolving, did have Klebsiella from the sputum culture, pansensitive and off of antibiotics at this time. The patient is at risk for developing nosocomial infections. Reid Massey MD
[2018-08-02] MEDS: Pantoprazole 20 mg EC Tab PO SCH (05:41)
[2018-08-02] MEDS: Arformoterol 15 mcg/2 ml Inh Sol IH SCH ×2 (08:15→20:05)
[2018-08-02] MEDS: Metoprolol Succinate 50 mg XL Tab PO SCH (08:57)
[2018-08-02] MEDS: Mupirocin 2% Ointment 15 GM TUBE TOP SCH ×2 (10:09→18:10)
[2018-08-02] MEDS: MOMETASONE 0.1% TOP SCH ×2 (10:11→18:12)
[2018-08-02] MEDS: ACYCLOVIR 5% TOP SCH ×3 (10:13→18:13)
--- NOTE | 2018-08-02 11:16 | PN ---
DATE: 08/02/2018 PULMONARY PROGRESS NOTE REFERRING PHYSICIAN: Dr. Mic Dougherty. SUBJECTIVE: The patient is seen sitting up in bed. No acute distress. No overnight events reported. No headache, rhinitis, cough, shortness of breath, chest pain, abdominal pain, nausea, vomiting, diarrhea, or leg pain reported. OBJECTIVE: GENERAL: No acute distress. VITAL SIGNS: Blood pressure 139/78, pulse 76, temperature 97.8, and oxygen saturation 99%. HEENT: Moist mucous membranes. NECK: Supple. No JVD. LUNGS: Fair airflow bilaterally. CARDIOVASCULAR: S1 and S2. ABDOMEN: Soft and nontender. No distention. No organomegaly. EXTREMITIES: Bilateral lower extremity edema. NEUROLOGIC: Awake, alert, and verbal. Following commands. MEDICATIONS: Reviewed. Tylenol 650 mg every 6 hours p.r.n. for mild pain, Maalox 30 mL p.o. daily p.r.n., Magic Mouthwash every 3 hours p.r.n., Brovana 15 mcg inhalation every 12 hours, aspirin 81 mg daily, Casodex 50 mg daily, Colace 100 mg twice a day, Trusopt eyedrops twice a day, Vaseline ointment topically twice a day, Lovenox 40 mg subcutaneous daily, Lasix 20 mg daily, hydrocortisone topically daily, lidocaine topically three times a day p.r.n, Claritin 10 mg daily, metoprolol succinate 50 mg at breakfast, Elocon lotion topically twice a day to affected area, multivitamin 1 tab daily, Bactroban topically twice a day to affected area, Procardia XL 30 mg p.o. daily, Protonix 20 mg daily, MiraLax 17 g daily, prednisone 15 mg daily, Flomax 0.4 mg daily, and tramadol 50 mg three times a day p.r.n. LABORATORY DATA: Reviewed. No new labs since yesterday. 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 The patient with allergic reaction to Keflex. Pulmonary point of view, continue inhaled bronchodilators, gastric prophylaxis, deep venous thrombosis prophylaxis. Continue antihistamines. Continue topical to affected area. Continue prednisone 15 mg daily at this time. We will monitor the patient for new signs and symptoms of shortness of breath. This patient at this time has some edema to bilateral lower extremities, but clinically is stable. Should edema accompany shortness of breath, we will increase Lasix. We recommend the patient have sleep study and full pulmonary function test as outpatient. Hematology/Oncology followup. The patient was seen and examined with Dr. Dixon. Discussed assessment and plan as described above. The patient was seen and examined with Leandro Salas, nurse practitioner. Discussed assessment and plan as described above. Thank you for this consult. We will follow with you. Leandro Salas APN Ankur Dixon MD [facility]
[2018-08-02] MEDS: Enoxaparin 40 mg Syringe SC SCH (13:54)
[2018-08-02] MEDS: NIFEdipine 30 mg ER Tab PO SCH (13:55)
[2018-08-02] MEDS: Multivitamin Therapeutic Tab PO SCH (13:55)
[2018-08-02] MEDS: POLYETHYLENE GLYCOL 3350 17 GM/Dose PACKET PO SCH (13:57)
[2018-08-02] MEDS: Petrolatum Oint Foilpak (5 gm) TOP SCH (18:19)
--- NOTE | 2018-08-02 22:37 | PN ---
DATE: 08/02/2018 SUBJECTIVE: The patient is seen in bed, in no acute distress. OBJECTIVE: VITAL SIGNS: Temperature is 97, blood pressure is 110/50, and respiratory rate of 19. HEENT: Unremarkable. NECK: Supple. LUNGS: Have decreased breath sounds. HEART: Normal S1 and S2. ABDOMEN: Soft. LABORATORY EXAMINATION: Reveals a white count of 5.1 and hemoglobin of 10. Chemistries reveal a BUN of 23, creatinine of 0.8. Microbiology is noted Klebsiella. The patient's rash is improved, almost resolved. Review of the laboratory reveals the patient has no antibiotics. The patient is on prednisone and tramadol. ASSESSMENT AND PLAN: This is an 88-year-old male with nonsmall-cell lung cancer involving the vertebra, has esophagitis, chronic obstructive lung disease, hyperlipidemia, hypertension, transitional cell carcinoma, diastolic dysfunction, maculopapular rash, on Keflex which is resolved. Currently now off of antibiotics. Afebrile. The patient is at risk for developing nosocomial infections. Reid Massey MD
[2018-08-03] MEDS: Pantoprazole 20 mg EC Tab PO SCH (05:37)
[2018-08-03] MEDS: Arformoterol 15 mcg/2 ml Inh Sol IH SCH ×2 (07:20→21:15)
--- NOTE | 2018-08-03 08:09 | CP.PCM.PN ---
<VereniceAnuel - Last Filed: 08/03/18 08:03> Subjective - Date & Time of Evaluation Date of Evaluation: 08/02/18 Time of Evaluation: 08:05 - Subjective Subjective: Heme/onc progress note Patient seen and examined at bedside. No acute overnight events; spent a significant amount of time speaking to patient today, as he is not feeling well. The rash is not bothering him as much, but he states that he "doesn't feel righ t." He is requesting to talk to Dr. Khalil. No chest pain, shorntess of breath. Objective - Vital Signs/Intake and Output Vital Signs (last 24 hours): Temp Pulse Resp BP Pulse Ox 97.7 F 50 L 19 110/55 L 97 08/02/18 16:45 08/02/18 16:45 08/02/18 16:45 08/02/18 16:45 08/02/18 16:45 Intake and Output: 08/03/18 08/03/18 06:59 18:59 Intake Total 600 Output Total 1400 Balance -800 - Medications Medications: Current Medications Acetaminophen (Tylenol 325mg Tab) 650 mg PO Q6H PRN PRN Reason: Pain, Mild (1-3) Last Admin: 07/25/18 06:05 Dose: 650 mg Al Hydrox/Mg Hydrox/Simethicone (Maalox Plus 30 Ml) 30 ml PO 1200 PRN PRN Reason: Indigestion / Heartburn Last Admin: 07/27/18 18:21 Dose: 30 ml Arformoterol Tartrate (Brovana) 15 mcg IH [id number] [facility] Last Admin: 08/03/18 07:20 Dose: 15 mcg Aspirin (Ecotrin) 81 mg PO DAILY [facility] Last Admin: 08/02/18 13:56 Dose: 81 mg Bicalutamide (Casodex) 50 mg PO DAILY [facility] Last Admin: 08/02/18 14:09 Dose: 50 mg Al Hydrox/Mg Hydrox/Simethicone 30 ml/Diphenhydramine HCl 75 mg/Lidocaine 30 ml 0 ml PO Q3H PRN PRN Reason: Mouth/Throat Pain Last Admin: 07/31/18 09:56 Dose: 10 ml Docusate Sodium (Colace) 100 mg PO BID [facility] Last Admin: 05/07/19 18:18 Dose: 100 mg Dorzolamide HCl (Trusopt) 0 ml OD BID [facility]; Protocol Last Admin: 08/01/18 18:35 Dose: 1 drop Emollient Ointment (Vaseline Oint) 0 gm TOP BID [facility] Last Admin: 08/02/18 18:19 Dose: 5 gm Enoxaparin Sodium (Lovenox) 40 mg SC DAILY [facility]; Protocol Last Admin: 08/02/18 13:54 Dose: 40 mg Furosemide (Lasix) 20 mg PO DAILY [facility] Last Admin: 08/02/18 13:58 Dose: 20 mg Home Med (Home Med) 0 unit TOP TID [facility] Last Admin: 08/02/18 18:13 Dose: Not Given Hydrocortisone (Cortizone 2.5% Cream) 0 applic TOP DAILY [facility] Last Admin: 08/02/18 16:10 Dose: 2 applic Lidocaine HCl (Xylocaine 2%) 0 ea TOP TID PRN PRN Reason: Pain, Mild (1-3) Last Admin: 07/28/18 07:06 Dose: 1 applic Loratadine (Claritin) 10 mg PO DAILY [facility] Last Admin: 08/02/18 13:59 Dose: 10 mg Metoprolol Succinate (Toprol Xl) 50 mg PO BRK [facility] Last Admin: 08/02/18 08:57 Dose: 50 mg Mometasone Furoate (Elocon Lotion) 0 ml TOP BID [facility] Last Admin: 08/02/18 18:12 Dose: 1 applic Multivitamins (Thera Tab) 1 tab PO DAILY [facility] Last Admin: 08/02/18 13:55 Dose: 1 tab Mupirocin (Bactroban Ointment) 0 gm TOP BID [facility] Last Admin: 08/02/18 18:10 Dose: Not Given Nifedipine (Procardia Xl) 30 mg PO DAILY [facility] Last Admin: 08/02/18 13:55 Dose: 30 mg Pantoprazole Sodium (Protonix Ec Tab) 20 mg PO 0600 [facility] Last Admin: 08/03/18 05:37 Dose: 20 mg Polyethylene Glycol (Miralax) 17 gm PO DAILY [facility] Last Admin: 08/02/18 13:57 Dose: 17 gm Prednisone (Prednisone Tab) 15 mg PO DAILY [facility] Tamsulosin HCl (Flomax) 0.4 mg PO DAILY [facility] Last Admin: 08/02/18 14:19 Dose: 0.4 mg Tramadol HCl (Ultram) 50 mg PO TID PRN PRN Reason: Pain, moderate (4-7) Last Admin: 08/02/18 07:53 Dose: 50 mg - Labs Labs: 08/01/18 06:00 08/01/18 06:00 - Constitutional Appears: Well - Head Exam Head Exam: ATRAUMATIC, NORMAL INSPECTION, NORMOCEPHALIC - Eye Exam Eye Exam: EOMI, Normal appearance, PERRL Pupil Exam: NORMAL ACCOMODATION, PERRL - ENT Exam ENT Exam: Mucous Membranes Moist, Normal Exam - Neck Exam Neck Exam: Full ROM, Normal Inspection. absent: Lymphadenopathy - Respiratory Exam Respiratory Exam: Clear to Ausculation Bilateral, NORMAL BREATHING PATTERN - Cardiovascular Exam Cardiovascular Exam: REGULAR RHYTHM, +S1, +S2. absent: Murmur - GI/Abdominal Exam GI & Abdominal Exam: Soft, Normal Bowel Sounds. absent: Tenderness - Extremities Exam Extremities Exam: Full ROM, Normal Capillary Refill, Normal Inspection. absent: Joint Swelling, Pedal Edema - Back Exam Back Exam: NORMAL INSPECTION - Neurological Exam Neurological Exam: Alert, Awake, CN II-XII Intact, Normal Gait, Oriented x3 - Psychiatric Exam Psychiatric exam: Normal Affect, Normal Mood - Skin Skin Exam: Dry, Intact, Normal Color, Warm Assessment and Plan - Assessment and Plan (Free Text) Assessment: Rash, Likely 2/2 Keflex or Diflucan - Triamcilone at night time - Amlactin application in AM - ID note does not mention any further intervention - Added allergies to chart Acid Reflux chronic - Protonix - Previous upper endoscopy showed esophagitis and candidiasis - Continue to monitor 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 Khalil CAD - Continue home meds - Cardio consultedDamaris HLD - Continue home statin Prostate CA - Continue caodex - Continue flomax <Malini Khalil P - Last Filed: 08/08/18 22:40> Objective - Vital Signs/Intake and Output Vital Signs (last 24 hours): Temp Pulse Resp BP Pulse Ox 99.0 F 76 18 133/76 99 08/07/18 00:00 08/07/18 00:00 08/07/18 00:00 08/07/18 10:51 08/07/18 00:00 - Labs Labs: 08/04/18 10:05 08/04/18 06:30 Attending/Attestation - Attestation I have personally seen and examined this patient.: Yes I have fully participated in the care of the patient.: Yes I have reviewed all pertinent clinical information, including history, physical exam and plan: Yes
[2018-08-03] MEDS: Metoprolol Succinate 50 mg XL Tab PO SCH (08:20)
[2018-08-03] MEDS: Mupirocin 2% Ointment 15 GM TUBE TOP SCH ×2 (10:16→17:49)
[2018-08-03] MEDS: MOMETASONE 0.1% TOP SCH ×2 (10:19→17:49)
[2018-08-03] MEDS: Enoxaparin 40 mg Syringe SC SCH (10:20)
[2018-08-03] MEDS: ACYCLOVIR 5% TOP SCH ×3 (10:20→17:49)
[2018-08-03] MEDS: POLYETHYLENE GLYCOL 3350 17 GM/Dose PACKET PO SCH (10:21)
[2018-08-03] MEDS: NIFEdipine 30 mg ER Tab PO SCH (10:21)
[2018-08-03] MEDS: Multivitamin Therapeutic Tab PO SCH (10:22)
[2018-08-03] MEDS: Petrolatum Oint Foilpak (5 gm) TOP SCH ×2 (10:24→17:53)
[2018-08-03] MEDS: Dorzolamide 2% Opht Sol 10ml OD SCH ×2 (10:24→17:49)
--- NOTE | 2018-08-03 17:57 | PN ---
DATE: 08/03/2018 PULMONARY PROGRESS NOTE REFERRING PHYSICIAN: Mic Dougherty MD SUBJECTIVE: He is out of bed to chair. Night was unremarkable. Slept well. Breathing is better. Decreased cough, decreased shortness of breath, still have multiple skin breakdown since rash is slowly improving. Still has a dry skin. No nausea, vomiting, no diarrhea, leg pain or leg swelling. PHYSICAL EXAMINATION: GENERAL: No acute distress. VITAL SIGNS: Temperature is 98, heart rate 68, respiratory rate is 20, blood pressure 129/74, pulse of 97% on 2 liters nasal cannula. HEENT: Moist mucous membranes. No ulcer or thrush. NECK: Supple. No JVD. LUNGS: Have fair airflow with rhonchi. HEART: S1 and S2. ABDOMEN: Soft, nontender, no organomegaly. EXTREMITIES: There is trace edema, has a multiple area of skin breakdown, has dressings. NEUROLOGIC: Awake, alert, follows simple command. LABORATORY DATA: Reviewed. No new lab is available since yesterday. MEDICATIONS: He is on Brovana inhaled twice a day, Casodex 50 mg daily, Claritin 10 mg daily, Colace 100 mg twice a day, hydrocortisone affected area, Ecotrin 81 mg daily, Flomax 0.4 mg daily, Lasix 20 mg daily, Lovenox 40 mg subcu daily, MiraLax 17 g daily, prednisone 50 mg daily, Procardia XL 30 mg daily, Protonix 20 mg daily, multivitamins daily, Toprol XL 50 mg daily, Tylenol p.r.n., Ultram p.r.n., Vaseline ointment affected area, Xylocaine 2% affected area p.r.n. IMPRESSION AND PLAN: [id number] lung cancer with metastatic disease to vertebra involving T10, status post radiation therapy, chronic obstructive lung disease, pulmonary hypertension, transitional cell carcinoma of the bladder in the past, hyperlipidemia, hypertension, cardiac diastolic dysfunction, history of esophagitis, resolving maculopapular rash which could be secondary to Keflex use. Pulmonary point of view, doing well. Continue inhaled bronchodilator, keep head of bed at 45 degrees, aspiration precaution. Continue diuretics. We will decrease prednisone to 10 mg daily, fall precaution. Follow up labs in the morning. We will follow with you. Ankur Dixon MD [facility] # [id number]
--- NOTE | 2018-08-04 00:05 | PN ---
DATE: 08/03/2018 SUBJECTIVE: The patient is in room 378. The patient was seen earlier today. He is awake, alert, and doing well. The rash has resolved. OBJECTIVE: VITAL SIGNS: Temperature is 97, blood pressure is 112/70, and respiratory rate of 18. HEENT: Unremarkable. NECK: Supple. LUNGS: Have decreased breath sounds. HEART: Normal S1 and S2. ABDOMEN: Soft. LABORATORY EXAMINATION: Reveals a white count of 5.1, hemoglobin of 10, platelets of 163, BUN of 23, and creatinine of 0.8. Urinalysis is noted. Microbiology is noted. REVIEW OF ORDERS: Reveals the patient to be on no antibiotics. The patient is on prednisone. Dr. Dixon's note is reviewed. ASSESSMENT AND PLAN: This is an 88-year-old male with nonsmall-cell lung cancer involving the vertebra, esophagitis, chronic obstructive lung disease, hyperlipidemia, hypertension, transitional cell cancer, diastolic dysfunction, maculopapular rash. Off of antibiotics. The patient did have rash secondary probably KEFLEX ALLERGY. We will follow with you. Reid Massey MD
[2018-08-04] MEDS: Pantoprazole 20 mg EC Tab PO SCH (05:52)
[2018-08-04 07:31] LABS: ALBUMIN 2.7 g/dL (3.0-4.8); ALT/SGPT 25 U/L (7-56); AST/SGOT 25 U/L (17-59); BLOOD UREA NITROGEN 19 mg/dL (7-21); GFR NON-AFRICAN AMERICAN > 60
[2018-08-04] MEDS: Arformoterol 15 mcg/2 ml Inh Sol IH SCH ×2 (07:46→20:40)
--- NOTE | 2018-08-04 09:28 | CP.PCM.PN ---
<Anuel Caldera Kiara - Last Filed: 08/04/18 09:25> Subjective - Date & Time of Evaluation Date of Evaluation: 08/03/18 Time of Evaluation: 08:00 - Subjective Subjective: Heme/onc progress note - Verenice, PGY - 2 Patient seen and examined at bedside. Feels much better today, states he is ready to go home. Discussed home nursing services with the patient at bedside, and he understands. Denies any acute complaints. Objective - Vital Signs/Intake and Output Vital Signs (last 24 hours): Temp Pulse Resp BP Pulse Ox 97.7 F 68 19 129/74 97 08/02/18 16:45 08/03/18 10:21 08/02/18 16:45 08/03/18 10:21 08/02/18 16:45 Intake and Output: 08/04/18 08/04/18 06:59 18:59 Intake Total 120 Output Total 1000 Balance -880 - Medications Medications: Current Medications Acetaminophen (Tylenol 325mg Tab) 650 mg PO Q6H PRN PRN Reason: Pain, Mild (1-3) Last Admin: 07/25/18 06:05 Dose: 650 mg Al Hydrox/Mg Hydrox/Simethicone (Maalox Plus 30 Ml) 30 ml PO 1200 PRN PRN Reason: Indigestion / Heartburn Last Admin: 07/27/18 18:21 Dose: 30 ml Arformoterol Tartrate (Brovana) 15 mcg IH [id number] [facility] Last Admin: 08/04/18 07:46 Dose: 15 mcg Aspirin (Ecotrin) 81 mg PO DAILY [facility] Last Admin: 08/03/18 10:18 Dose: 81 mg Bicalutamide (Casodex) 50 mg PO DAILY [facility] Last Admin: 08/03/18 10:17 Dose: 50 mg Al Hydrox/Mg Hydrox/Simethicone 30 ml/Diphenhydramine HCl 75 mg/Lidocaine 30 ml 0 ml PO Q3H PRN PRN Reason: Mouth/Throat Pain Last Admin: 07/31/18 09:56 Dose: 10 ml Docusate Sodium (Colace) 100 mg PO BID [facility] Last Admin: 08/03/18 17:52 Dose: 100 mg Dorzolamide HCl (Trusopt) 0 ml OD BID [facility]; Protocol Last Admin: 08/03/18 17:49 Dose: Not Given Emollient Ointment (Vaseline Oint) 0 gm TOP BID [facility] Last Admin: 08/03/18 17:53 Dose: 5 gm Enoxaparin Sodium (Lovenox) 40 mg SC DAILY [facility]; Protocol Last Admin: 08/03/18 10:20 Dose: 40 mg Furosemide (Lasix) 20 mg PO DAILY [facility] Last Admin: 08/03/18 10:20 Dose: 20 mg Home Med (Home Med) 0 unit TOP TID [facility] Last Admin: 08/03/18 17:49 Dose: Not Given Hydrocortisone (Cortizone 2.5% Cream) 0 applic TOP DAILY [facility] Last Admin: 08/03/18 10:18 Dose: 2 applic Lidocaine HCl (Xylocaine 2%) 0 ea TOP TID PRN PRN Reason: Pain, Mild (1-3) Last Admin: 07/28/18 07:06 Dose: 1 applic Loratadine (Claritin) 10 mg PO DAILY [facility] Last Admin: 08/03/18 10:18 Dose: 10 mg Metoprolol Succinate (Toprol Xl) 50 mg PO BRK [facility] Last Admin: 08/03/18 08:20 Dose: 50 mg Mometasone Furoate (Elocon Lotion) 0 ml TOP BID [facility] Last Admin: 08/03/18 17:49 Dose: Not Given Multivitamins (Thera Tab) 1 tab PO DAILY [facility] Last Admin: 08/03/18 10:22 Dose: 1 tab Mupirocin (Bactroban Ointment) 0 gm TOP BID [facility] Last Admin: 08/03/18 17:49 Dose: Not Given Nifedipine (Procardia Xl) 30 mg PO DAILY [facility] Last Admin: 08/03/18 10:21 Dose: 30 mg Pantoprazole Sodium (Protonix Ec Tab) 20 mg PO 0600 [facility] Last Admin: 08/04/18 05:52 Dose: 20 mg Polyethylene Glycol (Miralax) 17 gm PO DAILY [facility] Last Admin: 08/03/18 10:21 Dose: 17 gm Prednisone (Prednisone Tab) 10 mg PO DAILY [facility] Tamsulosin HCl (Flomax) 0.4 mg PO DAILY [facility] Last Admin: 08/03/18 10:23 Dose: 0.4 mg Tramadol HCl (Ultram) 50 mg PO TID PRN PRN Reason: Pain, moderate (4-7) Last Admin: 08/03/18 10:26 Dose: 50 mg - Labs Labs: 08/01/18 06:00 08/04/18 06:30 - Constitutional Appears: Well - Head Exam Head Exam: ATRAUMATIC, NORMAL INSPECTION, NORMOCEPHALIC - Eye Exam Eye Exam: EOMI, Normal appearance, PERRL Pupil Exam: NORMAL ACCOMODATION, PERRL - ENT Exam ENT Exam: Mucous Membranes Moist, Normal Exam - Neck Exam Neck Exam: Full ROM, Normal Inspection. absent: Lymphadenopathy - Respiratory Exam Respiratory Exam: Clear to Ausculation Bilateral, NORMAL BREATHING PATTERN - Cardiovascular Exam Cardiovascular Exam: REGULAR RHYTHM, +S1, +S2. absent: Murmur - GI/Abdominal Exam GI & Abdominal Exam: Soft, Normal Bowel Sounds. absent: Tenderness - Extremities Exam Extremities Exam: Full ROM, Normal Capillary Refill, Normal Inspection. absent: Joint Swelling, Pedal Edema - Back Exam Back Exam: NORMAL INSPECTION - Neurological Exam Neurological Exam: Alert, Awake, CN II-XII Intact, Normal Gait, Oriented x3 - Psychiatric Exam Psychiatric exam: Normal Affect, Normal Mood - Skin Skin Exam: Dry, Intact, Normal Color, Warm - Additional Findings Additional findings: Bilateral, bullous, healing rash on UE and LE Assessment and Plan - Assessment and Plan (Free Text) Assessment: Rash, Likely 2/2 Keflex or Diflucan - Triamcilone at night time - Amlactin application in AM - ID note does not mention any further intervention - Added allergies to chart Acid Reflux chronic - Protonix - Previous upper endoscopy showed esophagitis and candidiasis - Continue to monitor 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 Khalil CAD - Continue home meds - Cardio consultedDamaris HLD - Continue home statin Prostate CA - Continue caodex - Continue flomax <Malini Khalil - Last Filed: 08/08/18 22:40> Objective - Vital Signs/Intake and Output Vital Signs (last 24 hours): Temp Pulse Resp BP Pulse Ox 99.0 F 76 18 133/76 99 08/07/18 00:00 08/07/18 00:00 08/07/18 00:00 08/07/18 10:51 08/07/18 00:00 - Labs Labs: 08/04/18 10:05 08/04/18 06:30 Attending/Attestation - Attestation I have personally seen and examined this patient.: Yes I have fully participated in the care of the patient.: Yes I have reviewed all pertinent clinical information, including history, physical exam and plan: Yes
[2018-08-04] MEDS: MOMETASONE 0.1% TOP SCH ×2 (10:00→17:30)
[2018-08-04] MEDS: POLYETHYLENE GLYCOL 3350 17 GM/Dose PACKET PO SCH (10:01)
[2018-08-04] MEDS: Enoxaparin 40 mg Syringe SC SCH (10:01)
[2018-08-04] MEDS: NIFEdipine 30 mg ER Tab PO SCH (10:02)
[2018-08-04] MEDS: Metoprolol Succinate 50 mg XL Tab PO SCH (10:02)
[2018-08-04] MEDS: Multivitamin Therapeutic Tab PO SCH (10:02)
[2018-08-04] MEDS: Dorzolamide 2% Opht Sol 10ml OD SCH ×2 (10:03→17:31)
[2018-08-04 10:16] LABS: BASO # 0.02 K/mm3 (0.0-2.0); BASO % 0.4 % (0.0-3.0); EOS # 0.2 (0.0-0.7); EOS % 4.3 % (1.5-5.0); HEMOGLOBIN 10.2 g/dL (14.0-18.0); LYMPH # 0.8 (1.2-3.4); LYMPH % 13.6 % (22.0-35.0); MEAN CELL VOLUME 101.9 fl (80.0-105.0); MEAN CORPUSCULAR HEMOGLOBIN 32.4 pg (25.0-35.0); MEAN CORPUSCULAR HGB CONC 31.8 g/dl (31.0-37.0); MEAN PLATELET VOLUME 10.1 fl (7.0-11.0); MONO # 0.3 (0.1-0.6); MONO % 5.6 % (1.0-6.0); RBC 3.15 10^6/uL (3.5-6.1); RED CELL DISTRIBUTION WIDTH 16.5 % (11.5-14.5); WHITE BLOOD COUNT 5.6 10^3/uL (4.5-11.0)
--- NOTE | 2018-08-04 12:22 | PN ---
DATE: 08/04/2018 PULMONARY PROGRESS NOTE REFERRING PHYSICIAN: Mic Dougherty MD SUBJECTIVE: The patient is seen sitting in armchair in room. No acute distress. No overnight events reported. The patient does report feeling some abdominal distention and some pain this morning. States that he is urinating. States that he had a bowel movement this morning that was formed. No diarrhea. No headache, rhinitis, chest pain, nausea, vomiting, diarrhea, leg pain or leg swelling reported. OBJECTIVE: GENERAL: No acute distress. VITAL SIGNS: Blood pressure 124/66, pulse 76, temperature 98.3, oxygen saturation 99% on room air. HEENT: Moist mucous membranes. No ulcer or thrush. NECK: Supple. No JVD. LUNGS: Fair airflow bilaterally. CARDIOVASCULAR: S1 and S2. ABDOMEN: Distended and tender upon palpation. EXTREMITIES: Trace bilateral lower extremity edema. NEUROLOGIC: Awake, alert and verbal. Following commands. MEDICATIONS: Reviewed. Tylenol 650 every 6 hours p.r.n. mild pain, Maalox 30 mL p.o. daily p.r.n., Magic Mouthwash every 3 hours p.r.n., Brovana 15 mcg inhalation every 12 hours, aspirin 81 mg daily, Casodex 50 mg daily, Colace 100 mg twice a day, Trusopt eyedrops twice a day, Vaseline ointment topically twice a day, Lovenox 40 mg subcu daily, Lasix 20 mg daily, hydrocortisone topically daily to affected area, lidocaine topically three times a day p.r.n. to affected area, Claritin 10 mg daily, metoprolol succinate 50 mg at breakfast, Elocon lotion topically twice a day, multivitamin 1 tab daily, Bactroban topically twice a day to affected area, Procardia XL 30 mg p.o. daily, Protonix 20 mg daily, MiraLax 17 g daily, prednisone 10 mg daily, Flomax 0.4 mg daily, tramadol 50 mg three times a day p.r.n. LABORATORY DATA: Reviewed. WBC 5.6, RBC 3.15, hemoglobin 10.2, hematocrit 32.1, platelets 189. Sodium 138, potassium 3.9, chloride 102, carbon dioxide 30, anion gap 9, BUN 19, creatinine 0.8, GFR greater than 60, random glucose 86, calcium 8, phosphorus 3.4, magnesium 2.1, total bilirubin 0.3, AST 25, ALT 25, alkaline phosphatase 43, total protein 5.2, albumin 2.7, globulin 2.5, albumin-globulin ratio 1. 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 Agree with getting abdominal x-ray due to the patient's complaint of abdominal distension and pain this morning. Pulmonary point of view, continue inhaled bronchodilators. Keep head of the bed elevated at 45 degrees. Aspiration precaution. Continue diuretics. Continue steroid dosing. Fall precautions. Recommend this patient have pulmonary function test and sleep study. Pulmonary function test to assess extensive chronic lung disease. Recommend the patient have sleep study to assess suspected sleep apnea syndrome. The patient was seen and examined with Dr. Dixon. Discussed assessment and plan as described above. The patient was seen and examined with Leandro Salas, nurse practitioner. Discussed assessment and plan as described above. Thank you for this consult. We will follow with you. Leandro Salas APN Ankur Dixon MD
--- NOTE | 2018-08-04 13:22 | RAD ---
Date of service: 08/04/2018 HISTORY: pain COMPARISON: None available. TECHNIQUE: 1 view obtained. FINDINGS: BOWEL: Normal. No obstruction. No free air. Pancreatic calcifications BONES: Normal. OTHER FINDINGS: Left ureteral stent IMPRESSION: No active disease.
[2018-08-04] MEDS: ACYCLOVIR 5% TOP SCH ×2 (13:55→17:30)
[2018-08-04] MEDS: Mupirocin 2% Ointment 15 GM TUBE TOP SCH (17:29)
[2018-08-04] MEDS: Petrolatum Oint Foilpak (5 gm) TOP SCH ×2 (17:31→17:32)
--- NOTE | 2018-08-04 21:53 | PN ---
DATE: 08/04/2018 SUBJECTIVE: The patient was seen earlier today, he appears to be comfortable. No fevers, no chills. His rash is all resolved. PHYSICAL EXAMINATION: VITAL SIGNS: Temperature 98, blood pressure is 120/60, respiratory rate of 20. HEENT: Unremarkable. NECK: Supple. LUNGS: Have decreased breath sounds. HEART: Normal S1, S2. ABDOMEN: Soft. LABORATORY EXAMINATION: Reveals a white count of 5.6, hemoglobin of 10, platelets of 189. Chemistries reveals a BUN of 18, creatinine of 0.8. Pro calcitonin 0.05. Urinalysis is noted. Microbiology reveals the Klebsiella is noted. REVIEW OF ORDERS: Reveals the patient to be off of antibiotics and the patient is on prednisone. ASSESSMENT AND PLAN: This is an 88-year-old male with [id number] lung cancer with involving the vertebra metastases, also had esophagitis, chronic obstructive lung disease, hyperlipidemia, hypertension, transitional cell cancer, diastolic dysfunction, maculopapular rash, most likely secondary to Keflex, now rashes resolved, off of antibiotics. The patient had abdominal x-ray ordered by Dr. Luu, which showed no findings. We will follow with you. Reid Massey MD
--- NOTE | 2018-08-04 22:55 | CP.PCM.PN ---
Subjective - Date & Time of Evaluation Date of Evaluation: 08/04/18 Time of Evaluation: 10:05 - Subjective Subjective: Complains of abdominal distention. Patient was constipated now moving the bowels slow small amount. No complaints of any abdominal pain. Objective - Vital Signs/Intake and Output Vital Signs (last 24 hours): Temp Pulse Resp BP Pulse Ox 97.9 F 110 H 20 110/65 99 08/04/18 17:21 08/04/18 17:21 08/04/18 17:21 08/04/18 17:21 08/04/18 17:21 - Medications Medications: Current Medications Acetaminophen (Tylenol 325mg Tab) 650 mg PO Q6H PRN PRN Reason: Pain, Mild (1-3) Last Admin: 07/25/18 06:05 Dose: 650 mg Al Hydrox/Mg Hydrox/Simethicone (Maalox Plus 30 Ml) 30 ml PO 1200 PRN PRN Reason: Indigestion / Heartburn Last Admin: 07/27/18 18:21 Dose: 30 ml Arformoterol Tartrate (Brovana) 15 mcg IH [id number] [facility] Last Admin: 08/04/18 20:40 Dose: 15 mcg Aspirin (Ecotrin) 81 mg PO DAILY [facility] Last Admin: 08/04/18 10:00 Dose: 81 mg Bicalutamide (Casodex) 50 mg PO DAILY [facility] Last Admin: 08/04/18 10:06 Dose: 50 mg Al Hydrox/Mg Hydrox/Simethicone 30 ml/Diphenhydramine HCl 75 mg/Lidocaine 30 ml 0 ml PO Q3H PRN PRN Reason: Mouth/Throat Pain Last Admin: 07/31/18 09:56 Dose: 10 ml Docusate Sodium (Colace) 100 mg PO BID [facility] Last Admin: 08/04/18 17:29 Dose: 100 mg Dorzolamide HCl (Trusopt) 0 ml OD BID [facility]; Protocol Last Admin: 08/04/18 17:31 Dose: 1 drop Emollient Ointment (Vaseline Oint) 0 gm TOP BID [facility] Last Admin: 08/04/18 17:32 Dose: 5 gm Enoxaparin Sodium (Lovenox) 40 mg SC DAILY [facility]; Protocol Last Admin: 08/04/18 10:01 Dose: 40 mg Furosemide (Lasix) 20 mg PO DAILY [facility] Last Admin: 08/04/18 10:01 Dose: 20 mg Home Med (Home Med) 0 unit TOP TID [facility] Last Admin: 08/04/18 17:30 Dose: Not Given Hydrocortisone (Cortizone 2.5% Cream) 0 applic TOP DAILY [facility] Last Admin: 08/04/18 09:59 Dose: 1 applic Lidocaine HCl (Xylocaine 2%) 0 ea TOP TID PRN PRN Reason: Pain, Mild (1-3) Last Admin: 07/28/18 07:06 Dose: 1 applic Loratadine (Claritin) 10 mg PO DAILY [facility] Last Admin: 08/04/18 09:59 Dose: 10 mg Metoprolol Succinate (Toprol Xl) 50 mg PO BRK [facility] Last Admin: 08/04/18 10:02 Dose: 50 mg Mometasone Furoate (Elocon Lotion) 0 ml TOP BID [facility] Last Admin: 08/04/18 17:30 Dose: 1 applic Multivitamins (Thera Tab) 1 tab PO DAILY [facility] Last Admin: 08/04/18 10:02 Dose: 1 tab Mupirocin (Bactroban Ointment) 0 gm TOP BID [facility] Last Admin: 08/04/18 17:29 Dose: 1 applic Nifedipine (Procardia Xl) 30 mg PO DAILY [facility] Last Admin: 08/04/18 10:02 Dose: 30 mg Pantoprazole Sodium (Protonix Ec Tab) 20 mg PO 0600 [facility] Last Admin: 08/04/18 05:52 Dose: 20 mg Polyethylene Glycol (Miralax) 17 gm PO DAILY [facility] Last Admin: 08/04/18 10:01 Dose: 17 gm Prednisone (Prednisone Tab) 10 mg PO DAILY [facility] Last Admin: 08/04/18 10:01 Dose: 10 mg Tamsulosin HCl (Flomax) 0.4 mg PO DAILY [facility] Last Admin: 08/04/18 10:00 Dose: 0.4 mg Tramadol HCl (Ultram) 50 mg PO TID PRN PRN Reason: Pain, moderate (4-7) Last Admin: 08/04/18 10:03 Dose: 50 mg - Labs Labs: 08/04/18 10:05 08/04/18 06:30 - Head Exam Head Exam: ATRAUMATIC, NORMOCEPHALIC - Eye Exam Eye Exam: PERRL - ENT Exam ENT Exam: Mucous Membranes Moist - Neck Exam Neck Exam: Full ROM. absent: Lymphadenopathy - Respiratory Exam Respiratory Exam: NORMAL BREATHING PATTERN. absent: Accessory Muscle Use - Cardiovascular Exam Cardiovascular Exam: REGULAR RHYTHM, +S1, +S2. absent: JVD - GI/Abdominal Exam GI & Abdominal Exam: Soft, Normal Bowel Sounds. absent: Tenderness, Mass Additional comments: Softly distended - Extremities Exam Extremities Exam: Full ROM Assessment and Plan - Assessment and Plan (Free Text) Assessment: Non-small cell carcinoma status post radiation therapy admitted with odynophagia patient's EGD showed some erosions and inflammatory changes in these esophagus clinically improved. Patient did have a rash which is also showing good improvement. Presently complain of abdominal distention and difficulty in bowel movements requested abdominal x-ray. This was reviewed. Stool in the rectal area Will replete edema. The patient remains symptomatic we will consider CT of the abdomen and pelvis with p.o. contrast
[2018-08-05] MEDS: Pantoprazole 20 mg EC Tab PO SCH (05:36)
[2018-08-05] MEDS: Arformoterol 15 mcg/2 ml Inh Sol IH SCH ×2 (08:40→20:06)
--- NOTE | 2018-08-05 08:53 | CP.PCM.PN ---
<Anuel Caldera Kiara - Last Filed: 08/05/18 09:01> Subjective - Date & Time of Evaluation Date of Evaluation: 08/04/18 Time of Evaluation: 08:51 - Subjective Subjective: Heme/onc progress note - Verenice, PGY - 2 Patient seen and examined at bedside. Patient does complain of abdominal distension. Denies any ttp in all four abdominal quadrants. Denies fevers, chills, shortness of breat or chest pain and is otherwise doing well. Objective - Vital Signs/Intake and Output Vital Signs (last 24 hours): Temp Pulse Resp BP Pulse Ox 97.9 F 110 H 20 110/65 99 08/04/18 17:21 08/04/18 17:21 08/04/18 17:21 08/04/18 17:21 08/04/18 17:21 Intake and Output: 08/05/18 08/05/18 06:59 18:59 Intake Total 120 Output Total 500 Balance -380 - Medications Medications: Current Medications Acetaminophen (Tylenol 325mg Tab) 650 mg PO Q6H PRN PRN Reason: Pain, Mild (1-3) Last Admin: 07/25/18 06:05 Dose: 650 mg Al Hydrox/Mg Hydrox/Simethicone (Maalox Plus 30 Ml) 30 ml PO 1200 PRN PRN Reason: Indigestion / Heartburn Last Admin: 07/27/18 18:21 Dose: 30 ml Arformoterol Tartrate (Brovana) 15 mcg IH [id number] [facility] Last Admin: 08/05/18 08:40 Dose: 15 mcg Aspirin (Ecotrin) 81 mg PO DAILY [facility] Last Admin: 08/04/18 10:00 Dose: 81 mg Bicalutamide (Casodex) 50 mg PO DAILY [facility] Last Admin: 08/04/18 10:06 Dose: 50 mg Al Hydrox/Mg Hydrox/Simethicone 30 ml/Diphenhydramine HCl 75 mg/Lidocaine 30 ml 0 ml PO Q3H PRN PRN Reason: Mouth/Throat Pain Last Admin: 07/31/18 09:56 Dose: 10 ml Docusate Sodium (Colace) 100 mg PO BID [facility] Last Admin: 08/04/18 17:29 Dose: 100 mg Dorzolamide HCl (Trusopt) 0 ml OD BID [facility]; Protocol Last Admin: 08/04/18 17:31 Dose: 1 drop Emollient Ointment (Vaseline Oint) 0 gm TOP BID [facility] Last Admin: 08/04/18 17:32 Dose: 5 gm Enoxaparin Sodium (Lovenox) 40 mg SC DAILY [facility]; Protocol Last Admin: 08/04/18 10:01 Dose: 40 mg Furosemide (Lasix) 20 mg PO DAILY [facility] Last Admin: 08/04/18 10:01 Dose: 20 mg Home Med (Home Med) 0 unit TOP TID [facility] Last Admin: 08/04/18 17:30 Dose: Not Given Hydrocortisone (Cortizone 2.5% Cream) 0 applic TOP DAILY [facility] Last Admin: 08/04/18 09:59 Dose: 1 applic Lidocaine HCl (Xylocaine 2%) 0 ea TOP TID PRN PRN Reason: Pain, Mild (1-3) Last Admin: 07/28/18 07:06 Dose: 1 applic Loratadine (Claritin) 10 mg PO DAILY [facility] Last Admin: 08/04/18 09:59 Dose: 10 mg Metoprolol Succinate (Toprol Xl) 50 mg PO BRK [facility] Last Admin: 08/04/18 10:02 Dose: 50 mg Mometasone Furoate (Elocon Lotion) 0 ml TOP BID [facility] Last Admin: 08/04/18 17:30 Dose: 1 applic Multivitamins (Thera Tab) 1 tab PO DAILY [facility] Last Admin: 08/04/18 10:02 Dose: 1 tab Mupirocin (Bactroban Ointment) 0 gm TOP BID [facility] Last Admin: 08/04/18 17:29 Dose: 1 applic Nifedipine (Procardia Xl) 30 mg PO DAILY [facility] Last Admin: 08/04/18 10:02 Dose: 30 mg Pantoprazole Sodium (Protonix Ec Tab) 20 mg PO 0600 [facility] Last Admin: 08/05/18 05:36 Dose: 20 mg Polyethylene Glycol (Miralax) 17 gm PO DAILY [facility] Last Admin: 08/04/18 10:01 Dose: 17 gm Prednisone (Prednisone Tab) 10 mg PO DAILY [facility] Last Admin: 08/04/18 10:01 Dose: 10 mg Tamsulosin HCl (Flomax) 0.4 mg PO DAILY [facility] Last Admin: 08/04/18 10:00 Dose: 0.4 mg Tramadol HCl (Ultram) 50 mg PO TID PRN PRN Reason: Pain, moderate (4-7) Last Admin: 08/04/18 10:03 Dose: 50 mg - Labs Labs: 08/04/18 10:05 08/04/18 06:30 - Constitutional Appears: Well - Head Exam Head Exam: ATRAUMATIC, NORMAL INSPECTION, NORMOCEPHALIC - Eye Exam Eye Exam: EOMI, Normal appearance, PERRL Pupil Exam: NORMAL ACCOMODATION, PERRL - ENT Exam ENT Exam: Mucous Membranes Moist, Normal Exam - Neck Exam Neck Exam: Full ROM, Normal Inspection. absent: Lymphadenopathy - Respiratory Exam Respiratory Exam: Clear to Ausculation Bilateral, NORMAL BREATHING PATTERN - Cardiovascular Exam Cardiovascular Exam: REGULAR RHYTHM, +S1, +S2. absent: Murmur - GI/Abdominal Exam GI & Abdominal Exam: Distended, Soft, Normal Bowel Sounds. absent: Tenderness, Diminished Bowel Sounds - Extremities Exam Extremities Exam: Full ROM, Normal Capillary Refill, Normal Inspection. absent: Joint Swelling, Pedal Edema - Back Exam Back Exam: NORMAL INSPECTION - Neurological Exam Neurological Exam: Alert, Awake, CN II-XII Intact, Normal Gait, Oriented x3 - Psychiatric Exam Psychiatric exam: Normal Affect, Normal Mood - Skin Skin Exam: Dry, Intact, Normal Color, Warm Assessment and Plan - Assessment and Plan (Free Text) Assessment: Acute Constipation - Abd XR Flat Plate shows constipation - Fleet enema; Rash, Likely 2/2 Keflex or Diflucan - Triamcilone at night time - Amlactin application in AM - ID note does not mention any further intervention - Added allergies to chart Acid Reflux chronic - Protonix - Previous upper endoscopy showed esophagitis and candidiasis - Continue to monitor 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 Khalil CAD - Continue home meds - Cardio consultedDamaris HLD - Continue home statin Prostate CA - Continue caodex - Continue flomax Dispo: patient most likely for home tomorrow. Will set up home nursing s ervices. <Malini Khalil P - Last Filed: 08/08/18 00:07> Objective - Vital Signs/Intake and Output Vital Signs (last 24 hours): Temp Pulse Resp BP Pulse Ox 99.0 F 76 18 133/76 99 08/07/18 00:00 08/07/18 00:00 08/07/18 00:00 08/07/18 10:51 08/07/18 00:00 - Labs Labs: 08/04/18 10:05 08/04/18 06:30 Attending/Attestation - Attestation I have personally seen and examined this patient.: Yes I have fully participated in the care of the patient.: Yes I have reviewed all pertinent clinical information, including history, physical exam and plan: Yes
[2018-08-05] MEDS: Mupirocin 2% Ointment 15 GM TUBE TOP SCH ×2 (09:45→17:14)
[2018-08-05] MEDS: ACYCLOVIR 5% TOP SCH ×2 (09:50→15:06)
[2018-08-05] MEDS: Enoxaparin 40 mg Syringe SC SCH (09:50)
[2018-08-05] MEDS: MOMETASONE 0.1% TOP SCH (09:50)
[2018-08-05] MEDS: POLYETHYLENE GLYCOL 3350 17 GM/Dose PACKET PO SCH (09:51)
[2018-08-05] MEDS: NIFEdipine 30 mg ER Tab PO SCH (09:51)
[2018-08-05] MEDS: Dorzolamide 2% Opht Sol 10ml OD SCH (09:52)
[2018-08-05] MEDS: Multivitamin Therapeutic Tab PO SCH (09:52)
[2018-08-05] MEDS: Metoprolol Succinate 50 mg XL Tab PO SCH (09:52)
[2018-08-05] MEDS: Petrolatum Oint Foilpak (5 gm) TOP SCH ×2 (09:53→17:15)
--- NOTE | 2018-08-05 11:39 | PN ---
DATE: 08/05/2018 PULMONARY PROGRESS NOTE REFERRING PHYSICIAN: Dr. Mic Dougherty. SUBJECTIVE: The patient is seen sitting in armchair in room. No acute distress. No overnight events reported. The patient reports that he was given enema last night with positive effects, still has abdominal distention. No abdominal pain reported. Abdominal x-ray was done yesterday and shows no active disease. The patient is being followed by GI. Denies any diarrhea. No headache, rhinitis, cough, shortness of breath, chest pain, abdominal pain, nausea, vomiting, diarrhea, or leg pain reported. OBJECTIVE: GENERAL: No acute distress. VITAL SIGNS: Blood pressure 124/73, pulse 76, temperature 97.6, and oxygen saturation 94%. HEENT: Moist mucous membranes. NECK: Supple. No JVD. LUNGS: Fair airflow bilaterally. Few scattered rhonchi. CARDIOVASCULAR: S1 and S2. ABDOMEN: Distended and nontender. EXTREMITIES: Trace bilateral lower extremity edema. NEUROLOGIC: Awake, alert, and verbal. Following commands. MEDICATIONS: Reviewed. Tylenol 650 every 6 hours p.r.n. mild pain, Maalox 30 mL p.o. daily p.r.n., Magic Mouthwash every 3 hours p.r.n., Brovana 15 mcg inhalation every 12 hours, aspirin 81 mg daily, Casodex 50 mg daily, Colace 100 mg twice a day, Trusopt eyedrops twice a day, Vaseline ointment topically twice a day, Lovenox 40 mg subcutaneous daily, Lasix 20 mg daily, hydrocortisone topically daily to affected area, lidocaine topically three times a day p.r.n., Claritin 10 mg daily, metoprolol succinate 50 mg at breakfast, Elocon lotion topically twice a day, multivitamin 1 tab daily, Bactroban ointment topically twice a day, Procardia XL 30 mg daily, Protonix 20 mg daily, MiraLax 17 g daily, prednisone 10 mg daily, Flomax 0.4 mg daily, and Ultram 50 mg three times a day p.r.n. LABORATORY DATA: Reviewed. Abdominal x-ray; no active disease. 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 The patient has been on steroids and antibiotics, although, no report of diarrhea. We will monitor closely as the patient now having abdominal distention. Abdominal x-ray showed no active disease. Continue Gastroenterology followup. We will order stool for Clostridium difficile to be done. Pulmonary point of view, we will decrease prednisone to 7 mg daily. Continue inhaled bronchodilators, head of bed elevated at 45 degrees, and aspiration precaution. Continue steroids and fall precautions. Recommend the patient have full pulmonary function test to evaluate chronic lung disease. Recommend the patient have sleep study to assess suspected sleep apnea syndrome. The patient was seen and examined with Dr. Dixon. Discussed assessment and plan as described above. The patient was seen and examined with Leandro Salas, nurse practitioner. Discussed assessment and plan as described above. Thank you for this consult. We will follow with you. Maritza Reeves APN Ankur Dixon MD [email or web address]
[2018-08-05] MEDS ORDERED: Iohexol 240 (50 ml) ONE (13:02)
--- NOTE | 2018-08-05 17:54 | CT ---
Date of service: 08/05/2018 PROCEDURE: CT Abdomen and Pelvis with Oral contrast. HISTORY: Abdominal distension COMPARISON: Comparison is made to the previous study dated 06/19/2018 TECHNIQUE: Contiguous axial images of the abdomen and pelvis. Oral contrast was administered. No IV contrast given. Coronal and Sagittal reformats generated. Radiation dose: Total exam DLP = 308.65 mGy-cm. This CT exam was performed using one or more of the following dose reduction techniques: Automated exposure control, adjustment of the mA and/or kV according to patient size, and/or use of iterative reconstruction technique. FINDINGS: LOWER THORAX: Again noted are nodular opacity at the right lung base. There are also reticular opacities in the lower lobes. No evidence of significant pleural effusion. The heart is mildly enlarged. LIVER: Limited evaluation of the upper abdomen solid organs without IV contrast administration. No evidence of discrete mass lesion in the liver. GALLBLADDER AND BILE DUCTS: Unremarkable. PANCREAS: Small size pancreas contains multiple foci of calcification is again noted consistent with chronic pancreatitis. The main pancreatic duct is not dilated. SPLEEN: Unremarkable. No splenomegaly. ADRENALS: Unremarkable. KIDNEYS AND URETERS: The appearance of mild right hydronephrosis and hydroureter since the previous exam. Again noted is mild left hydronephrosis. There is a left ureteral stent in place. BLADDER: Mild urinary bladder wall thickening is noted REPRODUCTIVE: The prostate is normal in size. APPENDIX: No definite evidence of appendicitis. BOWEL: No evidence of bowel obstruction. The assessment is somewhat limited due to motion artifact and high density contrast in the bowel. PERITONEUM: Unremarkable. No fluid collection. No free air. LYMPH NODES: Unremarkable. No enlarged lymph nodes. 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 There is also aneurysmal dilatation of the left common iliac artery. Diffuse atherosclerotic calcification is again noted. BONES: No fracture or destructive lesion. OTHER FINDINGS: None. IMPRESSION: Interval appearance of mild right hydronephrosis and hydroureter since the previous exam. No evidence of other significant interval changes compared to the prior study dated 06/19/2018.
--- NOTE | 2018-08-05 18:02 | CP.PCM.PN ---
Subjective - Date & Time of Evaluation Date of Evaluation: 08/05/18 Time of Evaluation: 17:59 - Subjective Subjective: Heme/onc and Primary progress note - Verenice, PGY - 2 Patient seen and examined at bedside. Patient states that his distension is a l ittle better but states that he has not been passing as much gas and has been having trouble with bowel movements today. Objective - Vital Signs/Intake and Output Vital Signs (last 24 hours): Temp Pulse Resp BP Pulse Ox 97.6 F 84 20 125/74 100 08/05/18 16:20 08/05/18 16:20 08/05/18 16:20 08/05/18 16:20 08/05/18 16:20 Intake and Output: 08/05/18 08/05/18 06:59 18:59 Intake Total 120 Output Total 500 Balance -380 - Medications Medications: Current Medications Acetaminophen (Tylenol 325mg Tab) 650 mg PO Q6H PRN PRN Reason: Pain, Mild (1-3) Last Admin: 07/25/18 06:05 Dose: 650 mg Al Hydrox/Mg Hydrox/Simethicone (Maalox Plus 30 Ml) 30 ml PO 1200 PRN PRN Reason: Indigestion / Heartburn Last Admin: 07/27/18 18:21 Dose: 30 ml Arformoterol Tartrate (Brovana) 15 mcg IH [id number] [facility] Last Admin: 08/05/18 08:40 Dose: 15 mcg Aspirin (Ecotrin) 81 mg PO DAILY [facility] Last Admin: 08/05/18 09:49 Dose: 81 mg Bicalutamide (Casodex) 50 mg PO DAILY [facility] Last Admin: 08/05/18 09:48 Dose: 50 mg Al Hydrox/Mg Hydrox/Simethicone 30 ml/Diphenhydramine HCl 75 mg/Lidocaine 30 ml 0 ml PO Q3H PRN PRN Reason: Mouth/Throat Pain Last Admin: 07/31/18 09:56 Dose: 10 ml Docusate Sodium (Colace) 100 mg PO BID [facility] Last Admin: 08/05/18 17:14 Dose: 100 mg Dorzolamide HCl (Trusopt) 0 ml OD BID [facility]; Protocol Last Admin: 08/05/18 09:52 Dose: 1 drop Emollient Ointment (Vaseline Oint) 0 gm TOP BID [facility] Last Admin: 08/05/18 17:15 Dose: 5 gm Enoxaparin Sodium (Lovenox) 40 mg SC DAILY [facility]; Protocol Last Admin: 08/05/18 09:50 Dose: 40 mg Furosemide (Lasix) 20 mg IVP DAILY [facility] Home Med (Home Med) 0 unit TOP TID [facility] Last Admin: 08/05/18 15:06 Dose: Not Given Hydrocortisone (Cortizone 2.5% Cream) 0 applic TOP DAILY [facility] Last Admin: 08/05/18 09:49 Dose: 20 applic Lidocaine HCl (Xylocaine 2%) 0 ea TOP TID PRN PRN Reason: Pain, Mild (1-3) Last Admin: 07/28/18 07:06 Dose: 1 applic Loratadine (Claritin) 10 mg PO DAILY [facility] Last Admin: 08/05/18 09:48 Dose: 10 mg Metoprolol Succinate (Toprol Xl) 50 mg PO BRK [facility] Last Admin: 08/05/18 09:52 Dose: 50 mg Mometasone Furoate (Elocon Lotion) 0 ml TOP BID [facility] Last Admin: 08/05/18 09:50 Dose: 1 applic Multivitamins (Thera Tab) 1 tab PO DAILY [facility] Last Admin: 08/05/18 09:52 Dose: 1 tab Mupirocin (Bactroban Ointment) 0 gm TOP BID [facility] Last Admin: 08/05/18 17:14 Dose: 1 applic Nifedipine (Procardia Xl) 30 mg PO DAILY [facility] Last Admin: 08/05/18 09:51 Dose: 30 mg Pantoprazole Sodium (Protonix Ec Tab) 20 mg PO 0600 [facility] Last Admin: 08/05/18 05:36 Dose: 20 mg Polyethylene Glycol (Miralax) 17 gm PO DAILY [facility] Last Admin: 08/05/18 09:51 Dose: 17 gm Prednisone (Prednisone Tab) 5 mg PO DAILY [facility] Prednisone (Prednisone Tab) 2 mg PO DAILY [facility] Tamsulosin HCl (Flomax) 0.4 mg PO DAILY [facility] Last Admin: 08/05/18 09:50 Dose: 0.4 mg Tramadol HCl (Ultram) 50 mg PO TID PRN PRN Reason: Pain, moderate (4-7) Last Admin: 08/04/18 10:03 Dose: 50 mg - Labs Labs: 08/04/18 10:05 08/04/18 06:30 - Constitutional Appears: Well - Head Exam Head Exam: ATRAUMATIC, NORMAL INSPECTION, NORMOCEPHALIC - Eye Exam Eye Exam: EOMI, Normal appearance, PERRL Pupil Exam: NORMAL ACCOMODATION, PERRL - ENT Exam ENT Exam: Mucous Membranes Moist, Normal Exam - Neck Exam Neck Exam: Full ROM, Normal Inspection. absent: Lymphadenopathy - Respiratory Exam Respiratory Exam: Clear to Ausculation Bilateral, NORMAL BREATHING PATTERN - Cardiovascular Exam Cardiovascular Exam: REGULAR RHYTHM, +S1, +S2. absent: Murmur - GI/Abdominal Exam GI & Abdominal Exam: Soft, Normal Bowel Sounds. absent: Tenderness - Extremities Exam Extremities Exam: Full ROM, Normal Capillary Refill, Normal Inspection. absent: Joint Swelling, Pedal Edema - Back Exam Back Exam: NORMAL INSPECTION - Neurological Exam Neurological Exam: Alert, Awake, CN II-XII Intact, Normal Gait, Oriented x3 - Psychiatric Exam Psychiatric exam: Normal Affect, Normal Mood - Skin Skin Exam: Dry, Intact, Normal Color, Warm Assessment and Plan - Assessment and Plan (Free Text) Assessment: Acute Constipation - Abd XR Flat Plate shows constipation - Fleet enema was only moderately helpful; will obtain CT Abd/Pelvis Rash, Likely 2/2 Keflex or Diflucan - Triamcilone at night time - Amlactin application in AM - ID note does not mention any further intervention - Added allergies to chart Acid Reflux chronic - Protonix - Previous upper endoscopy showed esophagitis and candidiasis - Continue to monitor 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 Khalil CAD - Continue home meds - Cardio consultedDamaris HLD - Continue home statin Prostate CA - Continue caodex - Continue flomax Dispo: Will monitor patient for today
--- NOTE | 2018-08-05 20:23 | PN ---
DATE: 08/05/2018 SUBJECTIVE: The patient is in bed in no acute distress, nontoxic. PHYSICAL EXAMINATION VITAL SIGNS: Temperature is 97, blood pressure is 120/70, respiratory rate of 20, heart rate of 84. HEENT: Unremarkable. NECK: Supple. LUNGS: Have decreased breath sounds. HEART: Normal S1, S2. ABDOMEN: Soft, nontender. LABORATORY DATA: Reveals a white count of 5.6, hemoglobin of 10. Chemistries are noted. Urinalysis is noted. ASSESSMENT AND PLAN: An 88-year-old male with [id number] lung cancer involving the vertebral metastases and esophagus, chronic obstructive lung disease, hyperlipidemia, hypertension, transitional cell cancer. The patient at this time is off of antibiotics. His rash is improved. The patient had a CT scan of the abdomen and pelvis, no evidence of other significant changes. He has interval appearance of a right hydronephrosis and hydroureter, currently off of antibiotics. The patient is at risk for developing nosocomial infections. Reid Massey MD
[2018-08-06] MEDS: Pantoprazole 20 mg EC Tab PO SCH (05:27)
[2018-08-06] MEDS: Arformoterol 15 mcg/2 ml Inh Sol IH SCH (07:15)
--- NOTE | 2018-08-06 09:28 | PN ---
DATE: 08/06/2018 SUBJECTIVE: The patient is seen in 378, bed 2. No fevers, no chills. No nausea, no vomiting. PHYSICAL EXAMINATION: VITAL SIGNS: Temperature is 98, blood pressure is 112/70, respiratory rate of 16. HEENT: Unremarkable. NECK: Supple. LUNGS: Have decreased breath sounds. HEART: Normal S1, S2. ABDOMEN: Soft, nontender. LABORATORY EXAMINATION: Reveals a white count of 5.6, hemoglobin of 10. Chemistries are noted. BUN of 9, creatinine of 0.8. Pro calcitonin 0.[address] scan of the abdomen and pelvis is noted. ASSESSMENT AND PLAN: This is an 88-year-old male who was seen earlier today in 378, bed 2 with [id number] lung cancer involving the vertebral metastases and the patient with esophagitis, chronic obstructive lung disease, hyperlipidemia, hypertension, transitional cell cancer and currently off of antibiotics, afebrile. The patient is at risk for developing nosocomial infections. Reid Massey MD
[2018-08-06] MEDS: POLYETHYLENE GLYCOL 3350 17 GM/Dose PACKET PO SCH (10:07)
[2018-08-06] MEDS: Petrolatum Oint Foilpak (5 gm) TOP SCH ×2 (10:08→17:41)
[2018-08-06] MEDS: Metoprolol Succinate 50 mg XL Tab PO SCH (10:09)
[2018-08-06] MEDS: NIFEdipine 30 mg ER Tab PO SCH (10:10)
[2018-08-06] MEDS: Multivitamin Therapeutic Tab PO SCH (10:10)
[2018-08-06] MEDS: Enoxaparin 40 mg Syringe SC SCH (10:10)
[2018-08-06] MEDS: MOMETASONE 0.1% TOP SCH ×2 (10:12→17:42)
[2018-08-06] MEDS: ACYCLOVIR 5% TOP SCH ×3 (10:13→17:43)
[2018-08-06] MEDS: Dorzolamide 2% Opht Sol 10ml OD SCH ×2 (10:14→17:43)
--- NOTE | 2018-08-06 10:39 | PN ---
DATE: 08/06/2018 Mr. Juan Cabrera's hospital visit on the medical floor. For Dr. Khalil. SUBJECTIVE: The patient is an 88-year-old male seen sitting up in bed. Now reporting abdominal fullness with pedal edema with his rash, improved. The dressings on his arms. The patient now reporting he has not been ambulated since admission, despite recommendation is to do so. The patient has been only out of bed to the chair with transverse to the bathroom and to bed. We will adjust this with recommendations for physiotherapy to be done twice a day of strengthening ambulation with assist in anticipation of hopefully discharge tomorrow as possible. CT scan of the abdomen and pelvis is done yesterday with results following with the patient's lower extremities to be brittany-wrapped with Lasix to be given IV versus p.o. while he was still hospitalized. Otherwise he is without complaint. OBJECTIVE/PHYSICAL EXAMINATION: VITAL SIGNS: Temperature 98.3, pulse 66, respirations 18, blood pressure 119/63 and pulse ox 94%. HEENT: Unremarkable. NECK: Supple. HEART: Regular rate. LUNGS: Clear. ABDOMEN: Soft. Vague minimal tenderness to general palpations. EXTREMITIES: Trace +1 edema bilaterally, right greater than left. NEUROLOGIC: Awake and alert. SKIN: Relatively clear compared to previous visits with his rash almost completely gone with dressings on his arms. LABORATORY DATA: The patient's labs were done 2 days ago with white blood cell count of 5.6, hemoglobin 10.2, hematocrit 32 and platelets 189,000. With a metabolic panel showing a total protein is 5.2 otherwise normal metabolic panel. The patient did have a flat plate of his abdomen done 2 days prior, it was read as no active disease. No obstruction, pancreatic calcifications. His CT scan of the abdomen done yesterday with oral contrast as per Dr. Luu's recommendation showed interval appearance of mild right hydronephrosis and hydroureter as previously exam. No evidence or other significant change compared to prior study of 06/19, in particular no evidence of bowel obstruction due to motion artifact. of the distal abdominal aorta 3.5 cm with diffuse atherosclerotic calcification noted with mild urinary bladder wall thickening, left ureteral stent in place with a mild right hydronephrosis and hydroureter with again left mild hydronephrosis with a mild opacity at the right lung base. No evidence of significant pleural effusion. 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 PLAN: For this patient, after conversation with Dr. Khalil is to continue his present medical regimen for a physiotherapy evaluation twice a day for strengthening and ambulation with assist with discharge planning in effect with anticipated discharge home tomorrow if possible as per consultants recommendation. This is a complex patient with comprehensive medically necessary and appropriate visit carried out in excess of 25 minutes with the patient's questions answered to his satisfaction. Mic Dougherty MD
[2018-08-06] MEDS: Mupirocin 2% Ointment 15 GM TUBE TOP SCH ×2 (10:52→17:41)
[2018-08-06 16:58] VITALS: O2SAT 99
--- NOTE | 2018-08-06 23:12 | CP.PCM.PN ---
Subjective - Date & Time of Evaluation Date of Evaluation: 08/06/18 Time of Evaluation: 14:45 - Subjective Subjective: Patient with his bowels tolerating diet abdominal distention has come down Objective - Vital Signs/Intake and Output Vital Signs (last 24 hours): Temp Pulse Resp BP Pulse Ox 97.5 F L 60 20 118/70 99 08/06/18 16:57 08/06/18 16:57 08/06/18 16:57 08/06/18 16:57 08/06/18 16:57 Intake and Output: 08/06/18 08/07/18 18:59 06:59 Intake Total 980 Balance 980 - Medications Medications: Current Medications Acetaminophen (Tylenol 325mg Tab) 650 mg PO Q6H PRN PRN Reason: Pain, Mild (1-3) Last Admin: 07/25/18 06:05 Dose: 650 mg Al Hydrox/Mg Hydrox/Simethicone (Maalox Plus 30 Ml) 30 ml PO 1200 PRN PRN Reason: Indigestion / Heartburn Last Admin: 07/27/18 18:21 Dose: 30 ml Arformoterol Tartrate (Brovana) 15 mcg IH [id number] [facility] Last Admin: 08/06/18 07:15 Dose: 15 mcg Aspirin (Ecotrin) 81 mg PO DAILY [facility] Last Admin: 08/06/18 10:08 Dose: 81 mg Bicalutamide (Casodex) 50 mg PO DAILY [facility] Last Admin: 08/06/18 10:07 Dose: 50 mg Al Hydrox/Mg Hydrox/Simethicone 30 ml/Diphenhydramine HCl 75 mg/Lidocaine 30 ml 0 ml PO Q3H PRN PRN Reason: Mouth/Throat Pain Last Admin: 07/31/18 09:56 Dose: 10 ml Docusate Sodium (Colace) 100 mg PO BID [facility] Last Admin: 08/06/18 17:41 Dose: 100 mg Dorzolamide HCl (Trusopt) 0 ml OD BID [facility]; Protocol Last Admin: 08/06/18 17:43 Dose: 1 drop Emollient Ointment (Vaseline Oint) 0 gm TOP BID [facility] Last Admin: 08/06/18 17:41 Dose: 5 gm Enoxaparin Sodium (Lovenox) 40 mg SC DAILY [facility]; Protocol Last Admin: 08/06/18 10:10 Dose: 40 mg Furosemide (Lasix) 20 mg IVP DAILY [facility] Last Admin: 08/06/18 10:07 Dose: 20 mg Home Med (Home Med) 0 unit TOP TID [facility] Last Admin: 08/06/18 17:43 Dose: Not Given Hydrocortisone (Cortizone 2.5% Cream) 0 applic TOP DAILY [facility] Last Admin: 08/06/18 10:11 Dose: 20 applic Lidocaine HCl (Xylocaine 2%) 0 ea TOP TID PRN PRN Reason: Pain, Mild (1-3) Last Admin: 07/28/18 07:06 Dose: 1 applic Loratadine (Claritin) 10 mg PO DAILY [facility] Last Admin: 08/06/18 10:10 Dose: 10 mg Metoprolol Succinate (Toprol Xl) 50 mg PO BRK [facility] Last Admin: 08/06/18 10:09 Dose: 50 mg Mometasone Furoate (Elocon Lotion) 0 ml TOP BID [facility] Last Admin: 08/06/18 17:42 Dose: Not Given Multivitamins (Thera Tab) 1 tab PO DAILY [facility] Last Admin: 08/06/18 10:10 Dose: 1 tab Mupirocin (Bactroban Ointment) 0 gm TOP BID [facility] Last Admin: 08/06/18 17:41 Dose: 1 applic Nifedipine (Procardia Xl) 30 mg PO DAILY [facility] Last Admin: 08/06/18 10:10 Dose: 30 mg Pantoprazole Sodium (Protonix Ec Tab) 20 mg PO 0600 [facility] Last Admin: 08/06/18 05:27 Dose: 20 mg Polyethylene Glycol (Miralax) 17 gm PO DAILY [facility] Last Admin: 08/06/18 10:07 Dose: 17 gm Prednisone (Prednisone Tab) 5 mg PO DAILY [facility] Last Admin: 08/06/18 10:09 Dose: 5 mg Prednisone (Prednisone Tab) 2 mg PO DAILY [facility] Last Admin: 08/06/18 10:54 Dose: 2 mg Tamsulosin HCl (Flomax) 0.4 mg PO DAILY [facility] Last Admin: 08/06/18 10:08 Dose: 0.4 mg Tramadol HCl (Ultram) 50 mg PO TID PRN PRN Reason: Pain, moderate (4-7) Last Admin: 08/04/18 10:03 Dose: 50 mg - Labs Labs: 08/04/18 10:05 08/04/18 06:30 - Head Exam Head Exam: ATRAUMATIC, NORMOCEPHALIC - Eye Exam Eye Exam: EOMI. absent: Scleral icterus - ENT Exam ENT Exam: Mucous Membranes Moist - Respiratory Exam Respiratory Exam: NORMAL BREATHING PATTERN. absent: Accessory Muscle Use, Wheezes, Respiratory Distress - Cardiovascular Exam Cardiovascular Exam: +S1, +S2. absent: JVD - GI/Abdominal Exam GI & Abdominal Exam: Normal Bowel Sounds. absent: Soft, Tenderness, Mass - Neurological Exam Neurological Exam: Alert, Awake, Oriented x3 Assessment and Plan - Assessment and Plan (Free Text) Assessment: This patient was seen and evaluated earlier. Tolerating diet no complaints has bowel movements now abdominal distention has decreased non-small cell carcinoma status post radiation therapy odynophagia improved constipation abdominal distention CT reviewed continue stool softeners MiraLAX We will sign off please reconsult as needed Thank you very much for allowing us to participate in the care of the patient
[2018-08-07 00:13] VITALS: PULSE 76; RESP 18; TEMP 99
--- NOTE | 2018-08-07 00:59 | PN ---
DATE: 08/06/2018 PULMONARY PROGRESS NOTE REFERRING PHYSICIAN: SUBJECTIVE: He is sitting at the side of the bed. is at bedside. Night was unremarkable. Feels better. Decreased skin itchiness. Not much cough. No nausea, no vomiting, no diarrhea. OBJECTIVE: GENERAL: No acute distress. VITAL SIGNS: Temperature is 98, heart rate is 60, respiratory rate is 20, blood pressure is 118/70, pulse ox is 99% on nasal cannula. HEENT: Moist mucous membranes. No ulcer or thrush. NECK: Supple. No JVD. LUNGS: Fair airflow with rhonchi. HEART: S1 and S2. ABDOMEN: Soft, nontender, nondistended. EXTREMITIES: Trace edema. NEUROLOGIC: Awake and alert. Follows simple command. MEDICATIONS: He is on Brovana 15 mcg every 12 hours, Casodex 50 mg daily, Claritin 10 mg daily, Colace 100 mg twice a day, Ecotrin 81 mg daily, Elocon lotion to the affected area, Flomax 0.4 mg daily, Lasix 20 mg daily, Lovenox 40 mg subcu daily, MiraLax 17 g daily, prednisone mg daily, Procardia XL 30 mg daily, multivitamin daily, Ultram 50 mg every 8 hours p.r.n., Vaseline to the affected areas, Xylocaine 2% to the affected areas. LABORATORY DATA: Reviewed. No new lab is available since yesterday. Sputum had Klebsiella species. DIAGNOSTIC DATA: He had a CT of the abdomen done yesterday, which shows interval appearance of the mild right hydronephrosis and hydroureter. Since the previous exam, no evidence of further significant interval changes. IMPRESSION AND PLAN: Zkn-[id number] lung cancer with metastatic disease to vertebra involving T10, status post radiation therapy; chronic obstructive lung disease; pulmonary hypertension; transitional cell carcinoma of the bladder; hyperlipidemia; hypertension; cardiac diastolic dysfunction; esophagitis; resolved maculopapular rash, probably allergic reaction to Keflex. From pulmonary point of view, he is doing well. Continue tapering dose of steroids, inhaled bronchodilator. May discontinue intravenous Lasix, start p.o. Lasix 40 mg daily. Gastric prophylaxis, deep venous thrombosis prophylaxis. Out of bed to chair. Physical therapy. Discharge planning. Being followed by Infectious Diseases. Thank you and we will follow with you. Ankur Dixon MD [facility] # [id number]
[2018-08-07] MEDS: Pantoprazole 20 mg EC Tab PO SCH (05:17)
[2018-08-07] MEDS: Arformoterol 15 mcg/2 ml Inh Sol IH SCH (07:36)
[2018-08-07] MEDS: Mupirocin 2% Ointment 15 GM TUBE TOP SCH (10:48)
[2018-08-07] MEDS: Petrolatum Oint Foilpak (5 gm) TOP SCH (10:49)
[2018-08-07] MEDS: Enoxaparin 40 mg Syringe SC SCH (10:49)
[2018-08-07] MEDS: NIFEdipine 30 mg ER Tab PO SCH (10:50)
[2018-08-07] MEDS: Metoprolol Succinate 50 mg XL Tab PO SCH (10:50)
[2018-08-07] MEDS: POLYETHYLENE GLYCOL 3350 17 GM/Dose PACKET PO SCH (10:50)
[2018-08-07] MEDS: Multivitamin Therapeutic Tab PO SCH (10:51)
[2018-08-07] MEDS: Dorzolamide 2% Opht Sol 10ml OD SCH (10:51)
[2018-08-07] MEDS: MOMETASONE 0.1% TOP SCH (10:52)
[2018-08-07] MEDS: ACYCLOVIR 5% TOP SCH (10:52)
[2018-08-07 10:53] VITALS: BP 133/76
--- NOTE | 2018-08-07 14:32 | PN ---
DATE: 08/07/2018 SUBJECTIVE: The patient is in bed in no acute distress, nontoxic. PHYSICAL EXAMINATION: VITAL SIGNS: Temperature is 99, blood pressure is 97/50, respiratory rate of 18. HEENT: Unremarkable. NECK: Supple. LUNGS: Have decreased breath sounds. HEART: Normal S1, S2. ABDOMEN: Soft. LABORATORY DATA: Reveals the patient's white count of 5.6, hemoglobin of 10, BUN of 19, creatinine of 0.8. Urinalysis is noted. Microbiology reveals there is Klebsiella in the sputum. Review of orders reveal the patient is off of antibiotics. The patient is on prednisone. ASSESSMENT AND PLAN: An 88-year-old male who was seen earlier today, the patient with a history of kel-[id number] lung cancer involving the vertebral metastases. The patient also with esophagitis and chronic obstructive lung disease, hyperlipidemia, hypertension, transitional cell cancer. Did have a reaction to Keflex and rashes, resolved. The patient is off of antibiotics and is at risk for developing nosocomial infections. Reid Massey MD
--- NOTE | 2018-08-08 08:55 | DS ---
For Dr. Khalil, SUBJECTIVE: The patient is an 88-year-old male sitting up in the chair with his daughter at the bedside anxious for discharge home after ambulating with family and nursing staff and having his legs YEISON wrapped for his slight pedal edema. Otherwise the patient is without complaint today, reporting that he is swallowing well, with no further abdominal discomfort at this time. He has been hospitalized for his non-small cell CA of the lung with bony metastasis status post radiation with systemic inflammatory response syndrome, now is improved to the point of discharge today. PHYSICAL EXAMINATION: VITAL SIGNS: Temperature of 99, pulse of 76, respirations 18, blood pressure of 133/76 and pulse ox 99%. HEENT: Unremarkable, tongue is moist. NECK: Supple. HEART: Regular rate. LUNGS: Rare rhonchi. ABDOMEN: Soft, scaphoid and nontender. EXTREMITIES: Muscle wasting noted. Faint +1 edema in the feet. NEUROLOGIC: Awake and alert. SKIN: Warm and dry with dressings on his forearms with significant improvement of his maculopapular rash. LABORATORY DATA: The patient's labs from two days prior were reviewed. The patient did have a CT scan of his abdomen and pelvis done 2 days prior, showing interval appearance of mild right hydronephrosis and hydroureter since previous exam, no evidence of other changes, specifically no obstruction. 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 PLAN: After conversation with Dr. Khalil is to continue his present medical regimen with discharge medications to include Flomax, simvastatin, Lasix 20 mg p.o., Pulmicort along with Bacitracin to open wounds, Procardia, Protonix, MiraLax p.r.n., Flomax, prednisone 5 mg daily, multivitamin, Claritin, hydrocortisone cream p.r.n., dorzolamide eye drops, Colace p.r.n., Casodex, aspirin, and Maalox. Plan for this patient is to continue present medical regimen as above with the patient to follow up in the office with Dr. East in approximately 1 week's time or earlier with the medications called in as needed for his continuing care. The complex patient with comprehensive medically necessary and appropriate visit carried out in excess 45 minutes with the patient and his family member's questions answered to their satisfaction. Mic Dougherty MD
== END 2018-08-07 13:05 | disposition home health service (06) | DRG 607 ==
LOC: ED 17:06 → ERH 18:54 → 3RSO 20:27 → OBSVTOIN 20:36 → 3RSO 07-27 09:19
PROVIDERS: ADMIT Family Medicine; ATTEND Family Medicine
PROC: 0HBEXZX Excision of Left Lower Arm Skin, External Approach, Diagnostic (ICD-10-PCS; principal; 2018-07-27)
DX: L27.0 Generalized skin eruption due to drugs and medicaments taken internally (principal); T28.1XXA Burn of esophagus, initial encounter; C34.90 Malignant neoplasm of unspecified part of unspecified bronchus or lung; C79.51 Secondary malignant neoplasm of bone; L03.313 Cellulitis of chest wall; B37.81 Candidal esophagitis; R65.10 Systemic inflammatory response syndrome (SIRS) of non-infectious origin without acute organ dysfunction; K86.1 Other chronic pancreatitis; N13.30 Unspecified hydronephrosis; R47.01 Aphasia; L59.8 Other specified disorders of the skin and subcutaneous tissue related to radiation; L25.9 Unspecified contact dermatitis, unspecified cause; I25.10 Atherosclerotic heart disease of native coronary artery without angina pectoris; I10 Essential (primary) hypertension; I27.20 Pulmonary hypertension, unspecified; Y84.2 Radiological procedure and radiotherapy as the cause of abnormal reaction of the patient, or of later complication, without mention of misadventure at the time of the procedure; Z85.46 Personal history of malignant neoplasm of prostate; Z87.891 Personal history of nicotine dependence; Z85.528 Personal history of other malignant neoplasm of kidney; Z92.3 Personal history of irradiation; K20.8 Other esophagitis; B35.1 Tinea unguium; L89.159 Pressure ulcer of sacral region, unspecified stage; D64.9 Anemia, unspecified; E78.00 Pure hypercholesterolemia, unspecified; E78.5 Hyperlipidemia, unspecified; H40.9 Unspecified glaucoma; J43.9 Emphysema, unspecified; K21.9 Gastro-esophageal reflux disease without esophagitis; K59.00 Constipation, unspecified; T36.1X5A Adverse effect of cephalosporins and other beta-lactam antibiotics, initial encounter; Z79.899 Other long term (current) drug therapy; Z85.51 Personal history of malignant neoplasm of bladder; Z87.01 Personal history of pneumonia (recurrent); Z88.1 Allergy status to other antibiotic agents; Z95.5 Presence of coronary angioplasty implant and graft; Z96.642 Presence of left artificial hip joint